=== PATIENT | male | born 1935 | race Caucasian/White ===

== ENCOUNTER 2017-01-07 23:29 | Emergency (ER) | payer OTHER ==
[~2017-01-07 23:29] MED LIST: ATOR40TA PO; FERR325T PO; GABA300C3 PO; IPRA17I INH; PROBCAP28 PO; ST JTAB PO; SYMB160A INH; TAB-TAB PO; WARF2.5T40 PO; WARF5TAB PO; Z.0.OXYGEN INH
--- NOTE | 2017-01-07 23:44 | PD ---
HPI Chief Complaint: nausea, vomiting Time Seen by Provider: 23:39 Travel History International Travel<30 days: No Contact w/Intl Traveler<30days: No Traveled to known affect area: No History of Present Illness HPI 81-year-old male brought in by ambulance from home for evaluation of nausea, vomiting, and diarrhea. Symptoms of been going on for last 5-6 hours. The patient's girlfriend at home has been sick with these symptoms for the last week. Emesis has been bilious, nonbloody. He is denying abdominal pain, chest pain, or dyspnea. He is having some generalized weakness. PFSH Past Medical History Hx Anticoagulant Therapy: Yes (COUMADIN) Asthma: Yes Cancer: No Cardiac Catheterization: Yes Cardiovascular Problems: Yes ([place] (2008)/ STENT, PE HX (2014)) High Cholesterol: Yes Chest Pain: Yes (2007) COPD: Yes Cerebrovascular Accident: Yes Coronary Artery Disease: Yes Diabetes: No (PRE) Diminished Hearing: No Endocrine: No GERD: Yes Genitourinary: No Hepatitis: No Hiatal Hernia: No Hypertension: Yes Immune Disorder: No Implanted Vascular Access Dvce: Yes Kidney Stones: Yes Musculoskeletal: No Neurologic: Yes (TIA) Psychiatric: Yes (EXTREME CLAUSTRAPHOBIA) Reproductive: No Respiratory: Yes (COPD, HEMOPTYSIS) Sleep Apnea: Yes (USES BIPAP MACHINE) Thyroid Disease: No Past Surgical History Abdominal Surgery: Yes (CHOLECYSTECTOMY, APPY/ COLON RESECT (POLYPECTOMY)) AICD: No Appendectomy: Yes Body Medical Devices: CARDIAC STENT Cardiac Surgery: Yes (STENT 2007) Cholecystectomy: Yes (1980) Coronary Stent: Yes Joint Replacement: No Pacemaker: No Other Surgery: Yes (GALLBLADDER 1980) Social History Alcohol Use: No Tobacco Use: No (QUIT DECEMBER 2014) Substance Use: No Allergies-Medications (Allergen,Severity, Reaction): Coded Allergies: No Known Allergies (Verified , 08/08/15) Reported Meds & Prescriptions Reported Meds & Active Scripts Active Active Prescriptions or Reported Medications Unobtainable Review of Systems Except as stated in HPI: all other systems reviewed are Neg Physical Exam Narrative GENERAL: Well-developed, well-nourished, awake, alert, no acute distress. SKIN: Warm and dry. No rash. HEAD: Atraumatic. Normocephalic. EYES: Pupils equal and round. No scleral icterus. No injection or drainage. ENT: Mucous membranes pink and dry. NECK: Trachea midline. No JVD. CARDIOVASCULAR: Regular rate and rhythm. RESPIRATORY: No accessory muscle use. Clear to auscultation. Breath sounds equal bilaterally. GASTROINTESTINAL: Abdomen soft, nondistended. Mild diffuse tenderness without peritoneal signs. MUSCULOSKELETAL: No obvious deformities. No clubbing. No cyanosis. No edema. NEUROLOGICAL: Awake and alert. No obvious cranial nerve deficits. Motor grossly within normal limits. Normal speech. PSYCHIATRIC: Appropriate mood and affect; insight and judgment normal. Data Data Last Documented VS Vital Signs Date Time Temp Pulse Resp B/P Pulse Ox O2 Delivery O2 Flow Rate FiO2 01/08/17 00:10 99.7 103 16 106/53 96 Orders Complete Blood Count With Diff (01/07/17 23:42) Comprehensive Metabolic Panel (01/07/17 23:42) Lipase (01/07/17 23:42) Prothrombin Time / Inr (Pt) (01/07/17 23:42) Act Partial Throm Time (Ptt) (01/07/17 23:42) Urinalysis - C+S If Indicated (01/07/17 23:42) Ct Abd/Pel W Iv Contrast(Rout) (01/07/17 23:42) Iv Access Insert/Monitor (01/07/17 23:42) Ecg Monitoring (01/07/17 23:42) Oximetry (01/07/17 23:42) Ondansetron Inj (Zofran Inj) (01/07/17 23:45) Sodium Chloride 0.9% Flush (Ns Flush) (01/07/17 23:45) Electrocardiogram (01/07/17 23:42) Influenzae A/B Antigen (01/07/17 23:42) Iohexol 350 Inj (Omnipaque 350 Inj) (01/08/17 00:59) Labs Laboratory Tests Test 01/07/17 01/07/17 23:55 23:56 Urine Color YELLOW Urine Turbidity CLEAR Urine pH 5.0 Urine Specific [place] 1.012 Urine Protein TRACE mg/dL Urine Glucose (UA) NEG mg/dL Urine Ketones NEG mg/dL Urine Occult Blood SMALL Urine Nitrite NEG Urine Bilirubin NEG Urine Urobilinogen LESS THAN 2.0 MG/DL Urine Leukocyte Esterase NEG Urine RBC 1 /hpf Urine WBC LESS THAN 1 /hpf Urine Mucus FEW /lpf Microscopic Urinalysis Comment CULT NOT INDICATED White Blood Count 15.2 TH/MM3 Red Blood Count 4.50 MIL/MM3 Hemoglobin 13.3 GM/DL Hematocrit 39.2 % Mean Corpuscular Volume 87.0 FL Mean Corpuscular Hemoglobin 29.5 PG Mean Corpuscular Hemoglobin 33.9 % Concent Red Cell Distribution Width 14.4 % Platelet Count 147 TH/MM3 Mean Platelet Volume 8.3 FL Neutrophils (%) (Auto) 82.3 % Lymphocytes (%) (Auto) 14.3 % Monocytes (%) (Auto) 2.5 % Eosinophils (%) (Auto) 0.1 % Basophils (%) (Auto) 0.8 % Neutrophils # (Auto) 12.6 TH/MM3 Lymphocytes # (Auto) 2.2 TH/MM3 Monocytes # (Auto) 0.4 TH/MM3 Eosinophils # (Auto) 0.0 TH/MM3 Basophils # (Auto) 0.1 TH/MM3 CBC Comment DIFF FINAL Differential Comment Prothrombin Time 10.9 SEC Prothromb Time International 1.0 RATIO Ratio Activated Partial 21.1 SEC Thromboplast Time Sodium Level 140 MEQ/L Potassium Level 4.1 MEQ/L Chloride Level 105 MEQ/L Carbon Dioxide Level 26.5 MEQ/L Anion Gap 9 MEQ/L Blood Urea Nitrogen 15 MG/DL Creatinine 1.34 MG/DL Estimat Glomerular Filtration 51 ML/MIN Rate Random Glucose 134 MG/DL Calcium Level 8.4 MG/DL Total Bilirubin 1.0 MG/DL Aspartate Amino Transf 16 U/L (AST/SGOT) Alanine Aminotransferase 18 U/L (ALT/SGPT) Alkaline Phosphatase 75 U/L Total Protein 6.4 GM/DL Albumin 3.9 GM/DL Lipase 49 U/L [facility] Medical Decision Making Medical Screen Exam Complete: Yes Emergency Medical Condition: Yes Medical Record Reviewed: Yes Differential Diagnosis Viral illness, gastroenteritis, intra-abdominal infectious process, bowel obstruction, dehydration, metabolic abnormality Narrative Course Initial vital signs show heart rate 103, blood pressure 106/53, pulse ox 96% on room air, oral temp of 99.7F. CBC shows WBC 15.2, hemoglobin 13.3, hematocrit 39.2, platelets 147, neutrophils 82.3%. CMP is remarkable for creatinine 1.24, GFR 51, random glucose 134, otherwise unremarkable. UA shows small occult blood, not suggestive of UTI. Influenza is negative. CT abdomen pelvis: CONCLUSION: 1. There has been a significant increase in size of numerous para-aortic lymph nodes when compared to prior CT February 2015. These lymph nodes measure up to 3 cm in size. 2. No dilated loops of small or large bowel. Patient was made aware of all findings. He is resting comfortably. He was made aware of periaortic lymphadenopathy which she states he has been told he has had in the past. He has not had any vomiting in the emergency department. His abdominal exam is benign. He is awake and alert. He is stable for discharge home with outpatient follow-up with his primary care physician this week. He was informed on when to return to the emergency department. He verbalizes understanding and agreement with plan. Diagnosis Primary Impression: Gastroenteritis Referrals: Primary Care Physician 3 days Additional Instructions: Follow-up with your primary care physician this week. Stay hydrated with plenty of fluids. Return to the emergency department for worsening symptoms or any other concerns. Scripts Ondansetron Odt (Zofran Odt)4 Mg Tab4 Mg SL Q8HR PRN (Nausea/Vomiting) #15 TAB Ref 0 Prov:Darius Payne MD 01/08/17 Disposition: 01 DISCHARGE HOME Condition: Stable Darius Payne MD Jan 07, 2017 23:44
[2017-01-07] MEDS ORDERED: SODIUM CHLORIDE 0.9% FLUSH 5 ML FLUSH IVF PRN (23:45)
[2017-01-07] MEDS ORDERED: ONDANSETRON HCL 4 MG/2 ML VIAL IVP ONE (23:45)
[2017-01-08 00:10] VITALS: BP 106/53; PULSE 103; RESP 16; TEMP 99.7; O2SAT 96
[2017-01-08 00:15] LABS: AUTOMATED NEUTROPHIL # 12.6 TH/MM3 (1.8-7.7); BASOPHIL # 0.1 TH/MM3 (0-0.2); BASOPHIL % 0.8 % (0.0-2.0); EOSINOPHIL % 0.1 % (0.0-4.0); HEMATOCRIT 39.2 % (39.0-51.0); HEMO FLAGS DIFF FINAL; LYMPH % 14.3 % (9.0-44.0); LYMPHOCYTE # 2.2 TH/MM3 (1.0-4.8); MEAN CORPUSCULAR HEMOGLOBIN 29.5 PG (27.0-34.0); MEAN CORPUSCULAR HGB CONC 33.9 % (32.0-36.0); MONO % 2.5 % (0.0-8.0); NEUT % 82.3 % (16.0-70.0); PLATELET COUNT 147 TH/MM3 (150-450); RED CELL DISTRIBUTION WIDTH 14.4 % (11.6-17.2); WHITE BLOOD COUNT 15.2 TH/MM3 (4.0-11.0)
[2017-01-08 00:25] LABS: APTT (PATIENT) 21.1 SEC (24.3-30.1); PROTHROMBIN TIME - PATIENT 10.9 SEC (9.8-11.6)
[2017-01-08 00:45] LABS: BLOOD, URINE SMALL (NEG); COMMENT (UR) CULT NOT INDICATED; CULTURE IF INDICATED CULT NOT INDICATED; GLUCOSE,URINE NEG (NEG); KETONE, URINE NEG (NEG); MUCUS URINE FEW /lpf (OCC); NITRITE,URINE NEG (NEG); URINE COLOR YELLOW (YELLW/STRAW)
[2017-01-08 00:45] LABS: ALT (GPT) 18 U/L (12-78); ANION GAP 9 MEQ/L (5-15); AST (GOT) 16 U/L (15-37); BICARBONATE 26.5 MEQ/L (21.0-32.0); BLOOD UREA NITROGEN 15 MG/DL (7-18); CHLORIDE 105 MEQ/L (98-107); GLOMERULAR FILTRATION RATE 51 ML/MIN (>89); POTASSIUM 4.1 MEQ/L (3.5-5.1); SODIUM (NA) 140 MEQ/L (136-145)
[2017-01-08 00:48] LABS: ALKALINE PHOSPHATASE 75 U/L (45-117)
[2017-01-08] MEDS ORDERED: IOHEXOL 350 MG/ML 10 ML VIAL (for RAD DIAG) IV ONE (00:59)
--- NOTE | 2017-01-08 01:29 | RADRPT ---
EXAM DATE/TIME: 01/08/2017 00:59 [facility] COMPARISON: CT PULMONARY ANGIOGRAM, July 04, 2015, 18:24. CT ABDOMEN & PELVIS W/O CONTRAST, March 11, 2015, 1 4:54. INDICATIONS : Abdominal pain and nausea. IV CONTRAST: 97 cc Omnipaque 350 (iohexol) IV ORAL CONTRAST: No oral contrast ingested. RADIATION DOSE: 21.64 CTDIvol (mGy) MEDICAL HISTORY : Cardiovascular disease. Myocardial infarction. Chronic obstructive pulmonary disease.CVA, hypertensio n, Asthma SURGICAL HISTORY : Cholecystectomy. Appendectomy.Colon resection. ENCOUNTER: Initial ACUITY: 1 day PAIN SCALE: 6/10 LOCATION: abdomen TECHNIQUE: Volumetric scanning of the abdomen and pelvis was performed. Using automated exposure control and ad justment of the mA and/or kV according to patient size, radiation dose was kept as low as reasonably achievable to obtain optimal diagnostic quality images. FINDINGS: LOWER LUNGS: Crowding of bronchopulmonary markings in the lower lungs characteristic of submaximal inspiration. LIVER: Homogeneous density without lesion. There is no dilation of the biliary tree. Numerous hemoclips in the fidencio from prior cholecystectomy.. SPLEEN: Normal size without lesion. PANCREAS: Atrophic, stable in appearance. KIDNEYS: Normal in size and shape. There is no mass, stone or hydronephrosis. ADRENAL GLANDS: Within normal limits. VASCULAR: There is no aortic aneurysm. BOWEL/MESENTERY: No dilated loops of small or large bowel. Several small diverticula in sigmoid colon, similar to jalen or. No radiographic evidence of diverticulitis. ABDOMINAL WALL: Within normal limits. RETROPERITONEUM: Numerous moderately enlarged periaortic lymph nodes have increased in size when compared to prior CT in February 2015. The largest lymph nodes are located anterior to the aorta, measuring up to 2.8 cm (this lymph node measured 1.5 cm on the prior CT). BLADDER: No wall thickening or mass. Small right-sided diverticulum stable from prior exam. REPRODUCTIVE: Within normal limits. INGUINAL: Multiple right inguinal lymph nodes measuring up to 10 mm, stable in appearance and size when compare d to prior CT February 2015. MUSCULOSKELETAL: Within normal limits for patient age. CONCLUSION: 1. There has been a significant increase in size of numerous para-aortic lymph nodes when compared to prior CT February 2015. These lymph nodes measure up to 3 cm in size. 2. No dilated loops of small or large bowel. Kana Wilson MD on January 08, 2017 at 1:19 Board Certified Radiologist. This report was verified electronically.
[2017-01-08] MEDS ORDERED: ZOFR4TAB3 SL (01:44)
[2017-01-08] MEDS ORDERED: GABA300C5 PO (12:05)
[2017-01-08] MEDS ORDERED: ASPI-147 PO (12:05)
[2017-01-08] MEDS ORDERED: SYMB160A INH (12:05)
[2017-01-08] MEDS ORDERED: IPRAAER INH (12:05)
[2017-01-08] MEDS ORDERED: ALPR.5 PO (12:05)
[2017-01-08] MEDS ORDERED: LACTCAP8 PO (12:08)
[2017-01-08] MEDS ORDERED: MULT-135 PO (12:08)
--- NOTE | 2017-01-08 17:38 | EKG ---
Date Performed: 01/08/2017 Time Performed: 00:30:47 PTAGE: 81 years EKG: SINUS TACHYCARDIA LEFT BUNDLE BRANCH BLOCK BORDERLINE [place] INTERVAL SINCE 07/04/2015, THE LBBB PATTERN IS NEW. ABNORMAL ECG PREVIOUS TRACING : 07/04/2015 16.03 DOCTOR: Joni Peres Interpretating Date/Time 01/10/2017 07:54:56
== END 2017-01-08 04:19 | disposition home or self-care (01) ==
LOC: NEPE 23:29
DX: K52.9 Noninfective gastroenteritis and colitis, unspecified (principal); J45.909 Unspecified asthma, uncomplicated; E78.00 Pure hypercholesterolemia, unspecified; J44.9 Chronic obstructive pulmonary disease, unspecified; I10 Essential (primary) hypertension; Z79.01 Long term (current) use of anticoagulants
CPT/HCPCS: 74177; 80053; 81001; 83690; 85025; 85610; 85730; 87804; 93005; 96374; J2405; Q9967

== ENCOUNTER 2017-01-08 08:11 | Inpatient (IN) | payer OTHER, MEDICARE ==
[~2017-01-08] VITALS: Ht 182.9 cm; Wt 114.3 kg
[2017-01-08] VITALS (21 sets, daily range): BP systolic 90–154; BP diastolic 35–87; PULSE 74–128; RESP 16–24; TEMP 97.6–98; O2SAT 85–100
[~2017-01-08 08:11] MED LIST changes: +ZOFR4TAB3 SL
[2017-01-08] MEDS ORDERED: SODIUM CHLOR 0.9% 1000 ML INJ 1,000 ML IV ONE ×3 (08:42→15:43)
[2017-01-08] MEDS ORDERED: SODIUM CHLORIDE 0.9% FLUSH 5 ML FLUSH IVF PRN (08:45)
--- NOTE | 2017-01-08 08:46 | PD ---
HPI Chief Complaint: Fall Time Seen by Provider: 08:42 Travel History International Travel<30 days: No Contact w/Intl Traveler<30days: No Traveled to known affect area: No History of Present Illness HPI 81-year-old male with history of multiple medical issues, seen last night for gastritis, was released to the home, but returns brought in by EMS because patient states that he was so weak he went down to the ground and could not get back up. He still complains of nausea and vomiting. He denies any chest pains , shortness of breath, or any injuries. He denies any head injury or loss of consciousness. Modifying Factors: None Associated Signs & Symptoms: General weakness, nausea and vomiting Risk Factors: None PFSH Past Medical History Hx Anticoagulant Therapy: Yes (COUMADIN) Asthma: Yes Cancer: No Cardiac Catheterization: Yes Cardiovascular Problems: Yes ([place] (2008)/ STENT, PE HX (2014)) High Cholesterol: Yes Chest Pain: Yes (2007) COPD: Yes Cerebrovascular Accident: Yes Coronary Artery Disease: Yes Diminished Hearing: No Endocrine: No GERD: Yes Genitourinary: No Hepatitis: No Hiatal Hernia: No Hypertension: Yes (TRANSIENTLY) Immune Disorder: No Implanted Vascular Access Dvce: Yes Kidney Stones: Yes Musculoskeletal: No Neurologic: Yes (TIA) Psychiatric: Yes (EXTREME CLAUSTRAPHOBIA) Reproductive: No Respiratory: Yes (COPD, HEMOPTYSIS) Immunizations Current: Yes Sleep Apnea: Yes (USES BIPAP MACHINE) Thyroid Disease: No Past Surgical History Abdominal Surgery: Yes (CHOLECYSTECTOMY, APPY/ COLON RESECT (POLYPECTOMY)) AICD: No Appendectomy: Yes Body Medical Devices: CARDIAC STENT Cardiac Surgery: Yes (STENT 2007) Cholecystectomy: Yes (1980) Coronary Stent: Yes Joint Replacement: No Pacemaker: No Other Surgery: Yes (GALLBLADDER 1980) Social History Alcohol Use: No Tobacco Use: No (QUIT DECEMBER 2014) Substance Use: No Allergies-Medications (Allergen,Severity, Reaction): Coded Allergies: No Known Allergies (Verified , 08/08/15) Reported Meds & Prescriptions Reported Meds & Active Scripts Active Zofran Odt (Ondansetron Odt) 4 Mg Tab 4 Mg SL Q8HR PRN Review of Systems Except as stated in HPI: all other systems reviewed are Neg Physical Exam Narrative GENERAL: Well-developed tired appearing elderly white male in mild distress. Awake, oriented 3. SKIN: Warm and dry. HEAD: Atraumatic. Normocephalic. EYES: Pupils equal and round. No scleral icterus. No injection or drainage. ENT: No nasal bleeding or discharge. Mucous membranes pink and moist. NECK: Trachea midline. No JVD. CARDIOVASCULAR: Regular rate and rhythm. No murmur appreciated. RESPIRATORY: No accessory muscle use. Clear to auscultation. Breath sounds equal bilaterally. GASTROINTESTINAL: Abdomen soft, non-tender, nondistended. Hepatic and splenic margins not palpable. MUSCULOSKELETAL: No obvious deformities. No clubbing. No cyanosis. No edema. NEUROLOGICAL: Awake and alert. No obvious cranial nerve deficits. Motor grossly within normal limits. Normal speech. PSYCHIATRIC: Appropriate mood and affect; insight and judgment normal. Data Data Last Documented VS Vital Signs Date Time Temp Pulse Resp B/P Pulse Ox O2 Delivery O2 Flow Rate FiO2 01/08/17 09:13 98 22 111/57 96 Nasal Cannula 4 01/08/17 08:11 98.0 Orders Electrocardiogram (01/08/17 ) Complete Blood Count With Diff (01/08/17 08:42) Comprehensive Metabolic Panel (01/08/17 08:42) Magnesium (Mg) (01/08/17 08:42) Urinalysis - C+S If Indicated (01/08/17 08:42) Chest, Single Ap (01/08/17 08:42) Ecg Monitoring (01/08/17 08:42) Iv Access Insert/Monitor (01/08/17 08:42) Oximetry (01/08/17 08:42) Sodium Chloride 0.9% Flush (Ns Flush) (01/08/17 08:45) Sodium Chlor 0.9% 1000 Ml Inj (Ns 1000 M (01/08/17 08:42) Blood Culture (01/08/17 09:22) Lactic Acid Sepsis Protocol (01/08/17 09:22) Piperacil-Tazo 4.5 Gm Premix (Zosyn 4.5 (01/08/17 09:22) Azithromycin Inj (Zithromax Inj) (01/08/17 09:45) Admit To Inpatient (01/08/17 ) Inpatient Certification (01/08/17 ) Diet Heart Healthy (01/08/17 Lunch) Activity Bed Rest (01/08/17 10:24) Vital Signs (Adult) NICO.Q4H (01/08/17 10:24) Labs Laboratory Tests Test 01/08/17 08:45 White Blood Count 20.2 TH/MM3 Red Blood Count 4.46 MIL/MM3 Hemoglobin 13.1 GM/DL Hematocrit 39.3 % Mean Corpuscular Volume 88.2 FL Mean Corpuscular Hemoglobin 29.4 PG Mean Corpuscular Hemoglobin 33.3 % Concent Red Cell Distribution Width 14.6 % Platelet Count 162 TH/MM3 Mean Platelet Volume 9.1 FL Neutrophils (%) (Auto) 80.0 % Lymphocytes (%) (Auto) 12.9 % Monocytes (%) (Auto) 6.9 % Eosinophils (%) (Auto) 0.0 % Basophils (%) (Auto) 0.2 % Neutrophils # (Auto) 16.2 TH/MM3 Lymphocytes # (Auto) 2.6 TH/MM3 Monocytes # (Auto) 1.4 TH/MM3 Eosinophils # (Auto) 0.0 TH/MM3 Basophils # (Auto) 0.0 TH/MM3 CBC Comment AUTO DIFF Differential Total Cells 100 Counted Neutrophils % (Manual) 65 % Band Neutrophils % 18 % Lymphocytes % 11 % Monocytes % 6 % Neutrophils # (Manual) 16.8 TH/MM3 Differential Comment FINAL DIFF MANUAL Platelet Estimate NORMAL Platelet Morphology Comment NORMAL Red Cell Morphology Comment NORMAL Sodium Level 140 MEQ/L Potassium Level 3.9 MEQ/L Chloride Level 105 MEQ/L Carbon Dioxide Level 22.7 MEQ/L Anion Gap 12 MEQ/L Blood Urea Nitrogen 20 MG/DL Creatinine 1.93 MG/DL Estimat Glomerular Filtration 34 ML/MIN Rate Random Glucose 101 MG/DL Calcium Level 8.6 MG/DL Magnesium Level 1.4 MG/DL Total Bilirubin 1.2 MG/DL Aspartate Amino Transf 19 U/L (AST/SGOT) Alanine Aminotransferase 17 U/L (ALT/SGPT) Alkaline Phosphatase 64 U/L Total Protein 6.2 GM/DL Albumin 3.5 GM/DL [facility] Medical Decision Making Medical Screen Exam Complete: Yes Emergency Medical Condition: Yes Medical Record Reviewed: Yes Interpretation(s) Laboratory Tests Test 01/08/17 08:45 White Blood Count 20.2 TH/MM3 (4.0-11.0) Red Blood Count 4.46 MIL/MM3 (4.50-5.90) Neutrophils (%) (Auto) 80.0 % (16.0-70.0) Neutrophils # (Auto) 16.2 TH/MM3 (1.8-7.7) Monocytes # (Auto) 1.4 TH/MM3 (0-0.9) Band Neutrophils % 18 % (0-6) Neutrophils # (Manual) 16.8 TH/MM3 (1.8-7.7) Blood Urea Nitrogen 20 MG/DL (7-18) Creatinine 1.93 MG/DL (0.60-1.30) Estimat Glomerular Filtration 34 ML/MIN (>89) Rate Magnesium Level 1.4 MG/DL (1.5-2.5) Total Bilirubin 1.2 MG/DL (0.2-1.0) Total Protein 6.2 GM/DL (6.4-8.2) Differential Diagnosis General weaknessdehydration versus metabolic issues versus worsening sepsis Narrative Course Chest x-ray indicative of pneumonia. Patient is septic. IV access were initiated after cultures are drawn. My plan would be to admit the patient for further treatment. Sepsis Criteria SIRS Criteria (2 or more): Heart rate over 90, WBC > 94677, < 4000 or > 10% bands Sepsis Criteria (SIRS+source): Infect source susp/known Diagnosis Primary Impression: Pneumonia Additional Impression: Sepsis Admitting Information Admitting Physician Requests: Admit Kaylyn Grace MD Jan 08, 2017 08:46
--- NOTE | 2017-01-08 09:19 | RADRPT ---
EXAM DATE/TIME: 01/08/2017 08:45 [facility] COMPARISON: CHEST SINGLE AP, August 11, 2015, 11:52. INDICATIONS : Palpitations, vomitting. MEDICAL HISTORY : None. SURGICAL HISTORY : None. ENCOUNTER: Initial ACUITY: 1 day PAIN SCORE: 0/10 LOCATION: Bilateral chest FINDINGS: The heart size is normal. There is increased density throughout the right upper lung. There is a unde rlying interstitial prominence throughout the rest of the lungs. The Interstitial prominence is stabl e. CONCLUSION: Right upper lobe consolidation likely representing pneumonia. Aspiration could have this appearance. There is underlying chronic interstitial prominence. Bar Arias MD on January 08, 2017 at 9:16 Board Certified Radiologist. This report was verified electronically.
[2017-01-08 09:20] LABS: AUTOMATED NEUTROPHIL # 16.2 TH/MM3 (1.8-7.7); BASOPHIL % 0.2 % (0.0-2.0); HEMATOCRIT 39.3 % (39.0-51.0); LYMPH % 12.9 % (9.0-44.0); LYMPHOCYTE # 2.6 TH/MM3 (1.0-4.8); MEAN CELL VOLUME 88.2 FL (80.0-100.0); MEAN CORPUSCULAR HEMOGLOBIN 29.4 PG (27.0-34.0); MEAN CORPUSCULAR HGB CONC 33.3 % (32.0-36.0); MONO % 6.9 % (0.0-8.0); PLATELET COUNT 162 TH/MM3 (150-450); RED BLOOD COUNT 4.46 MIL/MM3 (4.50-5.90); RED CELL DISTRIBUTION WIDTH 14.6 % (11.6-17.2); WHITE BLOOD COUNT 20.2 TH/MM3 (4.0-11.0)
[2017-01-08 09:21] LABS: HEMO FLAGS AUTO DIFF
[2017-01-08] MEDS ORDERED: PIPERACIL-TAZO 4.5 GM PREMIX 100 ML IV STA (09:22)
[2017-01-08 09:37] LABS: ANION GAP 12 MEQ/L (5-15); AST (GOT) 19 U/L (15-37); BICARBONATE 22.7 MEQ/L (21.0-32.0); BLOOD UREA NITROGEN 20 MG/DL (7-18); CHLORIDE 105 MEQ/L (98-107); GLOMERULAR FILTRATION RATE 34 ML/MIN (>89); MAGNESIUM 1.4 MG/DL (1.5-2.5); POTASSIUM 3.9 MEQ/L (3.5-5.1); SODIUM (NA) 140 MEQ/L (136-145)
[2017-01-08 09:40] LABS: ALKALINE PHOSPHATASE 64 U/L (45-117); ALT (GPT) 17 U/L (12-78); TOTAL BILIRUBIN ADULT 1.2 MG/DL (0.2-1.0)
[2017-01-08] MEDS ORDERED: AZITHROMYCIN INJ 500 MG in SODIUM CHLOR 0.9% 250 ML INJ 250 ML IV ONE (09:45)
[2017-01-08 10:00] LABS: BANDS 18 % (0-6); NEUTROPHIL # MANUAL DIFF 16.8 TH/MM3 (1.8-7.7); POLYS (SEG NEUTROPHILS) 65 % (16-70); WBC DIFF SAMPLE 100
[2017-01-08 10:01] LABS: PLATELET ESTIMATE SMEAR NORMAL (NORMAL); PLATELET MORPHOLOGY NORMAL (NORMAL); SCAN/DIFF FINAL DIFF MANUAL
[2017-01-08] MEDS ORDERED: SODIUM CHLOR 0.9% 1000 ML INJ 1,000 ML IV SCH ×2 (11:00→15:43)
[2017-01-08 11:59] LABS: LACTIC ACID GHOST NOT REPORTABLE
[2017-01-08] MEDS ORDERED: GABA300C5 PO (12:05)
[2017-01-08] MEDS ORDERED: SYMB160A INH (12:05)
[2017-01-08] MEDS ORDERED: ASPI-147 PO (12:05)
[2017-01-08] MEDS ORDERED: IPRAAER INH (12:05)
[2017-01-08] MEDS ORDERED: ALPR.5 PO (12:05)
[2017-01-08] MEDS ORDERED: MULT-135 PO (12:08)
[2017-01-08] MEDS ORDERED: LACTCAP8 PO (12:08)
[2017-01-08 14:48] LABS: BACTERIA, URINE OCC /hpf; BLOOD, URINE SMALL (NEG); GLUCOSE,URINE NEG (NEG); HYALINE CAST, URINE 1 /lpf (RARE); KETONE, URINE NEG (NEG); NITRITE,URINE NEG (NEG); PH, URINE 5.5 (5.0-8.5); SQUAMOUS EPITHELIAL CELL URINE <1 /hpf (0-5); URINE COLOR YELLOW (YELLW/STRAW)
[2017-01-08 14:49] LABS: COMMENT (UR) CULT NOT INDICATED; CULTURE IF INDICATED CULT NOT INDICATED
[2017-01-08] MEDS ORDERED: CHLORHEXIDINE GLUCONATE 2 % 1 PACK (2 CLOTHS) TOP PRN (15:45)
[2017-01-08] MEDS ORDERED: ALPRAZolam 0.5 MG TAB PO PRN (15:45)
[2017-01-08] MEDS ORDERED: SODIUM CHLORIDE 0.9% FLUSH 5 ML FLUSH IV FLUSH PRN (15:45)
[2017-01-08] MEDS ORDERED: CALCIUM CARBONATE 500 MG CHEWABLE TAB CHEW PRN (15:45)
[2017-01-08] MEDS ORDERED: LORazepam 2 MG/ML VIAL IV PUSH PRN (15:45)
[2017-01-08] MEDS ORDERED: ACETAMINOPHEN 325 MG TAB PO PRN (15:45)
[2017-01-08] MEDS ORDERED: MISCELLANEOUS NURSING INFORMATION XX SCH (15:45)
[2017-01-08] MEDS ORDERED: DOCUSATE SODIUM 50 MG/SENNA 8.6 MG TAB PO PRN (15:45)
[2017-01-08] MEDS ORDERED: MAGNESIUM SULFATE 1 GM PREMIX 100 ML IV ONE (16:00)
[2017-01-08] MEDS: RESP: ALBUTEROL 2.5 MG/IPRATROPIUM 0.5 MG NEB (SCH) NEB ×2 (16:04→20:26)
--- NOTE | 2017-01-08 16:07 | HHI.HP ---
[facility] Primary Care Physician Unknown Admission Diagnosis pneumonia/sepsis Diagnoses: Chief Complaint: Dizziness Travel History International Travel<30 Days: No Contact w/Intl Traveler <30 Da: No Traveled to Known Affected Are: No Sepsis Criteria SIRS Criteria (2 or more): Heart rate over 90, RR > 20 or PaCO2 < 32, WBC > 01235, < 4000 or > 10% bands Sepsis Criteria (SIRS+source): Infect source susp/known Severe Sepsis (+one): Lactate >2, Acute Oliguria/Renal Failure Septic Shock Criteria: Lactic acid >=4 Criteria Outcome: Meets SIRS criteria, Meets sepsis criteria, Meets severe sepsis criteria, Meets septic shock criteria History of Present Illness This is a 81-year-old male with a history of COPD, CVA, coronary artery disease status post stent in 2008, PE in 2015 status post Coumadin therapy, obstructive sleep apnea on C Pap, hyperlipidemia, hypertension and GERD. He returns to the emergency department because of dizziness. He was seen in the [place] emergency department yesterday because of dizziness, weakness, nausea and vomiting which started 3 days ago and was diagnosed with gastroenteritis underwent CT of the abdomen pelvis with contrast and sent home. He also reports of intermittent fever, chills, nonproductive cough and dyspnea on exertion. He also has lower back pain. He also noted that his urine has been concentrated. In the emergency department, Chest x-ray shows pneumonia, lactic acid was 6.1 and received 2 L IV fluid bolus, IV Zithromax and Zosyn. Repeat lactic acid is 6.2. He only put out 150 ml urine. Case discussed with ER staff and critical care medicine Review of Systems Constitutional: COMPLAINS OF: Fatigue, Fever, Chills, Dizziness, DENIES: Diaphoretic episodes, Weight gain, Weight loss, Change in appetite, Night Sweats Endocrine: DENIES: Heat/cold intolerance, Polydipsia, Polyuria, Polyphagia Eyes: DENIES: Blurred vision, Diplopia, Vision loss, Photosensitivity Ears, nose, mouth, throat: DENIES: Tinnitus, Vertigo, Throat pain, Hoarseness, Epistaxis, Odynophagia Respiratory: COMPLAINS OF: Cough, Shortness of breath, DENIES: Wheezing, Hemoptysis, Sputum production Cardiovascular: COMPLAINS OF: Dyspnea on Exertion, DENIES: Chest pain, Palpitations, Syncope, PND, Lower Extremity Edema, Orthopnea, Claudication Gastrointestinal: DENIES: Abdominal pain, Black stools, Bloody stools, Constipation, Diarrhea, Nausea, Vomiting, Difficulty Swallowing, Anorexia Genitourinary: DENIES: Urinary frequency, Urinary incontinence, Urgency, Hematuria, Dysuria, Nocturia, Penile Discharge Musculoskeletal: COMPLAINS OF: Back pain Integumentary: DENIES: Rash Neurologic: DENIES: Headache, Localized weakness, Seizures, Tremor, Poor Balance Psychiatric: DENIES: Anxiety, Confusion, Depression, Hallucinations, Agitation , Suicidal Ideation, Homicidal Ideation, Delusions Past Family Social History Past Medical History As previously mentioned Past Surgical History Cholecystectomy, appendectomy, polypectomy, cardiac stent Reported Medications Zofran, Symbicort, gabapentin, probiotic, Xanax, albuterol, multivitamins and aspirin Allergies: Coded Allergies: No Known Allergies (Verified , 08/08/15) Family History No heart disease Social History Does not drink. Quit tobacco. Physical Exam Vital Signs Vital Signs Date Time Temp Pulse Resp B/P Pulse Ox O2 Delivery O2 Flow Rate FiO2 01/08/17 15:00 95 22 148/87 94 Nasal Cannula 4 01/08/17 14:00 97 24 92 Nasal Cannula 4 01/08/17 12:00 98 20 108/52 98 Nasal Cannula 4 01/08/17 09:13 98 22 111/57 96 Nasal Cannula 4 01/08/17 08:44 24 87 Room Air 01/08/17 08:15 100 24 90 Room Air 01/08/17 08:11 98.0 100 24 103/59 87 Physical Exam GENERAL: This is a well-nourished, well-developed patient who is critically ill on 6 L nasal cannula SKIN: No rashes, ecchymoses or lesions. Cool and dry. HEAD: Atraumatic. Normocephalic. No temporal or scalp tenderness. EYES: Pupils equal round and reactive. Extraocular motions intact. No scleral icterus. No injection or drainage. ENT: Nose without bleeding, purulent drainage or septal hematoma. Throat without erythema, tonsillar hypertrophy or exudate. Uvula midline. Airway patent. NECK: Trachea midline. No JVD or lymphadenopathy. Supple, nontender, no meningeal signs. CARDIOVASCULAR: Regular rate and rhythm without murmurs, gallops, or rubs. RESPIRATORY: Decreased Breath sounds equal bilaterally. No wheezes, rales, or rhonchi. GASTROINTESTINAL: Abdomen soft, slightly tender epigastric, nondistended. No guarding. MUSCULOSKELETAL: Extremities without clubbing, cyanosis, or edema. No joint tenderness, effusion, or edema noted. No calf tenderness. Negative Homans sign bilaterally. NEUROLOGICAL: Awake and alert. Cranial nerves II through XII intact. Motor and sensory grossly within normal limits. Five out of 5 muscle strength in all muscle groups. Normal speech. Laboratory Laboratory Tests Test 01/08/17 01/08/17 01/08/17 08:45 09:45 14:30 White Blood Count 20.2 Red Blood Count 4.46 Hemoglobin 13.1 Hematocrit 39.3 Mean Corpuscular Volume 88.2 Mean Corpuscular Hemoglobin 29.4 Mean Corpuscular Hemoglobin 33.3 Concent Red Cell Distribution Width 14.6 Platelet Count 162 Mean Platelet Volume 9.1 Neutrophils (%) (Auto) 80.0 Lymphocytes (%) (Auto) 12.9 Monocytes (%) (Auto) 6.9 Eosinophils (%) (Auto) 0.0 Basophils (%) (Auto) 0.2 Neutrophils # (Auto) 16.2 Lymphocytes # (Auto) 2.6 Monocytes # (Auto) 1.4 Eosinophils # (Auto) 0.0 Basophils # (Auto) 0.0 CBC Comment AUTO DIFF Differential Total Cells 100 Counted Neutrophils % (Manual) 65 Band Neutrophils % 18 Lymphocytes % 11 Monocytes % 6 Neutrophils # (Manual) 16.8 Differential Comment FINAL DIFF MANUAL Platelet Estimate NORMAL Platelet Morphology Comment NORMAL Red Cell Morphology Comment NORMAL Sodium Level 140 Potassium Level 3.9 Chloride Level 105 Carbon Dioxide Level 22.7 Anion Gap 12 Blood Urea Nitrogen 20 Creatinine 1.93 Estimat Glomerular Filtration 34 Rate Random Glucose 101 Calcium Level 8.6 Magnesium Level 1.4 Total Bilirubin 1.2 Aspartate Amino Transf 19 (AST/SGOT) Alanine Aminotransferase 17 (ALT/SGPT) Alkaline Phosphatase 64 Total Protein 6.2 Albumin 3.5 Lactic Acid Level 6.1 6.2 Urine Color YELLOW Urine Turbidity CLEAR Urine pH 5.5 Urine Specific [place] 1.050 Urine Protein 30 Urine Glucose (UA) NEG Urine Ketones NEG Urine Occult Blood SMALL Urine Nitrite NEG Urine Bilirubin NEG Urine Urobilinogen LESS THAN 2.0 Urine Leukocyte Esterase NEG Urine RBC 2 Urine WBC 3 Urine Squamous Epithelial <1 Cells Urine Bacteria OCC Urine Hyaline Casts 1 Microscopic Urinalysis Comment CULT NOT INDICATED Date/Time Procedure Status Source Growth 01/08/17 09:45 Aerobic Blood Culture Received Blood Peripheral Pending 01/08/17 09:45 Anaerobic Blood Culture Received Blood Peripheral Pending Result Diagram: 01/08/17 0845 01/08/17 0845 Imaging EKG tracing interpreted by me with left bundle branch block Chest x-ray image interpreted by me with right upper lobe consolidation Assessment and Plan Problem List: (1) Sepsis ICD Code: A41.9 Status: Acute (2) Pneumonia ICD Code: J18.9 Status: Acute (3) COPD (chronic obstructive pulmonary disease) ICD Code: J44.9 Status: Acute Assessment and Plan Septic shock. Lactic acid 6.2. We'll continue IV fluid bolus with additional 2 L, a total of 4 L and repeat lactic acid. Patient will be transferred to ICU for close monitoring Pneumonia. Obtain influenza screen, sputum culture, urinary Legionella and pneumococcal antigen and follow-up cultures. Continue IV Zosyn and Zithromax COPD exacerbation. Obtain ABG, start scheduled nebulizations and IV steroids Acute kidney injury secondary to above and dehydration. Patient also received contrast. Urinalysis without casts. Obtain bladder scan and insert Woodward catheter if patient has urinary retention. Avoid nephrotoxins Prominent para-aortic lymph nodes which the patient had in the past. Outpatient follow-up LBBB probably new. Patient denies chest pain. Chronic medical conditions of CVA, coronary Artery disease status post stent in 2008, PE in 2014 status post Coumadin therapy, obstructive sleep apnea on C Pap, hyperlipidemia, hypertension and GERD. Continue outpatient medications as appropriate DVT prophylaxis with SCD and subcutaneous heparin Pt is critically ill and will be monitored in the ICU. Hi likelihood of decompensation resulting to acute resp failure requiring intubation and hemodynamic collapse needing vasopressors. Critical time spent 40 mins Code Status Full Discussed Condition With pt, ER staff and CCM Physician Certification 2 Midnight Certification Type: Admission for Inpatient Services Order for Inpatient Services The services are ordered in accordance with Medicare regulations or non- Medicare payer requirements, as applicable. In the case of services not specified as inpatient-only, they are appropriately provided as inpatient services in accordance with the 2-midnight benchmark. Estimated LOS (days): 2 days is the estimated time the patient will need to remain in the hospital, assuming treatment plan goals are met and no additional complications. Post-Hospital Plan: Not yet determined Navarro Peña MD Jan 08, 2017 16:06
[2017-01-08] MEDS: methylPREDNISolone SOD SUCC 40 MG/1 ML VIAL IV SCH (16:08)
[2017-01-08 16:13] LABS: BLOOD GAS BASE EXCESS -5.7 mmol/L (-2-2); BLOOD GAS CARBOXYHEMOGLOBIN 1.3 % (0-4); BLOOD GAS HCO3 19 mmol/L (22-26); BLOOD GAS METHEMOGLOBIN 0.6 % (0-2); BLOOD GAS O2 HGB SATURATION 89 % (90-100); BLOOD GAS OXYGEN CONTENT 14.3 Vol % (12.0-20.0); BLOOD GAS PCO2 33 mmHg (38-42); BLOOD GAS PO2 58 mmHG (61-120); BLOOD GAS TOTAL HGB 11.4 G/DL (12.0-16.0); CRITICAL VALUE YES; DRAW SITE LT RADIAL; LITER FLOW 6 L/M; NUMBER OF ARTERIAL PUNCTURES 2; OXYGEN DEVICE NASAL CANNULA; STAT YES; TEMP CORR TO 98.6; ULNAR PULSE PRESENT
[2017-01-08] MEDS: PIPERACIL-TAZO 4.5 GM PREMIX 100 ML IV SCH ×2 (16:13→22:52)
[2017-01-08] MEDS ORDERED: SUCCINYLCHOLINE CHLORIDE 200 MG/10 ML VIAL ONE (16:57)
[2017-01-08] MEDS ORDERED: MIDAZOLAM HCL 5 MG/ML VIAL (1 ML) ONE ×2 (16:57→16:58)
[2017-01-08] MEDS ORDERED: PROPOFOL 1000 MG/100 ML INJ 100 ML ONE (17:24)
[2017-01-08] MEDS ORDERED: NOREPINEPHRINE 4 MG/4 ML AMP ONE (17:38)
--- NOTE | 2017-01-08 17:38 | EKG ---
Date Performed: 01/08/2017 Time Performed: 08:31:01 PTAGE: 81 years EKG: Sinus rhythm WITH BORDERLINE MD INTERVAL LEFT BUNDLE BRANCH BLOCK Compared to prior tracing no significant change ABNORMAL ECG PREVIOUS TRACING : 01/08/2017 00.30 DOCTOR: Joni Peres Interpretating Date/Time 01/08/2017 17:37:04
[2017-01-08] MEDS ORDERED: RESP: ALBUTEROL 2.5 MG/IPRATROPIUM 0.5 MG NEB (PRN) INH (17:45)
[2017-01-08] MEDS ORDERED: MAGNESIUM OXIDE 400 MG TAB PO PRN (17:45)
[2017-01-08] MEDS ORDERED: POTASSIUM CHLOR 20 MEQ PREMIX 100 ML IV PRN ×2 (17:45)
[2017-01-08] MEDS ORDERED: POTASSIUM CHLOR 40 MEQ PREMIX 100 ML IV PRN ×2 (17:45)
[2017-01-08] MEDS ORDERED: POTASSIUM PHOSPHATE INJ 30 MMOL in SODIUM CHLOR 0.9% 250 ML INJ 250 ML IV PRN (17:45)
[2017-01-08] MEDS ORDERED: SODIUM PHOSPHATE INJ 30 MMOL in SODIUM CHLOR 0.9% 250 ML INJ 240 ML IV PRN (17:45)
[2017-01-08] MEDS ORDERED: POTASSIUM PHOSPHATE MONOBASIC 500 MG TAB PO PRN (17:45)
[2017-01-08] MEDS ORDERED: DEXTROSE 50% IN WATER 50 ML VIAL(D50) IV PUSH PRN (17:45)
[2017-01-08] MEDS ORDERED: MAGNESIUM SULFATE INJ 4 GM in SODIUM CHLORIDE 0.9% INJ 92 ML IV PRN (17:45)
[2017-01-08] MEDS ORDERED: MAGNESIUM SULFATE INJ 2 GM in SODIUM CHLORIDE 0.9% INJ 96 ML IV PRN (17:45)
[2017-01-08] MEDS ORDERED: POTASSIUM PHOSPHATE MONOBASIC 500 MG TAB PO/TUBE PRN (17:45)
[2017-01-08] MEDS: LACTOBACILLUS ACIDOPHILUS TAB PO SCH (18:00)
[2017-01-08] MEDS: INSULIN NovoLIN REGULAR SUPPLEMENTAL SCALE SQ SCH (18:00)
[2017-01-08] MEDS ORDERED: SODIUM BICARBONATE 8.4% INJ 50 ML ONE (18:11)
[2017-01-08] MEDS ORDERED: SODIUM BICARBONATE 8.4% INJ 50 MEQ/50 ML SYR ONE ×2 (18:12→19:57)
[2017-01-08] MEDS: HEPARIN SODIUM - SQ 10,000 UNITS/ML VIAL SQ SCH (18:17)
[2017-01-08 18:20] LABS: BLOOD GAS BASE EXCESS -12.1 mmol/L (-2-2); BLOOD GAS CARBOXYHEMOGLOBIN 0.7 % (0-4); BLOOD GAS HCO3 16 mmol/L (22-26); BLOOD GAS METHEMOGLOBIN 0.7 % (0-2); BLOOD GAS O2 HGB SATURATION 92 % (90-100); BLOOD GAS OXYGEN CONTENT 15.8 Vol % (12.0-20.0); BLOOD GAS PCO2 51 mmHg (38-42); BLOOD GAS PO2 83 mmHG (61-120); BLOOD GAS TOTAL HGB 12.2 G/DL (12.0-16.0); TEMP CORR TO 98.6
[2017-01-08 18:21] LABS: CRITICAL VALUE YES; DRAW SITE ART LINE; FIO2 100 %; OXYGEN DEVICE VENTILATOR; STAT YES; ULNAR PULSE PRESENT; VENT SETTINGS PRVC/AC
--- NOTE | 2017-01-08 18:37 | PD.CONS ---
[facility] Service Critical Care Medicine Consult Requested By Dr. Peña Reason for Consult hypoxemia Primary Care Physician Unknown History of Present Illness 81yM with h/o COPD and prior PE who presented yesterday with history of nausea/ vomiting and was worked up including negative CT abd/pelvis with IV contrast. He returned this morning due to dizziness. At that time he had a lactate of 6, wbc 20k, and cxr demonstrating RUL pneumonia. he was given zosyn and 4L IVF. Repeat lactate demonstrated persistent lactic acidosis of 6. Also, after 6 hours, his uop was < 200cc. A castro catheter was inserted. his Cr was also elevated at 1.9. At this point, he became acutely hypoxemic and agitated. I was called and immediately went down to evaluate the patient. When I walked in , he was agitated and pulling off his NRB mask. He did not have a reliable spo2 monitor waveform and an abg was drawn with a po2 of 50. Decision was made to pursue emergent intubation (see separate procedure note for details). After intubation, the patient became hypotensive requiring vasopressor therapy and additional fluid boluses were given. Due to his impending cardiovascular collapse, a STAT echo was ordered which demonstrated hyperdynamic biventricular function, moderate pulmonary hypertension, and very collapsable IVC. He was given an additional 2L IVF and 2 amps bicarbonate for pH 7.11 on repeat abg with severe metabolic acidosis with BE -12. He was started on norepinephrine and vasopressin. He was transported to the medical ICU in critical condition. Review of Systems ROS Limitations: Clinical Condition, Altered Mental Status Past Family Social History Allergies: Coded Allergies: No Known Allergies (Verified , 08/08/15) Past Medical History Patient is unable to provide secondary to severe respiratory distress. Per chart review: COPD CVA coronary artery disease status post stent in 2008 PE in 2014 status post Coumadin therapy obstructive sleep apnea on C Pap hyperlipidemia hypertension GERD Past Surgical History Patient is unable to provide secondary to severe respiratory distress. Per chart review: Cholecystectomy appendectomy polypectomy cardiac stent Reported Medications Patient is unable to provide secondary to severe respiratory distress. Per chart review: Zofran Symbicort gabapentin probiotic Xanax albuterol multivitamins aspirin Active Ordered Medications See MAR Family History Patient is unable to provide secondary to severe respiratory distress. Per chart review: No heart disease Social History Patient is unable to provide secondary to severe respiratory distress. Per chart review: Does not drink. Quit tobacco. Physical Exam Vital Signs Vital Signs Date Time Temp Pulse Resp B/P Pulse Ox O2 Delivery O2 Flow Rate FiO2 01/08/17 18:00 107 18 96/35 100 Ventilator 100 01/08/17 17:45 114 18 96/36 92 Ventilator 100 01/08/17 17:34 117 18 136/60 88 Ventilator 136/48 01/08/17 17:18 90 100 01/08/17 17:14 128 16 154/65 85 Ventilator 100 01/08/17 17:13 100 01/08/17 16:14 91 Non-Rebreather 15.00 01/08/17 16:05 90 Nasal Cannula 6.00 01/08/17 16:00 89 22 110/65 90 Partial Rebreather 01/08/17 15:00 95 22 148/87 94 Nasal Cannula 4 01/08/17 14:00 97 24 92 Nasal Cannula 4 01/08/17 12:00 98 20 108/52 98 Nasal Cannula 4 01/08/17 09:13 98 22 111/57 96 Nasal Cannula 4 01/08/17 08:44 24 87 Room Air 01/08/17 08:15 100 24 90 Room Air 01/08/17 08:11 98.0 100 24 103/59 87 Physical Exam gen: elderly male in severe respiratory distress. visibly cyanotic. heent: nc. at. perrl. mucous membranes dry. neck: obese neck. jvd unable to be assessed. trachea midline. chest: fine rales over right lung field. bilateral air entry. expiratory wheezes. cv: tachycardic rate, regular rhythm. no appreciable murmurs. abd: obese, soft, nontender, nondistended. no guarding. extr: distal pulses 2+. no peripheral edema neuro: agitated. RASS +2. does not follow commands. moves all 4 extremities spontaneously, briskly purposeful. Laboratory Laboratory Tests Test 01/08/17 01/08/17 01/08/17 01/08/17 08:45 09:45 14:30 15:48 White Blood Count 20.2 Red Blood Count 4.46 Hemoglobin 13.1 Hematocrit 39.3 Mean Corpuscular Volume 88.2 Mean Corpuscular Hemoglobin 29.4 Mean Corpuscular Hemoglobin 33.3 Concent Red Cell Distribution Width 14.6 Platelet Count 162 Mean Platelet Volume 9.1 Neutrophils (%) (Auto) 80.0 Lymphocytes (%) (Auto) 12.9 Monocytes (%) (Auto) 6.9 Eosinophils (%) (Auto) 0.0 Basophils (%) (Auto) 0.2 Neutrophils # (Auto) 16.2 Lymphocytes # (Auto) 2.6 Monocytes # (Auto) 1.4 Eosinophils # (Auto) 0.0 Basophils # (Auto) 0.0 CBC Comment AUTO DIFF Differential Total Cells 100 Counted Neutrophils % (Manual) 65 Band Neutrophils % 18 Lymphocytes % 11 Monocytes % 6 Neutrophils # (Manual) 16.8 Differential Comment FINAL DIFF MANUAL Platelet Estimate NORMAL Platelet Morphology Comment NORMAL Red Cell Morphology Comment NORMAL Sodium Level 140 Potassium Level 3.9 Chloride Level 105 Carbon Dioxide Level 22.7 Anion Gap 12 Blood Urea Nitrogen 20 Creatinine 1.93 Estimat Glomerular Filtration 34 Rate Random Glucose 101 Calcium Level 8.6 Magnesium Level 1.4 Total Bilirubin 1.2 Aspartate Amino Transf 19 (AST/SGOT) Alanine Aminotransferase 17 (ALT/SGPT) Alkaline Phosphatase 64 Total Creatine Kinase 407 Total Protein 6.2 Albumin 3.5 Lipase 50 Lactic Acid Level 6.1 6.2 Urine Color YELLOW Urine Turbidity CLEAR Urine pH 5.5 Urine Specific [place] 1.050 Urine Protein 30 Urine Glucose (UA) NEG Urine Ketones NEG Urine Occult Blood SMALL Urine Nitrite NEG Urine Bilirubin NEG Urine Urobilinogen LESS THAN 2.0 Urine Leukocyte Esterase NEG Urine RBC 2 Urine WBC 3 Urine Squamous Epithelial <1 Cells Urine Bacteria OCC Urine Hyaline Casts 1 Microscopic Urinalysis Comment CULT NOT INDICATED Blood Gas Puncture Site LT RADIAL Blood Gas Patient Temperature 98.6 Blood Gas HCO3 19 Blood Gas Base Excess -5.7 Blood Gas Oxygen Saturation 89 Arterial Blood pH 7.37 Arterial Blood Partial 33 Pressure CO2 Arterial Blood Partial 58 Pressure O2 Arterial Blood Oxygen Content 14.3 Arterial Blood 1.3 Carboxyhemoglobin Arterial Blood Methemoglobin 0.6 Blood Gas Hemoglobin 11.4 Oxygen Delivery Device NASAL CANNULA Blood Gas Liter Flow 6 Test 01/08/17 17:59 Blood Gas Puncture Site ART LINE Blood Gas Patient Temperature 98.6 Blood Gas HCO3 16 Blood Gas Base Excess -12.1 Blood Gas Oxygen Saturation 92 Arterial Blood pH 7.12 Arterial Blood Partial 51 Pressure CO2 Arterial Blood Partial 83 Pressure O2 Arterial Blood Oxygen Content 15.8 Arterial Blood 0.7 Carboxyhemoglobin Arterial Blood Methemoglobin 0.7 Blood Gas Hemoglobin 12.2 Oxygen Delivery Device VENTILATOR Blood Gas Ventilator Setting [facility]/ Blood Gas Inspired Oxygen 100 Date/Time Procedure Status Source Growth 01/08/17 09:45 Aerobic Blood Culture Received Blood Peripheral Pending 01/08/17 09:45 Anaerobic Blood Culture Received Blood Peripheral Pending Result Diagram: 01/08/17 0845 01/08/17 0845 Imaging Last 72 hours Impressions Chest X-Ray 01/08/17 0842 Signed Impressions: Service Date/Time: Tuesday, January 08, 2017 08:45 - CONCLUSION: Right upper lobe consolidation likely representing pneumonia. Aspiration could have this appearance. There is underlying chronic interstitial prominence. Bar Arias MD Assessment and Plan Assessment and Plan Assessment: 81yM with h/o COPD and prior pulmonary embolism who presents with septic shock and RUL pneumonia and acutely decompensating hypoxic respiratory failure. He is now in multi organ system failure with acute delirium, hypoxic respiratory failure, septic shock on multiple vasopressors, kidney injury. His mortality rate at this point is high. we will proceed with aggressive medical care and attempt to regain control of his distributive shock and hypoperfused state. we will use aggressive fluid resuscitation guided by laboratory and central pressure data and vasopressors. we will closely monitor uop. trend lactates. I will also consult Dr. Cadena as this is a personal patient of his, and he will be helpful in the care and management of this patient. will broaden abx to include vancomycin, zosyn, azithromycin. rivera culture. He remains critically ill. Plan by systems: Neurologic: Acute agitated delirium Propofol, fentanyl for goal RASS -2 Delirium most likely related to hypoxemia Tylenol as needed for pain or fever Respiratory: Acute hypoxic respiratory failure Right upper lobe pneumonia COPD exacerbation Does not meet SBT criteria today Vent bundle Head of bed at 30 Low tidal volume ventilation targeting 6 cc/kg ideal body weight PEEP currently 12 Wean FiO2 for goal SPO2 greater than 90% May require neuromuscular blockade, inhaled Flolan to maintain oxygenation. Nebs every 6 and every 2 when necessary Methylprednisolone 40 IV every 12 Pulmonary following: Dr. Cadena Antibiotics as described below Cardiovascular: Septic shock Norepinephrine, vasopressin for goal map greater than 65 LR mivf @ 175cc/hr --s/p 2L LR bolus on top of 4L NS boluses today. --trend lactates --trend cardiac enzymes: unlikely to be ACS. Renal: Oliguric acute kidney injury Intravascular hypovolemia Place Castro with urometer Every hour urine outputs Likely secondary to septic shock Fluids as above -- Strict I/Os FEN/GI: Acute protein calorie malnutritionmild Daily BMP ICU electrolyte protocol Nothing by mouth on vasopressors IV fluids as above Heme/ID: Right upper lobe pneumonia Septic shock Vancomycin with pharmacy dosing Zosyn Azithromycin Follow-up sputum, blood, urine cultures Follow-up legionella Ag, pneumococcus Ag Daily CBC Endocrine: Hyperglycemia of critical illness -- SSI, every 6 hours, medium scale Prophylaxis: GI Prophylaxis Protonix 40 mg IV every 24 hours DVT Prophylaxis -- SCDs Subcutaneous heparin Lines: 01/08 right IJ triple-lumen catheter 01/08 left radial arterial line Castro Dispo: admit to the ICU. He remains critically ill This patient remains critically ill with one or more organ systems which are or may become a threat to life. I have spent in excess of 135 minutes discontinuously in the care and management of this patient. This time is exclusive of procedures, and includes, but is not limited to, evaluation of the patient, review of the medical record, discussions with family, consultants, nursing staff, or respiratory therapy, and documentation in the medical record. Code Status Full Code Isaak Rodriguez MD Jan 08, 2017 18:37
[2017-01-08 18:40] LABS: CKMB 1.2 NG/ML (0.5-3.6)
[2017-01-08] MEDS ORDERED: LACTATED RINGER'S 1000 ML INJ 2,000 ML IV ONE (18:45)
[2017-01-08] MEDS: LACTATED RINGER'S 1000 ML INJ 1,000 ML IV SCH ×2 (19:00→22:57)
--- NOTE | 2017-01-08 19:00 | RADRPT ---
EXAM DATE/TIME: 01/08/2017 18:47 [place] COMPARISON: CHEST SINGLE AP, January 08, 2017, 8:45. INDICATIONS : Post central line placement. MEDICAL HISTORY : Cardiovascular disease. Myocardial infarction. Chronic obstructive pulmonary disease.CVA, SURGICAL HISTORY : Cholecystectomy. Appendectomy.Colon resection. ENCOUNTER: Subsequent ACUITY: 1 day PAIN SCORE: Non-responsive. LOCATION: Bilateral chest FINDINGS: There is a new right internal jugular central venous catheter with tip in the superior vena cava. No pneumothorax. Right lung airspace disease persists, most severe in the right upper lobe. I don't see a definite nena nge. CONCLUSION: 1. IJ central venous catheter with tip in the superior vena cava. No pneumothorax or other acute comp lication. 2. Persistent pneumonia on the right, especially the upper lobe. Bar Reed MD on January 08, 2017 at 18:58 Board Certified Radiologist. This report was verified electronically.
[2017-01-08] MEDS: VASOPRESSIN INJ 40 UNITS in DEXTROSE 5% IN WATER 100ML INJ 98 ML IV SCH ×2 (19:12)
[2017-01-08] MEDS: CHLORHEXIDINE 0.12% (ORAL KIT) 15 ML CUP MT SCH ×2 (19:14→22:53)
[2017-01-08 19:30] LABS: BLOOD GAS BASE EXCESS -9.1 mmol/L (-2-2); BLOOD GAS CARBOXYHEMOGLOBIN 1.2 % (0-4); BLOOD GAS HCO3 17 mmol/L (22-26); BLOOD GAS O2 HGB SATURATION 92 % (90-100); BLOOD GAS OXYGEN CONTENT 14.6 Vol % (12.0-20.0); BLOOD GAS PCO2 45 mmHg (38-42); BLOOD GAS PO2 84 mmHg (61-120); BLOOD GAS TOTAL HGB 11.2 G/DL (12.0-16.0); CRITICAL VALUE YES; TEMP CORR TO 98.6
[2017-01-08 19:31] LABS: DRAW SITE ART LINE; FIO2 100 %; OXYGEN DEVICE VENTILATOR; VENT SETTINGS PRVC/AC
[2017-01-08 19:32] LABS: STAT YES
[2017-01-08] MEDS: fentaNYL DRIP 250 ML IV SCH (19:32)
[2017-01-08] MEDS: NOREPINEPHRINE-DEXTROSE DRIP 250 ML IV SCH ×2 (19:34→22:52)
--- NOTE | 2017-01-08 19:56 | PD.PROCEDR ---
Procedure Note Procedure Endotracheal Intubation Diagnosis: Septic shock Indications: Acute hypoxic respiratory failure Consent: Consent is deemed emergent or medically necessary Anesthesia: Versed 10 mg IV, succinylcholine 140 mg IV Description of the Procedure: The patient was positioned in the sniffing position. Pre-oxygenation was performed using a [id number]. Anesthesia was induced via rapid sequence. A Brunson #2 was used for laryngoscopy and a Grade I view was obtained. A 8.0 cuffed endotracheal tube was inserted atraumatically through the vocal cords. Confirmation of correct endotracheal tube placement was made by equal and bilateral breath sounds and colorimetric CO2 detection. The endotracheal tube was secured at 23.5 cm at the teeth. There were no immediate complications noted. The patient remained hemodynamically stable throughout the procedure. A chest x-ray has been ordered. I personally performed the procedure. Isaak Rodriguez MD Jan 08, 2017 19:56
--- NOTE | 2017-01-08 19:57 | PD.PROCEDR ---
Procedure Note Procedure Procedure: Arterial Line Placement Left radial arterial line Diagnosis: Septic shock Indications: For beat to beat hemodynamic monitoring, need for serial arterial blood gas sampling Consent: Consent is deemed emergent or medically necessary Description of the Procedure: The left wrist was prepped and draped sterilely. 1% lidocaine was used for local anesthesia. The pulse was located and a needle was advanced into the artery. A 20 gauge, 12 cm catheter was advanced into the artery using a modified Seldinger technique. The catheter was sutured to the skin and a sterile dressing was applied. The catheter was connected to a pressure transducer and an arterial waveform was noted. There were no immediate complications noted. There was minimal EBL. I personally performed the procedure. Isaak Rodriguez MD Jan 08, 2017 19:57
--- NOTE | 2017-01-08 19:59 | PD.PROCEDR ---
Procedure Note Procedure Central Line Procedure Note Right IJ 7 [place] triple-lumen catheter Diagnosis: Septic shock Indications: For highly potent vasopressors Consent: Consent is deemed emergent or medically necessary Anesthesia: 1% lidocaine locally, propofol IV Description of the Procedure: The patient was placed in the supine, mild- Trendelenburg position. The area was prepped and draped sterilely. A 19g needle was inserted under negative pressure aspiration and dark venous blood was obtained. The needle was transduced and a falling column of dark venous blood was visualized. A guidewire was inserted easily without resistance. A small incision was made using a #11 blade. Using a modified Seldinger technique , the dilator and 7 [place], 20 cm catheter were advanced over the guidewire without resistance. All ports were aspirated and flushed, and had brisk blood return. The line was secured at 20 cm at the skin using 2-0 silk interrupted sutures. A Biopatch and Transparent sterile dressing were applied. There were no immediate complications noted. There was minimal EBL. The patient tolerated the procedure well. A Chest x-ray has been ordered. I personally performed the procedure. Isaak Rodriguez MD Jan 08, 2017 19:59
--- NOTE | 2017-01-08 20:00 | EC ---
Study Study Date:01/08/2017 STUDY CONCLUSIONS SUMMARY - Procedure narrative: Transthoracic echocardiography. Image quality was suboptimal. The study was technically limited due to restricted patient mobility. Scanning was performed from the parasternal, apical, and subcostal acoustic windows. - Left ventricle: The cavity size was normal. Wall thickness was normal. Systolic function was normal. The estimated ejection fraction was in the range of 60% to 65%. Wall motion was normal; there were no regional wall motion abnormalities. - Mitral valve: Mildly calcified annulus. Mildly thickened leaflets, . - Pulmonary arteries: Though isolated measurements significantly elevated, these appear to be contamination artifact as the normal RV function and trivial regurgitation are not consistent with acute, severe pulmonary hypertension. PA peak pressure: 93mm Hg (S). If LV function is below 40, please consider prescribing an ACEI or ARB or document rationale for non-use. PROCEDURE DATA STUDY STATUS: Elective. Procedure: Transthoracic echocardiography. Image quality was suboptimal. The study was technically limited due to restricted patient mobility. Scanning was performed from the parasternal, apical, and subcostal acoustic windows. Study completion: The patient tolerated the procedure well. Transthoracic echocardiography. M-mode, complete 2D, complete spectral Doppler, and color Doppler. Patient status: Inpatient. CARDIAC ANATOMY LEFT VENTRICLE: The cavity size was normal. Wall thickness was normal. Systolic function was normal. The estimated ejection fraction was in the range of 60% to 65%. Wall motion was normal; there were no regional wall motion abnormalities. AORTIC VALVE: Trileaflet; normal thickness leaflets. Doppler: Transvalvular velocity was within the normal range. There was no stenosis. No regurgitation. AORTA: Aortic root: The aortic root was normal in size. MITRAL VALVE: Mildly calcified annulus. Mildly thickened leaflets, . Doppler: Transvalvular velocity was within the normal range. There was no evidence for stenosis. No regurgitation. Peak gradient: 4mm Hg (D). LEFT ATRIUM: The atrium was normal in size. RIGHT VENTRICLE: The cavity size was normal. Wall thickness was normal. PULMONIC VALVE: Doppler: Transvalvular velocity was within the normal range. There was no evidence for stenosis. No regurgitation. TRICUSPID VALVE: Structurally normal valve. Doppler: Transvalvular velocity was within the normal range. Trace to mild regurgitation. PULMONARY ARTERY: Though isolated measurements significantly elevated, these appear to be contamination artifact as the normal RV function and trivial regurgitation are not consistent with acute, severe pulmonary hypertension. The main pulmonary artery was normal-sized. RIGHT ATRIUM: The atrium was normal in size. PERICARDIUM: There was no pericardial effusion. SYSTEMIC VEINS: Inferior vena cava: The vessel was normal in size. BASIC MEASUREMENTS ADULT Normal Left ventricle LV internal dimension, ED, chordal level, 46.5 mm 43-52 PLAX LV internal dimension, ES, chordal level, 30.8 mm 23-38 PLAX Fractional shortening, chordal level, PLAX 34 % >29 LV posterior wall thickness, ED 7.71 mm IVS/LVPW ratio, ED *1.37 <1.3 Ventricular septum Septal thickness, ED 10.6 mm Left atrium Anterior-posterior dimension 32 mm Right ventricle RV internal dimension, ED, PLAX 20 mm 19-38 DOPPLER MEASUREMENTS ADULT Normal Main pulmonary artery Pressure, S *93 mm Hg =30 Mitral valve Peak E-wave velocity 106 cm/s Peak gradient, D 4 mm Hg Tricuspid valve Regurgitant peak velocity 404 cm/s Peak RV-RA gradient, S 65 mm Hg Maximal regurgitant velocity 404 cm/s Systemic veins Estimated CVP 15 mm Hg Right ventricle RV pressure, S *93 mm Hg <30 LEGEND: Mean values are shown as u=mean value. Asterisk (*) snyder values outside specified normal range. Prepared and signed by Shan Cesar [id number]
[2017-01-08] MEDS ORDERED: GABAPENTIN 300 MG CAP PO SCH (21:00)
[2017-01-08] MEDS: BUDESONIDE-FORMOTEROL 160/4.5 MCG INHALER INH SCH (21:00)
[2017-01-08] MEDS ORDERED: RESP: ALBUTEROL 2.5 MG/IPRATROPIUM 0.5 MG NEB (SCH) INH (22:00)
[2017-01-08] MEDS: PROPOFOL 1000 MG/100 ML INJ 100 ML IV SCH (22:52)
[2017-01-08] MEDS: SODIUM CHLORIDE 0.9% FLUSH 5 ML FLUSH IV FLUSH SCH (22:56)
[2017-01-08] MEDS: PANTOPRAZOLE SODIUM 40 MG VIAL IV PUSH SCH (22:56)
[2017-01-08] MEDS: MAGNESIUM OXIDE 400 MG TAB PO SCH (22:59)
[2017-01-08 23:00] LABS: CKMB 15.4 NG/ML (0.5-3.6)
[2017-01-08] MEDS ORDERED: ASPIRIN 81 MG CHEW TAB PO ONE (23:45)
[2017-01-08 23:46] LABS: LACTIC ACID GHOST NOT REPORTABLE
[2017-01-09] VITALS (22 sets, daily range): BP systolic 106–162; BP diastolic 42–67; PULSE 69–94; RESP 20–22; TEMP 97.7–98.6; O2SAT 88–99
[2017-01-09] MEDS ORDERED: ASPIRIN 325 MG TAB PO ONE (00:30)
[2017-01-09] MEDS: RESP: ALBUTEROL 2.5 MG/IPRATROPIUM 0.5 MG NEB (SCH) NEB ×4 (03:27→20:36)
[2017-01-09 03:46] LABS: HEMATOCRIT 35.8 % (39.0-51.0); MEAN CELL VOLUME 87.7 FL (80.0-100.0); MEAN CORPUSCULAR HEMOGLOBIN 28.8 PG (27.0-34.0); MEAN CORPUSCULAR HGB CONC 32.8 % (32.0-36.0); PLATELET COUNT 165 TH/MM3 (150-450); RED BLOOD COUNT 4.09 MIL/MM3 (4.50-5.90); WHITE BLOOD COUNT 44.4 TH/MM3 (4.0-11.0)
[2017-01-09 03:54] LABS: REVIEW FLAG FINAL
[2017-01-09] MEDS: CHLORHEXIDINE GLUCONATE 2 % 1 PACK (2 CLOTHS) TOP SCH (03:58)
[2017-01-09] MEDS: methylPREDNISolone SOD SUCC 40 MG/1 ML VIAL IV SCH ×2 (03:58→15:45)
[2017-01-09] MEDS: PIPERACIL-TAZO 4.5 GM PREMIX 100 ML IV SCH ×4 (03:58→21:47)
[2017-01-09 04:22] LABS: BICARBONATE 22.8 MEQ/L (21.0-32.0); POTASSIUM 4.5 MEQ/L (3.5-5.1)
[2017-01-09 04:45] LABS: CKMB 20.1 NG/ML (0.5-3.6)
--- NOTE | 2017-01-09 04:58 | MB ---
cc: BLOSSOM LANGE MD, JOHN DATE OF CONSULTATION: 01/08/2017 REASON FOR CONSULTATION: Respiratory failure, pulmonary management. HISTORY OF PRESENT ILLNESS: This is a 81-year-old white male with a past history of COPD, history of coronary artery disease, with stenting and a prior history of pulmonary emboli in 2014, was admitted to the emergency room with progressive dizziness, weakness and vomiting. The patient was previously seen in the ER for weakness, vomiting and gastroenteritis, and was evaluated 3 days prior. He also has had a cough, wheezing and lower back pain, and was readmitted to the emergency room at which time a chest x-ray showed right upper lobe pneumonia. Lactic acid level was over 6, his white count was elevated the patient was febrile, BUN was elevated as well. He was given IV fluids and started on antibiotic coverage and the patient then became quite dyspneic and was hypotensive and required intubation with ventilator support. He had to be sedated and a chest x-ray still showed evidence of right lung infiltrate in spite of being on IV fluids and pressors. He is still hypotensive and blood gases showed evidence of hypercapnia with severe acidosis and a bicarb was around 15. The patient has not made much urine since admission. He is awake and presently intubated and assisting the ventilator. His extremities are cool and clammy. The patient does move all his extremities, however. PAST MEDICAL HISTORY: Significant for: 1. Pulmonary embolism 2. Coronary artery disease with stent 3. History of hyperlipidemia 4. Hypertension 5. Sleep apnea with c-pap use 6. History of GERD. 7. History of CVA PAST SURGICAL HISTORY: 1. Cholecystectomy 2. Appendectomy 3. Colon polypectomy 4. Coronary artery stenting. ALLERGIES None listed. MEDICATIONS: 1. Symbicort 2. Zofran 3. Probiotics 4. Xanax 5. Aspirin FAMILY HISTORY Noncontributory HABITS The patient smoked one-pack per day for over 20 years and then quit. No alcohol use. REVIEW OF SYSTEMS Patient intubated on ventilator support. PHYSICAL EXAMINATION This moderately overweight elderly white male is intubated and lethargic. VITAL SIGNS: Blood pressure 96/60, pulse is 95, respirations 24, temperature 98. HEENT: Head normocephalic. Pupils reactive. Sclerae are injected. Throat injected. Ears, no inflammation. Neck: Supple. No bruits. Mild venous distension. Trachea midline. Chest: Equal movements with increased AP diameter with diffuse wheezes and prolonged expirations. Heart: The heart sounds are irregular, S1-S2. No murmur. No S3. Abdomen: The abdomen is protuberant, soft, without masses, organomegaly or tenderness. Bowel sounds active. Extremities: Varicosities and decreased pulses. No edema. Reflexes are 1+. Babinski negative. Neurologic: Cranial nerves not tested. Rectal: Exam is deferred. IMPRESSION 1. Septic shock. 2. Extensive right lung pneumonia and hypoxemia. 3. Acute hypoxemic, hypercapnic respiratory failure. 4. COPD with emphysema 5. History of pulmonary embolism. 6. History of hypertension. PLAN The patient will be maintained on ventilator support with FIO2 of 40%. Nebulized albuterol/Atrovent solution q.i.d. was added. He has been started on IV vancomycin 1250 mg q. 12 and levels to be obtained. Zosyn 3.375 grams q8. Follow up chest x-ray to be done, NG to be inserted, and tube feedings started. Will also send a culture from tracheal aspirate for Gram stain and AFB. C-PAP trials to be done when he is clinically stable. Thank you for this consultation. MD ABDIFATAH Batista/PAM /10:58 PM /3:42 AM
[2017-01-09] MEDS: fentaNYL DRIP 250 ML IV SCH ×2 (05:06→15:47)
[2017-01-09 05:07] LABS: BLOOD GAS BASE EXCESS -5.2 mmol/L (-2-2); BLOOD GAS CARBOXYHEMOGLOBIN 1.2 % (0-4); BLOOD GAS HCO3 20 mmol/L (22-26); BLOOD GAS METHEMOGLOBIN 1.1 % (0-2); BLOOD GAS O2 HGB SATURATION 96 % (90-100); BLOOD GAS OXYGEN CONTENT 15.5 Vol % (12.0-20.0); BLOOD GAS PCO2 42 mmHg (38-42); BLOOD GAS PO2 112 mmHg (61-120); BLOOD GAS TOTAL HGB 11.4 G/DL (12.0-16.0); CRITICAL VALUE NO; OXYGEN DEVICE VENTILATOR; TEMP CORR TO 98.6
[2017-01-09] MEDS: NOREPINEPHRINE-DEXTROSE DRIP 250 ML IV SCH ×2 (05:07→10:18)
[2017-01-09 05:08] LABS: VENT SETTINGS PRVC/AC
[2017-01-09 05:09] LABS: DRAW SITE ART LINE; FIO2 100 %; STAT NO
[2017-01-09] MEDS: AZITHROMYCIN INJ 500 MG in SODIUM CHLOR 0.9% 250 ML INJ 250 ML IV SCH (05:23)
[2017-01-09] MEDS: HEPARIN SODIUM - SQ 10,000 UNITS/ML VIAL SQ SCH ×2 (05:23→17:55)
[2017-01-09] MEDS: INSULIN NovoLIN REGULAR SUPPLEMENTAL SCALE SQ SCH ×4 (05:24→17:55)
[2017-01-09] MEDS: LACTATED RINGER'S 1000 ML INJ 1,000 ML IV SCH ×2 (06:26→15:48)
--- NOTE | 2017-01-09 06:49 | RADRPT ---
EXAM DATE/TIME: 01/09/2017 05:04 [facility] COMPARISON: CHEST SINGLE AP, January 08, 2017, 18:47. INDICATIONS : Shortness of breath, possible pulmonary disease. MEDICAL HISTORY : Cardiovascular disease. Myocardial infarction. Chronic obstructive pulmonary disease. SURGICAL HISTORY : Cholecystectomy. Appendectomy. Colon resection. ENCOUNTER: Subsequent ACUITY: 2 days PAIN SCORE: Non-responsive. LOCATION: Bilateral chest FINDINGS: Endotracheal tube is above the todd. Gastric tube traverses the [id number]. Right internal jug ular catheter tip projects at the cavoatrial junction. There is persistent partially consolidative i nfiltrates in the right upper lobe and in the medial left lower lung and new areas of non-consolidati ve infiltrate in the lower right lung. CONCLUSION: Increasing infiltrates in the right lower lobe and persistent infiltrates right upper and left lower lungs. Kana Wilson MD on January 09, 2017 at 6:47 Board Certified Radiologist. This report was verified electronically.
--- NOTE | 2017-01-09 08:09 | HHI.CCPN ---
Subjective Remarks/Hospital Course Hospital Course: 81yM with h/o COPD and prior PE who presented yesterday with history of nausea/ vomiting and was worked up including negative CT abd/pelvis with IV contrast. He returned this morning due to dizziness. At that time he had a lactate of 6, wbc 20k, and cxr demonstrating RUL pneumonia. he was given zosyn and 4L IVF. Repeat lactate demonstrated persistent lactic acidosis of 6. Also, after 6 hours, his uop was < 200cc. A castro catheter was inserted. his Cr was also elevated at 1.9. At this point, he became acutely hypoxemic and agitated. I was called and immediately went down to evaluate the patient. When I walked in , he was agitated and pulling off his NRB mask. He did not have a reliable spo2 monitor waveform and an abg was drawn with a po2 of 50. Decision was made to pursue emergent intubation (see separate procedure note for details). After intubation, the patient became hypotensive requiring vasopressor therapy and additional fluid boluses were given. Due to his impending cardiovascular collapse, a STAT echo was ordered which demonstrated hyperdynamic biventricular function, moderate pulmonary hypertension, and very collapsable IVC. He was given an additional 2L IVF and 2 amps bicarbonate for pH 7.11 on repeat abg with severe metabolic acidosis with BE -12. He was started on norepinephrine and vasopressin. He was transported to the medical ICU in critical condition. Subjective: 01/09: lactate is clearing, but slowly. CVP improved overnight. uop marginal, but slightly improved from yesterday. hypoxia slightly better as well, although persists on 100% fio2. wbc up to 44k today. Objective Vital Signs Date Time Temp Pulse Resp B/P Pulse Ox O2 Delivery O2 Flow Rate FiO2 01/09/17 07:41 96 80 01/09/17 06:00 72 01/09/17 04:00 98.0 20 106/42 01/08/17 18:30 Ventilator 01/08/17 16:14 15.00 Intake and Output 01/08/17 01/08/17 01/09/17 08:00 16:00 00:00 Intake Total 534 ml Output Total 100 ml 351 ml Balance -100 ml 183 ml Result Diagram: 01/09/17 0306 01/09/17 0306 Other Results Laboratory Tests Test 3/1101/08/17 01/08/17 01/09/17 15:48 17:59 19:15 03:52 Blood Gas Puncture Site LT RADIAL ART LINE ART LINE ART LINE Blood Gas Patient Temperature 98.6 98.6 98.6 98.6 Blood Gas HCO3 19 mmol/L 16 mmol/L 17 mmol/L 20 mmol/L (22-26) (22-26) (22-26) (22-26) Blood Gas Base Excess -5.7 mmol/L -12.1 mmol/L -9.1 mmol/L -5.2 mmol/L (-2-2) (-2-2) (-2-2) (-2-2) Blood Gas Oxygen Saturation 89 % (90-100) 92 % (90-100) 92 % (90-100) 96 % (90- 100) Arterial Blood pH 7.37 7.12 7.21 7.30 (7.380-7.420) (7.380-7.420) (7.380-7.420) (7.380-7.420) Arterial Blood Partial 33 mmHg (38-42) 51 mmHg (38-42) 45 mmHg (38-42) 42 mmHg ( 38-42) Pressure CO2 Arterial Blood Partial 58 mmHG 83 mmHG 84 mmHg 112 mmHg Pressure O2 (61-120) (61-120) (61-120) (61-120) Arterial Blood Oxygen Content 14.3 Vol % 15.8 Vol % 14.6 Vol % 15.5 Vol % (12.0-20.0) (12.0-20.0) (12.0-20.0) (12.0-20.0) Arterial Blood 1.3 % (0-4) 0.7 % (0-4) 1.2 % (0-4) 1.2 % (0-4) Carboxyhemoglobin Arterial Blood Methemoglobin 0.6 % (0-2) 0.7 % (0-2) 1.0 % (0-2) 1.1 % (0-2) Blood Gas Hemoglobin 11.4 G/DL 12.2 G/DL 11.2 G/DL 11.4 G/DL (12.0-16.0) (12.0-16.0) (12.0-16.0) (12.0-16.0) Oxygen Delivery Device NASAL CANNULA VENTILATOR VENTILATOR VENTILATOR Blood Gas Liter Flow 6 L/M Blood Gas Ventilator Setting PRVC/AC PRVC/AC PRVC/AC Blood Gas Inspired Oxygen 100 % 100 % 100 % Imaging Last 24 hours Impressions Chest X-Ray 01/08/17 0842 Signed Impressions: Service Date/Time: Sunday, January 08, 2017 08:45 - CONCLUSION: Right upper lobe consolidation likely representing pneumonia. Aspiration could have this appearance. There is underlying chronic interstitial prominence. Bar Arias MD Objective Remarks gen: elderly male critically ill, intubated, sedated. heent: nc. at. perrl. mucous membranes moist. neck: obese neck. jvd unable to be assessed. trachea midline. chest: fine rales over right lung field. coarse breath sounds bilaterally. bilateral air entry. cv: tachycardic rate, regular rhythm. no appreciable murmurs. cvp 12. levo @ 12 , vaso @ 0.03. abd: obese, soft, nontender, nondistended. no guarding. extr: distal pulses 2+. no peripheral edema neuro: intubated, sedated. RASS -3. purposeful. withdraws. does not follow commands this morning. A/P Assessment and Plan Assessment: 81yM with h/o COPD and prior pulmonary embolism who presents with septic shock and RUL pneumonia and acutely decompensating hypoxic respiratory failure. His course is complicated by multi-organ system dysfunction including kidney injury, delirium, distributive shock. He has made some mild improvements , but his organ dysfunction persists. he remains critically ill and has not cleared his lactate yet. we will continue supportive care today with vasopressors and fluid resuscitation. follow up culture data and continue empiric abx therapy. Plan by systems: Neurologic: Acute agitated delirium Propofol, fentanyl for goal RASS -2 Tylenol as needed for pain or fever Respiratory: Acute hypoxic respiratory failure Right upper lobe pneumonia COPD exacerbation Does not meet SBT criteria today, still hemodynamically too unstable. Vent bundle Head of bed at 30 Low tidal volume ventilation targeting 6 cc/kg ideal body weight PEEP currently 12, will keep today. Wean FiO2 for goal SPO2 greater than 90% Nebs every 6 and every 2 when necessary Methylprednisolone 40 IV every 12 Pulmonary following: Dr. Cadena Antibiotics as described below Cardiovascular: Septic shock Norepinephrine, vasopressin for goal map greater than 65 decrease LR mivf to 75cc/hr. --trend lactates --trend cardiac enzymes: unlikely to be ACS. Renal: Oliguric acute kidney injury Intravascular hypovolemia Place Castro with urometer Every hour urine outputs Likely secondary to septic shock Fluids as above -- Strict I/Os FEN/GI: Acute protein calorie malnutritionmild Daily [facility] ICU electrolyte protocol Nothing by mouth while on high-dose vasopressors IV fluids as above Heme/ID: Right upper lobe pneumonia Septic shock Vancomycin with pharmacy dosing Zosyn Azithromycin 01/08 u/a negative --01/08 sputum culture: pending --01/08 blood cultures: NGTD. Follow-up legionella Ag, pneumococcus Ag Daily CBC Endocrine: Hyperglycemia of critical illness -- SSI, every 6 hours, medium scale Prophylaxis: GI Prophylaxis Protonix 40 mg IV every 24 hours DVT Prophylaxis -- SCDs Subcutaneous heparin Lines: 01/08 right IJ triple-lumen catheter 01/08 left radial arterial line [place] Dispo: Remain in the ICU. He remains critically ill with multiple organ systems that are ongoing risks to life. This patient remains critically ill with one or more organ systems which are or may become a threat to life. I have spent in excess of 57 minutes discontinuously in the care and management of this patient. This time is exclusive of procedures, and includes, but is not limited to, evaluation of the patient, review of the medical record, discussions with family, consultants, nursing staff, or respiratory therapy, and documentation in the medical record. Isaak Rodriguez MD Jan 09, 2017 08:09
[2017-01-09] MEDS: ASPIRIN EC 81 MG TABEC PO SCH (08:12)
[2017-01-09] MEDS: LACTOBACILLUS ACIDOPHILUS TAB PO SCH ×3 (08:12→16:59)
[2017-01-09] MEDS: MAGNESIUM OXIDE 400 MG TAB PO SCH ×2 (08:12→21:47)
[2017-01-09] MEDS: SODIUM CHLORIDE 0.9% FLUSH 5 ML FLUSH IV FLUSH SCH ×2 (08:13→21:47)
[2017-01-09] MEDS: CHLORHEXIDINE 0.12% (ORAL KIT) 15 ML CUP MT SCH ×2 (08:13→19:41)
[2017-01-09] MEDS: BUDESONIDE-FORMOTEROL 160/4.5 MCG INHALER INH SCH ×2 (08:14→21:00)
[2017-01-09] MEDS ORDERED: PANTOPRAZOLE SOD 40 MG DELAYED RELEASE TAB PO SCH (09:00)
[2017-01-09] MEDS: VASOPRESSIN INJ 40 UNITS in DEXTROSE 5% IN WATER 100ML INJ 98 ML IV SCH ×2 (10:18)
[2017-01-09] MEDS: PROPOFOL 1000 MG/100 ML INJ 100 ML IV SCH ×2 (10:19→19:42)
[2017-01-09 12:34] LABS: MAGNESIUM 1.8 MG/DL (1.5-2.5)
--- NOTE | 2017-01-09 14:30 | HHI.PR ---
Subjective Remarks Remains Hypotensive and on 2 pressors. Poor output. On FIO2 70 %. Abdomen still bloated. Objective Vital Signs Date Time Temp Pulse Resp B/P Pulse Ox O2 Delivery O2 Flow Rate FiO2 01/09/17 12:42 99 80 01/09/17 12:00 74 129/60 109/55 01/09/17 12:00 71 01/09/17 12:00 100 01/09/17 12:00 98.6 71 22 109/55 95 125/52 01/09/17 11:43 93 100 01/09/17 10:00 94 01/09/17 09:53 97 70 01/09/17 08:00 72 01/09/17 08:00 75 129/60 117/49 01/09/17 08:00 100 01/09/17 08:00 97.7 75 22 129/60 96 117/49 01/09/17 07:41 96 80 01/09/17 06:00 72 01/09/17 04:09 97 100 01/09/17 04:00 71 01/09/17 04:00 98.0 71 20 106/42 96 01/09/17 04:00 100 01/09/17 02:00 71 01/09/17 01:12 95 100 01/09/17 00:00 98.0 73 20 162/60 94 01/09/17 00:00 100 01/09/17 00:00 73 01/08/17 22:12 96 100 01/08/17 22:00 74 01/08/17 20:26 94 100 01/08/17 20:00 84 01/08/17 20:00 97.6 84 24 103/55 91 01/08/17 19:01 97 100 01/08/17 18:30 102 18 101/46 97 Ventilator 100 01/08/17 18:15 104 18 90/40 97 Ventilator 100 01/08/17 18:00 107 18 96/35 100 Ventilator 100 01/08/17 17:45 114 18 96/36 92 Ventilator 100 01/08/17 17:34 117 18 136/60 88 Ventilator 136/48 01/08/17 17:18 90 100 01/08/17 17:14 128 16 154/65 85 Ventilator 100 01/08/17 17:13 100 01/08/17 16:14 91 Non-Rebreather 15.00 01/08/17 16:05 90 Nasal Cannula 6.00 01/08/17 16:00 89 22 110/65 90 Partial Rebreather 01/08/17 15:00 95 22 148/87 94 Nasal Cannula 4 I/O 01/08/17 01/08/17 01/08/17 01/09/17 01/09/17 01/09/17 07:00 15:00 23:00 07:00 15:00 23:00 Intake Total 534 ml 1514 ml Output Total 100 ml 351 ml 250 ml Balance -100 ml 183 ml 1264 ml Intake Oral 0 ml 0 ml IV Total 534 ml 1514 ml Output Urine Total 100 ml 350 ml 250 ml Stool Total 1 ml 0 ml # Voids 1 1 # Bowel Movements 1 Result Diagram: 01/09/17 0306 01/09/17 0306 Objective Remarks This moderately overweight elderly white male is intubated and lethargic. HEENT: Head normocephalic. Pupils reactive. Sclerae are clear. Throat secretions. Ears, no inflammation. Neck: Supple. No bruits. Mild venous distension. Trachea midline. Chest: Equal movements with increased AP diameter with diffuse wheezes and prolonged expirations.Crackles on right side. Heart: The heart sounds are irregular, S1-S2. No murmur. No S3. Abdomen: The abdomen is protuberant, soft, without masses, organomegaly or tenderness. Bowel sounds active. Extremities: Varicosities and decreased pulses. No edema. Reflexes are not elicited. Babinski negative. Neurologic: Cranial nerves not tested. Rectal: Exam is deferred. Assessment and Plan Assessment and Plan IMPRESSION 1. Septic shock. 2. Extensive right lung pneumonia and hypoxemia. 3. Acute hypoxemic, hypercapnic respiratory failure. 4. COPD with emphysema 5. History of pulmonary embolism. 6. History of hypertension. 7. RIZWAN. 8. Acute Abdomen. Plan : 1. Wean FIO2 to keep sat > 92. 2. Wean Pressors. 3. Cont antibiotics as ordered. 4. Chest X ray,CBC, BMP ,lactate in am. 5. Nebs q6h , Duoneb. 6. Cont Heparin 5000 U S/Q bid. 7. Keep sedated with fentanyl/Versed. Cheri Cadena MD Jan 09, 2017 14:30
[2017-01-09] MEDS ORDERED: FUROSEMIDE 40 MG/4 ML VIAL ONE (14:37)
[2017-01-09] MEDS ORDERED: FUROSEMIDE 40 MG/4 ML VIAL IV PUSH ONE (15:15)
[2017-01-09 15:24] LABS: BLOOD GAS BASE EXCESS -3.2 mmol/L (-2-2); BLOOD GAS CARBOXYHEMOGLOBIN 0.6 % (0-4); BLOOD GAS HCO3 23 mmol/L (22-26); BLOOD GAS METHEMOGLOBIN 0.7 % (0-2); BLOOD GAS O2 HGB SATURATION 96 % (90-100); BLOOD GAS OXYGEN CONTENT 20.3 Vol % (12.0-20.0); BLOOD GAS PCO2 53 mmHg (38-42); BLOOD GAS PO2 95 mmHG (61-120); TEMP CORR TO 98.6
[2017-01-09 15:25] LABS: DRAW SITE ALINE; FIO2 70 %; OXYGEN DEVICE VENTILATOR; STAT NO; VENT SETTINGS SEE COMMENTS
[2017-01-09] MEDS ORDERED: NOREPINEPHRINE-DEXTROSE DRIP 250 ML IV ONE (15:39)
[2017-01-09] MEDS: NOREPINEPHRINE 16 MG/D5W 250 ML IV SCH ×2 (15:58)
[2017-01-09] MEDS: PANTOPRAZOLE SODIUM 40 MG VIAL IV PUSH SCH (21:47)
[2017-01-10] VITALS (22 sets, daily range): BP systolic 100–129; BP diastolic 50–67; PULSE 55–76; RESP 22; TEMP 97.9–98.6; O2SAT 91–97
[2017-01-10] MEDS: INSULIN NovoLIN REGULAR SUPPLEMENTAL SCALE SQ SCH ×4 (01:50→18:07)
[2017-01-10] MEDS: fentaNYL DRIP 250 ML IV SCH ×3 (01:52→21:02)
[2017-01-10] MEDS: RESP: ALBUTEROL 2.5 MG/IPRATROPIUM 0.5 MG NEB (SCH) NEB ×4 (03:34→20:10)
[2017-01-10] MEDS: PIPERACIL-TAZO 4.5 GM PREMIX 100 ML IV SCH ×4 (04:00→22:30)
[2017-01-10] MEDS: CHLORHEXIDINE GLUCONATE 2 % 1 PACK (2 CLOTHS) TOP SCH (04:00)
[2017-01-10] MEDS: PROPOFOL 1000 MG/100 ML INJ 100 ML IV SCH ×3 (05:24→21:01)
[2017-01-10] MEDS: HEPARIN SODIUM - SQ 10,000 UNITS/ML VIAL SQ SCH ×2 (05:24→18:08)
[2017-01-10 05:25] LABS: HEMATOCRIT 33.4 % (39.0-51.0); MEAN CELL VOLUME 87.4 FL (80.0-100.0); MEAN CORPUSCULAR HGB CONC 33.2 % (32.0-36.0); PLATELET COUNT 134 TH/MM3 (150-450); RED BLOOD COUNT 3.82 MIL/MM3 (4.50-5.90); RED CELL DISTRIBUTION WIDTH 14.9 % (11.6-17.2); REVIEW FLAG FINAL; WHITE BLOOD COUNT 26.6 TH/MM3 (4.0-11.0)
[2017-01-10] MEDS: methylPREDNISolone SOD SUCC 40 MG/1 ML VIAL IV SCH ×2 (05:25→15:48)
[2017-01-10] MEDS: AZITHROMYCIN INJ 500 MG in SODIUM CHLOR 0.9% 250 ML INJ 250 ML IV SCH (05:25)
[2017-01-10] MEDS: VASOPRESSIN INJ 40 UNITS in DEXTROSE 5% IN WATER 100ML INJ 98 ML IV SCH ×2 (05:49)
[2017-01-10] MEDS: NOREPINEPHRINE 16 MG/D5W 250 ML IV SCH ×2 (05:49)
[2017-01-10 06:06] LABS: BICARBONATE 24.4 MEQ/L (21.0-32.0); POTASSIUM 4.5 MEQ/L (3.5-5.1)
[2017-01-10] MEDS: LACTATED RINGER'S 1000 ML INJ 1,000 ML IV SCH (06:22)
[2017-01-10] MEDS: CHLORHEXIDINE 0.12% (ORAL KIT) 15 ML CUP MT SCH ×2 (08:00→20:59)
[2017-01-10] MEDS: MAGNESIUM OXIDE 400 MG TAB PO SCH ×2 (08:20→20:59)
[2017-01-10] MEDS: SODIUM CHLORIDE 0.9% FLUSH 5 ML FLUSH IV FLUSH SCH ×2 (08:20→20:59)
[2017-01-10] MEDS: LACTOBACILLUS ACIDOPHILUS TAB PO SCH ×3 (08:20→18:07)
[2017-01-10] MEDS: ASPIRIN EC 81 MG TABEC PO SCH (08:20)
[2017-01-10] MEDS: BUDESONIDE-FORMOTEROL 160/4.5 MCG INHALER INH SCH ×2 (08:20→21:00)
[2017-01-10 11:35] LABS: BACTERIA, URINE OCC /hpf; BLOOD, URINE MOD (NEG); GLUCOSE,URINE NEG (NEG); KETONE, URINE NEG (NEG); MUCUS URINE FEW /lpf (OCC); NITRITE,URINE NEG (NEG); PH, URINE 5.5 (5.0-8.5); SQUAMOUS EPITHELIAL CELL URINE <1 /hpf (0-5); URIC ACID CRYSTALS, URINE OCC /hpf; URINE COLOR YELLOW (YELLW/STRAW)
--- NOTE | 2017-01-10 12:53 | HHI.PR ---
Subjective Remarks Better today . FIO2 45 %. CXR better. On less Pressors Objective Vital Signs Date Time Temp Pulse Resp B/P Pulse Ox O2 Delivery O2 Flow Rate FiO2 01/10/17 11:09 95 45 01/10/17 10:00 64 01/10/17 08:00 45 01/10/17 08:00 60 128/61 121/52 01/10/17 08:00 60 01/10/17 08:00 98.2 60 22 128/61 96 123/54 01/10/17 07:46 96 45 01/10/17 06:00 62 01/10/17 04:08 96 60 01/10/17 04:00 50 01/10/17 04:00 97.9 63 22 122/62 97 118/58 01/10/17 04:00 63 01/10/17 04:00 76 122/62 118/58 01/10/17 02:00 63 01/10/17 01:05 97 70 01/10/17 00:00 70 01/10/17 00:00 98.6 67 22 122/59 92 119/59 01/10/17 00:00 76 129/67 119/59 01/10/17 00:00 67 01/09/17 22:06 95 70 01/09/17 22:00 69 01/09/17 20:36 93 100 01/09/17 20:00 98.3 76 22 124/63 92 116/52 01/09/17 20:00 80 01/09/17 20:00 76 01/09/17 20:00 76 124/63 116/52 01/09/17 18:00 74 01/09/17 16:18 88 100 01/09/17 16:00 80 01/09/17 16:00 98.0 76 22 129/67 98 128/55 01/09/17 16:00 76 01/09/17 16:00 76 129/67 130/56 01/09/17 14:30 84 112/63 119/46 01/09/17 14:00 83 I/O 01/09/17 01/09/17 01/09/17 01/10/17 01/10/17 01/10/17 07:00 15:00 23:00 07:00 15:00 23:00 Intake Total 1514 ml 1543 ml 685 ml 549 ml Output Total 250 ml 325 ml 525 ml 160 ml Balance 1264 ml 1218 ml 160 ml 389 ml Intake Oral 0 ml 0 ml 0 ml IV Total 1514 ml 1543 ml 685 ml 549 ml Output Urine Total 250 ml 325 ml 525 ml 160 ml Stool Total 0 ml 0 ml 0 ml 0 ml Result Diagram: 01/10/17 0500 01/10/17 0500 Objective Remarks This moderately overweight elderly white male is intubated and lethargic. HEENT: Head normocephalic. Pupils reactive. Sclerae are clear. Throat secretions. Ears, no inflammation. Neck: Supple. No bruits. Mild venous distension. Trachea midline. Chest: Equal movements with increased AP diameter with diffuse wheezes .Crackles on right side. Heart: The heart sounds are irregular, S1-S2. No murmur. No S3. Abdomen: The abdomen is protuberant, soft, without masses, organomegaly or tenderness. Bowel sounds active. Extremities: Varicosities and decreased pulses. No edema. Reflexes are not elicited. Babinski negative. Neurologic: Cranial nerves not tested. Rectal: Exam is deferred. Assessment and Plan Assessment and Plan IMPRESSION 1. Septic shock. 2. Extensive right lung pneumonia and hypoxemia. 3. Acute hypoxemic, hypercapnic respiratory failure. 4. COPD with emphysema 5. History of pulmonary embolism. 6. History of hypertension. 7. RIZWAN. Plan : 1. Wean FIO2 to keep sat > 92. 2. Wean Pressors. 3. Cont antibiotics as ordered. 4. Chest X ray,CBC, BMP in am. 5. Nebs q6h , Duoneb. 6. Cont Heparin 5000 U S/Q bid. 7. Keep sedated with fentanyl/Versed. 8. Tube feeds at 40 CC. 9. CPAP trial in am. Cheri Cadena MD Jan 10, 2017 12:53
--- NOTE | 2017-01-10 12:57 | RADRPT ---
EXAM DATE/TIME: 01/10/2017 10:49 [facility] COMPARISON: CT ABDOMEN & PELVIS W CONTRAST, January 08, 2017, 0:59. INDICATIONS : Increased BUN/creatinine. MEDICAL HISTORY : Myocardial infarction. Hypercholesterolemia. Chronic obstructive pulmonary disease. CVA. CAD. Sleep a pnea. Dyspnea. HTN. Chest pain. Asthma. GERD. Kidney stones. Prediabetes. Gallstones. Anticoagulant t herapy, Coumadin. SURGICAL HISTORY : Coronary artery stent. Appendectomy. Cholecystectomy. Cardiac cath. Polpectomy. ENCOUNTER: Initial ACUITY: 1 day PAIN SCORE: Nonresponsive. LOCATION: Bilateral flank MEASUREMENTS: RIGHT KIDNEY: 12.3 x 5.7 x 6.6 cm LEFT KIDNEY: 13.2 x 6.9 x 6.1 cm FINDINGS: RIGHT KIDNEY: Renal cortex is normal in thickness and echotexture. No hydronephrosis, stone, or mass. LEFT KIDNEY: Renal cortex is normal in thickness and echotexture. No hydronephrosis, stone, or mass. BLADDER: There appears to be a Woodward catheter in place. There is impression on the bladder floor from the pros zavala. There is an area of shadowing at the bladder floor which may represent some prostatic calcifica tion or a bladder stone. There is a 1.4 cm right lateral bladder diverticulum. CONCLUSION: 1. Kidneys appear normal. 2. Impression on the bladder floor from the prostate. There is a bladder diverticulum and possible bl adder stone present. Bar Arias MD on January 10, 2017 at 12:52 Board Certified Radiologist. This report was verified electronically.
--- NOTE | 2017-01-10 14:26 | HHI.CCPN ---
Subjective Remarks/Hospital Course Hospital Course: 81yM with h/o COPD and prior PE who presented yesterday with history of nausea/ vomiting and was worked up including negative CT abd/pelvis with IV contrast. He returned this morning due to dizziness. At that time he had a lactate of 6, wbc 20k, and cxr demonstrating RUL pneumonia. he was given zosyn and 4L IVF. Repeat lactate demonstrated persistent lactic acidosis of 6. Also, after 6 hours, his uop was < 200cc. A castro catheter was inserted. his Cr was also elevated at 1.9. At this point, he became acutely hypoxemic and agitated. I was called and immediately went down to evaluate the patient. When I walked in , he was agitated and pulling off his NRB mask. He did not have a reliable spo2 monitor waveform and an abg was drawn with a po2 of 50. Decision was made to pursue emergent intubation (see separate procedure note for details). After intubation, the patient became hypotensive requiring vasopressor therapy and additional fluid boluses were given. Due to his impending cardiovascular collapse, a STAT echo was ordered which demonstrated hyperdynamic biventricular function, moderate pulmonary hypertension, and very collapsable IVC. He was given an additional 2L IVF and 2 amps bicarbonate for pH 7.11 on repeat abg with severe metabolic acidosis with BE -12. He was started on norepinephrine and vasopressin. He was transported to the medical ICU in critical condition. Subjective: 01/09: lactate is clearing, but slowly. CVP improved overnight. uop marginal, but slightly improved from yesterday. hypoxia slightly better as well, although persists on 100% fio2. wbc up to 44k today. 01/10: cvp rising yesterday, persistently oligoanuric. vasopressors persist, but at slightly lower dose. high fio2 requirements. wbc downtrending. Objective Vital Signs Date Time Temp Pulse Resp B/P Pulse Ox O2 Delivery O2 Flow Rate FiO2 01/10/17 14:00 56 01/10/17 12:00 45 01/10/17 12:00 98.0 22 124/64 97 110/50 01/08/17 18:30 Ventilator 01/08/17 16:14 15.00 Intake and Output 01/09/17 01/09/17 01/10/17 08:00 16:00 00:00 Intake Total 1514 ml 1543 ml 685 ml Output Total 250 ml 325 ml 525 ml Balance 1264 ml 1218 ml 160 ml Result Diagram: 01/10/17 0500 01/10/17 0500 Other Results Microbiology Date/Time Procedure Status Source Growth 01/08/17 14:30 Legionella Antigen - Final Complete Urine Random Urine PRESUMPTIVE NEGATIVE FOR LEGIONELLA P... 01/08/17 14:30 Streptococcus pneumoniae Antigen (M - Final Complete Pos S.pneumoniae Antigen Laboratory Tests Test 01/09/17 14:45 Blood Gas Puncture Site RENE Blood Gas Patient Temperature 98.6 Blood Gas HCO3 23 mmol/L (22-26) Blood Gas Base Excess -3.2 mmol/L (-2-2) Blood Gas Oxygen Saturation 96 % (90-100) Arterial Blood pH 7.26 (7.380-7.420) Arterial Blood Partial 53 mmHg (38-42) Pressure CO2 Arterial Blood Partial 95 mmHG Pressure O2 (61-120) Arterial Blood Oxygen Content 20.3 Vol % (12.0-20.0) Arterial Blood 0.6 % (0-4) Carboxyhemoglobin Arterial Blood Methemoglobin 0.7 % (0-2) Blood Gas Hemoglobin 15.0 G/DL (12.0-16.0) Oxygen Delivery Device VENTILATOR Blood Gas Ventilator Setting SEE COMMENTS Blood Gas Inspired Oxygen 70 % Imaging Last 24 hours Impressions Chest X-Ray 01/08/17 0842 Signed Impressions: Service Date/Time: Sunday, January 08, 2017 08:45 - CONCLUSION: Right upper lobe consolidation likely representing pneumonia. Aspiration could have this appearance. There is underlying chronic interstitial prominence. Bar Arias MD Objective Remarks gen: elderly male critically ill, intubated, sedated. heent: nc. at. perrl. mucous membranes moist. neck: obese neck. jvd unable to be assessed. trachea midline. chest: fine rales over right lung field. coarse breath sounds bilaterally. bilateral air entry. cv: tachycardic rate, regular rhythm. no appreciable murmurs. cvp 11. levo @ 4, vaso @ 0.03. abd: obese, soft, nontender, nondistended. no guarding. extr: distal pulses 2+. no peripheral edema neuro: intubated, sedated. RASS -3. purposeful. withdraws. does not follow commands this morning. A/P Assessment and Plan Assessment: 81yM with h/o COPD and prior pulmonary embolism who presents with septic shock and RUL pneumonia and acutely decompensating hypoxic respiratory failure. His course is complicated by multi-organ system dysfunction including kidney injury, delirium, distributive shock. He has made some mild improvements , but his organ dysfunction persists. he remains critically ill. we will continue supportive care today with vasopressors. f/u speciation on strep pneumo. his oligoanuria may significantly impair his respiratory function, but for now we will cautiously monitor his renal function. Plan by systems: Neurologic: Acute agitated delirium Propofol, fentanyl for goal RASS -2 Tylenol as needed for pain or fever Respiratory: Acute hypoxic respiratory failure Right upper lobe pneumonia COPD exacerbation Does not meet SBT criteria today, still hemodynamically too unstable. Vent bundle Head of bed at 30 Low tidal volume ventilation targeting 6 cc/kg ideal body weight PEEP currently 12, will keep today. Wean FiO2 for goal SPO2 greater than 90% Nebs every 6 and every 2 when necessary Methylprednisolone 40 IV every 12 Pulmonary following: Dr. Cadena Antibiotics as described below Cardiovascular: Septic shock Norepinephrine, vasopressin for goal map greater than 65 SLIVF. --trops downtrending. will stop trending. Renal: Oliguric acute kidney injury Intravascular hypovolemia continue castro Every hour urine outputs Likely secondary to septic shock --renal ultrasound, urine electrolytes, eos. -- Strict I/Os FEN/GI: Acute protein calorie malnutritionmild Daily [facility] ICU electrolyte protocol start glucerna 1.5 [facility]. IV fluids as above Heme/ID: Right upper lobe pneumonia Septic shock Vancomycin with pharmacy dosing Zosyn Azithromycin 01/08 u/a negative --01/08 sputum culture: pending --01/08 blood cultures: strep pneumo. pneumococcus Ag: + Daily CBC Endocrine: Hyperglycemia of critical illness -- SSI, every 6 hours, medium scale Prophylaxis: GI Prophylaxis Protonix 40 mg IV every 24 hours DVT Prophylaxis -- SCDs Subcutaneous heparin Lines: 01/08 right IJ triple-lumen catheter 01/08 left radial arterial line Castro Dispo: Remain in the ICU. He remains critically ill with multiple organ systems that are ongoing risks to life. This patient remains critically ill with one or more organ systems which are or may become a threat to life. I have spent in excess of 62 minutes discontinuously in the care and management of this patient. This time is exclusive of procedures, and includes, but is not limited to, evaluation of the patient, review of the medical record, discussions with family, consultants, nursing staff, or respiratory therapy, and documentation in the medical record. Isaak Rodriguez MD Jan 10, 2017 14:26
[2017-01-10] MEDS: PANTOPRAZOLE SODIUM 40 MG VIAL IV PUSH SCH (21:01)
[2017-01-10] MEDS ORDERED: ALTEPLASE RECOMBINANT 2 MG VIAL INTRACATH PRN (21:45)
[2017-01-11] VITALS (18 sets, daily range): BP systolic 108–152; BP diastolic 30–70; PULSE 50–63; RESP 15–22; TEMP 97.3–98; O2SAT 87–100
[2017-01-11] MEDS: INSULIN NovoLIN REGULAR SUPPLEMENTAL SCALE SQ SCH ×6 (00:10→20:00)
[2017-01-11 00:39] LABS: BLOOD GAS BASE EXCESS -2.6 mmol/L (-2-2); BLOOD GAS CARBOXYHEMOGLOBIN 1.4 % (0-4); BLOOD GAS HCO3 23 mmol/L (22-26); BLOOD GAS METHEMOGLOBIN 0.9 % (0-2); BLOOD GAS O2 HGB SATURATION 95 % (90-100); BLOOD GAS OXYGEN CONTENT 14.1 Vol % (12.0-20.0); BLOOD GAS PCO2 46 mmHg (38-42); BLOOD GAS PO2 92 mmHg (61-120); BLOOD GAS TOTAL HGB 10.5 G/DL (12.0-16.0); CRITICAL VALUE NO; OXYGEN DEVICE VENTILATOR; TEMP CORR TO 98.6
[2017-01-11 00:41] LABS: DRAW SITE ART LINE; FIO2 100 %; STAT NO
--- NOTE | 2017-01-11 01:37 | RADRPT ---
EXAM DATE/TIME: 01/10/2017 23:26 [facility] COMPARISON: CHEST SINGLE AP, January 09, 2017, 5:04. INDICATIONS : Shortness of breath. MEDICAL HISTORY : Chronic obstructive pulmonary disease. Cardiovascular disease. Myocardial infarction. SURGICAL HISTORY : Cholecystectomy. Appendectomy. Colon resection. ENCOUNTER: Subsequent ACUITY: 3 days PAIN SCORE: Non-responsive. LOCATION: Bilateral chest FINDINGS: Single AP view of the chest. Endotracheal tube, nasogastric tube, right IJ central venous catheter re main in place. Bilateral pulmonary opacity right greater than left unchanged. Cardiac silhouette enla rgement unchanged. CONCLUSION: No significant interval change with persistent right greater than left pulmonary parenchymal opacity indicating infection versus asymmetric edema. Trung Mccall MD on January 11, 2017 at 1:35 Board Certified Radiologist. This report was verified electronically.
[2017-01-11] MEDS: CHLORHEXIDINE GLUCONATE 2 % 1 PACK (2 CLOTHS) TOP SCH (03:00)
[2017-01-11] MEDS: PIPERACIL-TAZO 4.5 GM PREMIX 100 ML IV SCH ×2 (04:21→09:36)
[2017-01-11] MEDS: VASOPRESSIN INJ 40 UNITS in DEXTROSE 5% IN WATER 100ML INJ 98 ML IV SCH ×2 (04:21)
[2017-01-11] MEDS: methylPREDNISolone SOD SUCC 40 MG/1 ML VIAL IV SCH ×2 (04:21→16:35)
[2017-01-11] MEDS: RESP: ALBUTEROL 2.5 MG/IPRATROPIUM 0.5 MG NEB (SCH) NEB ×4 (04:41→20:01)
[2017-01-11 05:17] LABS: MEAN CELL VOLUME 87.7 FL (80.0-100.0); MEAN CORPUSCULAR HEMOGLOBIN 29.7 PG (27.0-34.0); MEAN CORPUSCULAR HGB CONC 33.9 % (32.0-36.0); PLATELET COUNT 93 TH/MM3 (150-450); RED BLOOD COUNT 3.54 MIL/MM3 (4.50-5.90); RED CELL DISTRIBUTION WIDTH 15.1 % (11.6-17.2)
[2017-01-11 05:20] LABS: POTASSIUM 4.3 MEQ/L (3.5-5.1)
[2017-01-11 05:30] LABS: REVIEW FLAG FINAL
[2017-01-11] MEDS: AZITHROMYCIN INJ 500 MG in SODIUM CHLOR 0.9% 250 ML INJ 250 ML IV SCH (05:50)
[2017-01-11] MEDS: HEPARIN SODIUM - SQ 10,000 UNITS/ML VIAL SQ SCH ×2 (05:51→16:34)
[2017-01-11] MEDS: fentaNYL DRIP 250 ML IV SCH ×2 (05:52→14:02)
[2017-01-11] MEDS ORDERED: GLUCAGON 1 MG/ML VIAL OTHER PRN (07:00)
[2017-01-11] MEDS ORDERED: DEXTROSE 50% IN WATER 50 ML VIAL(D50) IV PUSH PRN (07:00)
[2017-01-11] MEDS ORDERED: CHLOROTHIAZIDE SOD 500 MG VIAL IV ONE (07:45)
[2017-01-11] MEDS ORDERED: FUROSEMIDE 20 MG/2 ML VIAL IV PUSH ONE (07:45)
[2017-01-11] MEDS ORDERED: FUROSEMIDE 40 MG/4 ML VIAL ONE ×2 (07:57)
[2017-01-11] MEDS ORDERED: FUROSEMIDE 100 MG/10 ML VIAL IV PUSH ONE (08:00)
[2017-01-11] MEDS: CHLORHEXIDINE 0.12% (ORAL KIT) 15 ML CUP MT SCH ×2 (08:09→19:55)
[2017-01-11] MEDS: BUDESONIDE-FORMOTEROL 160/4.5 MCG INHALER INH SCH ×2 (08:17→20:13)
[2017-01-11] MEDS: MAGNESIUM OXIDE 400 MG TAB PO SCH ×2 (08:17→22:25)
[2017-01-11] MEDS: SODIUM CHLORIDE 0.9% FLUSH 5 ML FLUSH IV FLUSH SCH ×2 (08:17→19:56)
[2017-01-11] MEDS: ASPIRIN EC 81 MG TABEC PO SCH (08:17)
[2017-01-11] MEDS: LACTOBACILLUS ACIDOPHILUS TAB PO SCH ×3 (08:17→16:34)
--- NOTE | 2017-01-11 08:54 | RADRPT ---
EXAM DATE/TIME: 01/11/2017 06:47 [facility] COMPARISON: CHEST SINGLE AP, January 10, 2017, 23:26. CHEST SINGLE AP, January 09, 2017, 5:04. CHEST SINGLE AP, Dec, 18:47. CHEST SINGLE AP, January 08, 2017, 8:45. CHEST SINGLE AP, July 04, 2015, 16: 17. INDICATIONS : Short of breath. MEDICAL HISTORY : Chronic obstructive pulmonary disease. Cardiovascular disease. Myocardial infarction. SURGICAL HISTORY : Colon resection. Cholecystectomy. Appendectomy. ENCOUNTER: Subsequent ACUITY: 4 - 6 days PAIN SCORE: Non-responsive. LOCATION: Bilateral chest FINDINGS: A single view of the chest demonstrates stable position of endotracheal tube and nasogastric tube. Ri ght jugular central line is also stable. Mediastinum is again noted to be widened. Bilateral airspace disease greater in the right lung and left lower lobe. Heart enlarged. Osseous structures are intac t. CONCLUSION: 1. Mediastinum is somewhat prominent may be related to diminished lung glands however cannot exclude mediastinal abnormality. Contrast CT chest may be warranted. 2. Bilateral airspace disease greater in the right lung and left lower lobe is stable. Robert Larson MD on January 11, 2017 at 8:50 Board Certified Radiologist. This report was verified electronically.
[2017-01-11] MEDS: FUROSEMIDE INJ 100 MG in SODIUM CHLORIDE 0.9% INJ 90 ML IV SCH ×2 (09:57→14:21)
--- NOTE | 2017-01-11 10:11 | HHI.CCPN ---
Subjective Remarks/Hospital Course Hospital Course: 81yM with h/o COPD and prior PE who presented yesterday with history of nausea/ vomiting and was worked up including negative CT abd/pelvis with IV contrast. He returned this morning due to dizziness. At that time he had a lactate of 6, wbc 20k, and cxr demonstrating RUL pneumonia. he was given zosyn and 4L IVF. Repeat lactate demonstrated persistent lactic acidosis of 6. Also, after 6 hours, his uop was < 200cc. A castro catheter was inserted. his Cr was also elevated at 1.9. At this point, he became acutely hypoxemic and agitated. I was called and immediately went down to evaluate the patient. When I walked in , he was agitated and pulling off his NRB mask. He did not have a reliable spo2 monitor waveform and an abg was drawn with a po2 of 50. Decision was made to pursue emergent intubation (see separate procedure note for details). After intubation, the patient became hypotensive requiring vasopressor therapy and additional fluid boluses were given. Due to his impending cardiovascular collapse, a STAT echo was ordered which demonstrated hyperdynamic biventricular function, moderate pulmonary hypertension, and very collapsable IVC. He was given an additional 2L IVF and 2 amps bicarbonate for pH 7.11 on repeat abg with severe metabolic acidosis with BE -12. He was started on norepinephrine and vasopressin. He was transported to the medical ICU in critical condition. Subjective: 01/09: lactate is clearing, but slowly. CVP improved overnight. uop marginal, but slightly improved from yesterday. hypoxia slightly better as well, although persists on 100% fio2. wbc up to 44k today. 01/10: cvp rising yesterday, persistently oligoanuric. vasopressors persist, but at slightly lower dose. high fio2 requirements. wbc downtrending. 01/11: oxygenation severely worsened overnight. now on peep 15, fio2 100%, spo2 85%. vasopressors weaned off. cvp kuldip throughout the night to 23 this AM. CXR with evidence of significant pulmonary edema and intravascular volume overload. despite this, uop minimal overnight and remains in oliguric renal failure. Objective Vital Signs Date Time Temp Pulse Resp B/P Pulse Ox O2 Delivery O2 Flow Rate FiO2 01/11/17 08:00 97.4 62 19 112/59 87 109/62 01/11/17 07:57 90 01/08/17 18:30 Ventilator 01/08/17 16:14 15.00 Intake and Output 01/10/17 01/10/17 01/11/17 08:00 16:00 00:00 Intake Total 549 ml 966 ml 714 ml Output Total 160 ml 450 ml 325.0 ml Balance 389 ml 516 ml 389.0 ml Result Diagram: 01/11/17 0325 01/11/17 0325 Other Results Microbiology Date/Time Procedure Status Source Growth 01/08/17 14:30 Legionella Antigen - Final Complete Urine Random Urine PRESUMPTIVE NEGATIVE FOR LEGIONELLA P... 01/08/17 14:30 Streptococcus pneumoniae Antigen (M - Final Complete Pos S.pneumoniae Antigen Laboratory Tests Test 01/11/17 00:28 Blood Gas Puncture Site ART LINE Blood Gas Patient Temperature 98.6 Blood Gas HCO3 23 mmol/L (22-26) Blood Gas Base Excess -2.6 mmol/L (-2-2) Blood Gas Oxygen Saturation 95 % (90-100) Arterial Blood pH 7.32 (7.380-7.420) Arterial Blood Partial 46 mmHg (38-42) Pressure CO2 Arterial Blood Partial 92 mmHg Pressure O2 (61-120) Arterial Blood Oxygen Content 14.1 Vol % (12.0-20.0) Arterial Blood 1.4 % (0-4) Carboxyhemoglobin Arterial Blood Methemoglobin 0.9 % (0-2) Blood Gas Hemoglobin 10.5 G/DL (12.0-16.0) Oxygen Delivery Device VENTILATOR Blood Gas Ventilator Setting SEE COMMENT Blood Gas Inspired Oxygen 100 % Imaging Last 24 hours Impressions Chest X-Ray 01/08/17 0842 Signed Impressions: Service Date/Time: Sunday, January 08, 2017 08:45 - CONCLUSION: Right upper lobe consolidation likely representing pneumonia. Aspiration could have this appearance. There is underlying chronic interstitial prominence. Bar Arias MD Objective Remarks gen: elderly male critically ill, intubated, sedated. heent: nc. at. perrl. mucous membranes moist. neck: obese neck. jvd unable to be assessed. trachea midline. chest: fine rales over right lung field. coarse breath sounds bilaterally, worse than yesterday. bilateral air entry. cv: normal rate, regular rhythm. no appreciable murmurs. cvp 23. vasopressors off. abd: obese, soft, nontender, nondistended. no guarding. extr: distal pulses 2+. no peripheral edema neuro: intubated, sedated. RASS -3. purposeful. withdraws. does not follow commands this morning. A/P Assessment and Plan Assessment: 81yM with h/o COPD and prior pulmonary embolism who presents with septic shock and RUL pneumonia and acutely decompensating hypoxic respiratory failure. His course is complicated by multi-organ system dysfunction including severe acute kidney injury, delirium, distributive shock. Although his distributive shock is resolving, he now has severe acute intravascular volume overload and pulmonary edema leading to severe hypoxemia. Despite this, his oliguric kidney injury persists. We will make every attempt to convert him to non-oliguric renal failure, but he may require renal replacement therapy emergently for acute volume overload if we are unable to gain control of his intravascular volume status. He remains critically ill. Plan by systems: Neurologic: Acute agitated delirium Propofol, fentanyl for goal RASS -2. on sedation vacation he gets agitated and more hypoxic, so we will hold sedation vacation today given his severe hypoxemia. Tylenol as needed for pain or fever Respiratory: Acute hypoxic respiratory failure Right upper lobe pneumonia COPD exacerbation Pulmonary Edema Does not meet SBT criteria today given his severe hypoxemia. Vent bundle Head of bed at 30 PEEP currently 15. will not wean in the setting of severe hypoxemia. Wean FiO2 for goal SPO2 greater than 90% Nebs every 6 and every 2 when necessary Methylprednisolone 40 IV every 12 Pulmonary following: Dr. Cadena Antibiotics as described below --forced diuresis as below. Cardiovascular: Septic shock- resolving. off vasopressors. monitor. may require additional norepinephrine for end-organ perfusion, map > 65. SLIVF. Renal: Oliguric acute kidney injury severe acute intravascular volume overload continue castro Every hour urine outputs Likely secondary to septic shock -- Strict I/Os -- lasix 200mg iv x 1, diamox 500mg iv q8h, diuril 500mg iv q12h. -- may require lasix drip -- may require renal replacement therapy for acute volume overload if no improvement in volume status. FEN/GI: Acute protein calorie malnutritionmild Daily [facility] ICU electrolyte protocol TF at goal, glucerna 1.5. -- nutrition consult. -- q6h BMP, Mg while on lasix drip. aggressively replace electrolytes. Heme/ID: Right upper lobe pneumonia Septic shock Vancomycin with pharmacy dosing Zosyn d/c azithro. 01/08 u/a negative --01/08 blood cultures: strep pneumo. sensitivities pending. pneumococcus Ag: + Daily CBC Endocrine: Hyperglycemia of critical illness -- poorly controlled this AM, will increase to high-dose SSI, q4h. Prophylaxis: GI Prophylaxis Protonix 40 mg IV every 24 hours DVT Prophylaxis -- SCDs Subcutaneous heparin Lines: 01/08 right IJ triple-lumen catheter 01/08 left radial arterial line Castro Dispo: Remain in the ICU. He remains critically ill with multiple organ systems that are ongoing risks to life. This patient remains critically ill with one or more organ systems which are or may become a threat to life. I have spent in excess of 79 minutes discontinuously in the care and management of this patient. This time is exclusive of procedures, and includes, but is not limited to, evaluation of the patient, review of the medical record, discussions with family, consultants, nursing staff, or respiratory therapy, and documentation in the medical record. Isaak Rodriguez MD Jan 11, 2017 10:11
--- NOTE | 2017-01-11 12:31 | HHI.PR ---
Subjective Remarks Had a rough night .Was on 15 CM PEEP and 100 %. Now on FIO2 50 %. CXR worse with bilateral infiltrates. On less Pressors. On Lasix IV Objective Vital Signs Date Time Temp Pulse Resp B/P Pulse Ox O2 Delivery O2 Flow Rate FiO2 01/11/17 11:49 98 50 01/11/17 08:00 97.4 62 19 112/59 87 109/62 01/11/17 07:57 90 90 01/11/17 06:00 56 01/11/17 04:41 100 90 01/11/17 04:00 54 122/64 01/11/17 04:00 97.8 54 22 122/64 97 01/11/17 04:00 54 01/11/17 04:00 100 01/11/17 02:00 51 01/11/17 01:44 98 50 01/11/17 00:00 63 108/30 117/54 01/11/17 00:00 97.3 63 22 108/60 97 01/11/17 00:00 100 01/11/17 00:00 63 01/10/17 23:51 95 100 01/10/17 23:42 93 100 01/10/17 23:40 100 01/10/17 22:21 91 50 01/10/17 22:00 57 01/10/17 21:40 92 50 01/10/17 21:20 50 01/10/17 20:10 95 45 01/10/17 20:00 55 01/10/17 20:00 98.3 55 22 111/64 94 01/10/17 20:00 45 01/10/17 20:00 55 111/64 01/10/17 18:00 55 01/10/17 16:00 61 01/10/17 16:00 60 100/58 108/55 01/10/17 16:00 98.5 60 22 109/54 93 108/54 01/10/17 16:00 45 01/10/17 15:37 96 45 01/10/17 14:00 56 I/O 01/10/17 01/10/17 01/10/17 01/11/17 01/11/17 01/11/17 07:00 15:00 23:00 07:00 15:00 23:00 Intake Total 549 ml 966 ml 714 ml 1023 ml Output Total 160 ml 450 ml 325 ml 250 ml Balance 389 ml 516 ml 389 ml 773 ml Intake Oral 0 ml IV Total 549 ml 966 ml 476 ml 689 ml Tube Feeding 178 ml 274 ml Other 60 ml 60 ml Output Urine Total 160 ml 450 ml 325 ml 250 ml Stool Total 0 ml 0 ml Tube Feeding Residual Discard 0 ml 0 ml Bladder Scan Volume Amount 250 ml # Bowel Movements 0 0 Result Diagram: 01/11/1732401/11/17324 Objective Remarks This moderately overweight elderly white male is intubated and lethargic. HEENT: Head normocephalic. Pupils reactive. Sclerae are clear. Throat secretions. Ears, no inflammation. Neck: Supple. No bruits. Mild venous distension. Trachea midline. Chest: Equal movements with increased AP diameter with diffuse wheezes .Bilateral Crackles Heart: The heart sounds are irregular, S1-S2. No murmur. No S3. Abdomen: The abdomen is protuberant, soft, without masses, organomegaly or tenderness. Bowel sounds active. Extremities: Varicosities and decreased pulses. No edema. Reflexes are not elicited. Neurologic: sedated. Rectal: Exam is deferred. Assessment and Plan Assessment and Plan IMPRESSION 1. Septic shock. 2. Extensive right lung pneumonia and hypoxemia. 3. Acute hypoxemic, hypercapnic respiratory failure. 4. COPD with emphysema 5. History of pulmonary embolism. 6. History of hypertension. 7. RIZWAN. Plan : 1. Wean FIO2 to keep sat > 92. 2. Wean Pressors. 3. Cont antibiotics as ordered. 4. Chest X ray,CBC, BMP in am. 5. Nebs q6h , Duoneb. 6. Cont Heparin 5000 U S/Q bid. 7. Keep sedated with fentanyl/Versed. 8. Tube feeds at 40 CC. 9. Lasix drip to clear fluid. Cheri Cadena MD Jan 11, 2017 12:31
[2017-01-11 13:17] LABS: BICARBONATE 28.8 MEQ/L (21.0-32.0); MAGNESIUM 2.7 MG/DL (1.5-2.5); POTASSIUM 3.6 MEQ/L (3.5-5.1)
[2017-01-11] MEDS ORDERED: POTASSIUM CHLOR 20 MEQ PREMIX 100 ML ONE (13:57)
[2017-01-11] MEDS: POTASSIUM CHLOR 20 MEQ PREMIX 100 ML IV SCH ×2 (14:00→16:00)
[2017-01-11] MEDS ORDERED: POTASSIUM CHLOR 20 MEQ PREMIX 100 ML IV ONE (14:00)
[2017-01-11 14:02] LABS: UR UREA/CREAT RATIO 9.94 mg/mg (())
[2017-01-11] MEDS: PROPOFOL 1000 MG/100 ML INJ 100 ML IV SCH ×2 (14:02→19:56)
[2017-01-11] MEDS ORDERED: MAGNESIUM SULFATE 2 GM/NS 100 ML IV PRN ×2 (15:30)
[2017-01-11] MEDS ORDERED: PIPERACIL-TAZO 3.375 GM PREMIX 50 ML IV SCH (16:00)
[2017-01-11] MEDS: PENICILLIN G POTASSIUM INJ 3,000,000 UNITS in SODIUM CHLORIDE 0.9% INJ 100 ML IV SCH ×2 (16:39→22:24)
[2017-01-11 19:03] LABS: BICARBONATE 31.1 MEQ/L (21.0-32.0); MAGNESIUM 2.7 MG/DL (1.5-2.5); POTASSIUM 3.8 MEQ/L (3.5-5.1)
[2017-01-11] MEDS: POTASSIUM CHLOR 20 MEQ PREMIX 100 ML IV PRN (19:56)
[2017-01-11] MEDS: PANTOPRAZOLE SODIUM 40 MG VIAL IV PUSH SCH (22:24)
[2017-01-12] VITALS (21 sets, daily range): BP systolic 105–129; BP diastolic 51–66; PULSE 52–80; RESP 15–18; TEMP 97.1–98.8; O2SAT 90–99
[2017-01-12] MEDS: INSULIN NovoLIN REGULAR SUPPLEMENTAL SCALE SQ SCH ×7 (00:11→23:57)
[2017-01-12] MEDS: PENICILLIN G POTASSIUM INJ 3,000,000 UNITS in SODIUM CHLORIDE 0.9% INJ 100 ML IV SCH ×6 (00:12→20:13)
[2017-01-12 00:39] LABS: BICARBONATE 31.4 MEQ/L (21.0-32.0); MAGNESIUM 2.6 MG/DL (1.5-2.5); POTASSIUM 3.7 MEQ/L (3.5-5.1)
[2017-01-12] MEDS: PROPOFOL 1000 MG/100 ML INJ 100 ML IV SCH ×6 (00:56→23:29)
[2017-01-12] MEDS: FUROSEMIDE INJ 100 MG in SODIUM CHLORIDE 0.9% INJ 90 ML IV SCH ×3 (00:56→14:38)
[2017-01-12] MEDS: POTASSIUM CHLOR 20 MEQ PREMIX 100 ML IV PRN ×2 (01:01→07:27)
[2017-01-12] MEDS ORDERED: POTASSIUM CHLOR 20 MEQ IV ONE (02:00)
[2017-01-12] MEDS: RESP: ALBUTEROL 2.5 MG/IPRATROPIUM 0.5 MG NEB (SCH) NEB ×4 (02:57→19:56)
[2017-01-12] MEDS: CHLORHEXIDINE GLUCONATE 2 % 1 PACK (2 CLOTHS) TOP SCH (03:00)
[2017-01-12] MEDS: methylPREDNISolone SOD SUCC 40 MG/1 ML VIAL IV SCH ×2 (03:50→15:55)
[2017-01-12] MEDS: HEPARIN SODIUM - SQ 10,000 UNITS/ML VIAL SQ SCH ×2 (05:55→17:43)
[2017-01-12 06:23] LABS: HEMATOCRIT 32.4 % (39.0-51.0); MEAN CELL VOLUME 86.9 FL (80.0-100.0); MEAN CORPUSCULAR HEMOGLOBIN 29.3 PG (27.0-34.0); MEAN CORPUSCULAR HGB CONC 33.8 % (32.0-36.0); PLATELET COUNT 111 TH/MM3 (150-450); RED BLOOD COUNT 3.73 MIL/MM3 (4.50-5.90); RED CELL DISTRIBUTION WIDTH 14.7 % (11.6-17.2); REVIEW FLAG FINAL; WHITE BLOOD COUNT 14.2 TH/MM3 (4.0-11.0)
[2017-01-12 06:51] LABS: BICARBONATE 31.2 MEQ/L (21.0-32.0); MAGNESIUM 2.6 MG/DL (1.5-2.5); POTASSIUM 3.9 MEQ/L (3.5-5.1)
[2017-01-12 07:11] LABS: CRITICAL VALUE YES
[2017-01-12] MEDS: CHLORHEXIDINE 0.12% (ORAL KIT) 15 ML CUP MT SCH ×2 (07:27→20:00)
--- NOTE | 2017-01-12 07:57 | HHI.CCPN ---
Subjective Remarks/Hospital Course DUPLICATE NOTE Objective Vital Signs Date Time Temp Pulse Resp B/P Pulse Ox O2 Delivery O2 Flow Rate FiO2 01/12/17 06:00 52 01/12/17 04:07 95 40 01/12/17 04:00 97.5 15 126/58 129/57 01/08/17 18:30 Ventilator 01/08/17 16:14 15.00 Intake and Output 01/11/17 01/11/17 01/12/17 08:00 16:00 00:00 Intake Total 1023 ml 1573 ml 1354 ml Output Total 250 ml 3550 ml 4475.0 ml Balance 773 ml -1977 ml -3121.0 ml Result Diagram: 01/12/1759901/12/17599 Imaging Last 24 hours Impressions Chest X-Ray 01/08/17841 Signed Impressions: Service Date/Time: Sunday, January 08, 2017 08:45 - CONCLUSION: Right upper lobe consolidation likely representing pneumonia. Aspiration could have this appearance. There is underlying chronic interstitial prominence. MD Bar Brooks Sinoj K. MD Jan 12, 2017 07:57 Output Total 250 ml 3550 ml 4475.0 ml Balance 773 ml -1977 ml -3121.0 ml Result Diagram: 01/12/1759901/12/17599 Imaging Last 24 hours Impressions Chest X-Ray 01/08/17841 Signed Impressions: Service Date/Time: Sunday, January 08, 2017 08:45 - CONCLUSION: Right upper lobe consolidation likely representing pneumonia. Aspiration could have this appearance. There is underlying chronic interstitial prominence. Bar Arias MD Objective Remarks gen: elderly male critically ill, intubated, sedated. heent: nc. at. perrl. mucous membranes moist. neck: obese neck. jvd unable to be assessed. trachea midline. chest: fine rales over right lung field. coarse breath sounds bilaterally, worse than yesterday. bilateral air entry. cv: normal rate, regular rhythm. no appreciable murmurs. cvp 23. vasopressors off. abd: obese, soft, nontender, nondistended. no guarding. extr: distal pulses 2+. no peripheral edema neuro: intubated, sedated. RASS -3. purposeful. withdraws. does not follow commands this morning. A/P Assessment and Plan Assessment: 81yM with h/o COPD and prior pulmonary embolism who presents with septic shock and RUL pneumonia and acutely decompensating hypoxic respiratory failure. His course is complicated by multi-organ system dysfunction including severe acute kidney injury, delirium, distributive shock. Although his distributive shock is resolving, he now has severe acute intravascular volume overload and pulmonary edema leading to severe hypoxemia. Despite this, his oliguric kidney injury persists. We will make every attempt to convert him to non-oliguric renal failure, but he may require renal replacement therapy emergently for acute volume overload if we are unable to gain control of his intravascular volume status. He remains critically ill. Plan by systems: Neurologic: Acute agitated delirium Propofol, fentanyl for goal RASS -2. on sedation vacation he gets agitated and more hypoxic, so we will hold sedation vacation today given his severe hypoxemia. Tylenol as needed for pain or fever Respiratory: Acute hypoxic respiratory failure Right upper lobe pneumonia COPD exacerbation Pulmonary Edema Does not meet SBT criteria today given his severe hypoxemia. Vent bundle Head of bed at 30 PEEP currently 15. will not wean in the setting of severe hypoxemia. Wean FiO2 for goal SPO2 greater than 90% Nebs every 6 and every 2 when necessary Methylprednisolone 40 IV every 12 Pulmonary following: Dr. Cadena Antibiotics as described below --forced diuresis as below. Cardiovascular: Septic shock- resolving. off vasopressors. monitor. may require additional norepinephrine for end-organ perfusion, map > 65. SLIVF. Renal: Oliguric acute kidney injury severe acute intravascular volume overload continue castro Every hour urine outputs Likely secondary to septic shock -- Strict I/Os -- lasix 200mg iv x 1, diamox 500mg iv q8h, diuril 500mg iv q12h. -- may require lasix drip -- may require renal replacement therapy for acute volume overload if no improvement in volume status. FEN/GI: Acute protein calorie malnutritionmild Daily BMP ICU electrolyte protocol TF at goal, glucerna 1.5. -- nutrition consult. -- q6h BMP, Mg while on lasix drip. aggressively replace electrolytes. Heme/ID: Right upper lobe pneumonia Septic shock Vancomycin with pharmacy dosing Zosyn d/c azithro. 01/08 u/a negative --01/08 blood cultures: strep pneumo. sensitivities pending. pneumococcus Ag: + Daily CBC Endocrine: Hyperglycemia of critical illness -- poorly controlled this AM, will increase to high-dose SSI, q4h. Prophylaxis: GI Prophylaxis Protonix 40 mg IV every 24 hours DVT Prophylaxis -- SCDs Subcutaneous heparin Lines: 01/08 right IJ triple-lumen catheter 01/08 left radial arterial line Castro Dispo: Remain in the ICU. He remains critically ill with multiple organ systems that are ongoing risks to life. This patient remains critically ill with one or more organ systems which are or may become a threat to life. I have spent in excess of 79 minutes discontinuously in the care and management of this patient. This time is exclusive of procedures, and includes, but is not limited to, evaluation of the patient, review of the medical record, discussions with family, consultants, nursing staff, or respiratory therapy, and documentation in the medical record. Finesse Dinero MD Jan 12, 2017 07:57
[2017-01-12] MEDS ORDERED: cefTRIAXone INJ 2,000 MG in SODIUM CHLORIDE 0.9% INJ 100 ML IV SCH (08:15)
--- NOTE | 2017-01-12 08:28 | HHI.CCPN ---
Subjective Remarks/Hospital Course Hospital Course: 81yM with h/o COPD and prior PE who presented yesterday with history of nausea/ vomiting and was worked up including negative CT abd/pelvis with IV contrast. He returned this morning due to dizziness. At that time he had a lactate of 6, wbc 20k, and cxr demonstrating RUL pneumonia. he was given zosyn and 4L IVF. Repeat lactate demonstrated persistent lactic acidosis of 6. Also, after 6 hours, his uop was < 200cc. A Castro catheter was inserted. his Cr was also elevated at 1.9. At this point, he became acutely hypoxemic and agitated. I was called and immediately went down to evaluate the patient. When I walked in , he was agitated and pulling off his NRB mask. He did not have a reliable spo2 monitor waveform and an abg was drawn with a po2 of 50. Decision was made to pursue emergent intubation (see separate procedure note for details). After intubation, the patient became hypotensive requiring vasopressor therapy and additional fluid boluses were given. Due to his impending cardiovascular collapse, a STAT echo was ordered which demonstrated hyperdynamic biventricular function, moderate pulmonary hypertension, and very collapsable IVC. He was given an additional 2L IVF and 2 amps bicarbonate for pH 7.11 on repeat abg with severe metabolic acidosis with BE -12. He was started on norepinephrine and vasopressin. He was transported to the medical ICU in critical condition. Subjective: 01/09: Lactate is clearing, but slowly. CVP improved overnight. uop marginal, but slightly improved from yesterday. hypoxia slightly better as well, although persists on 100% fio2. wbc up to 44k today. 01/10: CVP rising yesterday, persistently oligoanuric. vasopressors persist, but at slightly lower dose. high fio2 requirements. wbc downtrending. 01/11: oxygenation severely worsened overnight. now on peep 15, fio2 100%, spo2 85%. vasopressors weaned off. cvp kuldip throughout the night to 23 this AM. CXR with evidence of significant pulmonary edema and intravascular volume overload. despite this, UOP minimal overnight and remains in oliguric renal failure. 01/12: Remains intubated sedated. Chest x-ray from yesterday prominent bilateral infiltrates right more than left with mediastinal prominence. CT chest ordered for today. Urine output 10 L in 24 hours on Lasix infusion 20 mg pr hour. Slight worsening of creatinine to 2.15. Weight is still up by 9 KG. WBC count essentially stable Objective Vital Signs Date Time Temp Pulse Resp B/P Pulse Ox O2 Delivery O2 Flow Rate FiO2 01/12/17 06:00 52 01/12/17 04:07 95 40 01/12/17 04:00 97.5 15 126/58 129/57 01/08/17 18:30 Ventilator 01/08/17 16:14 15.00 Intake and Output 01/11/17 01/11/17 01/12/17 08:00 16:00 00:00 Intake Total 1023 ml 1573 ml 1354 ml Output Total 250 ml 3550 ml 4475.0 ml Balance 773 ml -1977 ml -3121.0 ml Result Diagram: 01/12/17 0600 01/12/17 0600 Imaging Last 24 hours Impressions Chest X-Ray 01/08/17 0842 Signed Impressions: Service Date/Time: Sunday, January 08, 2017 08:45 - CONCLUSION: Right upper lobe consolidation likely representing pneumonia. Aspiration could have this appearance. There is underlying chronic interstitial prominence. Bar Arias MD Objective Remarks GEN: elderly male critically ill, intubated, sedated. HEENT: nc. at. perrl. mucous membranes moist. neck: obese neck. jvd unable to be assessed. trachea midline. chest: Rales over bilateral lung field. coarse breath sounds bilaterally. Otherwise air entry equal bilaterally cv: normal rate, regular rhythm. no appreciable murmurs. cvp 23. vasopressors off. abd: obese, soft, nontender, nondistended. no guarding. extr: distal pulses 2+. no peripheral edema neuro: intubated, sedated. RASS -3. purposeful. withdraws. On lightening sedation moves all extremities, gets agitated Urinary Catheter: Yes Assessment to: Continue Vascular Central Line Catheter: Yes Assessment to: Continue A/P Assessment and Plan Assessment: 81yM with h/o COPD and prior pulmonary embolism who presents with septic shock and RUL pneumonia and acutely decompensating hypoxic respiratory failure. His course is complicated by multi-organ system dysfunction including severe acute kidney injury, delirium, distributive shock. Although his distributive shock is resolving, he now has severe acute intravascular volume overload and pulmonary edema leading to severe hypoxemia. Despite this, his oliguric kidney injury persists. We will make every attempt to convert him to non-oliguric renal failure, but he may require renal replacement therapy emergently for acute volume overload if we are unable to gain control of his intravascular volume status. He remains critically ill. Plan by systems: Neurologic: Acute agitated delirium Propofol, fentanyl for goal RASS -2. on sedation vacation he gets agitated and hypoxic. --Attempt daily sedation vacation Tylenol as needed for pain or fever Respiratory: Acute hypoxic respiratory failure Multilobar pneumococcal pneumonia COPD exacerbation Pulmonary Edema Mediastinal prominence Does not meet SBT criteria due to high PEEP, start weaning PEEP from 10 to 8 Vent bundle Head of bed at 30 Wean FiO2 for goal SPO2 greater than 90% Nebs every 6 and every 2 when necessary Methylprednisolone 40 IV every 12 Pulmonary following: Dr. Cadena Antibiotics as described below --forced diuresis as below. Cardiovascular: Septic shock- resolved Fluid overload off vasopressors. monitor. may require additional norepinephrine for end-organ perfusion, map > 65. SLIVF. --Lasix infusion as below Renal: Oliguric acute kidney injury severe acute intravascular volume overload continue castro Every hour urine outputs Likely secondary to septic shock --Strict I/Os --Currently on lasix 20 mg per hour. Decrease to 10 mg per hour. -- DC diamox 500mg iv q8h, DC diuril 500mg iv q12h. -- may require renal replacement therapy for acute volume overload if no improvement in volume status. FEN/GI: Acute protein calorie malnutritionmild Daily BMP ICU electrolyte protocol TF at goal, glucerna 1.5. -- nutrition consult. -- q6h BMP, Mg while on lasix drip. aggressively replace electrolytes. Heme/ID: Multilobar pneumococcal pneumonia Septic shock 01/08 u/a negative --01/08 blood cultures: strep pneumo. Zosyn and Vanc dcd and PCN G started by Dr. Robledo 01/11/17 pneumococcus Ag: + Daily CBC Endocrine: Hyperglycemia of critical illness -- High-dose SSI, q4h. Prophylaxis: GI Prophylaxis Protonix 40 mg IV every 24 hours DVT Prophylaxis -- SCDs Subcutaneous heparin Lines: 01/08 right IJ triple-lumen catheter 01/08 left radial arterial line-DC01/12/17 Castro Dispo: Remain in the ICU. He remains critically ill with multiple organ systems that are ongoing risks to life. This patient remains critically ill with one or more organ systems which are or may become a threat to life. I have spent in excess of 79 minutes discontinuously in the care and management of this patient. This time is exclusive of procedures, and includes, but is not limited to, evaluation of the patient, review of the medical record, discussions with family, consultants, nursing staff, or respiratory therapy, and documentation in the medical record. CCT 32 min Finesse Dinero MD Jan 12, 2017 08:28
[2017-01-12] MEDS: DOCUSATE SODIUM 100 MG/10 ML UDC PO SCH ×2 (08:59→20:14)
[2017-01-12] MEDS: ASPIRIN EC 81 MG TABEC PO SCH (08:59)
[2017-01-12] MEDS: SODIUM CHLORIDE 0.9% FLUSH 5 ML FLUSH IV FLUSH SCH ×2 (08:59→21:00)
[2017-01-12] MEDS: MAGNESIUM OXIDE 400 MG TAB PO SCH ×2 (09:00→20:14)
[2017-01-12] MEDS: LACTOBACILLUS ACIDOPHILUS TAB PO SCH ×3 (09:00→17:42)
[2017-01-12] MEDS: BUDESONIDE-FORMOTEROL 160/4.5 MCG INHALER INH SCH (09:00)
[2017-01-12] MEDS: SENNOSIDES SYRUP 8.8 MG/5 ML CUP PO SCH (09:01)
--- NOTE | 2017-01-12 12:10 | HHI.PR ---
Subjective Remarks Better today . FIO2 at 50 %. Good output with lasix drip. Now on FIO2 50 %. Going for CT chest for mediastinal adenopathy. Tolerates feeds Objective Vital Signs Date Time Temp Pulse Resp B/P Pulse Ox O2 Delivery O2 Flow Rate FiO2 01/12/17 10:00 59 01/12/17 08:05 93 40 01/12/17 08:00 55 01/12/17 08:00 40 01/12/17 08:00 97.7 55 15 125/59 90 113/57 01/12/17 08:00 55 125/59 01/12/17 06:00 52 01/12/17 04:07 95 40 01/12/17 04:00 40 01/12/17 04:00 52 01/12/17 04:00 97.5 53 15 126/58 95 129/57 01/12/17 02:00 54 01/12/17 01:10 91 40 01/12/17 00:00 97.1 55 15 123/60 93 118/51 01/12/17 00:00 40 01/12/17 00:00 55 01/11/17 22:19 95 40 01/11/17 22:00 50 01/11/17 20:02 93 40 01/11/17 20:00 40 01/11/17 20:00 97.6 51 15 112/55 93 117/54 01/11/17 20:00 51 01/11/17 18:00 56 01/11/17 16:00 54 144/67 01/11/17 16:00 96 40 01/11/17 16:00 40 01/11/17 16:00 97.8 55 15 127/61 93 139/57 01/11/17 16:00 55 01/11/17 14:00 54 I/O 01/11/17 01/11/17 01/11/17 01/12/17 01/12/17 01/12/17 07:00 15:00 23:00 07:00 15:00 23:00 Intake Total 1023 ml 1573 ml 1354 ml 1472 ml Output Total 250 ml 3550 ml 3950.0 ml 2575 ml Balance 773 ml -1977 ml -2596.0 ml -1103 ml Intake Oral 240 ml IV Total 689 ml 842 ml 943 ml 990 ml Tube Feeding 274 ml 431 ml 351 ml 422 ml Other 60 ml 60 ml 60 ml 60 ml Output Urine Total 250 ml 3550 ml 3950 ml 2575 ml Tube Feeding Residual Discard 0 ml 0 ml 0 ml # Bowel Movements 0 0 0 Result Diagram: 01/12/1759901/12/17599 Objective Remarks This moderately overweight elderly white male is intubated and lethargic. HEENT: Head normocephalic. Pupils reactive. Sclerae are clear. Throat secretions. Ears, no inflammation. Neck: Supple. No bruits. Mild venous distension. Trachea midline. Chest: Equal movements with increased AP diameter with occ wheezes .Bilateral Crackles Heart: The heart sounds are irregular, S1-S2. No murmur. No S3. Abdomen: The abdomen is protuberant, soft, without masses, organomegaly or tenderness. Bowel sounds active. Extremities: Varicosities and decreased pulses. No edema. Reflexes are not elicited. Neurologic: sedated. Rectal: Exam is deferred. Assessment and Plan Assessment and Plan IMPRESSION 1. Septic shock. 2. Extensive right lung pneumonia and hypoxemia. 3. Acute hypoxemic, hypercapnic respiratory failure. 4. COPD with emphysema 5. History of pulmonary embolism. 6. History of hypertension. 7. RIZWAN. Plan : 1. Wean FIO2 to keep sat > 92. 2. Wean to CPAP in am if stable. 3. Cont antibiotics as ordered. 4. CT chest ,today. 5. Nebs q6h , Duoneb. 6. Cont Heparin 5000 U S/Q bid. 7. Keep sedated with fentanyl/Versed. 8. Tube feeds at 60 CC. Cheri Cadena MD Jan 12, 2017 12:10 Cheri Cadena MD Jan 12, 2017 12:10
[2017-01-12 13:08] LABS: BICARBONATE 34.7 MEQ/L (21.0-32.0); MAGNESIUM 2.7 MG/DL (1.5-2.5)
--- NOTE | 2017-01-12 17:26 | RADRPT ---
EXAM DATE/TIME: 01/12/2017 16:58 [facility] COMPARISON: CHEST SINGLE AP, January 11, 2017, 6:47. INDICATIONS : Pneumonia. Evaluate mediastinal prominence. RADIATION DOSE: 9.89 CTDIvol (mGy) MEDICAL HISTORY : Cardiovascular disease. Hypertension. Chronic obstructive pulmonary disease. SURGICAL HISTORY : Cholecystectomy. Appendectomy. Cardiac stents. ENCOUNTER: Subsequent ACUITY: 2 days PAIN SCALE: 4/10 LOCATION: Chest TECHNIQUE: Volumetric scanning of the chest was performed. Using automated exposure control and adjustment of the mA and/or kV according to patient size, radiation dose was kept as low as reasonab ly achievable to obtain optimal diagnostic quality images. FINDINGS: There is consolidation seen throughout the posterior aspect of the right upper and lowe r lung. There is a minimal amount of right pleural fluid present. There is some mild suspected ate lectasis or consolidation at the posterior left lower lobe. There is extensive adenopathy seen throu ghout the mediastinum including the superior mediastinum, prevascular area, right paratracheal, preca rinal, subcarinal and the tracheal bronchial region especially on the right. Coronary artery calcifi cations are present. There is an NG tube in place. The patient is status post cholecystectomy. Mary l size lymph nodes are seen in the axillary regions. CONCLUSION: 1. Extensive consolidation throughout much of the right lung likely representing processes such as in flammatory change and pneumonia. 2. Extensive adenopathy is seen throughout the mediastinum. This is nonspecific. It could be reacti ve or neoplastic. If it is neoplastic, lymphoma should be considered. Axillary adenopathy is not see n. Bar Arias MD on January 12, 2017 at 17:17 Board Certified Radiologist. This report was verified electronically.
[2017-01-12 18:42] LABS: BICARBONATE 33.3 MEQ/L (21.0-32.0); MAGNESIUM 2.8 MG/DL (1.5-2.5); POTASSIUM 4.3 MEQ/L (3.5-5.1)
[2017-01-12] MEDS: fentaNYL DRIP 250 ML IV SCH (19:38)
[2017-01-12] MEDS: PANTOPRAZOLE SODIUM 40 MG VIAL IV PUSH SCH (20:13)
[2017-01-13] VITALS (18 sets, daily range): BP systolic 105–152; BP diastolic 55–68; PULSE 53–114; RESP 20; TEMP 97.6–99.1; O2SAT 90–98
[2017-01-13] MEDS: FUROSEMIDE INJ 100 MG in SODIUM CHLORIDE 0.9% INJ 90 ML IV SCH ×2 (00:41→21:45)
[2017-01-13 00:58] LABS: MAGNESIUM 2.6 MG/DL (1.5-2.5); POTASSIUM 4.5 MEQ/L (3.5-5.1)
[2017-01-13] MEDS: PROPOFOL 1000 MG/100 ML INJ 100 ML IV SCH ×6 (02:46→20:00)
[2017-01-13] MEDS: RESP: ALBUTEROL 2.5 MG/IPRATROPIUM 0.5 MG NEB (SCH) NEB ×4 (03:39→21:37)
[2017-01-13] MEDS: CHLORHEXIDINE GLUCONATE 2 % 1 PACK (2 CLOTHS) TOP SCH (04:00)
[2017-01-13] MEDS: methylPREDNISolone SOD SUCC 40 MG/1 ML VIAL IV SCH ×2 (04:44→16:16)
[2017-01-13] MEDS: PENICILLIN G POTASSIUM INJ 3,000,000 UNITS in SODIUM CHLORIDE 0.9% INJ 100 ML IV SCH ×6 (04:44→20:00)
[2017-01-13] MEDS: INSULIN NovoLIN REGULAR SUPPLEMENTAL SCALE SQ SCH ×5 (04:44→20:00)
[2017-01-13] MEDS: HEPARIN SODIUM - SQ 10,000 UNITS/ML VIAL SQ SCH ×2 (04:51→16:17)
[2017-01-13] MEDS: fentaNYL DRIP 250 ML IV SCH ×2 (05:03→15:01)
[2017-01-13 05:08] LABS: AUTOMATED NEUTROPHIL # 9.1 TH/MM3 (1.8-7.7); BASOPHIL % 0.2 % (0.0-2.0); EOSINOPHIL % 0.1 % (0.0-4.0); HEMATOCRIT 32.7 % (39.0-51.0); LYMPHOCYTE # 2.5 TH/MM3 (1.0-4.8); MEAN CELL VOLUME 86.5 FL (80.0-100.0); MEAN CORPUSCULAR HEMOGLOBIN 29.2 PG (27.0-34.0); MEAN CORPUSCULAR HGB CONC 33.7 % (32.0-36.0); MONO % 6.6 % (0.0-8.0); NEUT % 73.1 % (16.0-70.0); PLATELET COUNT 136 TH/MM3 (150-450); RED BLOOD COUNT 3.78 MIL/MM3 (4.50-5.90); RED CELL DISTRIBUTION WIDTH 14.6 % (11.6-17.2); WHITE BLOOD COUNT 12.5 TH/MM3 (4.0-11.0)
[2017-01-13 05:21] LABS: HEMO FLAGS AUTO DIFF
[2017-01-13 05:30] LABS: BICARBONATE 32.4 MEQ/L (21.0-32.0); MAGNESIUM 2.7 MG/DL (1.5-2.5)
--- NOTE | 2017-01-13 05:39 | RADRPT ---
EXAM DATE/TIME: 01/13/2017 03:07 [facility] COMPARISON: CHEST SINGLE AP, January 11, 2017, 6:47. INDICATIONS : Shortness of breath, possible pulmonary disease. MEDICAL HISTORY : Chronic obstructive pulmonary disease. Cardiovascular disease. Myocardial infarction. SURGICAL HISTORY : Colon resection. Cholecystectomy. Appendectomy. ENCOUNTER: Subsequent ACUITY: 1 week PAIN SCORE: Non-responsive. LOCATION: Bilateral chest FINDINGS: Single AP view of the chest. Endotracheal tube, nasogastric tube, right IJ central venous catheter re main in place. Persistent bilateral pulmonary opacity with decrease when compared prior study. Small bilateral pleural effusions. CONCLUSION: Decrease in bilateral pulmonary parenchymal opacity. There is persistent bilateral lower lung zone co nsolidation versus atelectasis and small bilateral pleural effusions. Trung Mccall MD on January 13, 2017 at 5:36 Board Certified Radiologist. This report was verified electronically.
[2017-01-13 07:47] LABS: BURR CELLS 1+ (NORMAL); OVALOCYTES 1+ (NORMAL); SCAN/DIFF AUTO DIFF CONFIRMED
[2017-01-13] MEDS: MAGNESIUM OXIDE 400 MG TAB PO SCH ×2 (08:44→20:01)
[2017-01-13] MEDS: SENNOSIDES SYRUP 8.8 MG/5 ML CUP PO SCH (08:44)
[2017-01-13] MEDS: ASPIRIN EC 81 MG TABEC PO SCH (08:44)
[2017-01-13] MEDS: DOCUSATE SODIUM 100 MG/10 ML UDC PO SCH ×2 (08:44→20:01)
[2017-01-13] MEDS: CHLORHEXIDINE 0.12% (ORAL KIT) 15 ML CUP MT SCH ×2 (08:46→20:02)
[2017-01-13] MEDS: BUDESONIDE-FORMOTEROL 160/4.5 MCG INHALER INH SCH ×2 (09:00→21:00)
[2017-01-13] MEDS: LACTOBACILLUS ACIDOPHILUS TAB PO SCH ×3 (09:00→16:16)
[2017-01-13] MEDS: SODIUM CHLORIDE 0.9% FLUSH 5 ML FLUSH IV FLUSH SCH ×2 (12:33→20:02)
--- NOTE | 2017-01-13 12:47 | HHI.PR ---
Subjective Remarks Better today . FIO2 at 50 %. Good output with lasix drip. CXR looks much better. Now on FIO2 50 %. Tolerates feeds Objective Vital Signs Date Time Temp Pulse Resp B/P Pulse Ox O2 Delivery O2 Flow Rate FiO2 01/13/17 12:00 98.1 80 20 105/68 96 01/13/17 12:00 64 01/13/17 12:00 80 01/13/17 12:00 65 01/13/17 11:46 Arterial Line 01/13/17 10:00 77 01/13/17 09:47 96 50 01/13/17 08:00 53 01/13/17 08:00 64 01/13/17 08:00 98.2 53 20 119/67 91 01/13/17 08:00 65 01/13/17 06:00 61 01/13/17 04:15 96 50 01/13/17 04:00 64 01/13/17 04:00 97.6 61 20 152/68 98 01/13/17 04:00 61 01/13/17 04:00 65 01/13/17 02:00 97 01/13/17 01:30 97 50 01/13/17 00:00 55 01/13/17 00:00 65 01/13/17 00:00 64 01/13/17 00:00 97.7 55 20 128/62 97 01/12/17 22:12 94 50 01/12/17 22:00 55 01/12/17 20:00 98.2 80 18 105/61 97 01/12/17 20:00 65 01/12/17 20:00 64 01/12/17 20:00 70 01/12/17 19:56 95 65 01/12/17 18:00 77 01/12/17 16:00 98.8 73 18 115/66 92 01/12/17 16:00 40 01/12/17 16:00 73 01/12/17 16:00 64 01/12/17 15:59 92 50 01/12/17 15:40 99 100 01/12/17 14:00 70 I/O 01/12/17 01/12/17 01/12/17 01/13/17 01/13/17 01/13/17 07:00 15:00 23:00 07:00 15:00 23:00 Intake Total 1472 ml 1113 ml 1278 ml 918 ml Output Total 2575 ml 2475 ml 1400 ml 1800 ml Balance -1103 ml -1362 ml -122 ml -882 ml IV Total 990 ml 701 ml 827 ml 504 ml Tube Feeding 422 ml 412 ml 391 ml 414 ml Other 60 ml 60 ml Output Urine Total 2575 ml 2475 ml 1400 ml 1800 ml Tube Feeding Residual Discard 0 ml # Bowel Movements 0 0 Result Diagram: 01/13/170 01/13/17339 Objective Remarks This moderately overweight elderly white male is intubated and lethargic. HEENT: Head normocephalic. Pupils reactive. Sclerae are clear. Throat secretions. Ears, no inflammation. Neck: Supple. No bruits. No venous distension. Trachea midline. Chest: Equal movements with increased AP diameter with occ wheezes .Bilateral Basal Crackles Heart: The heart sounds are irregular, S1-S2. No murmur. No S3. Abdomen: The abdomen is protuberant, soft, without masses, organomegaly or tenderness. Bowel sounds active. Extremities: Varicosities and decreased pulses. No edema. Reflexes are not elicited. Neurologic: sedated. Rectal: Exam is deferred. Assessment and Plan Assessment and Plan IMPRESSION 1. Septic shock. 2. Extensive right lung pneumonia and hypoxemia. 3. Acute hypoxemic, hypercapnic respiratory failure. 4. COPD with emphysema 5. History of pulmonary embolism. 6. History of hypertension. 7. RIZWAN. Plan : 1. Wean FIO2 to keep sat > 92. 2. Reduce lasix to 40 mg IV 3. Cont antibiotics as ordered. 4.CXR in am 5. Nebs q6h , Duoneb. 6. Cont Heparin 5000 U S/Q bid. 7. Keep sedated with fentanyl/Versed. 8. Tube feeds at 60 CC. 9. Wean to CPAP in am if stable. Cheri Cadena MD Jan 13, 2017 12:47
[2017-01-13 13:55] LABS: BICARBONATE 35.3 MEQ/L (21.0-32.0); MAGNESIUM 2.7 MG/DL (1.5-2.5); POTASSIUM 3.5 MEQ/L (3.5-5.1)
[2017-01-13] MEDS: POTASSIUM CHLOR 20 MEQ PREMIX 100 ML IV PRN ×3 (17:09→17:12)
[2017-01-13] MEDS: PANTOPRAZOLE SODIUM 40 MG VIAL IV PUSH SCH (20:02)
[2017-01-14] VITALS (18 sets, daily range): BP systolic 114–192; BP diastolic 59–84; PULSE 68–92; RESP 15–20; TEMP 97.7–99.1; O2SAT 90–96
[2017-01-14] MEDS: PENICILLIN G POTASSIUM INJ 3,000,000 UNITS in SODIUM CHLORIDE 0.9% INJ 100 ML IV SCH ×6 (00:39→20:39)
[2017-01-14] MEDS: PROPOFOL 1000 MG/100 ML INJ 100 ML IV SCH ×8 (00:40→22:07)
[2017-01-14] MEDS: fentaNYL DRIP 250 ML IV SCH ×2 (01:08→20:39)
[2017-01-14] MEDS: methylPREDNISolone SOD SUCC 40 MG/1 ML VIAL IV SCH ×2 (03:15→16:56)
[2017-01-14] MEDS: RESP: ALBUTEROL 2.5 MG/IPRATROPIUM 0.5 MG NEB (SCH) NEB ×4 (03:50→20:10)
[2017-01-14] MEDS: INSULIN NovoLIN REGULAR SUPPLEMENTAL SCALE SQ SCH ×6 (04:00→20:00)
[2017-01-14] MEDS: CHLORHEXIDINE GLUCONATE 2 % 1 PACK (2 CLOTHS) TOP SCH (04:00)
[2017-01-14 04:48] LABS: HEMATOCRIT 36.4 % (39.0-51.0); MEAN CELL VOLUME 87.8 FL (80.0-100.0); MEAN CORPUSCULAR HEMOGLOBIN 28.8 PG (27.0-34.0); MEAN CORPUSCULAR HGB CONC 32.8 % (32.0-36.0); PLATELET COUNT 153 TH/MM3 (150-450); RED BLOOD COUNT 4.15 MIL/MM3 (4.50-5.90); RED CELL DISTRIBUTION WIDTH 14.9 % (11.6-17.2); REVIEW FLAG FINAL; WHITE BLOOD COUNT 12.9 TH/MM3 (4.0-11.0)
[2017-01-14 05:06] LABS: BICARBONATE 34.1 MEQ/L (21.0-32.0); MAGNESIUM 2.9 MG/DL (1.5-2.5); POTASSIUM 4.7 MEQ/L (3.5-5.1)
[2017-01-14] MEDS: HEPARIN SODIUM - SQ 10,000 UNITS/ML VIAL SQ SCH ×2 (06:21→16:57)
[2017-01-14] MEDS: FUROSEMIDE INJ 100 MG in SODIUM CHLORIDE 0.9% INJ 90 ML IV SCH (06:51)
--- NOTE | 2017-01-14 07:11 | RADRPT ---
EXAM DATE/TIME: 01/14/2017 05:30 [facility] COMPARISON: CHEST SINGLE AP, January 13, 2017, 3:07. INDICATIONS : Shortness of breath. MEDICAL HISTORY : Chronic obstructive pulmonary disease. Cardiovascular disease. Myocardial infarction. SURGICAL HISTORY : Colon resection. Cholecystectomy. Appendectomy. ENCOUNTER: Subsequent ACUITY: 1 week PAIN SCORE: Non-responsive. LOCATION: Bilateral chest FINDINGS: Lines and tubes are present not significantly changed. There is diffuse bilateral mixed interstitial and alveolar process worse in the right lung and not significantly changed. CONCLUSION: No appreciable change. Brennen Georges MD on January 14, 2017 at 7:09 Board Certified Radiologist. This report was verified electronically.
[2017-01-14] MEDS: CHLORHEXIDINE 0.12% (ORAL KIT) 15 ML CUP MT SCH ×2 (08:48→20:39)
[2017-01-14] MEDS: SENNOSIDES SYRUP 8.8 MG/5 ML CUP PO SCH (08:48)
[2017-01-14] MEDS: DOCUSATE SODIUM 100 MG/10 ML UDC PO SCH ×2 (08:48→20:40)
[2017-01-14] MEDS: LACTOBACILLUS ACIDOPHILUS TAB PO SCH ×3 (08:48→18:43)
[2017-01-14] MEDS: MAGNESIUM OXIDE 400 MG TAB PO SCH ×2 (08:58→20:40)
[2017-01-14] MEDS: SODIUM CHLORIDE 0.9% FLUSH 5 ML FLUSH IV FLUSH SCH ×2 (08:58→20:39)
[2017-01-14] MEDS: ASPIRIN EC 81 MG TABEC PO SCH (08:59)
[2017-01-14] MEDS: BUDESONIDE-FORMOTEROL 160/4.5 MCG INHALER INH SCH ×2 (09:00→20:40)
--- NOTE | 2017-01-14 11:40 | HHI.CCPN ---
Subjective Remarks/Hospital Course Hospital Course: 81yM with h/o COPD and prior PE who presented yesterday with history of nausea/ vomiting and was worked up including negative CT abd/pelvis with IV contrast. He returned this morning due to dizziness. At that time he had a lactate of 6, wbc 20k, and cxr demonstrating RUL pneumonia. he was given zosyn and 4L IVF. Repeat lactate demonstrated persistent lactic acidosis of 6. Also, after 6 hours, his uop was < 200cc. A Castro catheter was inserted. his Cr was also elevated at 1.9. At this point, he became acutely hypoxemic and agitated. I was called and immediately went down to evaluate the patient. When I walked in , he was agitated and pulling off his NRB mask. He did not have a reliable spo2 monitor waveform and an abg was drawn with a po2 of 50. Decision was made to pursue emergent intubation (see separate procedure note for details). After intubation, the patient became hypotensive requiring vasopressor therapy and additional fluid boluses were given. Due to his impending cardiovascular collapse, a STAT echo was ordered which demonstrated hyperdynamic biventricular function, moderate pulmonary hypertension, and very collapsable IVC. He was given an additional 2L IVF and 2 amps bicarbonate for pH 7.11 on repeat abg with severe metabolic acidosis with BE -12. He was started on norepinephrine and vasopressin. He was transported to the medical ICU in critical condition. 01/09: Lactate is clearing, but slowly. CVP improved overnight. uop marginal, but slightly improved from yesterday. hypoxia slightly better as well, although persists on 100% fio2. wbc up to 44k today. 01/10: CVP rising yesterday, persistently oligoanuric. vasopressors persist, but at slightly lower dose. high fio2 requirements. wbc downtrending. 01/11: oxygenation severely worsened overnight. now on peep 15, fio2 100%, spo2 85%. vasopressors weaned off. cvp kuldip throughout the night to 23 this AM. CXR with evidence of significant pulmonary edema and intravascular volume overload. despite this, UOP minimal overnight and remains in oliguric renal failure. 01/12: Remains intubated sedated. Chest x-ray from yesterday prominent bilateral infiltrates right more than left with mediastinal prominence. CT chest ordered for today. Urine output 10 L in 24 hours on Lasix infusion 20 mg pr hour. Slight worsening of creatinine to 2.15. Weight is still up by 9 KG. WBC count essentially stable Subjective: 01/14: Afebrile. Not really responsive this a.m. so MRI brain/EEG pending. Currently on CPAP trial. Lasix infusion will be discontinued. Positive BM. Tolerating tube feeds Objective Vital Signs Date Time Temp Pulse Resp B/P Pulse Ox O2 Delivery O2 Flow Rate FiO2 01/14/17 09:27 60 01/14/17 09:25 96 01/14/17 06:00 71 01/14/17 04:00 98.9 20 160/74 Intake and Output 01/13/17 01/13/17 01/14/17 08:00 16:00 00:00 Intake Total 918 ml 1691 ml 1474 ml Output Total 1800 ml 4150 ml 2150 ml Balance -882 ml -2459 ml -676 ml Result Diagram: 01/14/17 0300 01/14/17 0300 Other Results Microbiology Date/Time Procedure Status Source Growth 01/10/17 11:35 Gram Stain - Final Complete Sputum Endotracheal 01/10/17 11:35 Sputum Culture - Final Complete Sputum Endotracheal RARE GROWTH NORMAL RESPIRATORY [facility]TA Imaging Last Impressions Chest X-Ray 01/14/17 0600 Signed Impressions: Service Date/Time: Saturday, January 14, 2017 05:30 - CONCLUSION: No appreciable change. Brennen Georges MD Chest CT 01/12/17 0000 Signed Impressions: Service Date/Time: Thursday, January 12, 2017 16:58 - CONCLUSION: 1. Extensive consolidation throughout much of the right lung likely representing processes such as inflammatory change and pneumonia. 2. Extensive adenopathy is seen throughout the mediastinum. This is nonspecific. It could be reactive or neoplastic. If it is neoplastic, lymphoma should be considered. Axillary adenopathy is not seen. Bar Arias MD Renal Ultrasound 01/10/17 0000 Signed Impressions: Service Date/Time: Tuesday, January 10, 2017 10:49 - CONCLUSION: 1. Kidneys appear normal. 2. Impression on the bladder floor from the prostate. There is a bladder diverticulum and possible bladder stone present. Bar Arias MD Objective Remarks GEN: 81-year-old elderly male critically ill, intubated, sedated. HEENT: No cephalic atraumatic. PERRLA. MMM. Orotracheally intubated neck: obese neck. jvd unable to be assessed. trachea midline. Right IJ clean dry and intact chest: Gadolinium rhonchi over bilateral lung field. coarse breath sounds bilaterally. Otherwise air entry equal bilaterally cv: RRR. S1, S2 no S4. Without murmur. abd: obese, soft, nontender, nondistended. I Nuñez bowel sounds. extr: distal pulses 2+. no peripheral edema neuro: intubated, currently not responsive. Positive gag. Withdrawals to noxious stimuli Urinary Catheter: Yes Assessment to: Continue Castro insert reason: Prolonged Immobilization Vascular Central Line Catheter: Yes Assessment to: Continue Line: Central Venous Catheter Side: Right Location: Internal, Jugular A/P Assessment and Plan Neurologic/PSYCH: Acute agitated delirium Chronic Xanax use Peripheral neuropathy At home on gabapentin 300 twice a day and Xanax 0.5 mg every 8 hours as needed for anxiety. These are currently been on hold with altered mental status Propofol previously 20 g Per minute, fentanyl drip at 100 echograms an hour for goal RASS -2. and hypoxic. --Attempt daily sedation vacation Tylenol as needed for pain or fever -- Due to delirium will check MRI brain/EEG today Respiratory: Acute hypoxic respiratory failure Multilobar pneumococcal pneumonia COPD exacerbation Pulmonary Edema Mediastinal prominence Severe pulmonary hypertension PRVC ventilation - currently on CPAP trial - Symbicort 160/4.5 twice a day Vent bundle Head of bed at 30 Wean FiO2 for goal SPO2 greater than 90% Nebs every 6 and every 2 when necessary Methylprednisolone 40 IV every 12 Pulmonary following: Dr. Cadena Antibiotics as described below --forced diuresis to be lessened currently on Lasix 40 twice a day Cardiovascular: Septic shock- resolved Fluid overload Severe pulmonary hypertension off vasopressors. monitor. may require additional norepinephrine for end-organ perfusion, map > 65. SLIVF. --Lasix infusion as below Echocardiogram revealed EF 60-65%. PPP 93 mmHg. Renal: Oliguric acute kidney injury continue castro Every hour urine outputs --Strict I/Os --Currently on lasix 20 mg per hour. To be switched to 20 mg IV twice a day FEN/GI: Acute protein calorie malnutritionmild Hyper-magnesium Daily BMP ICU electrolyte protocol TF. Switch to vital protein goal 60 cc an hour -- nutrition consult. -- q6h BMP, Mg while on lasix drip. aggressively replace electrolytes. Heme/ID: Normocytic anemia Leukocytosis Multilobar pneumococcal pneumonia Septic shock 01/08 u/a negative --01/08 blood cultures: strep pneumo. Zosyn and Vanc dcd and PCN G started by Dr. Robledo 01/11/17 pneumococcus Ag: + Daily CBC Endocrine: Hyperglycemia of critical illness -- High-dose SSI, q4h. Prophylaxis: GI Prophylaxis Protonix 40 mg IV every 24 hours DVT Prophylaxis -- SCDs Subcutaneous heparin Lines: 01/08 right IJ triple-lumen catheter 01/08 left radial arterial line-DC01/12/17 Castro Critical Care: The total critical care time was 35 minutes. Time to perform other separately billable procedures was not included in the critical care time. Frank Chauhan MD Jan 14, 2017 11:40
--- NOTE | 2017-01-14 12:05 | RADRPT ---
EXAM DATE/TIME: 01/14/2017 11:20 [facility] COMPARISON: No previous studies available for comparison. INDICATIONS : Clear for mri MEDICAL HISTORY : Hypertension. SURGICAL HISTORY : cardiac stents ENCOUNTER: Initial ACUITY: 4 - 6 days PAIN SCORE: Non-responsive. LOCATION: Bilateral skull FINDINGS: A two view examination of the skull demonstrates no evidence of fracture. The pituitary fossa is nor mal in configuration. No MRI incompatible foreign body is identified.. CONCLUSION: No MRI incompatible foreign body is identified. Bar Arias MD on January 14, 2017 at 12:02 Board Certified Radiologist. This report was verified electronically.
--- NOTE | 2017-01-14 12:35 | HHI.PR ---
Subjective Remarks Better today .On CPAP, FIO2 at 60 %. Off lasix drip. CXR looks much better. Tolerates feeds. For MRI today Objective Vital Signs Date Time Temp Pulse Resp B/P Pulse Ox O2 Delivery O2 Flow Rate FiO2 01/14/17 09:27 60 01/14/17 09:25 96 60 01/14/17 09:18 93 60 01/14/17 08:00 97.7 77 15 143/65 91 01/14/17 08:00 60 01/14/17 06:00 71 01/14/17 04:00 60 01/14/17 04:00 84 01/14/17 04:00 98.9 84 20 160/74 96 01/14/17 03:51 94 60 01/14/17 02:00 73 01/14/17 00:00 60 01/14/17 00:00 73 01/14/17 00:00 99.1 73 20 114/59 94 01/13/17 22:00 78 01/13/17 20:00 96 60 01/13/17 20:00 99.1 71 20 109/55 94 01/13/17 20:00 60 01/13/17 20:00 71 01/13/17 18:00 80 01/13/17 16:05 92 50 01/13/17 16:00 114 01/13/17 16:00 98.1 80 20 105/68 96 01/13/17 16:00 65 01/13/17 15:06 94 50 01/13/17 14:00 74 01/13/17 12:55 90 50 I/O 01/13/17 01/13/17 01/13/17 01/14/17 01/14/17 01/14/17 07:00 15:00 23:00 07:00 15:00 23:00 Intake Total 918 ml 1691 ml 1474 ml 1027 ml Output Total 1800 ml 4150 ml 2150 ml 1600 ml 2400 ml Balance -882 ml -2459 ml -676 ml -573 ml -2400 ml Intake Oral 0 ml 0 ml IV Total 504 ml 1230 ml 923 ml 618 ml Tube Feeding 414 ml 461 ml 531 ml 409 ml Other 20 ml Output Urine Total 1800 ml 4150 ml 2150 ml 1600 ml 2400 ml Bladder Scan Volume Amount 250 ml # Bowel Movements 0 1 Result Diagram: 01/14/1729901/14/17 030 Objective Remarks This moderately overweight elderly white male is intubated and lethargic. HEENT: Head normocephalic. Pupils reactive. Sclerae are clear. Throat secretions. Ears, no inflammation. Neck: Supple. No bruits. No venous distension. Trachea midline. Chest: Equal movements with increased AP diameter with Bilateral Basal Crackles Heart: The heart sounds are irregular, S1-S2. No murmur. No S3. Abdomen: The abdomen is protuberant, soft, without masses, organomegaly or tenderness. Bowel sounds active. Extremities: Varicosities and decreased pulses. No edema. Reflexes are not elicited. Neurologic:sleepy. Rectal: Exam is deferred. Assessment and Plan Assessment and Plan IMPRESSION 1. Septic shock. 2. Extensive right lung pneumonia and hypoxemia. 3. Acute hypoxemic, hypercapnic respiratory failure. 4. COPD with emphysema 5. History of pulmonary embolism. 6. History of hypertension. 7. RIZWAN. Plan : 1. Wean FIO2 to keep sat > 92. 2. Leave on CPAP today .A/C rate 10 at HS 3. Cont antibiotics as ordered. 4. MRI brain 5. Nebs q6h , Duoneb. 6. Cont Heparin 5000 U S/Q bid. 7. Hold sedation 8. Tube feeds at 60 CC. 9. Reduce lasix to 20 mg bid Cheri Cadena MD Jan 14, 2017 12:35
[2017-01-14] MEDS ORDERED: LABETALOL HCL 100 MG/20 ML VIAL IV PUSH PRN (13:30)
[2017-01-14] MEDS ORDERED: NITROGLYCERIN 2% OINT 1 GM PACKET TOPICAL PRN (13:30)
--- NOTE | 2017-01-14 16:39 | RADRPT ---
EXAM DATE/TIME: 01/14/2017 15:40 [facility] COMPARISON: No previous studies available for comparison. INDICATIONS : Altered mental status. MEDICAL HISTORY : Hypertension. Chronic obstructive pulmonary disease. SURGICAL HISTORY : Appendectomy. Cholecystectomy. CARDIAC STENTS 2008 ENCOUNTER: Subsequent ACUITY: 4-6 days PAIN SCORE: Nonresponsive. LOCATION: cranial TECHNIQUE: Multiplanar, multisequence MRI of the brain was performed without contrast. FINDINGS: CEREBRUM: The ventricles are normal for age. No evidence of midline shift, mass lesion, hemorrhage or acute in farction. There is mild increased signal within the left frontal opercular region on the flair image s likely related to volume averaging in the sylvian fissure region. No extraaxial fluid collections a re seen. The pituitary gland and suprasellar cistern are normal in configuration. WHITE MATTER: No significant signal abnormalities are seen in the white matter. POSTERIOR FOSSA: The cerebellum and brainstem are intact. The 4th ventricle is midline. The cerebellopontine angle is unremarkable. The cerebellar tonsils are normal in position. DIFFUSION IMAGING: No focal areas of restricted diffusion are seen. No evidence of acute infarction. EXTRACRANIAL: The visualized portions of the orbits and paranasal sinuses are unremarkable. There is increased sign al within the temporal air cells bilaterally. CONCLUSION: No acute abnormality is seen. Bar Arias MD on January 14, 2017 at 16:24 Board Certified Radiologist. This report was verified electronically.
[2017-01-14] MEDS: FUROSEMIDE 20 MG/2 ML VIAL IV PUSH SCH (16:56)
[2017-01-14] MEDS: PANTOPRAZOLE SODIUM 40 MG VIAL IV PUSH SCH (20:37)
[2017-01-15] VITALS (18 sets, daily range): BP systolic 103–181; BP diastolic 56–69; PULSE 66–97; RESP 15–20; TEMP 98.2–99.6; O2SAT 91–96
[2017-01-15] MEDS: PROPOFOL 1000 MG/100 ML INJ 100 ML IV SCH ×5 (02:35→22:49)
[2017-01-15] MEDS: PENICILLIN G POTASSIUM INJ 3,000,000 UNITS in SODIUM CHLORIDE 0.9% INJ 100 ML IV SCH ×7 (02:35→23:43)
[2017-01-15 03:39] LABS: HEMATOCRIT 38.8 % (39.0-51.0); MEAN CELL VOLUME 88.5 FL (80.0-100.0); MEAN CORPUSCULAR HEMOGLOBIN 28.5 PG (27.0-34.0); MEAN CORPUSCULAR HGB CONC 32.2 % (32.0-36.0); PLATELET COUNT 166 TH/MM3 (150-450); RED BLOOD COUNT 4.38 MIL/MM3 (4.50-5.90); RED CELL DISTRIBUTION WIDTH 15.4 % (11.6-17.2); REVIEW FLAG FINAL
[2017-01-15] MEDS: RESP: ALBUTEROL 2.5 MG/IPRATROPIUM 0.5 MG NEB (SCH) NEB ×4 (03:50→19:48)
[2017-01-15] MEDS: CHLORHEXIDINE GLUCONATE 2 % 1 PACK (2 CLOTHS) TOP SCH (04:00)
[2017-01-15] MEDS: INSULIN NovoLIN REGULAR SUPPLEMENTAL SCALE SQ SCH ×7 (04:00→23:43)
[2017-01-15 04:05] LABS: BICARBONATE 33.3 MEQ/L (21.0-32.0); MAGNESIUM 3.1 MG/DL (1.5-2.5); POTASSIUM 4.5 MEQ/L (3.5-5.1)
--- NOTE | 2017-01-15 04:46 | RADRPT ---
EXAM DATE/TIME: 01/15/2017 01:59 [facility] COMPARISON: CHEST SINGLE AP, January 14, 2017, 5:30. INDICATIONS : Shortness of breath, possible pulmonary disease. MEDICAL HISTORY : Chronic obstructive pulmonary disease. Cardiovascular disease. Myocardial infarction. SURGICAL HISTORY : Colon resection. Cholecystectomy. Appendectomy. ENCOUNTER: Subsequent ACUITY: 1 week PAIN SCORE: Non-responsive. LOCATION: Bilateral chest FINDINGS: Right central line in superior vena cava. Endotracheal tube in satisfactory position. NG enters stoma ch. Bilateral mostly basilar airspace disease not significantly changed over the last day. No pneumot horax or significant effusion. CONCLUSION: 1. Stable exam since January 14. Support apparatus unchanged. Mild bilateral mostly basilar airspace di sease. John Heart MD on January 15, 2017 at 4:44 Board Certified Radiologist. This report was verified electronically.
[2017-01-15] MEDS: HEPARIN SODIUM - SQ 10,000 UNITS/ML VIAL SQ SCH ×2 (06:02→16:05)
[2017-01-15] MEDS: methylPREDNISolone SOD SUCC 40 MG/1 ML VIAL IV SCH ×2 (06:02→16:05)
[2017-01-15] MEDS: DOCUSATE SODIUM 100 MG/10 ML UDC PO SCH ×2 (08:24→19:54)
[2017-01-15] MEDS: LACTOBACILLUS ACIDOPHILUS TAB PO SCH ×3 (08:24→16:05)
[2017-01-15] MEDS: CHLORHEXIDINE 0.12% (ORAL KIT) 15 ML CUP MT SCH ×2 (08:24→19:58)
[2017-01-15] MEDS: fentaNYL DRIP 250 ML IV SCH ×2 (08:25→18:10)
[2017-01-15] MEDS: SODIUM CHLORIDE 0.9% FLUSH 5 ML FLUSH IV FLUSH SCH ×2 (08:25→19:58)
[2017-01-15] MEDS: FUROSEMIDE 20 MG/2 ML VIAL IV PUSH SCH ×2 (08:25→16:04)
[2017-01-15] MEDS: SENNOSIDES SYRUP 8.8 MG/5 ML CUP PO SCH (08:25)
[2017-01-15] MEDS: BUDESONIDE-FORMOTEROL 160/4.5 MCG INHALER INH SCH (08:26)
[2017-01-15] MEDS: MAGNESIUM OXIDE 400 MG TAB PO SCH (09:00)
[2017-01-15] MEDS: ASPIRIN EC 81 MG TABEC PO SCH (09:00)
--- NOTE | 2017-01-15 11:53 | MG ---
cc: ROSALES GARCIA MD Lab No:[id number] Date: 01/14/2017 Age: 81 Sex: M Race: DATE OF 1935 HISTORY: 81-year old with history of weakness, hypercapnic respiratory failure, mental status changes. Generalized delta activity 1-4 Hz, 20-50 microvolts. Frequent myogenic artifact noted with head movement frontal channels. Occasional pseudo periodic type waveforms occurring no driving with photic stimulation, disorganized times chaotic waveforms desynchrony occurring. Single EKG showing premature contractions, questionable bundle-branch block. INTERPRETATION Moderate encephalopathy with occasional pseudo periodic waves. No active seizures. Cardiac arrhythmia as noted above. Clinical correlation Rosales Garcia MD MG/ /10:50 AM /11:41 AM
--- NOTE | 2017-01-15 13:06 | HHI.CCPN ---
Subjective Remarks/Hospital Course Hospital Course: 81yM with h/o COPD and prior PE who presented yesterday with history of nausea/ vomiting and was worked up including negative CT abd/pelvis with IV contrast. He returned this morning due to dizziness. At that time he had a lactate of 6, wbc 20k, and cxr demonstrating RUL pneumonia. he was given zosyn and 4L IVF. Repeat lactate demonstrated persistent lactic acidosis of 6. Also, after 6 hours, his uop was < 200cc. A Castro catheter was inserted. his Cr was also elevated at 1.9. At this point, he became acutely hypoxemic and agitated. I was called and immediately went down to evaluate the patient. When I walked in , he was agitated and pulling off his NRB mask. He did not have a reliable spo2 monitor waveform and an abg was drawn with a po2 of 50. Decision was made to pursue emergent intubation (see separate procedure note for details). After intubation, the patient became hypotensive requiring vasopressor therapy and additional fluid boluses were given. Due to his impending cardiovascular collapse, a STAT echo was ordered which demonstrated hyperdynamic biventricular function, moderate pulmonary hypertension, and very collapsable IVC. He was given an additional 2L IVF and 2 amps bicarbonate for pH 7.11 on repeat abg with severe metabolic acidosis with BE -12. He was started on norepinephrine and vasopressin. He was transported to the medical ICU in critical condition. 01/09: Lactate is clearing, but slowly. CVP improved overnight. uop marginal, but slightly improved from yesterday. hypoxia slightly better as well, although persists on 100% fio2. wbc up to 44k today. 01/10: CVP rising yesterday, persistently oligoanuric. vasopressors persist, but at slightly lower dose. high fio2 requirements. wbc downtrending. 01/11: oxygenation severely worsened overnight. now on peep 15, fio2 100%, spo2 85%. vasopressors weaned off. cvp kuldip throughout the night to 23 this AM. CXR with evidence of significant pulmonary edema and intravascular volume overload. despite this, UOP minimal overnight and remains in oliguric renal failure. 01/12: Remains intubated sedated. Chest x-ray from yesterday prominent bilateral infiltrates right more than left with mediastinal prominence. CT chest ordered for today. Urine output 10 L in 24 hours on Lasix infusion 20 mg pr hour. Slight worsening of creatinine to 2.15. Weight is still up by 9 KG. WBC count essentially stable 01/14: Afebrile. Not really responsive this a.m. so MRI brain/EEG pending. Currently on CPAP trial. Lasix infusion will be discontinued. Positive BM. Tolerating tube feeds Subjective 01/15: Resting comfortably in bed. Currently on CPAP trials. Very poor duration. Currently 50% FiO2. X-ray stable. Tolerating tube feeds. Positive bowel movement. Agitated once sedation removed. Objective Vital Signs Date Time Temp Pulse Resp B/P Pulse Ox O2 Delivery O2 Flow Rate FiO2 01/15/17 12:00 98.6 73 15 112/60 91 01/15/17 12:00 50 Intake and Output 01/14/17 01/14/17 01/15/17 08:00 16:00 00:00 Intake Total 1027 ml 1282 ml 888 ml Output Total 1600 ml 4400 ml 1750 ml Balance -573 ml -3118 ml -862 ml Result Diagram: 01/15/17 0318 01/15/17 0318 Imaging Last Impressions Chest X-Ray 01/15/17 0600 Signed Impressions: Service Date/Time: Sunday, January 15, 2017 01:59 - CONCLUSION: 1. Stable exam since January 14. Support apparatus unchanged. Mild bilateral mostly basilar airspace disease. John Heart MD Skull X-Ray 01/14/17 0000 Signed Impressions: Service Date/Time: Saturday, January 14, 2017 11:20 - CONCLUSION: No MRI incompatible foreign body is identified. Bar Arias MD Brain MRI 01/14/17 0000 Signed Impressions: Service Date/Time: Saturday, January 14, 2017 15:40 - CONCLUSION: No acute abnormality is seen. Bar Arias MD Chest CT 01/12/17 0000 Signed Impressions: Service Date/Time: Thursday, January 12, 2017 16:58 - CONCLUSION: 1. Extensive consolidation throughout much of the right lung likely representing processes such as inflammatory change and pneumonia. 2. Extensive adenopathy is seen throughout the mediastinum. This is nonspecific. It could be reactive or neoplastic. If it is neoplastic, lymphoma should be considered. Axillary adenopathy is not seen. Bar Arias MD Renal Ultrasound 01/10/17 0000 Signed Impressions: Service Date/Time: Tuesday, January 10, 2017 10:49 - CONCLUSION: 1. Kidneys appear normal. 2. Impression on the bladder floor from the prostate. There is a bladder diverticulum and possible bladder stone present. Bar Arias MD Objective Remarks GEN: 81-year-old elderly male critically ill, intubated, sedated. HEENT: No cephalic atraumatic. PERRLA. MMM. Orotracheally intubated neck: obese neck. jvd unable to be assessed. trachea midline. Right IJ clean dry and intact chest: Gadolinium rhonchi over bilateral lung field. coarse breath sounds bilaterally. Otherwise air entry equal bilaterally cv: RRR. S1, S2 no S4. Without murmur. abd: obese, soft, nontender, nondistended. I Nuñez bowel sounds. extr: distal pulses 2+. no peripheral edema neuro: intubated, currently not responsive. Positive gag. Withdrawals to noxious stimuli Vascular Central Line Catheter: Yes Assessment to: Continue Line: Central Venous Catheter Side: Right Location: Internal, Jugular A/P Assessment and Plan Neurologic/PSYCH: Acute agitated delirium Chronic Xanax use Peripheral neuropathy At home on gabapentin 300 twice a day and Xanax 0.5 mg every 8 hours as needed for anxiety. These are currently been on hold with altered mental status Propofol previously 20 g Per kilogram per minute, fentanyl drip at 100 echograms an hour for goal RASS -2.. --Attempt daily sedation vacation Tylenol as needed for pain or fever -- Due to delirium MRI brain with no acute findings/EEG is also pending Respiratory: Acute hypoxic respiratory failure Multilobar pneumococcal pneumonia COPD exacerbation Pulmonary Edema Mediastinal prominence Severe pulmonary hypertension PRVC ventilation - currently on CPAP trial - Symbicort 160/4.5 twice a day which to Pulmicort twice a day Vent bundle Head of bed at 30 Wean FiO2 for goal SPO2 greater than 90% Nebs every 6 and every 2 when necessary Methylprednisolone 40 IV every 12 Pulmonary following: Dr. Cadena Antibiotics as described below --forced diuresis to be lessened currently on Lasix 20 twice a day Cardiovascular: Septic shock- resolved Fluid overload Severe pulmonary hypertension SLIVF. --Lasix infusion as below Echocardiogram revealed EF 60-65%. PPP 93 mmHg. Renal: Oliguric acute kidney injury continue castro Every hour urine outputs --Strict I/Os --Currently on lasix 20 mg IV twice a day FEN/GI: Acute protein calorie malnutritionmild Hyper-magnesium Daily BMP ICU electrolyte protocol TF vital protein goal 60 cc an hour -- nutrition consult. -- q6h BMP, Mg while on lasix drip. aggressively replace electrolytes. Discontinue scheduled magnesium Heme/ID: Normocytic anemia Leukocytosis Multilobar pneumococcal pneumonia Septic shock 01/08 u/a negative --01/08 blood cultures: strep pneumo. Zosyn and Vanc dcd and PCN G started by Dr. Robledo 01/11/17 pneumococcus Ag: + Daily CBC Endocrine: Hyperglycemia of critical illness -- High-dose SSI, q4h. Prophylaxis: GI Prophylaxis Protonix 40 mg IV every 24 hours DVT Prophylaxis -- SCDs Subcutaneous heparin Lines: 01/08 right IJ triple-lumen catheter 01/08 left radial arterial line-DC01/12/17 Castro Critical Care: The total critical care time was 35 minutes. Time to perform other separately billable procedures was not included in the critical care time. Frank Chauhan MD Jan 15, 2017 13:06
[2017-01-15] MEDS: RESP: BUDESONIDE 0.5 MG/2 ML NEB NEB SCH (19:48)
[2017-01-15] MEDS: PANTOPRAZOLE SODIUM 40 MG VIAL IV PUSH SCH (19:55)
[2017-01-16] VITALS (18 sets, daily range): BP systolic 100–178; BP diastolic 56–77; PULSE 63–92; RESP 10–16; TEMP 97–100.2; O2SAT 91–99
[2017-01-16] MEDS: PROPOFOL 1000 MG/100 ML INJ 100 ML IV SCH ×5 (02:14→21:02)
[2017-01-16] MEDS: RESP: ALBUTEROL 2.5 MG/IPRATROPIUM 0.5 MG NEB (SCH) NEB ×4 (03:19→20:19)
[2017-01-16] MEDS: INSULIN NovoLIN REGULAR SUPPLEMENTAL SCALE SQ SCH ×6 (04:00→20:00)
[2017-01-16] MEDS: CHLORHEXIDINE GLUCONATE 2 % 1 PACK (2 CLOTHS) TOP SCH (04:00)
[2017-01-16] MEDS: HEPARIN SODIUM - SQ 10,000 UNITS/ML VIAL SQ SCH ×2 (04:23→16:22)
[2017-01-16] MEDS: methylPREDNISolone SOD SUCC 40 MG/1 ML VIAL IV SCH (04:23)
[2017-01-16] MEDS: PENICILLIN G POTASSIUM INJ 3,000,000 UNITS in SODIUM CHLORIDE 0.9% INJ 100 ML IV SCH ×5 (04:24→21:03)
[2017-01-16 05:05] LABS: AUTOMATED NEUTROPHIL # 10.6 TH/MM3 (1.8-7.7); BASOPHIL % 0.3 % (0.0-2.0); EOSINOPHIL # 0.2 TH/MM3 (0-0.4); EOSINOPHIL % 1.3 % (0.0-4.0); HEMATOCRIT 35.9 % (39.0-51.0); LYMPH % 19.7 % (9.0-44.0); LYMPHOCYTE # 2.9 TH/MM3 (1.0-4.8); MEAN CELL VOLUME 89.6 FL (80.0-100.0); MEAN CORPUSCULAR HEMOGLOBIN 28.7 PG (27.0-34.0); MONO % 6.1 % (0.0-8.0); NEUT % 72.6 % (16.0-70.0); PLATELET COUNT 147 TH/MM3 (150-450); RED CELL DISTRIBUTION WIDTH 15.7 % (11.6-17.2); WHITE BLOOD COUNT 14.7 TH/MM3 (4.0-11.0)
[2017-01-16 05:08] LABS: HEMO FLAGS AUTO DIFF
--- NOTE | 2017-01-16 05:18 | RADRPT ---
EXAM DATE/TIME: 01/16/2017 02:55 [facility] COMPARISON: CHEST SINGLE AP, January 15, 2017, 1:59. INDICATIONS : Shortness of breath, possible pulmonary disease. MEDICAL HISTORY : Chronic obstructive pulmonary disease. Cardiovascular disease. Myocardial infarction. SURGICAL HISTORY : Colon resection. Cholecystectomy. Appendectomy. ENCOUNTER: Subsequent ACUITY: 1 week PAIN SCORE: Non-responsive. LOCATION: Bilateral chest FINDINGS: A single view of the chest demonstrates endotracheal tube in satisfactory position. NG enters stomach . Right central line in superior vena cava. Mild basilar airspace disease. No significant effusion. N o pneumothorax. CONCLUSION: 1. Support apparatus in satisfactory position. Mild basilar airspace disease. John Heart MD on January 16, 2017 at 5:15 Board Certified Radiologist. This report was verified electronically.
[2017-01-16 06:08] LABS: BICARBONATE 33.7 MEQ/L (21.0-32.0); MAGNESIUM 3.3 MG/DL (1.5-2.5); POTASSIUM 4.7 MEQ/L (3.5-5.1)
[2017-01-16] MEDS: fentaNYL DRIP 250 ML IV SCH ×2 (06:20→17:42)
[2017-01-16 06:26] LABS: BANDS 2 % (0-6); EOSINOPHILS 3 % (0-4); METAMYELOCYTES 1 % (0-1); MYELOCYTES 2 % (0-0); NEUTROPHIL # MANUAL DIFF 11.3 TH/MM3 (1.8-7.7); POLYS (SEG NEUTROPHILS) 71 % (16-70); PROMYELOCYTES 1 % (0-0); WBC DIFF SAMPLE 100
[2017-01-16 06:29] LABS: OVALOCYTES 1+ (NORMAL); PLATELET ESTIMATE SMEAR LOW (NORMAL); PLATELET MORPHOLOGY NORMAL (NORMAL); SCAN/DIFF FINAL DIFF MANUAL; TEARDROP RBCS 1+ (NORMAL)
[2017-01-16 06:30] LABS: SLIDE REVIEW SPR
[2017-01-16] MEDS: RESP: BUDESONIDE 0.5 MG/2 ML NEB NEB SCH ×2 (07:51→20:19)
[2017-01-16] MEDS: FUROSEMIDE 20 MG/2 ML VIAL IV PUSH SCH ×2 (08:02→16:23)
[2017-01-16] MEDS: DOCUSATE SODIUM 100 MG/10 ML UDC PO SCH ×2 (08:02→21:03)
[2017-01-16] MEDS: CHLORHEXIDINE 0.12% (ORAL KIT) 15 ML CUP MT SCH ×2 (08:02→21:04)
[2017-01-16] MEDS: LACTOBACILLUS ACIDOPHILUS TAB PO SCH ×3 (08:02→16:23)
[2017-01-16] MEDS: SENNOSIDES SYRUP 8.8 MG/5 ML CUP PO SCH (08:02)
[2017-01-16] MEDS: SODIUM CHLORIDE 0.9% FLUSH 5 ML FLUSH IV FLUSH SCH ×2 (08:03→21:06)
[2017-01-16] MEDS: ASPIRIN EC 81 MG TABEC PO SCH (08:06)
--- NOTE | 2017-01-16 13:53 | HHI.CCPN ---
Subjective Remarks/Hospital Course Hospital Course: 81yM with h/o COPD and prior PE who presented yesterday with history of nausea/ vomiting and was worked up including negative CT abd/pelvis with IV contrast. He returned this morning due to dizziness. At that time he had a lactate of 6, wbc 20k, and cxr demonstrating RUL pneumonia. he was given zosyn and 4L IVF. Repeat lactate demonstrated persistent lactic acidosis of 6. Also, after 6 hours, his uop was < 200cc. A Castro catheter was inserted. his Cr was also elevated at 1.9. At this point, he became acutely hypoxemic and agitated. I was called and immediately went down to evaluate the patient. When I walked in , he was agitated and pulling off his NRB mask. He did not have a reliable spo2 monitor waveform and an abg was drawn with a po2 of 50. Decision was made to pursue emergent intubation (see separate procedure note for details). After intubation, the patient became hypotensive requiring vasopressor therapy and additional fluid boluses were given. Due to his impending cardiovascular collapse, a STAT echo was ordered which demonstrated hyperdynamic biventricular function, moderate pulmonary hypertension, and very collapsable IVC. He was given an additional 2L IVF and 2 amps bicarbonate for pH 7.11 on repeat abg with severe metabolic acidosis with BE -12. He was started on norepinephrine and vasopressin. He was transported to the medical ICU in critical condition. 01/09: Lactate is clearing, but slowly. CVP improved overnight. uop marginal, but slightly improved from yesterday. hypoxia slightly better as well, although persists on 100% fio2. wbc up to 44k today. 01/10: CVP rising yesterday, persistently oligoanuric. vasopressors persist, but at slightly lower dose. high fio2 requirements. wbc downtrending. 01/11: oxygenation severely worsened overnight. now on peep 15, fio2 100%, spo2 85%. vasopressors weaned off. cvp kuldip throughout the night to 23 this AM. CXR with evidence of significant pulmonary edema and intravascular volume overload. despite this, UOP minimal overnight and remains in oliguric renal failure. 01/12: Remains intubated sedated. Chest x-ray from yesterday prominent bilateral infiltrates right more than left with mediastinal prominence. CT chest ordered for today. Urine output 10 L in 24 hours on Lasix infusion 20 mg pr hour. Slight worsening of creatinine to 2.15. Weight is still up by 9 KG. WBC count essentially stable 01/14: Afebrile. Not really responsive this a.m. so MRI brain/EEG pending. Currently on CPAP trial. Lasix infusion will be discontinued. Positive BM. Tolerating tube feeds 01/15: Resting comfortably in bed. Currently on CPAP trials. Very poor duration. Currently 50% FiO2. X-ray stable. Tolerating tube feeds. Positive bowel movement. Agitated once sedation removed. Subjective 01/16: Tmax 100. Currently on CPAP trials while on propofol drip. FiO2 45%. X -ray remained stable. Tolerating tube feeds. Positive BMs yesterday. Objective Vital Signs Date Time Temp Pulse Resp B/P Pulse Ox O2 Delivery O2 Flow Rate FiO2 01/16/17 12:00 100.0 74 15 100/57 93 01/16/17 12:00 45 Intake and Output 01/15/17 01/15/17 01/16/17 08:00 16:00 00:00 Intake Total 894 ml 1413 ml 1220 ml Output Total 800 ml 1000 ml 450 ml Balance 94 ml 413 ml 770 ml Result Diagram: 01/16/17 0400 01/16/17 0400 Other Results Vital Signs Date Time Temp Pulse Resp B/P Pulse Ox O2 Delivery O2 Flow Rate FiO2 01/16/17 12:00 100.0 74 15 100/57 93 01/16/17 12:00 74 01/16/17 12:00 45 01/16/17 11:24 94 45 01/16/17 10:00 92 01/16/17 08:47 96 45 01/16/17 08:47 45 01/16/17 08:00 50 01/16/17 08:00 90 01/16/17 08:00 99.1 90 10 178/77 91 01/16/17 06:00 65 01/16/17 04:00 50 01/16/17 04:00 75 01/16/17 04:00 98.9 65 15 108/56 95 01/16/17 03:19 95 50 01/16/17 02:00 76 01/16/17 00:00 50 01/16/17 00:00 100.2 72 16 116/62 94 01/16/17 00:00 80 01/15/17 23:34 94 50 01/15/17 22:00 79 01/15/17 20:00 50 01/15/17 20:00 98.2 72 20 103/57 93 01/15/17 20:00 72 01/15/17 19:48 94 50 01/15/17 18:00 90 01/15/17 16:00 50 01/15/17 16:00 99.6 97 15 111/56 94 01/15/17 16:00 97 01/15/17 15:11 94 50 01/15/17 14:00 77 Imaging Last Impressions Chest X-Ray 01/16/17 0600 Signed Impressions: Service Date/Time: Monday, January 16, 2017 02:55 - CONCLUSION: 1. Support apparatus in satisfactory position. Mild basilar airspace disease. John Heart MD Skull X-Ray 01/14/17 0000 Signed Impressions: Service Date/Time: Saturday, January 14, 2017 11:20 - CONCLUSION: No MRI incompatible foreign body is identified. Bar Arias MD Brain MRI 01/14/17 0000 Signed Impressions: Service Date/Time: Saturday, January 14, 2017 15:40 - CONCLUSION: No acute abnormality is seen. Bar Arias MD Chest CT 01/12/17 0000 Signed Impressions: Service Date/Time: Thursday, January 12, 2017 16:58 - CONCLUSION: 1. Extensive consolidation throughout much of the right lung likely representing processes such as inflammatory change and pneumonia. 2. Extensive adenopathy is seen throughout the mediastinum. This is nonspecific. It could be reactive or neoplastic. If it is neoplastic, lymphoma should be considered. Axillary adenopathy is not seen. Bar Arias MD Renal Ultrasound 01/10/17 0000 Signed Impressions: Service Date/Time: Tuesday, January 10, 2017 10:49 - CONCLUSION: 1. Kidneys appear normal. 2. Impression on the bladder floor from the prostate. There is a bladder diverticulum and possible bladder stone present. Bar Arias MD Objective Remarks GEN: 81-year-old elderly male critically ill, intubated, sedated. HEENT: No cephalic atraumatic. PERRLA. MMM. Orotracheally intubated neck: obese neck. jvd unable to be assessed. trachea midline. Right IJ clean dry and intact chest: Gadolinium rhonchi over bilateral lung field. coarse breath sounds bilaterally. Otherwise air entry equal bilaterally cv: RRR. S1, S2 no S4. Without murmur. abd: obese, soft, nontender, nondistended. I Nuñez bowel sounds. extr: distal pulses 2+. no peripheral edema neuro: intubated, currently not responsive. Positive gag. Withdrawals to noxious stimuli Line: Central Venous Catheter Side: Right Location: Internal, Jugular A/P Assessment and Plan Neurologic/PSYCH: Acute agitated delirium Chronic Xanax use Peripheral neuropathy At home on gabapentin 300 twice a day and Xanax 0.5 mg every 8 hours as needed for anxiety. These are currently been on hold with altered mental status Propofol previously 20 g Per kilogram per minute, fentanyl drip at 100 micro- grams micrograms an hour for goal RASS -2.. --Attempt daily sedation vacation Tylenol as needed for pain or fever -- Due to delirium MRI brain with no acute findings/EEG monitoring encephalopathy with no epileptiform activity Respiratory: Acute hypoxic respiratory failure Multilobar pneumococcal pneumonia COPD exacerbation Pulmonary Edema Mediastinal prominence Severe pulmonary hypertension PRVC ventilation - currently on CPAP trial - Symbicort 160/4.5 twice a day switched to Pulmicort twice a day Vent bundle Head of bed at 30 Wean FiO2 for goal SPO2 greater than 90% Nebs every 6 and every 2 when necessary Methylprednisolone 40 IV every 12 Pulmonary following: Dr. Cadena Antibiotics as described below --forced diuresis to be lessened currently on Lasix 20 twice a day Cardiovascular: Septic shock- resolved Fluid overload Severe pulmonary hypertension SLIVF. --Lasix infusion as below Echocardiogram revealed EF 60-65%. SOFYA 93 mmHg. Renal: Oliguric acute kidney injury continue castro Every hour urine outputs --Strict I/Os --Currently on lasix 20 mg IV twice a day FEN/GI: Acute protein calorie malnutritionmild Hyper-magnesium Daily BMP ICU electrolyte protocol TF vital protein goal 60 cc an hour -- nutrition consult. -- q6h BMP, Mg while on lasix drip. aggressively replace electrolytes. Discontinue scheduled magnesium Heme/ID: Normocytic anemia Leukocytosis Multilobar pneumococcal pneumonia Septic shock 01/08 u/a negative --01/08 blood cultures: strep pneumo. Zosyn and Vanc dcd and PCN G started by Dr. Robledo 01/11/17 pneumococcus Ag: + Daily CBC Endocrine: Hyperglycemia of critical illness -- High-dose SSI, q4h. Prophylaxis: GI Prophylaxis Protonix 40 mg IV every 24 hours DVT Prophylaxis -- SCDs Subcutaneous heparin twice a day Lines: 01/08 right IJ triple-lumen catheter 01/08 left radial arterial line-DC01/12/17 Castro Critical Care: The total critical care time was 35 minutes. Time to perform other separately billable procedures was not included in the critical care time. Frank Chauhan MD Jan 16, 2017 13:53
[2017-01-16] MEDS ORDERED: ACETAMINOPHEN 500 MG CPLT PO PRN (14:30)
[2017-01-16] MEDS: FREE WATER G-TUBE SCH ×2 (16:25)
[2017-01-16] MEDS: PANTOPRAZOLE SODIUM 40 MG VIAL IV PUSH SCH (21:02)
[2017-01-16 23:07] LABS: POTASSIUM 4.8 MEQ/L (3.5-5.1)
[2017-01-17] VITALS (18 sets, daily range): BP systolic 91–160; BP diastolic 53–74; PULSE 63–106; RESP 15–17; TEMP 97–101.6; O2SAT 92–95
[2017-01-17] MEDS ORDERED: LIDOCAINE HCL 2% 100 MG/5 ML SYRINGE IV PUSH ONE (00:15)
[2017-01-17] MEDS: PENICILLIN G POTASSIUM INJ 3,000,000 UNITS in SODIUM CHLORIDE 0.9% INJ 100 ML IV SCH ×6 (00:54→21:01)
[2017-01-17] MEDS: PROPOFOL 1000 MG/100 ML INJ 100 ML IV SCH ×3 (01:52→21:20)
[2017-01-17] MEDS: fentaNYL DRIP 250 ML IV SCH (04:00)
[2017-01-17] MEDS: CHLORHEXIDINE GLUCONATE 2 % 1 PACK (2 CLOTHS) TOP SCH (04:00)
[2017-01-17] MEDS: INSULIN NovoLIN REGULAR SUPPLEMENTAL SCALE SQ SCH ×4 (04:00→20:00)
[2017-01-17] MEDS: RESP: ALBUTEROL 2.5 MG/IPRATROPIUM 0.5 MG NEB (SCH) NEB ×4 (04:25→19:44)
[2017-01-17 04:31] LABS: AUTOMATED NEUTROPHIL # 9.6 TH/MM3 (1.8-7.7); BASOPHIL % 0.2 % (0.0-2.0); EOSINOPHIL # 0.4 TH/MM3 (0-0.4); EOSINOPHIL % 3.1 % (0.0-4.0); HEMATOCRIT 35.9 % (39.0-51.0); HEMO FLAGS DIFF FINAL; LYMPH % 22.4 % (9.0-44.0); LYMPHOCYTE # 3.1 TH/MM3 (1.0-4.8); MEAN CELL VOLUME 89.2 FL (80.0-100.0); MEAN CORPUSCULAR HEMOGLOBIN 29.2 PG (27.0-34.0); MEAN CORPUSCULAR HGB CONC 32.8 % (32.0-36.0); MONO % 5.5 % (0.0-8.0); NEUT % 68.8 % (16.0-70.0); PLATELET COUNT 167 TH/MM3 (150-450); RED BLOOD COUNT 4.03 MIL/MM3 (4.50-5.90); RED CELL DISTRIBUTION WIDTH 15.5 % (11.6-17.2); WHITE BLOOD COUNT 13.9 TH/MM3 (4.0-11.0)
--- NOTE | 2017-01-17 04:51 | RADRPT ---
EXAM DATE/TIME: 01/17/2017 03:20 [facility] COMPARISON: CHEST SINGLE AP, January 16, 2017, 2:55. INDICATIONS : Shortness of breath, possible pulmonary disease. MEDICAL HISTORY : Chronic obstructive pulmonary disease. Cardiovascular disease. Myocardial infarction. SURGICAL HISTORY : Colon resection. Cholecystectomy. Appendectomy. ENCOUNTER: Subsequent ACUITY: 1 week PAIN SCORE: Non-responsive. LOCATION: Bilateral chest FINDINGS: Alveolar and interstitial opacity is unchanged bilaterally greatest at the left lung base. Right jugu lar line, endotracheal tube, NG tube and EKG leads are noted. CONCLUSION: No significant change has occurred. John Paul Delgado MD on January 17, 2017 at 4:49 Board Certified Radiologist. This report was verified electronically.
[2017-01-17] MEDS: FREE WATER G-TUBE SCH ×3 (05:07→17:38)
[2017-01-17 05:32] LABS: ALKALINE PHOSPHATASE 59 U/L (45-117); ALT (GPT) 36 U/L (12-78); ANION GAP 10 MEQ/L (5-15); AST (GOT) 12 U/L (15-37); BICARBONATE 34.2 MEQ/L (21.0-32.0); BLOOD UREA NITROGEN 114 MG/DL (7-18); CHLORIDE 108 MEQ/L (98-107); GLOMERULAR FILTRATION RATE 43 ML/MIN (>89); MAGNESIUM 3.3 MG/DL (1.5-2.5); POTASSIUM 3.8 MEQ/L (3.5-5.1); SODIUM (NA) 152 MEQ/L (136-145); TOTAL BILIRUBIN ADULT 0.5 MG/DL (0.2-1.0)
[2017-01-17] MEDS: HEPARIN SODIUM - SQ 10,000 UNITS/ML VIAL SQ SCH ×2 (06:28→17:39)
[2017-01-17] MEDS ORDERED: GLUCAGON 1 MG/ML VIAL OTHER PRN (08:00)
[2017-01-17] MEDS ORDERED: DEXTROSE 50% IN WATER 50 ML VIAL(D50) IV PUSH PRN (08:00)
--- NOTE | 2017-01-17 08:10 | HHI.CCPN ---
Subjective Remarks/Hospital Course Hospital Course: 81yM with h/o COPD and prior PE who presented yesterday with history of nausea/ vomiting and was worked up including negative CT abd/pelvis with IV contrast. He returned this morning due to dizziness. At that time he had a lactate of 6, wbc 20k, and cxr demonstrating RUL pneumonia. he was given zosyn and 4L IVF. Repeat lactate demonstrated persistent lactic acidosis of 6. Also, after 6 hours, his uop was < 200cc. A Woodward catheter was inserted. his Cr was also elevated at 1.9. At this point, he became acutely hypoxemic and agitated. I was called and immediately went down to evaluate the patient. When I walked in , he was agitated and pulling off his NRB mask. He did not have a reliable spo2 monitor waveform and an abg was drawn with a po2 of 50. Decision was made to pursue emergent intubation (see separate procedure note for details). After intubation, the patient became hypotensive requiring vasopressor therapy and additional fluid boluses were given. Due to his impending cardiovascular collapse, a STAT echo was ordered which demonstrated hyperdynamic biventricular function, moderate pulmonary hypertension, and very collapsable IVC. He was given an additional 2L IVF and 2 amps bicarbonate for pH 7.11 on repeat abg with severe metabolic acidosis with BE -12. He was started on norepinephrine and vasopressin. He was transported to the medical ICU in critical condition. 01/09: Lactate is clearing, but slowly. CVP improved overnight. uop marginal, but slightly improved from yesterday. hypoxia slightly better as well, although persists on 100% fio2. wbc up to 44k today. 01/10: CVP rising yesterday, persistently oligoanuric. vasopressors persist, but at slightly lower dose. high fio2 requirements. wbc downtrending. 01/11: oxygenation severely worsened overnight. now on peep 15, fio2 100%, spo2 85%. vasopressors weaned off. cvp kuldip throughout the night to 23 this AM. CXR with evidence of significant pulmonary edema and intravascular volume overload. despite this, UOP minimal overnight and remains in oliguric renal failure. 01/12: Remains intubated sedated. Chest x-ray from yesterday prominent bilateral infiltrates right more than left with mediastinal prominence. CT chest ordered for today. Urine output 10 L in 24 hours on Lasix infusion 20 mg pr hour. Slight worsening of creatinine to 2.15. Weight is still up by 9 KG. WBC count essentially stable 01/14: Afebrile. Not really responsive this a.m. so MRI brain/EEG pending. Currently on CPAP trial. Lasix infusion will be discontinued. Positive BM. Tolerating tube feeds 01/15: Resting comfortably in bed. Currently on CPAP trials. Very poor duration. Currently 50% FiO2. X-ray stable. Tolerating tube feeds. Positive bowel movement. Agitated once sedation removed. Subjective 01/16: Tmax 100. Currently on CPAP trials while on propofol drip. FiO2 45%. X -ray remained stable. Tolerating tube feeds. Positive BMs yesterday. 01/17 Patient is sedated with Diprivan, Fentanyl and intubated. Afebrile. Had bigeminy/PVC overnight given Lidocaine 100mg IV x1. Objective Vital Signs Date Time Temp Pulse Resp B/P Pulse Ox O2 Delivery O2 Flow Rate FiO2 01/17/17 06:00 69 01/17/17 04:26 95 55 01/17/17 04:00 98.4 15 160/74 Intake and Output 01/16/17 01/16/17 01/17/17 08:00 16:00 00:00 Intake Total 1115 ml 1175 ml 1075 ml Output Total 800 ml 1700 ml 1275 ml Balance 315 ml -525 ml -200 ml Result Diagram: 01/17/17 0350 01/17/17 0350 Other Results Laboratory Tests Test 01/16/17 01/17/17 21:45 03:50 Sodium Level 137 MEQ/L 152 MEQ/L Potassium Level 4.8 MEQ/L 3.8 MEQ/L Chloride Level 95 MEQ/L 108 MEQ/L Carbon Dioxide Level 33.0 MEQ/L 34.2 MEQ/L Anion Gap 9 MEQ/L 10 MEQ/L Blood Urea Nitrogen 107 MG/DL 114 MG/DL Creatinine 1.68 MG/DL 1.56 MG/DL Estimat Glomerular Filtration 40 ML/MIN 43 ML/MIN Rate Random Glucose 202 MG/DL 131 MG/DL Calcium Level 7.8 MG/DL 8.6 MG/DL Phosphorus Level 4.1 MG/DL 5.2 MG/DL Magnesium Level 3.0 MG/DL 3.3 MG/DL White Blood Count 13.9 TH/MM3 Red Blood Count 4.03 MIL/MM3 Hemoglobin 11.8 GM/DL Hematocrit 35.9 % Mean Corpuscular Volume 89.2 FL Mean Corpuscular Hemoglobin 29.2 PG Mean Corpuscular Hemoglobin 32.8 % Concent Red Cell Distribution Width 15.5 % Platelet Count 167 TH/MM3 Mean Platelet Volume 9.3 FL Neutrophils (%) (Auto) 68.8 % Lymphocytes (%) (Auto) 22.4 % Monocytes (%) (Auto) 5.5 % Eosinophils (%) (Auto) 3.1 % Basophils (%) (Auto) 0.2 % Neutrophils # (Auto) 9.6 TH/MM3 Lymphocytes # (Auto) 3.1 TH/MM3 Monocytes # (Auto) 0.8 TH/MM3 Eosinophils # (Auto) 0.4 TH/MM3 Basophils # (Auto) 0.0 TH/MM3 CBC Comment DIFF FINAL Differential Comment Total Bilirubin 0.5 MG/DL Aspartate Amino Transf 12 U/L (AST/SGOT) Alanine Aminotransferase 36 U/L (ALT/SGPT) Alkaline Phosphatase 59 U/L Total Protein 6.1 GM/DL Albumin 2.6 GM/DL Imaging Last Impressions Chest X-Ray 01/17/17 0600 Signed Impressions: Service Date/Time: Tuesday, January 17, 2017 03:20 - CONCLUSION: No significant change has occurred. John Paul Delgado MD Skull X-Ray 01/14/17 0000 Signed Impressions: Service Date/Time: Saturday, January 14, 2017 11:20 - CONCLUSION: No MRI incompatible foreign body is identified. Bar Arias MD Brain MRI 01/14/17 0000 Signed Impressions: Service Date/Time: Saturday, January 14, 2017 15:40 - CONCLUSION: No acute abnormality is seen. Bar Arias MD Chest CT 01/12/17 0000 Signed Impressions: Service Date/Time: Thursday, January 12, 2017 16:58 - CONCLUSION: 1. Extensive consolidation throughout much of the right lung likely representing processes such as inflammatory change and pneumonia. 2. Extensive adenopathy is seen throughout the mediastinum. This is nonspecific. It could be reactive or neoplastic. If it is neoplastic, lymphoma should be considered. Axillary adenopathy is not seen. Bar Arias MD Renal Ultrasound 01/10/17 0000 Signed Impressions: Service Date/Time: Tuesday, January 10, 2017 10:49 - CONCLUSION: 1. Kidneys appear normal. 2. Impression on the bladder floor from the prostate. There is a bladder diverticulum and possible bladder stone present. Bar Arias MD Objective Remarks GEN: 81-year-old elderly male critically ill, intubated, sedated. HEENT: No cephalic atraumatic. PERRLA. MMM. Orotracheally intubated neck: obese neck. jvd unable to be assessed. trachea midline. Right IJ clean dry and intact chest: Gadolinium rhonchi over bilateral lung field. coarse breath sounds bilaterally. Otherwise air entry equal bilaterally cv: RRR. S1, S2 no S4. Without murmur. abd: obese, soft, nontender, nondistended. I Nuñez bowel sounds. extr: distal pulses 2+. no peripheral edema neuro: intubated, currently not responsive. Positive gag. Withdrawals to noxious stimuli Line: Central Venous Catheter Side: Right Location: Internal, Jugular A/P Assessment and Plan Neurologic/PSYCH: Acute agitated delirium Chronic Xanax use Peripheral neuropathy Gabapentin 300 twice a day and Xanax 0.5 mg every 8 hours as needed for anxiety on hold for altered mental status On Diprivan and Fentanyl infusion for sedation. --Daily sedation vacation Tylenol as needed for pain or fever -- MRI brain with no acute findings/EEG monitoring: encephalopathy with no epileptiform activity Respiratory: Acute hypoxic respiratory failure Multilobar pneumococcal pneumonia COPD exacerbation Pulmonary Edema Mediastinal prominence Severe pulmonary hypertension On AC RR 16, TV 550, PEEP:8, FIO2 55%. Decrease FIO2 45% - Pulmicort twice a day Continue with vent support keep sat >92%. Vent bundle Head of bed at 30 Nebs every 6 and every 2 when necessary Methylprednisolone 40 IV daily Pulmonary following: Dr. Cadena Cardiovascular: Septic shock- resolved Fluid overload Severe pulmonary hypertension -Monitor HR and BP keep MAP>65mmHg. On ASA 81mg daily Echocardiogram revealed EF 60-65%. SOFYA 93 mmHg. Renal: RIZWAN..improving Hypernatremia -Monitor renal function, I/O's, avoid nephrotoxins. -Renal function improving with Cr: 1.56 from 1.68 -Increase Free water 250ml Q6, monitor sodium level. -d/c Lasix FEN/GI: Acute protein calorie malnutritionmild TF vital protein goal 60 cc an hour ID: Strep pneumonia bacteremia Leukocytosis Multilobar pneumococcal pneumonia s/p Septic shock 01/08 u/a negative --01/08 blood cultures: strep pneumo. Zosyn and Vanc dcd and PCN G started by Dr. Robledo 01/11/17 pneumococcus Ag: + Monitor for signs of infections ( Fever, WBC) check BC to document clearance Heme: Normocytic anemia Monitor CBC Endocrine: Hyperglycemia of critical illness -- High-dose SSI, q4h. Prophylaxis: GI Prophylaxis Protonix 40 mg IV every 24 hours DVT Prophylaxis -- SCDs Subcutaneous heparin twice a day Lines: 01/08 right IJ triple-lumen catheter 01/08 left radial arterial line-DC01/12/17 [facility] Critical Care: The total critical care time was 30 minutes. Time to perform other separately billable procedures was not included in the critical care time. Lj Harris MD Jan 17, 2017 08:10
[2017-01-17] MEDS: RESP: BUDESONIDE 0.5 MG/2 ML NEB NEB SCH ×2 (08:11→19:44)
[2017-01-17] MEDS ORDERED: NYSTATIN 100,000 U/GM PWD 15 GM BTL TOPICAL PRN (08:15)
[2017-01-17] MEDS: CHLORHEXIDINE 0.12% (ORAL KIT) 15 ML CUP MT SCH ×2 (08:49→21:02)
[2017-01-17 09:05] LABS: BICARBONATE 35.7 MEQ/L (21.0-32.0); POTASSIUM 3.9 MEQ/L (3.5-5.1)
[2017-01-17] MEDS: hydrALAZINE HCL 20 MG/ML VIAL IV PUSH PRN (09:06)
[2017-01-17 09:27] LABS: INTERNATIONAL NORMALIZED RATIO 0.9 RATIO; PROTHROMBIN TIME - PATIENT 9.8 SEC (9.8-11.6)
[2017-01-17] MEDS: methylPREDNISolone SOD SUCC 40 MG/1 ML VIAL IV SCH (09:37)
[2017-01-17] MEDS: SODIUM CHLORIDE 0.9% FLUSH 5 ML FLUSH IV FLUSH SCH ×2 (09:38→21:01)
[2017-01-17] MEDS: FUROSEMIDE 20 MG/2 ML VIAL IV PUSH SCH (09:39)
[2017-01-17] MEDS: LACTOBACILLUS ACIDOPHILUS TAB PO SCH ×3 (09:40→17:37)
[2017-01-17] MEDS: DOCUSATE SODIUM 100 MG/10 ML UDC PO SCH ×2 (09:40→21:01)
[2017-01-17] MEDS: SENNOSIDES SYRUP 8.8 MG/5 ML CUP PO SCH (09:40)
[2017-01-17] MEDS: ASPIRIN EC 81 MG TABEC PO SCH (09:49)
[2017-01-17 09:54] LABS: BLOOD GAS BASE EXCESS 5.2 mmol/L (-2-2); BLOOD GAS CARBOXYHEMOGLOBIN 1.6 % (0-4); BLOOD GAS HCO3 30 mmol/L (22-26); BLOOD GAS METHEMOGLOBIN 1.2 % (0-2); BLOOD GAS O2 HGB SATURATION 97 % (90-100); BLOOD GAS OXYGEN CONTENT 16.7 Vol % (12.0-20.0); BLOOD GAS PCO2 49 mmHg (38-42); BLOOD GAS PO2 152 mmHg (61-120); BLOOD GAS TOTAL HGB 12.1 G/DL (12.0-16.0); CRITICAL VALUE NO; OXYGEN DEVICE VENTILATOR; TEMP CORR TO 98.6
[2017-01-17 09:55] LABS: DRAW SITE LT RADIAL; FIO2 45 %; NUMBER OF ARTERIAL PUNCTURES 2; STAT NO; ULNAR PULSE PRESENT
--- NOTE | 2017-01-17 12:43 | HHI.PR ---
Subjective Remarks Awake but will not follow commands .On CPAP, FIO2 at 45 %. CXR looks much better. Tolerates feeds. Objective Vital Signs Date Time Temp Pulse Resp B/P Pulse Ox O2 Delivery O2 Flow Rate FiO2 01/17/17 12:00 105 01/17/17 12:00 98.9 102 15 110/56 95 01/17/17 12:00 45 01/17/17 10:10 45 01/17/17 10:10 95 45 01/17/17 10:00 101 01/17/17 08:05 93 45 01/17/17 08:00 45 01/17/17 08:00 71 01/17/17 08:00 99.2 71 15 109/56 92 01/17/17 06:00 69 01/17/17 04:26 95 55 01/17/17 04:00 69 01/17/17 04:00 45 01/17/17 04:00 98.4 69 15 160/74 94 01/17/17 02:00 63 01/17/17 00:00 97.0 75 15 107/57 94 01/17/17 00:00 75 01/17/17 00:00 45 01/16/17 23:41 99 55 01/16/17 22:00 73 01/16/17 20:20 94 45 01/16/17 20:00 72 01/16/17 20:00 45 01/16/17 20:00 97.0 72 16 166/75 95 01/16/17 18:00 63 01/16/17 16:41 99 45 01/16/17 16:00 45 01/16/17 16:00 78 01/16/17 16:00 97.6 82 15 129/61 97 01/16/17 14:00 81 I/O 01/16/17 01/16/17 01/16/17 01/17/17 01/17/17 01/17/17 07:00 15:00 23:00 07:00 15:00 23:00 Intake Total 1115 ml 1175 ml 1075 ml 1074 ml Output Total 800 ml 1700 ml 1275 ml 950 ml Balance 315 ml -525 ml -200 ml 124 ml IV Total 620 ml 451 ml 578 ml 601 ml Tube Feeding 455 ml 484 ml 467 ml 463 ml Tube Irrigant 40 ml 30 ml 10 ml Other 240 ml Output Urine Total 800 ml 1700 ml 1275 ml 950 ml Stool Total 0 ml 0 ml 0 ml Bladder Scan Volume Amount 250 ml 250 ml 250 ml Result Diagram: 01/17/17 0350 01/17/17 0830 Objective Remarks This moderately overweight elderly white male is intubated and lethargic. HEENT: Head normocephalic. Pupils reactive. Sclerae are clear. Throat secretions. Ears, no inflammation. Neck: Supple. No bruits. No venous distension. Trachea midline. Chest: Equal movements with increased AP diameter with occ Basal Crackles Heart: The heart sounds are irregular, S1-S2. No murmur. No S3. Abdomen: The abdomen is protuberant, soft, without masses, organomegaly or tenderness. Bowel sounds active. Extremities: Varicosities and decreased pulses. No edema. withdraws. Neurologic:sleepy. Rectal: Exam is deferred. Assessment and Plan Assessment and Plan IMPRESSION 1. Septic shock. 2. Extensive right lung pneumonia and hypoxemia. 3. Acute hypoxemic, hypercapnic respiratory failure. 4. COPD with emphysema 5. History of pulmonary embolism. 6. History of hypertension. 7. RIZWAN. Plan : 1. Wean FIO2 to keep sat > 92. 2. Leave on CPAP today . 3. Cont antibiotics as ordered. 4. A/C 10 at HS 5. Nebs q6h , Duoneb. 6. Cont Heparin 5000 U S/Q bid. 7. Hold sedation 8. Tube feeds at 60 CC. 9. BMP in am. Cheri Cadena MD Jan 17, 2017 12:43
[2017-01-17 17:23] LABS: BACTERIA, URINE RARE /hpf; BLOOD, URINE MOD (NEG); GLUCOSE,URINE NEG (NEG); KETONE, URINE NEG (NEG); MUCUS URINE FEW /lpf (OCC); NITRITE,URINE NEG (NEG); PH, URINE 5.5 (5.0-8.5); URINE COLOR YELLOW (YELLW/STRAW)
[2017-01-17 17:24] LABS: COMMENT (UR) CATH-CULTURE IND; CULTURE IF INDICATED CATH CULTURE IND
--- NOTE | 2017-01-17 20:31 | RADRPT ---
EXAM DATE/TIME: 01/17/2017 20:02 [facility] COMPARISON: ABDOMEN KUB ONLY, April 01, 2015, 13:21. INDICATIONS : Abdomen pain MEDICAL HISTORY : Chronic obstructive pulmonary disease. Cardiovascular disease. Myocardial infarction. SURGICAL HISTORY : Colon resection. Cholecystectomy. Appendectomy. ENCOUNTER: Initial ACUITY: 1 week PAIN SCORE: Non-responsive. LOCATION: Abdomen FINDINGS: Supine view of the abdomen was performed. The abdominal bowel gas pattern is nonspecific. There is a n NG tube in stomach. There are few air-filled nondilated loops of small bowel demonstrated. There is some air in the colon which is nondilated. There is stool in the colon. There are degenerative lopez es throughout the lumbar spine and pelvis.. There are surgical clips in the right upper quadrant. No significant changes compared to the prior exam. CONCLUSION: 1. Nonspecific bowel gas pattern. 2. NG tube in the stomach. Bart Spring MD on January 17, 2017 at 20:28 Board Certified Radiologist. This report was verified electronically.
[2017-01-17] MEDS: PANTOPRAZOLE SODIUM 40 MG VIAL IV PUSH SCH (21:01)
[2017-01-18] VITALS (24 sets, daily range): BP systolic 111–147; BP diastolic 55–68; PULSE 66–104; RESP 16–22; TEMP 98.6–100.2; O2SAT 90–97
[2017-01-18] MEDS: PENICILLIN G POTASSIUM INJ 3,000,000 UNITS in SODIUM CHLORIDE 0.9% INJ 100 ML IV SCH ×2 (00:08→05:05)
[2017-01-18] MEDS: PROPOFOL 1000 MG/100 ML INJ 100 ML IV SCH ×3 (00:41→07:16)
[2017-01-18] MEDS: INSULIN NovoLIN REGULAR SUPPLEMENTAL SCALE SQ SCH ×4 (02:00→20:00)
[2017-01-18] MEDS: CHLORHEXIDINE GLUCONATE 2 % 1 PACK (2 CLOTHS) TOP SCH (03:37)
[2017-01-18 04:07] LABS: AUTOMATED NEUTROPHIL # 15.7 TH/MM3 (1.8-7.7); BASOPHIL # 0.1 TH/MM3 (0-0.2); BASOPHIL % 0.3 % (0.0-2.0); EOSINOPHIL # 0.2 TH/MM3 (0-0.4); EOSINOPHIL % 1.2 % (0.0-4.0); HEMO FLAGS DIFF FINAL; MEAN CELL VOLUME 89.3 FL (80.0-100.0); MEAN CORPUSCULAR HEMOGLOBIN 29.6 PG (27.0-34.0); MEAN CORPUSCULAR HGB CONC 33.2 % (32.0-36.0); MONO % 5.7 % (0.0-8.0); NEUT % 77.8 % (16.0-70.0); PLATELET COUNT 157 TH/MM3 (150-450); RED BLOOD COUNT 3.58 MIL/MM3 (4.50-5.90); RED CELL DISTRIBUTION WIDTH 15.4 % (11.6-17.2); WHITE BLOOD COUNT 20.1 TH/MM3 (4.0-11.0)
[2017-01-18] MEDS: RESP: ALBUTEROL 2.5 MG/IPRATROPIUM 0.5 MG NEB (SCH) NEB ×4 (04:09→19:55)
[2017-01-18 04:37] LABS: BICARBONATE 33.4 MEQ/L (21.0-32.0); POTASSIUM 3.3 MEQ/L (3.5-5.1)
[2017-01-18] MEDS: FREE WATER G-TUBE SCH ×5 (05:05→23:11)
[2017-01-18] MEDS: HEPARIN SODIUM - SQ 10,000 UNITS/ML VIAL SQ SCH ×2 (05:05→17:42)
[2017-01-18] MEDS: POTASSIUM CHLORIDE 20 MEQ PWD PACKET PO SCH ×2 (05:55→10:00)
[2017-01-18] MEDS: ASPIRIN EC 81 MG TABEC PO SCH (09:00)
[2017-01-18] MEDS ORDERED: Vancomycin Consult Pharmacy 1 EA OTHER SCH (09:00)
[2017-01-18] MEDS ORDERED: VANCOMYCIN INJ 1,000 MG in SODIUM CHLOR 0.9% 250 ML INJ 250 ML IV ONE (09:00)
--- NOTE | 2017-01-18 09:05 | HHI.CCPN ---
Subjective Remarks/Hospital Course Hospital Course: 81yM with h/o COPD and prior PE who presented yesterday with history of nausea/ vomiting and was worked up including negative CT abd/pelvis with IV contrast. He returned this morning due to dizziness. At that time he had a lactate of 6, wbc 20k, and cxr demonstrating RUL pneumonia. he was given zosyn and 4L IVF. Repeat lactate demonstrated persistent lactic acidosis of 6. Also, after 6 hours, his uop was < 200cc. A Woodward catheter was inserted. his Cr was also elevated at 1.9. At this point, he became acutely hypoxemic and agitated. I was called and immediately went down to evaluate the patient. When I walked in , he was agitated and pulling off his NRB mask. He did not have a reliable spo2 monitor waveform and an abg was drawn with a po2 of 50. Decision was made to pursue emergent intubation (see separate procedure note for details). After intubation, the patient became hypotensive requiring vasopressor therapy and additional fluid boluses were given. Due to his impending cardiovascular collapse, a STAT echo was ordered which demonstrated hyperdynamic biventricular function, moderate pulmonary hypertension, and very collapsable IVC. He was given an additional 2L IVF and 2 amps bicarbonate for pH 7.11 on repeat abg with severe metabolic acidosis with BE -12. He was started on norepinephrine and vasopressin. He was transported to the medical ICU in critical condition. 01/09: Lactate is clearing, but slowly. CVP improved overnight. uop marginal, but slightly improved from yesterday. hypoxia slightly better as well, although persists on 100% fio2. wbc up to 44k today. 01/10: CVP rising yesterday, persistently oligoanuric. vasopressors persist, but at slightly lower dose. high fio2 requirements. wbc downtrending. 01/11: oxygenation severely worsened overnight. now on peep 15, fio2 100%, spo2 85%. vasopressors weaned off. cvp kuldip throughout the night to 23 this AM. CXR with evidence of significant pulmonary edema and intravascular volume overload. despite this, UOP minimal overnight and remains in oliguric renal failure. 01/12: Remains intubated sedated. Chest x-ray from yesterday prominent bilateral infiltrates right more than left with mediastinal prominence. CT chest ordered for today. Urine output 10 L in 24 hours on Lasix infusion 20 mg pr hour. Slight worsening of creatinine to 2.15. Weight is still up by 9 KG. WBC count essentially stable 01/14: Afebrile. Not really responsive this a.m. so MRI brain/EEG pending. Currently on CPAP trial. Lasix infusion will be discontinued. Positive BM. Tolerating tube feeds 01/15: Resting comfortably in bed. Currently on CPAP trials. Very poor duration. Currently 50% FiO2. X-ray stable. Tolerating tube feeds. Positive bowel movement. Agitated once sedation removed. Subjective 01/16: Tmax 100. Currently on CPAP trials while on propofol drip. FiO2 45%. X -ray remained stable. Tolerating tube feeds. Positive BMs yesterday. 01/17 Patient is sedated with Diprivan, Fentanyl and intubated. Afebrile. Had bigeminy/PVC overnight given Lidocaine 100mg IV x1. 01/18 Patient is sedated with Diprivan and intubated. T:101.6 last night. Objective Vital Signs Date Time Temp Pulse Resp B/P Pulse Ox O2 Delivery O2 Flow Rate FiO2 01/18/17 08:38 95 40 01/18/17 06:00 75 01/18/17 04:00 98.8 17 116/55 Intake and Output 01/17/17 01/17/17 01/18/17 08:00 16:00 00:00 Intake Total 1074 ml 820 ml 378 ml Output Total 950 ml 1600 ml 1290 ml Balance 124 ml -780 ml -912 ml Result Diagram: 01/18/17 0340 01/18/17 0340 Other Results Laboratory Tests Test 01/17/17 01/17/17 01/18/17 09:47 16:08 03:40 Blood Gas Puncture Site LT RADIAL Blood Gas Patient Temperature 98.6 Blood Gas HCO3 30 mmol/L Blood Gas Base Excess 5.2 mmol/L Blood Gas Oxygen Saturation 97 % Arterial Blood pH 7.40 Arterial Blood Partial 49 mmHg Pressure CO2 Arterial Blood Partial 152 mmHg Pressure O2 Arterial Blood Oxygen Content 16.7 Vol % Arterial Blood 1.6 % Carboxyhemoglobin Arterial Blood Methemoglobin 1.2 % Blood Gas Hemoglobin 12.1 G/DL Oxygen Delivery Device VENTILATOR Blood Gas Ventilator Setting Blood Gas Inspired Oxygen 45 % Urine Color YELLOW Urine Turbidity CLOUDY Urine pH 5.5 Urine Specific [place] 1.021 Urine Protein 30 mg/dL Urine Glucose (UA) NEG mg/dL Urine Ketones NEG mg/dL Urine Occult Blood MOD Urine Nitrite NEG Urine Bilirubin NEG Urine Urobilinogen LESS THAN 2.0 MG/DL Urine Leukocyte Esterase LARGE Urine RBC 50 /hpf Urine WBC /hpf Urine WBC Clumps MANY Urine Bacteria RARE /hpf Urine Mucus FEW /lpf Urine Yeast (Budding) FEW Microscopic Urinalysis Comment CATH-CULTURE IND White Blood Count 20.1 TH/MM3 Red Blood Count 3.58 MIL/MM3 Hemoglobin 10.6 GM/DL Hematocrit 32.0 % Mean Corpuscular Volume 89.3 FL Mean Corpuscular Hemoglobin 29.6 PG Mean Corpuscular Hemoglobin 33.2 % Concent Red Cell Distribution Width 15.4 % Platelet Count 157 TH/MM3 Mean Platelet Volume 9.2 FL Neutrophils (%) (Auto) 77.8 % Lymphocytes (%) (Auto) 15.0 % Monocytes (%) (Auto) 5.7 % Eosinophils (%) (Auto) 1.2 % Basophils (%) (Auto) 0.3 % Neutrophils # (Auto) 15.7 TH/MM3 Lymphocytes # (Auto) 3.0 TH/MM3 Monocytes # (Auto) 1.1 TH/MM3 Eosinophils # (Auto) 0.2 TH/MM3 Basophils # (Auto) 0.1 TH/MM3 CBC Comment DIFF FINAL Differential Comment Sodium Level 151 MEQ/L Potassium Level 3.3 MEQ/L Chloride Level 111 MEQ/L Carbon Dioxide Level 33.4 MEQ/L Anion Gap 7 MEQ/L Blood Urea Nitrogen 98 MG/DL Creatinine 1.42 MG/DL Estimat Glomerular Filtration 48 ML/MIN Rate Random Glucose 118 MG/DL Calcium Level 9.0 MG/DL Imaging Last Impressions Chest X-Ray 01/17/17 0600 Signed Impressions: Service Date/Time: Tuesday, January 17, 2017 03:20 - CONCLUSION: No significant change has occurred. John Paul Delgado MD Abdomen X-Ray 01/17/17 0000 Signed Impressions: Service Date/Time: Tuesday, January 17, 2017 20:02 - CONCLUSION: 1. Nonspecific bowel gas pattern. 2. NG tube in the stomach. Bart Spring MD Skull X-Ray 01/14/17 0000 Signed Impressions: Service Date/Time: Saturday, January 14, 2017 11:20 - CONCLUSION: No MRI incompatible foreign body is identified. Bar Arias MD Brain MRI 01/14/17 0000 Signed Impressions: Service Date/Time: Saturday, January 14, 2017 15:40 - CONCLUSION: No acute abnormality is seen. Bar Arias MD Chest CT 01/12/17 0000 Signed Impressions: Service Date/Time: Thursday, January 12, 2017 16:58 - CONCLUSION: 1. Extensive consolidation throughout much of the right lung likely representing processes such as inflammatory change and pneumonia. 2. Extensive adenopathy is seen throughout the mediastinum. This is nonspecific. It could be reactive or neoplastic. If it is neoplastic, lymphoma should be considered. Axillary adenopathy is not seen. Bar Arias MD Renal Ultrasound 01/10/17 0000 Signed Impressions: Service Date/Time: Tuesday, January 10, 2017 10:49 - CONCLUSION: 1. Kidneys appear normal. 2. Impression on the bladder floor from the prostate. There is a bladder diverticulum and possible bladder stone present. Bar Arias MD Objective Remarks GEN: 81-year-old elderly male critically ill, intubated, sedated. HEENT: No cephalic atraumatic. PERRLA. MMM. Orotracheally intubated neck: obese neck. jvd unable to be assessed. trachea midline. Right IJ clean dry and intact chest: Gadolinium rhonchi over bilateral lung field. coarse breath sounds bilaterally. Otherwise air entry equal bilaterally cv: RRR. S1, S2 no S4. Without murmur. abd: obese, soft, nontender, nondistended. I Nuñez bowel sounds. extr: distal pulses 2+. no peripheral edema neuro: intubated, currently not responsive. Positive gag. Withdrawals to noxious stimuli Line: Central Venous Catheter Side: Right Location: Internal, Jugular A/P Assessment and Plan Neurologic/PSYCH: Acute agitated delirium Chronic Xanax use Peripheral neuropathy Gabapentin 300 twice a day and Xanax 0.5 mg every 8 hours as needed for anxiety on hold for altered mental status On Diprivan infusion for sedation. --Daily sedation vacation Tylenol as needed for pain or fever -- MRI brain with no acute findings/EEG monitoring: encephalopathy with no epileptiform activity -Will consult neuro service Respiratory: Acute hypoxic respiratory failure Multilobar pneumococcal pneumonia COPD exacerbation Pulmonary Edema Mediastinal prominence Severe pulmonary hypertension On PRVC/ AC RR 15, TV 550, PEEP:5, FIO2 45%, IT:1.1 - Pulmicort twice a day Continue with vent support keep sat >92%. Vent bundle Head of bed at 30 Nebs every 6 and every 2 when necessary Methylprednisolone 40 IV daily, SBT daily as jumana. Pulmonary following: Dr. Cadena Cardiovascular: Septic shock- resolved Fluid overload Severe pulmonary hypertension -Monitor HR and BP keep MAP>65mmHg. On ASA 81mg daily Echocardiogram revealed EF 60-65%. SOFYA 93 mmHg. Renal: RIZWAN..improving Hypernatremia -Monitor renal function, I/O's, avoid nephrotoxins. -Renal function improving with Cr: 1.42 from 1.57, UO:3350ml in 24 hrs -Increase Free water 300ml Q6, monitor sodium level. FEN/GI: Acute protein calorie malnutritionmild TF vital protein goal 60 cc an hour ID: Strep pneumonia bacteremia Leukocytosis Multilobar pneumococcal pneumonia s/p Septic shock pneumococcus Ag: + --01/08 blood cultures: strep pneumo. Zosyn and Vanc dcd and PCN G started by Dr. Robledo 01/11/17 Will d/c PNC G and place on Vanco and Zosyn, ID eval. Monitor for signs of infections ( Fever, WBC) pancultured on 01/17 Heme: Normocytic anemia Monitor CBC Endocrine: Hyperglycemia of critical illness -- Medium dose SSI, q4h. Prophylaxis: GI Prophylaxis Protonix 40 mg IV every 24 hours DVT Prophylaxis -- SCDs Subcutaneous heparin twice a day Lines: 01/08 right IJ triple-lumen catheter Palliative care eval to asses with goals of care Critical Care: The total critical care time was 30 minutes. Time to perform other separately billable procedures was not included in the critical care time. Lj Harris MD Jan 18, 2017 09:05
[2017-01-18] MEDS ORDERED: POTASSIUM CHLOR 20 MEQ PREMIX 100 ML IV PRN ×2 (09:15)
[2017-01-18] MEDS ORDERED: POTASSIUM PHOSPHATE INJ 30 MMOL in SODIUM CHLOR 0.9% 250 ML INJ 250 ML IV PRN (09:15)
[2017-01-18] MEDS: DOCUSATE SODIUM 100 MG/10 ML UDC PO SCH ×2 (09:15→20:09)
[2017-01-18] MEDS ORDERED: MAGNESIUM SULFATE INJ 2 GM in SODIUM CHLORIDE 0.9% INJ 96 ML IV PRN (09:15)
[2017-01-18] MEDS ORDERED: MAGNESIUM OXIDE 400 MG TAB PO PRN (09:15)
[2017-01-18] MEDS ORDERED: POTASSIUM PHOSPHATE MONOBASIC 500 MG TAB PO PRN (09:15)
[2017-01-18] MEDS ORDERED: SODIUM PHOSPHATE INJ 30 MMOL in SODIUM CHLOR 0.9% 250 ML INJ 240 ML IV PRN (09:15)
[2017-01-18] MEDS ORDERED: MAGNESIUM SULFATE INJ 4 GM in SODIUM CHLORIDE 0.9% INJ 92 ML IV PRN (09:15)
[2017-01-18] MEDS: LACTOBACILLUS ACIDOPHILUS TAB PO SCH ×3 (09:15→17:42)
[2017-01-18] MEDS ORDERED: POTASSIUM PHOSPHATE MONOBASIC 500 MG TAB PO/TUBE PRN (09:15)
[2017-01-18] MEDS ORDERED: POTASSIUM CHLOR 40 MEQ PREMIX 100 ML IV PRN ×2 (09:15)
[2017-01-18] MEDS: SENNOSIDES SYRUP 8.8 MG/5 ML CUP PO SCH (09:15)
[2017-01-18] MEDS: methylPREDNISolone SOD SUCC 40 MG/1 ML VIAL IV SCH (09:15)
[2017-01-18] MEDS: SODIUM CHLORIDE 0.9% FLUSH 5 ML FLUSH IV FLUSH SCH ×2 (09:16→20:08)
[2017-01-18] MEDS: RESP: BUDESONIDE 0.5 MG/2 ML NEB NEB SCH ×2 (09:37→19:55)
[2017-01-18] MEDS: PIPERACIL-TAZO 4.5 GM PREMIX 100 ML IV SCH ×3 (09:44→20:08)
[2017-01-18] MEDS: CHLORHEXIDINE 0.12% (ORAL KIT) 15 ML CUP MT SCH ×2 (09:44→20:15)
[2017-01-18] MEDS: VANCOMYCIN INJ 1,750 MG in SODIUM CHLORID 0.9% 500 ML INJ 500 ML IV SCH (12:29)
--- NOTE | 2017-01-18 12:51 | HHI.PR ---
Subjective Remarks More alert but will not follow commands .On CPAP, FIO2 at 40 %. Tolerates feeds. Objective Vital Signs Date Time Temp Pulse Resp B/P Pulse Ox O2 Delivery O2 Flow Rate FiO2 01/18/17 10:41 93 40 01/18/17 09:44 40 01/18/17 09:44 95 40 01/18/17 08:38 95 40 01/18/17 08:38 40 01/18/17 08:34 95 45 01/18/17 06:00 75 01/18/17 04:09 95 45 01/18/17 04:00 77 01/18/17 04:00 98.8 66 17 116/55 97 01/18/17 04:00 45 01/18/17 02:00 80 01/18/17 01:06 92 45 01/18/17 00:00 99.1 83 16 126/62 91 01/18/17 00:00 45 01/18/17 00:00 83 01/17/17 22:00 85 01/17/17 20:00 101.6 90 17 98/53 94 01/17/17 20:00 45 01/17/17 20:00 90 01/17/17 19:44 93 45 01/17/17 18:00 45 01/17/17 18:00 100 01/17/17 16:35 94 45 01/17/17 16:00 101.1 106 15 91/59 95 01/17/17 16:00 45 01/17/17 16:00 101 01/17/17 14:43 95 45 01/17/17 14:00 106 I/O 01/17/17 01/17/17 01/17/17 01/18/17 01/18/17 01/18/17 07:00 15:00 23:00 07:00 15:00 23:00 Intake Total 1074 ml 820 ml 378 ml 906 ml Output Total 950 ml 1600 ml 1290 ml 760 ml Balance 124 ml -780 ml -912 ml 146 ml IV Total 601 ml 345 ml 378 ml 406 ml Tube Feeding 463 ml 475 ml Tube Irrigant 10 ml Other 500 ml Output Urine Total 950 ml 1600 ml 1200 ml 750 ml Stool Total 0 ml 0 ml 0 ml 0 ml Gastric Drainage Total 90 ml 10 ml Result Diagram: 01/18/17 0340 01/18/17 1711 Objective Remarks This moderately overweight elderly white male is intubated and lethargic. HEENT: Head normocephalic. Pupils reactive. Sclerae are clear. Throat secretions. Ears, no inflammation. Neck: Supple. No bruits. No venous distension. Trachea midline. Chest: Equal movements with increased AP diameter with occ Basal Crackles and wheezes Heart: The heart sounds are irregular, S1-S2. No murmur. No S3. Abdomen: The abdomen is protuberant, soft, without masses, organomegaly or tenderness. Bowel sounds active. Extremities: Varicosities and decreased pulses. No edema. withdraws. Neurologic:sleepy. Rectal: Exam is deferred. Assessment and Plan Assessment and Plan IMPRESSION 1. Septic shock. 2. Extensive right lung pneumonia and hypoxemia. 3. Acute hypoxemic, hypercapnic respiratory failure. 4. COPD with emphysema 5. History of pulmonary embolism. 6. History of hypertension. 7. RIZWAN. Plan : 1. Wean FIO2 to keep sat > 92. 2[address] on CPAP 5/10, FIo2 35 % today . 3. Cont antibiotics as ordered. 4. A/C 10 at HS 5. Nebs q6h , Duoneb. 6. Cont Heparin 5000 U S/Q bid. 7. Hold sedation 8. Tube feeds at 60 CC. 9. CXR in am 10. Palliative care to see Cheri Cadena MD Jan 18, 2017 12:50
--- NOTE | 2017-01-18 13:44 | PD.CONS ---
Consult Service Palliative Care Consult Requested By MD Getachew Primary Care Physician Unknown Reason for Consultation a. To assist with evaluation and management of symptoms including: dyspnea, back pain, b. To assist medical decision maker(s) with: better understanding of current medical conditions; weighing benefits/burdens of medical treatment options; making medical treatment decisions. (Aretha Reynolds) HPI History of Present Illness This is a 81 yo male who presented to the ED on 01/08/17 with c/o weakness and inability to stand. The day prior he was in the ED nausea, vomiting and diarrhea times 1 week, On this admission, Chest x-ray was indicative for pneumonia with right upper lobe consolidation with sepsis along with weakness related to dehydration. He met SIRS criteria and septic shock criteria with lactic acid of 6; with acutely decompensating hypoxic respiratory failure. Microbiology identified Strep Pneumonia. He progressed to multiorgan system failure with acute delirium, hypoxic respiratory failure, in shock on multiple vasopressors and olguric kidney injury. Transthoracic echocardiogram found a ejection fraction of 60-65%. Pulmonary arterial pressure was significantly elevated with PA peak pressure of 93. He is now on CPAP with an FiO2 of 35 to 40%. . Off sedation he is agitated , eyes are open, but he not following commands. Recent Microbiology showed a ruin w Gm Neg Rods. He presents w encephalopathy. Recent MRI of the brain had acute findings and EEG monitoring identified elliptical fragment activity. Recent labs show multiple electrolyte imbalances although renal function in improving along w urinary output. Efforts were made to contact his son Jose. Message left. Was able to reach his significant other Vivien and attain further information. Vivien indicates [facility] [place]. Until such time her son Jsoe serves as decision maker under [place] [employer]. Additionally there are 2 other children that need to be contacted as well. (Aretha Reynolds) Review of Systems ROS Limitations: Clinical Condition, Intubated, Altered Mental Status Respiratory: COMPLAINS OF: Shortness of breath Cardiovascular: COMPLAINS OF: Dyspnea on Exertion, Orthopnea Musculoskeletal: COMPLAINS OF: Back pain (patient is intubated, unable to respond) Other ROS: On CPAP via ET tube (Aretha Reynolds) Past Family Social History Coded Allergies: No Known Allergies (Verified , 08/08/15) Past Medical History hypertension, COPD, MAURO on CPAP with oxygen use at home, CAD, post DE 2008, hyperlipidemia, July 2011. 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 Bilateral pulmonary embolism with hypoxia, History of COPD and obstructive sleep apnea. In 12/2009 CT angiogram of the chest are notified. Diffuse metastatic dialysis hilar and upper abdominal lymphadenopathy suspicious for lymphoma In December 2010, CT scans showed stable adenopathy without symptoms. Past Surgical History cholecystectomy, coronary stent 2008, February 2015. Partial colon Resection and recent ileocolonic anastomosis at the [facility]; left CEA Current Medications Medications (Trade) Dose Ordered Sig/Josefina Route Start Time Stop Time Status Last Admin (Ecotrin Ec) 81 mg DAILY PO 01/09/17 09:00 01/17/17 09:49 (Lactinex) 1 tab TID PO 01/08/17 18:00 01/18/17 12:29 (NS Flush) 2 ml UNSCH PRN IV FLUSH 01/08/17 15:45 (NS Flush) 2 ml BID IV FLUSH 01/08/17 21:00 01/18/17 09:16 (Heparin Inj) 5,000 units Q12H SQ 01/08/17 18:00 01/18/17 05:05 Miscellaneous Information 1 Q361D XX 01/08/17 15:45 (Chlorhexidine 2% Cloth) Taper DAILY@04 TOP 01/09/17 04:00 01/05/18 03:59 01/18/17 03:37 (Chlorhexidine 2% Cloth) 3 pack UNSCH PRN TOP 01/08/17 15:45 (Zofran Inj) 4 mg Q6H PRN IV 01/08/17 15:45 (Holly-Colace) 1 tab BID PRN PO 01/08/17 15:45 (Tums Chew) 1,000 mg TID PRN CHEW 01/08/17 15:45 Chlorhexidine Gluconate 15 ml 15 ml BID@08,20 MT 01/08/17 20:00 01/18/17 09:44 Fentanyl Citrate 250 ml @ 0 mls/hr TITRATE IV 01/08/17 17:45 01/17/17 04:00 (Diprivan 1000 Mg/100ml Inj) 100 ml @ 0 mls/hr TITRATE IV 01/08/17 17:45 01/18/17 07:16 (Protonix Inj) 40 mg Q24H IV PUSH 01/08/17 21:00 01/17/17 21:01 Alteplase, Recombinant 2 mg 2 mg Q2H PRN INTRACATH 01/10/17 21:45 01/10/17 22:30 Magnesium Sulfate 2 gm/Sodium Chloride 104 ml @ 52 mls/hr UNSCH PRN IV 01/11/17 15:30 (KCl 20 Meq Premix Inj) 100 ml @ 50 mls/hr UNSCH PRN IV 01/11/17 15:30 01/13/17 17:12 (Colace Liq) 100 mg Q12HR PO 01/12/17 09:00 01/18/17 09:15 (Senna Liq) 8.8 mg DAILY PO 01/12/17 09:00 01/18/17 09:15 (Nitroglycerin 2% Oint) 2 inch Q6HR PRN TOPICAL 01/14/17 13:30 (Trandate Inj) 10 mg Q1HR PRN IV PUSH 01/14/17 13:30 (SoluMEDROL INJ) 40 mg DAILY IV 01/17/17 09:00 01/18/17 09:15 (Tylenol) 500 mg Q6H PRN PO 01/16/17 14:30 01/17/17 15:46 (D50w (Vial) Inj) 25 ml UNSCH PRN IV PUSH 01/17/17 08:00 (Glucagon Inj) 1 mg UNSCH PRN OTHER 01/17/17 08:00 (NovoLIN R SUPPLEMENTAL SCALE) 1 Q6H SQ 01/17/17 08:00 01/17/17 12:49 (Mycostatin Powder) 1 applic Q12HR PRN TOPICAL 01/17/17 08:15 01/18/17 09:15 (Apresoline Inj) 10 mg Q6H PRN IV PUSH 01/17/17 08:45 01/17/17 09:06 Water 300 ml 300 ml Q6HR G-TUBE 01/18/17 12:00 01/18/17 12:00 Pharmacy Profile Note 0 ml @ 0 mls/hr UNSCH OTHER 01/18/17 09:00 Piperacillin Sod/ Tazobactam Sod 100 ml @ 200 mls/hr Q6H IV 01/18/17 09:00 01/18/17 09:44 Potassium Chloride 100 ml @ 50 mls/hr Q2H PRN IV 01/18/17 09:15 Potassium Chloride 100 ml @ 50 mls/hr Q2H PRN IV 01/18/17 09:15 Potassium Chloride 100 ml @ 25 mls/hr UNSCH PRN IV 01/18/17 09:15 Potassium Chloride 100 ml @ 50 mls/hr Q2H PRN IV 01/18/17 09:15 (Magnesium Sulfate Inj/NS Inj) 100 ml @ 50 mls/hr UNSCH PRN IV 01/18/17 09:15 Magnesium Oxide 800 mg 800 mg UNSCH PRN PO 01/18/17 09:15 (Magnesium Sulfate Inj/NS Inj) 100 ml @ 50 mls/hr UNSCH PRN IV 01/18/17 09:15 Potassium Phosphate 2000 mg 2,000 mg Q4H PRN PO 01/18/17 09:15 (Sodium Phosphate Inj/NS 250 ml Inj) 250 ml @ 42 mls/hr UNSCH PRN IV 01/18/17 09:15 Potassium Phosphate 2000 mg 2,000 mg UNSCH PRN PO/TUBE 01/18/17 09:15 Potassium Phosphate 30 mmol/ Sodium Chloride 260 ml @ 42 mls/hr UNSCH PRN IV 01/18/17 09:15 (Vancomycin Inj/ NS 500 ml Inj) 517.5 ml @ 250 mls/hr Q24H IV 01/18/17 12:00 01/18/17 12:29 Miscellaneous Information SPECIFIC LAB TO BE ... ONCE ONCE XX 01/21/17 11:45 01/21/17 11:46 Family History Brother has coronary artery disease. Sister healthy. Has 2 sons, 1 daughter who are healthy Substance Use Tobacco: smoked a pack a day for the last 50 yearsone pack per day. Quit smoking December 2014 Alcohol:Drinks about 3 beers a day. Prescription med abuse:denies Illicits: denies Psychosocial History . 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 Ethical and Legal Issues Patient is incapacitated to make any decisions at this time. According to [place] statutes, health care proxy decision making falls to the majority of adult children. He has 3 of children. Only one, Jose, has been identified at this time. One son and one daughter are estranged per Vivien ( sig other). She has been w Bar 10 years =. Has never seen them and does not know them. Will need to attain names from Jose. Vivien believes she has been named as [facility] and that documentation may be in the [facility] system. She does not have copy of the document. He did not have a living well. (Aretha Reynolds) Physical Exam Vital Signs Date Time Temp Pulse Resp B/P Pulse Ox O2 Delivery O2 Flow Rate FiO2 01/18/17 10:41 93 40 01/18/17 09:44 40 01/18/17 09:44 95 40 01/18/17 08:38 95 40 01/18/17 08:38 40 01/18/17 08:34 95 45 01/18/17 06:00 75 01/18/17 04:09 95 45 01/18/17 04:00 77 01/18/17 04:00 98.8 66 17 116/55 97 01/18/17 04:00 45 01/18/17 02:00 80 01/18/17 01:06 92 45 01/18/17 00:00 99.1 83 16 126/62 91 01/18/17 00:00 45 01/18/17 00:00 83 01/17/17 22:00 85 01/17/17 20:00 101.6 90 17 98/53 94 01/17/17 20:00 45 01/17/17 20:00 90 01/17/17 19:44 93 45 01/17/17 18:00 45 3/20/17 18:00 100 01/17/17 16:35 94 45 01/17/17 16:00 101.1 106 15 91/59 95 01/17/17 16:00 45 01/17/17 16:00 101 01/17/17 14:43 95 45 01/17/17 14:00 106 01/17/17 01/18/17 19:00 07:00 Intake Total 820 ml 1284 ml Output Total 1600 ml 2050 ml Balance -780 ml -766 ml IV Total 345 ml 784 ml Tube Feeding 475 ml Other 500 ml Output Urine Total 1600 ml 1950 ml Stool Total 0 ml 0 ml Gastric Drainage Total 100 ml Exam CONSTITUTIONAL/GENERAL: This is an adequately nourished patient, in no apparent distress. TUBES/LINES/DRAINS: Woodward, OT/ET tube, R IJ central line SKIN: No jaundice, rashes, or lesions. Edema and Ecchymoses on upper extremities. Skin temperature appropriate. Not diaphoretic. HEAD: Atraumatic. Normocephalic. EYES: Pupils equal and round and reactive. Not tracking with eyes time of my visit No scleral icterus. No injection or drainage. ENT: Unable to assess hearing Hearing. Nose without bleeding or purulent drainage. Throat without visible erythema, exudates, masses, or lesions. NECK: Trachea midline. Supple, nontender. CARDIOVASCULAR: irregular rate and rhythm w PVCs; no murmurs, gallops, or rubs. No JVD. Peripheral pulses symmetric. RESPIRATORY/CHEST: Symmetric, unlabored respirations. Coarse breath sounds bilaterally. Diminished posteriorly GASTROINTESTINAL: Abdomen soft, non-tender, nondistended. No hepato-splenomegaly , or palpable masses. No guarding. Bowel sounds present. GENITOURINARY: Without palpable bladder distension. Woodward catheter in place. MUSCULOSKELETAL: Extremities without clubbing, cyanosis, or edema. No mottling or clubbing. LYMPHATICS: No palpable cervical or supraclavicular adenopathy. NEUROLOGICAL: Eyes open, unable to follow commands, moves limbs independently. PSYCHIATRIC: Unable to adequately assess. Appears encephalopathic (Aretha Reynolds) Diagnostic Tests Laboratory Laboratory Tests Test 01/16/17 01/16/17 01/17/17 01/17/17 04:00 21:45 03:50 08:30 White Blood Count 14.7 TH/MM3 13.9 TH/MM3 (4.0-11.0) (4.0-11.0) Red Blood Count 4.00 MIL/MM3 4.03 MIL/MM3 (4.50-5.90) (4.50-5.90) Hemoglobin 11.5 GM/DL 11.8 GM/DL (13.0-17.0) (13.0-17.0) Hematocrit 35.9 % 35.9 % (39.0-51.0) (39.0-51.0) Mean Corpuscular Volume 89.6 FL 89.2 FL (80.0-100.0) (80.0-100.0) Mean Corpuscular Hemoglobin 28.7 PG 29.2 PG (27.0-34.0) (27.0-34.0) Mean Corpuscular Hemoglobin 32.0 % 32.8 % Concent (32.0-36.0) (32.0-36.0) Red Cell Distribution Width 15.7 % 15.5 % (11.6-17.2) (11.6-17.2) Platelet Count 147 TH/MM3 167 TH/MM3 (150-450) (150-450) Mean Platelet Volume 9.4 FL 9.3 FL (7.0-11.0) (7.0-11.0) Neutrophils (%) (Auto) 72.6 % 68.8 % (16.0-70.0) (16.0-70.0) Lymphocytes (%) (Auto) 19.7 % 22.4 % (9.0-44.0) (9.0-44.0) Monocytes (%) (Auto) 6.1 % (0.0-8.0) 5.5 % (0.0-8.0) Eosinophils (%) (Auto) 1.3 % (0.0-4.0) 3.1 % (0.0-4.0) Basophils (%) (Auto) 0.3 % (0.0-2.0) 0.2 % (0.0-2.0) Neutrophils # (Auto) 10.6 TH/MM3 9.6 TH/MM3 (1.8-7.7) (1.8-7.7) Lymphocytes # (Auto) 2.9 TH/MM3 3.1 TH/MM3 (1.0-4.8) (1.0-4.8) Monocytes # (Auto) 0.9 TH/MM3 0.8 TH/MM3 (0-0.9) (0-0.9) Eosinophils # (Auto) 0.2 TH/MM3 0.4 TH/MM3 (0-0.4) (0-0.4) Basophils # (Auto) 0.0 TH/MM3 0.0 TH/MM3 (0-0.2) (0-0.2) CBC Comment AUTO DIFF DIFF FINAL Differential Total Cells 100 Counted Neutrophils % (Manual) 71 % (16-70) Band Neutrophils % 2 % (0-6) Lymphocytes % 17 % (9-44) Monocytes % 3 % (0-8) Eosinophils % 3 % (0-4) Neutrophils # (Manual) 11.3 TH/MM3 (1.8-7.7) Metamyelocytes 1 % (0-1) Myelocytes 2 % (0-0) Promyelocytes 1 % (0-0) Differential Comment FINAL DIFF MANUAL Platelet Estimate LOW (NORMAL) Platelet Morphology Comment NORMAL (NORMAL) Tear Drop Cells 1+ (NORMAL) Ovalocytes 1+ (NORMAL) Sodium Level 149 MEQ/L 137 MEQ/L 152 MEQ/L 151 MEQ/L (136-145) (136-145) (136-145) (136-145) Potassium Level 4.7 MEQ/L 4.8 MEQ/L 3.8 MEQ/L 3.9 MEQ/L (3.5-5.1) (3.5-5.1) (3.5-5.1) (3.5-5.1) Chloride Level 105 MEQ/L 95 MEQ/L 108 MEQ/L 107 MEQ/L (98-107) (98-107) (98-107) (98-107) Carbon Dioxide Level 33.7 MEQ/L 33.0 MEQ/L 34.2 MEQ/L 35.7 MEQ/L (21.0-32.0) (21.0-32.0) (21.0-32.0) (21.0-32.0) Anion Gap 10 MEQ/L (5-15) 9 MEQ/L (5-15) 10 MEQ/L (5-15) 8 MEQ/L (5-15) Blood Urea Nitrogen 113 MG/DL 107 MG/DL 114 MG/DL 115 MG/DL (7-18) (7-18) (7-18) (7-18) Creatinine 1.98 MG/DL 1.68 MG/DL 1.56 MG/DL 1.57 MG/DL (0.60-1.30) (0.60-1.30) (0.60-1.30) (0.60-1.30) Estimat Glomerular Filtration 33 ML/MIN (>89) 40 ML/MIN (>89) 43 ML/MIN (>89) 43 ML/MIN (>89) Rate Random Glucose 125 MG/DL 202 MG/DL 131 MG/DL 153 MG/DL (74-106) (74-106) (74-106) (74-106) Calcium Level 8.3 MG/DL 7.8 MG/DL 8.6 MG/DL 8.5 MG/DL (8.5-10.1) (8.5-10.1) (8.5-10.1) (8.5-10.1) Phosphorus Level 5.7 MG/DL 4.1 MG/DL 5.2 MG/DL (2.5-4.9) (2.5-4.9) (2.5-4.9) Magnesium Level 3.3 MG/DL 3.0 MG/DL 3.3 MG/DL (1.5-2.5) (1.5-2.5) (1.5-2.5) Total Bilirubin 0.5 MG/DL (0.2-1.0) Aspartate Amino Transf 12 U/L (15-37) (AST/SGOT) Alanine Aminotransferase 36 U/L (12-78) (ALT/SGPT) Alkaline Phosphatase 59 U/L (45-117) Total Protein 6.1 GM/DL (6.4-8.2) Albumin 2.6 GM/DL (3.4-5.0) Test 01/17/17 01/17/17 01/17/17 01/18/17 08:40 09:47 16:08 03:40 Prothrombin Time 9.8 SEC (9.8-11.6) Prothromb Time International 0.9 RATIO Ratio Blood Gas Puncture Site LT RADIAL Blood Gas Patient Temperature 98.6 Blood Gas HCO3 30 mmol/L (22-26) Blood Gas Base Excess 5.2 mmol/L (-2-2) Blood Gas Oxygen Saturation 97 % (90-100) Arterial Blood pH 7.40 (7.380-7.420) Arterial Blood Partial 49 mmHg (38-42) Pressure CO2 Arterial Blood Partial 152 mmHg Pressure O2 (61-120) Arterial Blood Oxygen Content 16.7 Vol % (12.0-20.0) Arterial Blood 1.6 % (0-4) Carboxyhemoglobin Arterial Blood Methemoglobin 1.2 % (0-2) Blood Gas Hemoglobin 12.1 G/DL (12.0-16.0) Oxygen Delivery Device VENTILATOR Blood Gas Ventilator Setting Blood Gas Inspired Oxygen 45 % Urine Color YELLOW (YELLW/STRAW) Urine Turbidity CLOUDY (CLEAR) Urine pH 5.5 (5.0-8.5) Urine Specific [place] 1.021 (1.002-1.035) Urine Protein 30 mg/dL (NEG-TRACE) Urine Glucose (UA) NEG mg/dL (NEG) Urine Ketones NEG mg/dL (NEG) Urine Occult Blood MOD (NEG) Urine Nitrite NEG (NEG) Urine Bilirubin NEG (NEG) Urine Urobilinogen LESS THAN 2.0 MG/DL (LESS THAN 2.0) Urine Leukocyte Esterase LARGE (NEG) Urine RBC 50 /hpf (0-3) Urine WBC /hpf (0-5) Urine WBC Clumps MANY (NONE) Urine Bacteria RARE /hpf (NONE) Urine Mucus FEW /lpf (OCC) Urine Yeast (Budding) FEW (NONE) Microscopic Urinalysis Comment CATH-CULTURE IND White Blood Count 20.1 TH/MM3 (4.0-11.0) Red Blood Count 3.58 MIL/MM3 (4.50-5.90) Hemoglobin 10.6 GM/DL (13.0-17.0) Hematocrit 32.0 % (39.0-51.0) Mean Corpuscular Volume 89.3 FL (80.0-100.0) Mean Corpuscular Hemoglobin 29.6 PG (27.0-34.0) Mean Corpuscular Hemoglobin 33.2 % Concent (32.0-36.0) Red Cell Distribution Width 15.4 % (11.6-17.2) Platelet Count 157 TH/MM3 (150-450) Mean Platelet Volume 9.2 FL (7.0-11.0) Neutrophils (%) (Auto) 77.8 % (16.0-70.0) Lymphocytes (%) (Auto) 15.0 % (9.0-44.0) Monocytes (%) (Auto) 5.7 % (0.0-8.0) Eosinophils (%) (Auto) 1.2 % (0.0-4.0) Basophils (%) (Auto) 0.3 % (0.0-2.0) Neutrophils # (Auto) 15.7 TH/MM3 (1.8-7.7) Lymphocytes # (Auto) 3.0 TH/MM3 (1.0-4.8) Monocytes # (Auto) 1.1 TH/MM3 (0-0.9) Eosinophils # (Auto) 0.2 TH/MM3 (0-0.4) Basophils # (Auto) 0.1 TH/MM3 (0-0.2) CBC Comment DIFF FINAL Differential Comment Sodium Level 151 MEQ/L (136-145) Potassium Level 3.3 MEQ/L (3.5-5.1) Chloride Level 111 MEQ/L (98-107) Carbon Dioxide Level 33.4 MEQ/L (21.0-32.0) Anion Gap 7 MEQ/L (5-15) Blood Urea Nitrogen 98 MG/DL (7-18) Creatinine 1.42 MG/DL (0.60-1.30) Estimat Glomerular Filtration 48 ML/MIN (>89) Rate Random Glucose 118 MG/DL (74-106) Calcium Level 9.0 MG/DL (8.5-10.1) (Aretha Reynolds) Result Diagram: 01/18/17 0340 01/18/17 0340 Microbiology Microbiology Date/Time Procedure Status Source Growth 01/17/17 08:30 Aerobic Blood Culture - Preliminary Resulted Blood Peripheral NO GROWTH IN 1 DAY 01/17/17 08:30 Anaerobic Blood Culture - Preliminary Resulted Blood Peripheral NO GROWTH IN 1 DAY 01/17/17 08:45 Aerobic Blood Culture - Preliminary Resulted Blood Peripheral NO GROWTH IN 1 DAY 01/17/17 08:45 Anaerobic Blood Culture - Preliminary Resulted Blood Peripheral NO GROWTH IN 1 DAY 01/17/17 16:08 Gram Stain - Final Resulted Sputum Endotracheal 01/17/17 16:08 Sputum Culture Resulted Sputum Endotracheal Pending 01/17/17 16:08 Urine Culture - Preliminary Resulted Urine Catheterized Urine Gram Negative [facility] Last 72 hours Impressions Chest X-Ray 01/17/17 0600 Signed Impressions: Service Date/Time: Tuesday, January 17, 2017 03:20 - CONCLUSION: No significant change has occurred. John Paul Delgado MD Abdomen X-Ray 01/17/17 0000 Signed Impressions: Service Date/Time: Tuesday, January 17, 2017 20:02 - CONCLUSION: 1. Nonspecific bowel gas pattern. 2. NG tube in the stomach. Bart Spring MD Chest X-Ray 01/16/17 0600 Signed Impressions: Service Date/Time: Monday, January 16, 2017 02:55 - CONCLUSION: 1. Support apparatus in satisfactory position. Mild basilar airspace disease. John Heart MD (Aretha Reynolds) Patient/Family Conference Present at Family Conference: Vivien Quach , Significant other call placed to Shaq Garcia - waiting return call Family Conference Location: Telephone Issues Discussed: * Palliative care role, purpose, approach * Additional medical, psychosocial, and spiritual history * Patients general health, functional status, and cognitive changes in the months leading up to the current hospitalization * Patient/family understanding of the current medical problems * Patient/family understanding of prognosis * Patients goals of care as best understood from advance directives and/or conversations and/or values * Current medical treatment options and benefits/burdens of those options * Likely scenarios comparing ongoing aggressive care with a transition to comfort measures only * Questions answered to the best of my ability * Palliative care contact information provided (Aretha Reynolds) Assessment and Plan Disease Oriented Problem List: (1) COPD (chronic obstructive pulmonary disease) (2) CAD (coronary artery disease) (3) Respiratory failure Symptom Scale: (1) Pain 0-10 Scale: Unable to quantify (2) Dyspnea 0-10 Scale: Unable to quantify Pertinent Non-Medical Issues Psychosocial: , has a SO Vivien of 10 years, has 3 children- Jose and reportedly the other two are estranged; 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 According to [place] statutes, health care proxy decision making falls to the majority of adult children. He has 3 of children. Only one, Jose, has been identified at this time. One son and one daughter are estranged per Vivien ( sig other). She has been w Bar 10 years =. Has never seen them and does not know them. Will need to attain names from Jose. Vivien believes she has been named as HCS and that documentation may be in the [facility] system. She does not have copy of the document. He did not have a living well. Important Contacts Jose " Big Leeroy" Rick, Son [phone] home [phone] cell - works for [employer] in [place] two other children need to be identified and determined if they wish to participate in decision making Vivienkvng Quach - Sig Other - Prognosis Prognosis is quarded in light of advanced age, he now presents with encephalopathy following multisystem organ failure post septic shock. Code Status: Full Code Plan Decision Maker: Jose Cabrera - son - [phone] at this time - there are 2 other children to be identified Code Status: FULL CODE Family Discussion: Spoke with S/O Vivien Puga states patient would want to be a DNR, however she is not the decision maker. Phone call placed to shaq Garcia. There are 2 other children to be found. Symptoms: dyspnea, pain, Palliative care phone number provided - will follow during hospital stay. ( Aretha Reynolds) Thank you for the opportunity to participate in the care of Mr. Cabrera. (Aretha Reynolds) Attestation To help prompt me to consider important information that might be impacting today's encounter and assessment, information from prior notes written by myself or my colleagues may have been "brought forward" into today's note. My signature on this note, however, is an attestation that I personally performed the exam, history, and/or decision-making noted today, and, unless otherwise indicated, the interactions with patient, family, and staff as well as the review of records all occurred today. I also attest that the listed assessment and stated plan reflect my best clinical judgment today based on the combination of historical information, prior notes, and today's exam/ interactions. When time spent is documented, it refers only to time spent today by the signer, or if indicated, combined time spent today by collaborating physician/nurse practitioner. (Aretha Reynolds) Collaborating MD Comments . Chart reviewed. Cased discussed with palliative care RESEARCH INVESTIGATOR. Above RESEARCH INVESTIGATOR note reviewed and I concur. . (Eduardo Wren MD) Aretha Reynolds Jan 18, 2017 13:44 Eduardo Wren MD March 28, 2017 14:27
--- NOTE | 2017-01-18 16:54 | MB ---
cc: TYLER SANCHEZ MD, ALAA M.D. DATE OF CONSULTATION: 01/18/2017 REASON FOR CONSULTATION: Pneumonia, leukocytosis, bacteremia. REQUESTING PHYSICIAN Dr. Harris HISTORY OF PRESENT ILLNESS: This is a 81 year-old white male who was admitted to the hospital on 01/08/2017. He presented to the emergency department after falling. He was noted to have markedly elevated white cell count of 20.2 on admission and heart rate greater than 90. The patient was intubated on admission. He had elevated lactic acid on admission. Blood cultures came back positive for strep pneumoniae and also the urine random pneumococcal antigen was positive. The patient received IV antibiotic treatment. He remains on the ventilator. His temperature began to increase on 01/16, when it spiked to 100.2 degrees and then on 01/17, he had a T-max of 101.6 degrees which was yesterday evening. His white count initially improved and has increased from 13.9 yesterday to 20.1 today. The patient is not on sedation and he is moving his head uncontrollably from left to right but does not follow any commands. He has his eyes open. Repeated cultures were performed including blood culture which is pending, sputum culture is pending, and urine culture has gram-negative wagner. The patient has a Woodward catheter in place which has yellow urine with white sediment. PAST MEDICAL HISTORY: 1. COPD 2. CVA 3. Coronary artery disease 4. Coronary stent 5. Obstructive sleep apnea 6. Hyperlipoidemia 7. Hypertension 8. Gastro-esophageal reflux disease 9. Pulmonary embolusm. 10. Cholecystectomy. 11. Polypectomy 12. Appendectomy. The above history is obtained from the medical records, as the patient cannot participate in the interview. ALLERGIES NO KNOWN DRUG ALLERGIES. MEDICATIONS 1. Vancomycin. 2. Piperacillin/tazobactam 3. Methylprednisolone. 4. Colace 5. Senna 6. Potassium. 7. Aspirin 8. DuoNeb 9. Lactinex. 10. Protonix. 11. Heparin subcutaneous. SOCIAL HISTORY No tobacco use. No alcohol. No illicit drugs. FAMILY HISTORY Noncontributory. REVIEW OF SYSTEMS: Unobtainable. PHYSICAL EXAMINATION This is a well-developed male who is unresponsive on the ventilator. He appears somewhat restless. He does not follow commands. Vital signs: Include temperature of 98.8. Heart rate 97. BP 124/62. HEENT: Unable to fully assess, the patient cannot cooperate. The sclera is nonicteric. No conjunctival erythema. Nose has no drainage. Oropharynx intubated. Mucosa of the mouth appears moist. Neck: Supple. No swelling or adenopathy. Lungs: Decreased breath sounds throughout. Heart: Regular without audible murmurs, rubs or gallops. Abdomen: Bowel sounds present, soft, no tenderness appreciated. Rectal: Not performed. Extremities: No clubbing, cyanosis or edema. Skin: No rash. Neuro: Unable to fully assess. Psych: Unable to fully assess. LABORATORY DATA WBC 20.1, platelets 157, 77% neutrophils, 15% lymphocytes, creatinine 1.42, BUN 98, sodium 151, estimated GFR 48. IMPRESSION: 1. Pneumococcal sepsis 2. Respiratory failure 3. Urinary tract infection 4. Leukocytosis 5. Pneumonia. RECOMMENDATIONS 1. Continue vancomycin. 2. Continue piperacillin/tazobactam 3. Monitor white blood cell count. 4. Monitor the temperature. 5. Follow blood cultures. 6. Follow sputum culture. 7. Follow urine culture. 8. Monitor clinical status. Thank you for the consultation. The patient's progress will be monitored and further recommendations will be given on follow up. Tyler Sanchez MD FD/PAM /12:52 PM /4:20 PM
--- NOTE | 2017-01-18 17:44 | MB ---
cc: NEREIDA DAMON M.D. DATE OF : 1935 DATE OF CONSULTATION: 01/18/2017 REASON FOR CONSULTATION: Encephalopathy HISTORY OF PRESENT ILLNESS: The patient is a 81-year-old man admitted to the hospital on 01/08/2017 apparently with a history of COPD, stroke, heart disease, post stent in 2008, PE in 2014, post Coumadin therapy, sleep apnea on C-PAP, hyperlipidemia, hypertension, reflux, who came in because of some dizziness, nausea, vomiting three days prior to admission, diagnosed with gastroenteritis. He had a CT scan of the abdomen with contrast and then subsequently sent home. He was having some intermittent fever, chills, non-productive cough and shortness of breath. His chest x-ray showed some pneumonia, some elevated lactic acid. He was placed on antibiotics. Apparently the patient had impending cardiovascular collapse. Stat echo was done and showed some hyperdynamic biventricular function, moderate pulmonary hypertension, very collapsible IVC per chart notes. He was given fluids. He had a pH of 7.11 with severe metabolic acidosis and transferred to the ICU. Apparently the patient now is no longer sedated on Diprivan but had a temperature of 101.6 last night. He is still intubated but not on any sedation. He had an MRI of the brain that did not show any acute findings. His EEG showed moderate encephalopathy on 01/14. No seizures. PHYSICAL EXAMINATION: On exam his vital signs reveal a temperature of 98.8, pulse 75, respiratory rate is variable 17, sating at 95%, FIO2 45%. His eyes are open, pupils are reactive. He looks around the room. At times looks at this examiner but does not track, does not follow any commands. He has some movement of his upper extremities but he is in restraints, upper and lower toes, some mild withdrawal. LABORATORY DATA: Labs reviewed. White count 20.1. Chemistries: sodium 151, creatinine 1.42. IMPRESSION A 81-year-old man with ongoing encephalopathy possible ongoing hypoxic changes due to respiratory failure. RECOMMENDATIONS: Recommend staying off of sedation if possible. Will get a follow up EEG and monitor his neuro status, however, if off sedation, the question will be can he be extubated, and we will have to find out at that point if he improves or not in the next couple of days. Further recommendations to be made accordingly. MD AMMON Jensen/PAM /2:47 PM /5:18 PM
[2017-01-18] MEDS: PANTOPRAZOLE SODIUM 40 MG VIAL IV PUSH SCH (20:09)
--- NOTE | 2017-01-18 21:14 | MG ---
cc: ROSALES GARCIA MD Sex: M DATE OF STUDY: 01/18/2017 EEG record: [id number] DATE OF : 1935 HISTORY: 81-year-old intubated, confusion. Significant high-frequency artifact obscuring the EEG, appeared to be generalized delta activity 1-2 Hz buried underneath there. Single lead EKG showing sinus rhythm. INTERPRETATION Challenging EEG to interpret due to significant myogenic high-frequency artifact. Appeared to be underlying delta activity present. A repeat EEG if clinically indicated. Rosales Garcia MD MG/PAM /8:52 PM /9:10 PM
[2017-01-18] MEDS: fentaNYL DRIP 250 ML IV SCH (23:12)
[2017-01-19] VITALS (19 sets, daily range): BP systolic 118–150; BP diastolic 55–75; PULSE 86–107; RESP 15–18; TEMP 98.3–100.7; O2SAT 90–95
[2017-01-19] MEDS: INSULIN NovoLIN REGULAR SUPPLEMENTAL SCALE SQ SCH ×4 (02:00→20:31)
[2017-01-19] MEDS: CHLORHEXIDINE GLUCONATE 2 % 1 PACK (2 CLOTHS) TOP SCH (02:22)
[2017-01-19] MEDS: PIPERACIL-TAZO 4.5 GM PREMIX 100 ML IV SCH ×4 (02:22→20:30)
[2017-01-19] MEDS: RESP: ALBUTEROL 2.5 MG/IPRATROPIUM 0.5 MG NEB (SCH) NEB ×2 (03:01→07:57)
[2017-01-19 03:45] LABS: AUTOMATED NEUTROPHIL # 22.5 TH/MM3 (1.8-7.7); BASOPHIL % 0.1 % (0.0-2.0); EOSINOPHIL # 0.1 TH/MM3 (0-0.4); EOSINOPHIL % 0.4 % (0.0-4.0); HEMATOCRIT 33.1 % (39.0-51.0); HEMO FLAGS DIFF FINAL; LYMPH % 11.7 % (9.0-44.0); LYMPHOCYTE # 3.1 TH/MM3 (1.0-4.8); MEAN CELL VOLUME 89.2 FL (80.0-100.0); MEAN CORPUSCULAR HEMOGLOBIN 30.1 PG (27.0-34.0); MEAN CORPUSCULAR HGB CONC 33.7 % (32.0-36.0); MONO % 3.5 % (0.0-8.0); NEUT % 84.3 % (16.0-70.0); PLATELET COUNT 167 TH/MM3 (150-450); RED BLOOD COUNT 3.71 MIL/MM3 (4.50-5.90); RED CELL DISTRIBUTION WIDTH 15.3 % (11.6-17.2); WHITE BLOOD COUNT 26.7 TH/MM3 (4.0-11.0)
[2017-01-19 04:26] LABS: BICARBONATE 31.8 MEQ/L (21.0-32.0); MAGNESIUM 2.7 MG/DL (1.5-2.5); POTASSIUM 3.5 MEQ/L (3.5-5.1)
[2017-01-19] MEDS: HEPARIN SODIUM - SQ 10,000 UNITS/ML VIAL SQ SCH ×2 (05:45→18:35)
[2017-01-19] MEDS: FREE WATER G-TUBE SCH ×4 (05:45→20:32)
[2017-01-19] MEDS: CHLORHEXIDINE 0.12% (ORAL KIT) 15 ML CUP MT SCH ×2 (07:37→20:32)
[2017-01-19] MEDS: RESP: BUDESONIDE 0.5 MG/2 ML NEB NEB SCH ×2 (07:57→19:38)
[2017-01-19] MEDS: ASPIRIN EC 81 MG TABEC PO SCH (09:00)
[2017-01-19] MEDS: LACTOBACILLUS ACIDOPHILUS TAB PO SCH ×3 (09:08→18:35)
[2017-01-19] MEDS: SENNOSIDES SYRUP 8.8 MG/5 ML CUP PO SCH (09:08)
[2017-01-19] MEDS: DOCUSATE SODIUM 100 MG/10 ML UDC PO SCH ×2 (09:08→20:30)
[2017-01-19] MEDS: methylPREDNISolone SOD SUCC 40 MG/1 ML VIAL IV SCH (09:09)
[2017-01-19] MEDS: SODIUM CHLORIDE 0.9% FLUSH 5 ML FLUSH IV FLUSH SCH ×2 (09:09→20:31)
--- NOTE | 2017-01-19 10:11 | HHI.CCPN ---
Subjective Remarks/Hospital Course Hospital Course: 81yM with h/o COPD and prior PE who presented yesterday with history of nausea/ vomiting and was worked up including negative CT abd/pelvis with IV contrast. He returned this morning due to dizziness. At that time he had a lactate of 6, wbc 20k, and cxr demonstrating RUL pneumonia. he was given zosyn and 4L IVF. Repeat lactate demonstrated persistent lactic acidosis of 6. Also, after 6 hours, his uop was < 200cc. A Woodward catheter was inserted. his Cr was also elevated at 1.9. At this point, he became acutely hypoxemic and agitated. I was called and immediately went down to evaluate the patient. When I walked in , he was agitated and pulling off his NRB mask. He did not have a reliable spo2 monitor waveform and an abg was drawn with a po2 of 50. Decision was made to pursue emergent intubation (see separate procedure note for details). After intubation, the patient became hypotensive requiring vasopressor therapy and additional fluid boluses were given. Due to his impending cardiovascular collapse, a STAT echo was ordered which demonstrated hyperdynamic biventricular function, moderate pulmonary hypertension, and very collapsable IVC. He was given an additional 2L IVF and 2 amps bicarbonate for pH 7.11 on repeat abg with severe metabolic acidosis with BE -12. He was started on norepinephrine and vasopressin. He was transported to the medical ICU in critical condition. 01/09: Lactate is clearing, but slowly. CVP improved overnight. uop marginal, but slightly improved from yesterday. hypoxia slightly better as well, although persists on 100% fio2. wbc up to 44k today. 01/10: CVP rising yesterday, persistently oligoanuric. vasopressors persist, but at slightly lower dose. high fio2 requirements. wbc downtrending. 01/11: oxygenation severely worsened overnight. now on peep 15, fio2 100%, spo2 85%. vasopressors weaned off. cvp kuldip throughout the night to 23 this AM. CXR with evidence of significant pulmonary edema and intravascular volume overload. despite this, UOP minimal overnight and remains in oliguric renal failure. 01/12: Remains intubated sedated. Chest x-ray from yesterday prominent bilateral infiltrates right more than left with mediastinal prominence. CT chest ordered for today. Urine output 10 L in 24 hours on Lasix infusion 20 mg pr hour. Slight worsening of creatinine to 2.15. Weight is still up by 9 KG. WBC count essentially stable 01/14: Afebrile. Not really responsive this a.m. so MRI brain/EEG pending. Currently on CPAP trial. Lasix infusion will be discontinued. Positive BM. Tolerating tube feeds 01/15: Resting comfortably in bed. Currently on CPAP trials. Very poor duration. Currently 50% FiO2. X-ray stable. Tolerating tube feeds. Positive bowel movement. Agitated once sedation removed. Subjective 01/16: Tmax 100. Currently on CPAP trials while on propofol drip. FiO2 45%. X -ray remained stable. Tolerating tube feeds. Positive BMs yesterday. 01/17 Patient is sedated with Diprivan, Fentanyl and intubated. Afebrile. Had bigeminy/PVC overnight given Lidocaine 100mg IV x1. 01/18 Patient is sedated with Diprivan and intubated. T:101.6 last night. 01/19 Patient remains intubated tolerated CPAP for several hrs yesterday. Tmax 100.2. Currently off sedation and on CPAP 08/04 with 45% FIO2. Does not follow commands. Repeat EEG yesterday showed high frequency artifact. Objective Vital Signs Date Time Temp Pulse Resp B/P Pulse Ox O2 Delivery O2 Flow Rate FiO2 01/19/17 08:05 45 01/19/17 08:05 91 01/19/17 06:00 107 01/19/17 04:00 98.3 17 123/56 Intake and Output 01/18/17 01/18/17 01/19/17 08:00 16:00 00:00 Intake Total 906 ml 1185 ml 1178 ml Output Total 760 ml 1000 ml 1000 ml Balance 146 ml 185 ml 178 ml Result Diagram: 01/19/17 0326 01/19/17 0326 Other Results Laboratory Tests Test 01/19/17 03:26 White Blood Count 26.7 TH/MM3 Red Blood Count 3.71 MIL/MM3 Hemoglobin 11.2 GM/DL Hematocrit 33.1 % Mean Corpuscular Volume 89.2 FL Mean Corpuscular Hemoglobin 30.1 PG Mean Corpuscular Hemoglobin 33.7 % Concent Red Cell Distribution Width 15.3 % Platelet Count 167 TH/MM3 Mean Platelet Volume 9.2 FL Neutrophils (%) (Auto) 84.3 % Lymphocytes (%) (Auto) 11.7 % Monocytes (%) (Auto) 3.5 % Eosinophils (%) (Auto) 0.4 % Basophils (%) (Auto) 0.1 % Neutrophils # (Auto) 22.5 TH/MM3 Lymphocytes # (Auto) 3.1 TH/MM3 Monocytes # (Auto) 0.9 TH/MM3 Eosinophils # (Auto) 0.1 TH/MM3 Basophils # (Auto) 0.0 TH/MM3 CBC Comment DIFF FINAL Differential Comment Sodium Level 153 MEQ/L Potassium Level 3.5 MEQ/L Chloride Level 114 MEQ/L Carbon Dioxide Level 31.8 MEQ/L Anion Gap 7 MEQ/L Blood Urea Nitrogen 83 MG/DL Creatinine 1.39 MG/DL Estimat Glomerular Filtration 49 ML/MIN Rate Random Glucose 141 MG/DL Calcium Level 9.0 MG/DL Phosphorus Level 3.6 MG/DL Magnesium Level 2.7 MG/DL Imaging Last Impressions Chest X-Ray 01/17/17 0600 Signed Impressions: Service Date/Time: Tuesday, January 17, 2017 03:20 - CONCLUSION: No significant change has occurred. John Paul Delgado MD Abdomen X-Ray 01/17/17 0000 Signed Impressions: Service Date/Time: Tuesday, January 17, 2017 20:02 - CONCLUSION: 1. Nonspecific bowel gas pattern. 2. NG tube in the stomach. Bart Spring MD Skull X-Ray 01/14/17 0000 Signed Impressions: Service Date/Time: Saturday, January 14, 2017 11:20 - CONCLUSION: No MRI incompatible foreign body is identified. Bar Arias MD Brain MRI 01/14/17 0000 Signed Impressions: Service Date/Time: Saturday, January 14, 2017 15:40 - CONCLUSION: No acute abnormality is seen. Bar Arias MD Chest CT 01/12/17 0000 Signed Impressions: Service Date/Time: Thursday, January 12, 2017 16:58 - CONCLUSION: 1. Extensive consolidation throughout much of the right lung likely representing processes such as inflammatory change and pneumonia. 2. Extensive adenopathy is seen throughout the mediastinum. This is nonspecific. It could be reactive or neoplastic. If it is neoplastic, lymphoma should be considered. Axillary adenopathy is not seen. Bar Arias MD Renal Ultrasound 01/10/17 0000 Signed Impressions: Service Date/Time: Tuesday, January 10, 2017 10:49 - CONCLUSION: 1. Kidneys appear normal. 2. Impression on the bladder floor from the prostate. There is a bladder diverticulum and possible bladder stone present. Bar Arias MD Objective Remarks GENERAL: Patient is 81yo intubated off sedation. SKIN: Warm and dry. HEAD: Normocephalic. EYES: No scleral icterus. No injection or drainage. NECK: Supple, trachea midline. No JVD or lymphadenopathy. CARDIOVASCULAR: Regular rate and rhythm without murmurs, gallops, or rubs. RESPIRATORY: Breath sounds equal bilaterally. No accessory muscle use. GASTROINTESTINAL: Abdomen soft, non-tender, nondistended. MUSCULOSKELETAL: No cyanosis, or edema. Neuro: Off sedation does not follow commands ot trach. Eyes are open and looks around room. Line: Central Venous Catheter Side: Right Location: Internal, Jugular A/P Assessment and Plan Neurologic/PSYCH: Acute agitated delirium Chronic Xanax use Peripheral neuropathy Monitor neuro status and avoid any sedatives Neuro is following- Dr. Liu On Diprivan infusion for sedation. --Daily sedation vacation Tylenol as needed for pain or fever -- MRI brain with no acute findings/EEG monitoring: encephalopathy with no epileptiform activity -Repeat EEG 01/18: High frequency artifact, Respiratory: Acute hypoxic respiratory failure Multilobar pneumococcal pneumonia COPD exacerbation Pulmonary Edema Mediastinal prominence Severe pulmonary hypertension On PRVC/ AC RR 15, TV 550, PEEP:5, FIO2 45%, IT:1.1 - Pulmicort twice a day Continue with vent support keep sat >92%. Vent bundle Head of bed at 30 Nebs every 6 and every 2 when necessary Methylprednisolone 40 IV daily, SBT daily as jumana. His mental status precluding him from extubation. Pulmonary following: Dr. Cadena Cardiovascular: Septic shock- resolved Fluid overload Severe pulmonary hypertension -Monitor HR and BP keep MAP>65mmHg. On ASA 81mg daily Echocardiogram revealed EF 60-65%. SOFYA 93 mmHg. Renal: RIZWAN..improving Hypernatremia -Monitor renal function, I/O's, avoid nephrotoxins. -Renal function improving with Cr: 1.39 today from 1.42 -On Free water 300ml Q6, monitor sodium level. Add D5W@75ml/hr FEN/GI: Acute protein calorie malnutritionmild TF vital protein goal 60 cc an hour ID: Strep pneumonia bacteremia Leukocytosis Multilobar pneumococcal pneumonia s/p Septic shock pneumococcus Ag: + --01/08 blood cultures: strep pneumo. Zosyn and Vanc dcd and PCN G started by Dr. Robledo 01/11/17 Continue with abx( Vanco and Zosyn) add Diflucan, ID is following- Dr. Queen Monitor for signs of infections ( Fever, WBC) 01/17 Urine cx: Pseudomonas, Yeast 01/17 Sputum: GNR 01/08 BC: Strep pneumonia Heme: Normocytic anemia Monitor CBC Endocrine: Hyperglycemia of critical illness -- Medium dose SSI, q4h. Prophylaxis: GI Prophylaxis Protonix 40 mg IV every 24 hours DVT Prophylaxis -- SCDs Subcutaneous heparin twice a day Lines: 01/08 right IJ triple-lumen catheter Palliative care is following Critical Care: The total critical care time was 30 minutes. Time to perform other separately billable procedures was not included in the critical care time. Lj Harris MD Jan 19, 2017 10:11
[2017-01-19] MEDS: DEXTROSE 5% IN WATE 1000ML INJ 1,000 ML IV SCH ×2 (10:39→20:32)
[2017-01-19] MEDS: FLUCONAZOLE 100 MG TAB PO SCH (10:54)
--- NOTE | 2017-01-19 11:25 | HHI.HCPN ---
Reason for visit a. To assist with evaluation and management of symptoms including: dyspnea, back pain, b. To assist medical decision maker(s) with: better understanding of current medical conditions; weighing benefits/burdens of medical treatment options; making medical treatment decisions. (Aretha ReynoldsP) Subjective/Interval History This is a 81 yo male who presented to the ED on 01/08/17 with c/o weakness and inability to stand. The day prior he was in the ED nausea, vomiting and diarrhea times 1 week, On this admission, Chest x-ray was indicative for pneumonia with right upper lobe consolidation with sepsis along with weakness related to dehydration. He met SIRS criteria and septic shock criteria with lactic acid of 6; with acutely decompensating hypoxic respiratory failure. Microbiology identified Strep Pneumonia. He progressed to multiorgan system failure with acute delirium, hypoxic respiratory failure, in shock on multiple vasopressors and olguric kidney injury. Transthoracic echocardiogram found a ejection fraction of 60-65%. Pulmonary arterial pressure was significantly elevated with PA peak pressure of 93. He is now on CPAP with an FiO2 of 35 to 40%. . Off sedation he is agitated, eyes are open, but he is not following commands. Recent Microbiology showed a ruin w Gm Neg Rods. Noted on labs today , white blood cells are elevated and he remains hypernatremic. Renal function is slowly improving. Microbiology identified. Urine positive for Pseudomonas and sputum positive for gram-negative rods. He remains on antibiotics and is followed by infectious disease He was evaluated by neurology. Recent MRI of the brain had acute findings and EEG monitoring identified elliptical fragment activity. Impression is ongoing encephalopathy, possibly with ongoing hypoxic changes due to Respiratory failure . He is unable to follow any commands, eyes are open but he does not track and the concern is that he will not be able to be extubated. Recent labs show multiple electrolyte imbalances although renal function in improving along w urinary output. Efforts were made to contact his son Jose. Several messages left. Was able to reach his significant other Vivien and attain further information. Vivien indicates [facility] [place]. Until such time his son Jose will be able to serve as decision maker along with 2 other children that need to be identified and contacted. In the event his children declined to participate in his plan of care further. [place] statutes indicate that his siblings would need to be contacted. (Aretha Reynolds) Advance Directives Advance Directive Specifics Health Care Surrogate(s): Yet to be determined = Son, Jose Cabrera, cell / [phone] office lives in [place] reported that he has one son and Erick from which he is estranged Significant John Quach [phone] - (Aretha Reynolds) Objective Vital Signs Date Time Temp Pulse Resp B/P Pulse Ox O2 Delivery O2 Flow Rate FiO2 01/19/17 08:05 45 01/19/17 08:05 91 45 01/19/17 07:59 92 45 01/19/17 06:00 107 01/19/17 04:12 92 45 01/19/17 04:00 98.3 95 17 123/56 90 01/19/17 04:00 45 01/19/17 04:00 95 01/19/17 02:00 105 01/19/17 01:12 92 45 01/19/17 00:00 96 01/19/17 00:00 45 01/19/17 00:00 98.9 96 18 140/69 93 01/18/17 22:09 95 45 01/18/17 22:00 96 01/18/17 20:00 45 01/18/17 20:00 99.1 98 22 111/58 90 01/18/17 20:00 98 01/18/17 19:55 93 45 01/18/17 18:00 104 01/18/17 17:09 93 45 01/18/17 16:19 93 45 01/18/17 16:00 100 01/18/17 16:00 40 01/18/17 16:00 99.4 100 16 119/58 90 01/18/17 14:00 104 01/18/17 13:53 95 40 01/18/17 13:21 92 40 01/18/17 12:00 90 01/18/17 12:00 40 01/18/17 12:00 100.2 104 18 146/68 90 Intake & Output 01/19/17 01/19/17 07:00 19:00 Intake Total 2142 ml Output Total 1650 ml Balance 492 ml IV Total 854 ml Tube Feeding 768 ml Other 520 ml Output Urine Total 1650 ml # Bowel Movements 1 Physical Exam CONSTITUTIONAL/GENERAL: This is an adequately nourished patient, who. Appears to be uncomfortable with the ET tube, frequently shaking his head TUBES/LINES/DRAINS: Woodward, OT/ET tube, R IJ central line SKIN: No jaundice, rashes, or lesions. Edema and Ecchymoses on upper extremities. Skin temperature appropriate. Not diaphoretic. HEAD: Atraumatic. Normocephalic. EYES: Pupils equal and round and reactive. Not tracking with eyes time of my visit No scleral icterus. No injection or drainage. ENT: Unable to assess hearing Hearing. Nose without bleeding or purulent drainage. Throat without visible erythema, exudates, masses, or lesions. NECK: Trachea midline. Supple, nontender. CARDIOVASCULAR: Regular rate and rhythm w frequent multifocal PVCs; no murmurs, gallops, or rubs. No JVD. Peripheral pulses symmetric. RESPIRATORY/CHEST: Symmetric, unlabored respirations. Coarse breath sounds bilaterally. Diminished posteriorly GASTROINTESTINAL: Abdomen soft, non-tender, nondistended. No hepato-splenomegaly , or palpable masses. No guarding. Bowel sounds present. GENITOURINARY: Without palpable bladder distension. Woodward catheter in place. MUSCULOSKELETAL: Extremities without clubbing, cyanosis, or edema. No mottling or clubbing. LYMPHATICS: No palpable cervical or supraclavicular adenopathy. NEUROLOGICAL: Eyes open, unable to follow commands, moves limbs independently. PSYCHIATRIC: Unable to adequately assess. Appears encephalopathic (Aretha Reynolds) Diagnostic Tests Laboratory Laboratory Tests Test 01/16/17 01/17/17 01/17/17 01/17/17 21:45 03:50 08:30 08:40 Sodium Level 137 MEQ/L 152 MEQ/L 151 MEQ/L (136-145) (136-145) (136-145) Potassium Level 4.8 MEQ/L 3.8 MEQ/L 3.9 MEQ/L (3.5-5.1) (3.5-5.1) (3.5-5.1) Chloride Level 95 MEQ/L 108 MEQ/L 107 MEQ/L (98-107) (98-107) (98-107) Carbon Dioxide Level 33.0 MEQ/L 34.2 MEQ/L 35.7 MEQ/L (21.0-32.0) (21.0-32.0) (21.0-32.0) Anion Gap 9 MEQ/L (5-15) 10 MEQ/L (5-15) 8 MEQ/L (5-15) Blood Urea Nitrogen 107 MG/DL 114 MG/DL 115 MG/DL (7-18) (7-18) (7-18) Creatinine 1.68 MG/DL 1.56 MG/DL 1.57 MG/DL (0.60-1.30) (0.60-1.30) (0.60-1.30) Estimat Glomerular Filtration 40 ML/MIN (>89) 43 ML/MIN (>89) 43 ML/MIN (>89) Rate Random Glucose 202 MG/DL 131 MG/DL 153 MG/DL (74-106) (74-106) (74-106) Calcium Level 7.8 MG/DL 8.6 MG/DL 8.5 MG/DL (8.5-10.1) (8.5-10.1) (8.5-10.1) Phosphorus Level 4.1 MG/DL 5.2 MG/DL (2.5-4.9) (2.5-4.9) Magnesium Level 3.0 MG/DL 3.3 MG/DL (1.5-2.5) (1.5-2.5) White Blood Count 13.9 TH/MM3 (4.0-11.0) Red Blood Count 4.03 MIL/MM3 (4.50-5.90) Hemoglobin 11.8 GM/DL (13.0-17.0) Hematocrit 35.9 % (39.0-51.0) Mean Corpuscular Volume 89.2 FL (80.0-100.0) Mean Corpuscular Hemoglobin 29.2 PG (27.0-34.0) Mean Corpuscular Hemoglobin 32.8 % Concent (32.0-36.0) Red Cell Distribution Width 15.5 % (11.6-17.2) Platelet Count 167 TH/MM3 (150-450) Mean Platelet Volume 9.3 FL (7.0-11.0) Neutrophils (%) (Auto) 68.8 % (16.0-70.0) Lymphocytes (%) (Auto) 22.4 % (9.0-44.0) Monocytes (%) (Auto) 5.5 % (0.0-8.0) Eosinophils (%) (Auto) 3.1 % (0.0-4.0) Basophils (%) (Auto) 0.2 % (0.0-2.0) Neutrophils # (Auto) 9.6 TH/MM3 (1.8-7.7) Lymphocytes # (Auto) 3.1 TH/MM3 (1.0-4.8) Monocytes # (Auto) 0.8 TH/MM3 (0-0.9) Eosinophils # (Auto) 0.4 TH/MM3 (0-0.4) Basophils # (Auto) 0.0 TH/MM3 (0-0.2) CBC Comment DIFF FINAL Differential Comment Total Bilirubin 0.5 MG/DL (0.2-1.0) Aspartate Amino Transf 12 U/L (15-37) (AST/SGOT) Alanine Aminotransferase 36 U/L (12-78) (ALT/SGPT) Alkaline Phosphatase 59 U/L (45-117) Total Protein 6.1 GM/DL (6.4-8.2) Albumin 2.6 GM/DL (3.4-5.0) Prothrombin Time 9.8 SEC (9.8-11.6) Prothromb Time International 0.9 RATIO Ratio Test 01/17/17 01/17/17 01/18/17 01/19/17 09:47 16:08 03:40 03:26 Blood Gas Puncture Site LT RADIAL Blood Gas Patient Temperature 98.6 Blood Gas HCO3 30 mmol/L (22-26) Blood Gas Base Excess 5.2 mmol/L (-2-2) Blood Gas Oxygen Saturation 97 % (90-100) Arterial Blood pH 7.40 (7.380-7.420) Arterial Blood Partial 49 mmHg (38-42) Pressure CO2 Arterial Blood Partial 152 mmHg Pressure O2 (61-120) Arterial Blood Oxygen Content 16.7 Vol % (12.0-20.0) Arterial Blood 1.6 % (0-4) Carboxyhemoglobin Arterial Blood Methemoglobin 1.2 % (0-2) Blood Gas Hemoglobin 12.1 G/DL (12.0-16.0) Oxygen Delivery Device VENTILATOR Blood Gas Ventilator Setting Blood Gas Inspired Oxygen 45 % Urine Color YELLOW (YELLW/STRAW) Urine Turbidity CLOUDY (CLEAR) Urine pH 5.5 (5.0-8.5) Urine Specific [place] 1.021 (1.002-1.035) Urine Protein 30 mg/dL (NEG-TRACE) Urine Glucose (UA) NEG mg/dL (NEG) Urine Ketones NEG mg/dL (NEG) Urine Occult Blood MOD (NEG) Urine Nitrite NEG (NEG) Urine Bilirubin NEG (NEG) Urine Urobilinogen LESS THAN 2.0 MG/DL (LESS THAN 2.0) Urine Leukocyte Esterase LARGE (NEG) Urine RBC 50 /hpf (0-3) Urine WBC /hpf (0-5) Urine WBC Clumps MANY (NONE) Urine Bacteria RARE /hpf (NONE) Urine Mucus FEW /lpf (OCC) Urine Yeast (Budding) FEW (NONE) Microscopic Urinalysis Comment CATH-CULTURE IND White Blood Count 20.1 TH/MM3 26.7 TH/MM3 (4.0-11.0) (4.0-11.0) Red Blood Count 3.58 MIL/MM3 3.71 MIL/MM3 (4.50-5.90) (4.50-5.90) Hemoglobin 10.6 GM/DL 11.2 GM/DL (13.0-17.0) (13.0-17.0) Hematocrit 32.0 % 33.1 % (39.0-51.0) (39.0-51.0) Mean Corpuscular Volume 89.3 FL 89.2 FL (80.0-100.0) (80.0-100.0) Mean Corpuscular Hemoglobin 29.6 PG 30.1 PG (27.0-34.0) (27.0-34.0) Mean Corpuscular Hemoglobin 33.2 % 33.7 % Concent (32.0-36.0) (32.0-36.0) Red Cell Distribution Width 15.4 % 15.3 % (11.6-17.2) (11.6-17.2) Platelet Count 157 TH/MM3 167 TH/MM3 (150-450) (150-450) Mean Platelet Volume 9.2 FL 9.2 FL (7.0-11.0) (7.0-11.0) Neutrophils (%) (Auto) 77.8 % 84.3 % (16.0-70.0) (16.0-70.0) Lymphocytes (%) (Auto) 15.0 % 11.7 % (9.0-44.0) (9.0-44.0) Monocytes (%) (Auto) 5.7 % (0.0-8.0) 3.5 % (0.0-8.0) Eosinophils (%) (Auto) 1.2 % (0.0-4.0) 0.4 % (0.0-4.0) Basophils (%) (Auto) 0.3 % (0.0-2.0) 0.1 % (0.0-2.0) Neutrophils # (Auto) 15.7 TH/MM3 22.5 TH/MM3 (1.8-7.7) (1.8-7.7) Lymphocytes # (Auto) 3.0 TH/MM3 3.1 TH/MM3 (1.0-4.8) (1.0-4.8) Monocytes # (Auto) 1.1 TH/MM3 0.9 TH/MM3 (0-0.9) (0-0.9) Eosinophils # (Auto) 0.2 TH/MM3 0.1 TH/MM3 (0-0.4) (0-0.4) Basophils # (Auto) 0.1 TH/MM3 0.0 TH/MM3 (0-0.2) (0-0.2) CBC Comment DIFF FINAL DIFF FINAL Differential Comment Sodium Level 151 MEQ/L 153 MEQ/L (136-145) (136-145) Potassium Level 3.3 MEQ/L 3.5 MEQ/L (3.5-5.1) (3.5-5.1) Chloride Level 111 MEQ/L 114 MEQ/L (98-107) (98-107) Carbon Dioxide Level 33.4 MEQ/L 31.8 MEQ/L (21.0-32.0) (21.0-32.0) Anion Gap 7 MEQ/L (5-15) 7 MEQ/L (5-15) Blood Urea Nitrogen 98 MG/DL (7-18) 83 MG/DL (7-18) Creatinine 1.42 MG/DL 1.39 MG/DL (0.60-1.30) (0.60-1.30) Estimat Glomerular Filtration 48 ML/MIN (>89) 49 ML/MIN (>89) Rate Random Glucose 118 MG/DL 141 MG/DL (74-106) (74-106) Calcium Level 9.0 MG/DL 9.0 MG/DL (8.5-10.1) (8.5-10.1) Phosphorus Level 3.6 MG/DL (2.5-4.9) Magnesium Level 2.7 MG/DL (1.5-2.5) (Aretha Reynolds) Result Diagram: 01/19/17 0326 01/19/17 0326 Microbiology Microbiology Date/Time Procedure Status Source Growth 01/17/17 08:30 Aerobic Blood Culture - Preliminary Resulted Blood Peripheral NO GROWTH IN 2 DAYS 01/17/17 08:30 Anaerobic Blood Culture - Preliminary Resulted Blood Peripheral NO GROWTH IN 2 DAYS 01/17/17 08:45 Aerobic Blood Culture - Preliminary Resulted Blood Peripheral NO GROWTH IN 2 DAYS 01/17/17 08:45 Anaerobic Blood Culture - Preliminary Resulted Blood Peripheral NO GROWTH IN 2 DAYS 01/17/17 16:08 Gram Stain - Final Resulted Sputum Endotracheal 01/17/17 16:08 Sputum Culture - Preliminary Resulted Gram Negative Kahlil 01/17/17 16:08 Urine Culture - Preliminary Resulted Urine Catheterized Urine Pseudomonas Aeruginosa Yeast-Id To Follow Imaging Last 72 hours Impressions Chest X-Ray 01/17/17 0600 Signed Impressions: Service Date/Time: Tuesday, January 17, 2017 03:20 - CONCLUSION: No significant change has occurred. John Paul Delgado MD Abdomen X-Ray 01/17/17 0000 Signed Impressions: Service Date/Time: Tuesday, January 17, 2017 20:02 - CONCLUSION: 1. Nonspecific bowel gas pattern. 2. NG tube in the stomach. Bart Spring MD (Aretha Reynolds) Assessment and Plan Disease Oriented Problem List: (1) COPD (chronic obstructive pulmonary disease) (2) CAD (coronary artery disease) (3) Respiratory failure (4) Encephalopathy (5) Sepsis Comment: On antibioticsurine Pseudomonas: Sputum gram-negative kahlil Symptom Scale: (1) Pain 0-10 Scale: Unable to quantify (2) Dyspnea 0-10 Scale: Unable to quantify (3) Agitation 0-10 Scale: Unable to quantify Comment: Witnessed as restlessness with head shaking. 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 According to [place] statutes, health care proxy decision making falls to the majority of adult children. He has 3 of children. Only one, Jose, has been identified at this time. One son and one daughter are estranged per Vivien ( sig other). She has been w Bar 10 years =. Has never seen them and does not know them. Will need to attain names from Jose. Vivien believes she has been named as HCS and that documentation may be [facility] the [facility] system. She does not have copy of the document. He did not have a living well. Important Contacts Jose " Leeroy" Rick, Son [phone] office [phone] cell - works for [employer] in [place] two other children need to be identified and determined if they wish to participate in decision making Vivienkvng PalmQuach - Sig Other - [phone] Prognosis Prognosis is quarded in light of advanced age, he now presents with encephalopathy following multisystem organ failure post septic shock. May not be able to extubate. Patient may be hospice candidate Code Status: Full Code Plan Decision Maker: Jose Cabrera - son - [phone] cell / [phone] office at this time - there are 2 other children to be identified Code Status: FULL CODE Family Discussion: Spoke with S/O Vivien - Vivien states patient would want to be a DNR, however she is not the decision maker. Several Phone call placed to fransico Garcia at home and office. There are 2 other children to be found. Vivien was going to go to the [place] to see if she could obtain records. Explained to Vivien that in the event his children were to opt out of decision making that it would be necessary to contact his siblings per [place] statutes. If they were to opt out of decision making then decisions would fall back to her Symptoms: dyspnea, pain, agitation Palliative care phone number provided - will follow during hospital stay. ( Aretha Reynolds) Attestation To help prompt me to consider important information that might be impacting today's encounter and assessment, information from prior notes written by myself or my colleagues may have been "brought forward" into today's note. My signature on this note, however, is an attestation that I personally performed the exam, history, and/or decision-making noted today, and, unless otherwise indicated, the interactions with patient, family, and staff as well as the review of records all occurred today. I also attest that the listed assessment and stated plan reflect my best clinical judgment today based on the combination of historical information, prior notes, and today's exam/ interactions. When time spent is documented, it refers only to time spent today by the signer, or if indicated, combined time spent today by collaborating physician/nurse practitioner. (Aretha Reynolds) Collaborating MD Comments . Chart reviewed. Cased discussed with palliative care PHYSICIAN SCIENTIST. Above PHYSICIAN SCIENTIST note reviewed and I concur. . (Eduardo Wren MD) Aretha Reynolds Jan 19, 2017 11:25 Eduardo Wren MD March 28, 2017 14:33
[2017-01-19] MEDS: VANCOMYCIN INJ 1,750 MG in SODIUM CHLORID 0.9% 500 ML INJ 500 ML IV SCH (11:52)
--- NOTE | 2017-01-19 12:19 | HHI.IDPN ---
Note Infectious Disease Note Patient has eyes open and is moving head from side to side. No attempts to follow commands. Afebrile. Remains intubated. Urine culture has pseudomonas and yeast. Sputum culture has gram neg kahlil. Admitted to the hospital on 01/08/2017. He was brought to the emergency department after falling. He was noted to have markedly elevated white cell count of 20.2 on admission and heart rate greater than 90. The patient was intubated on admission. He had elevated lactic acid on admission. Blood cultures came back positive for strep pneumoniae and also the urine random pneumococcal antigen was positive. PAST MEDICAL HISTORY: 1. COPD 2. CVA 3. Coronary artery disease 4. Coronary stent 5. Obstructive sleep apnea 6. Hyperlipoidemia 7. Hypertension 8. Gastro-esophageal reflux disease 9. Pulmonary embolism. 10. Cholecystectomy. 11. Polypectomy 12. Appendectomy. ALLERGIES NO KNOWN DRUG ALLERGIES. MEDICATIONS 1. Vancomycin. 2. Piperacillin/tazobactam. 3. Fluconazole. SOCIAL HISTORY No tobacco use. No alcohol. No illicit drugs. OBJECTIVE: Vital Signs Date Time Temp Pulse Resp B/P Pulse Ox O2 Delivery O2 Flow Rate FiO2 01/19/17 11:27 90 45 01/19/17 08:05 45 01/19/17 08:05 91 45 01/19/17 07:59 92 45 01/19/17 06:00 107 01/19/17 04:12 92 45 01/19/17 04:00 98.3 95 17 123/56 90 01/19/17 04:00 45 01/19/17 04:00 95 01/19/17 02:00 105 01/19/17 01:12 92 45 01/19/17 00:00 96 01/19/17 00:00 45 01/19/17 00:00 98.9 96 18 140/69 93 01/18/17 22:09 95 45 01/18/17 22:00 96 01/18/17 20:00 45 01/18/17 20:00 99.1 98 22 111/58 90 01/18/17 20:00 98 01/18/17 19:55 93 45 01/18/17 18:00 104 01/18/17 17:09 93 45 01/18/17 16:19 93 45 01/18/17 16:00 100 01/18/17 16:00 40 01/18/17 16:00 99.4 100 16 119/58 90 01/18/17 14:00 104 01/18/17 13:53 95 40 01/18/17 13:21 92 40 01/18/17 01/18/17 01/19/17 15:00 23:00 07:00 Intake Total 1185 ml 1178 ml 964 ml Output Total 1000 ml 1000 ml 650 ml Balance 185 ml 178 ml 314 ml IV Total 481 ml 588 ml 266 ml Tube Feeding 464 ml 470 ml 298 ml Other 240 ml 120 ml 400 ml Output Urine Total 1000 ml 1000 ml 650 ml Bladder Scan Volume Amount 250 ml # Bowel Movements 1 Laboratory Tests Test 01/18/17 01/19/17 03:40 03:26 White Blood Count 20.1 TH/MM3 26.7 TH/MM3 Red Blood Count 3.58 MIL/MM3 3.71 MIL/MM3 Hemoglobin 10.6 GM/DL 11.2 GM/DL Hematocrit 32.0 % 33.1 % Mean Corpuscular Volume 89.3 FL 89.2 FL Mean Corpuscular Hemoglobin 29.6 PG 30.1 PG Mean Corpuscular Hemoglobin 33.2 % 33.7 % Concent Red Cell Distribution Width 15.4 % 15.3 % Platelet Count 157 TH/MM3 167 TH/MM3 Mean Platelet Volume 9.2 FL 9.2 FL Neutrophils (%) (Auto) 77.8 % 84.3 % Lymphocytes (%) (Auto) 15.0 % 11.7 % Monocytes (%) (Auto) 5.7 % 3.5 % Eosinophils (%) (Auto) 1.2 % 0.4 % Basophils (%) (Auto) 0.3 % 0.1 % Neutrophils # (Auto) 15.7 TH/MM3 22.5 TH/MM3 Lymphocytes # (Auto) 3.0 TH/MM3 3.1 TH/MM3 Monocytes # (Auto) 1.1 TH/MM3 0.9 TH/MM3 Eosinophils # (Auto) 0.2 TH/MM3 0.1 TH/MM3 Basophils # (Auto) 0.1 TH/MM3 0.0 TH/MM3 CBC Comment DIFF FINAL DIFF FINAL Differential Comment Laboratory Tests Test 01/18/17 01/19/17 03:40 03:26 Sodium Level 151 MEQ/L 153 MEQ/L Potassium Level 3.3 MEQ/L 3.5 MEQ/L Chloride Level 111 MEQ/L 114 MEQ/L Carbon Dioxide Level 33.4 MEQ/L 31.8 MEQ/L Anion Gap 7 MEQ/L 7 MEQ/L Blood Urea Nitrogen 98 MG/DL 83 MG/DL Creatinine 1.42 MG/DL 1.39 MG/DL Estimat Glomerular Filtration 48 ML/MIN 49 ML/MIN Rate Random Glucose 118 MG/DL 141 MG/DL Calcium Level 9.0 MG/DL 9.0 MG/DL Phosphorus Level 3.6 MG/DL Magnesium Level 2.7 MG/DL Microbiology Date/Time Procedure Status Source Growth 01/17/17 08:30 Aerobic Blood Culture - Preliminary Resulted Blood Peripheral NO GROWTH IN 2 DAYS 01/17/17 08:30 Anaerobic Blood Culture - Preliminary Resulted Blood Peripheral NO GROWTH IN 2 DAYS 01/17/17 08:45 Aerobic Blood Culture - Preliminary Resulted Blood Peripheral NO GROWTH IN 2 DAYS 01/17/17 08:45 Anaerobic Blood Culture - Preliminary Resulted Blood Peripheral NO GROWTH IN 2 DAYS 01/17/17 16:08 Gram Stain - Final Resulted Sputum Endotracheal 01/17/17 16:08 Sputum Culture - Preliminary Resulted Gram Negative Kahlil 01/17/17 16:08 Urine Culture - Preliminary Resulted Urine Catheterized Urine Pseudomonas Aeruginosa Yeast-Id To Follow IMAGING: Chest X-Ray 01/17/17 0600 Signed Impressions: Service Date/Time: Tuesday, January 17, 2017 03:20 - CONCLUSION: No significant change has occurred. John Paul Delgado MD Abdomen X-Ray 01/17/17 0000 Signed Impressions: Service Date/Time: Tuesday, January 17, 2017 20:02 - CONCLUSION: 1. Nonspecific bowel gas pattern. 2. NG tube in the stomach. Bart Spring MD Skull X-Ray 01/14/17 0000 Signed Impressions: Service Date/Time: Saturday, January 14, 2017 11:20 - CONCLUSION: No MRI incompatible foreign body is identified. Bar Arias MD Brain MRI 01/14/17 0000 Signed Impressions: Service Date/Time: Saturday, January 14, 2017 15:40 - CONCLUSION: No acute abnormality is seen. Bar Arias MD Chest CT 01/12/17 0000 Signed Impressions: Service Date/Time: Thursday, January 12, 2017 16:58 - CONCLUSION: 1. Extensive consolidation throughout much of the right lung likely representing processes such as inflammatory change and pneumonia. 2. Extensive adenopathy is seen throughout the mediastinum. This is nonspecific. It could be reactive or neoplastic. If it is neoplastic, lymphoma should be considered. Axillary adenopathy is not seen. Bar Arias MD Renal Ultrasound 01/10/17 0000 Signed Impressions: Service Date/Time: Tuesday, January 10, 2017 10:49 - CONCLUSION: 1. Kidneys appear normal. 2. Impression on the bladder floor from the prostate. There is a bladder diverticulum and possible bladder stone present. Bar Arias MD PHYSICAL EXAMINATION GENERAL: On the ventilator. He appears somewhat restless. HEENT: The sclera is nonicteric. No conjunctival erythema. Mucosa of the mouth appears moist. Neck: Supple. No swelling, no adenopathy. Lungs: Decreased breath sounds. Heart: Regular without audible murmurs, rubs or gallops. Abdomen: Bowel sounds present, soft, no tenderness appreciated. Extremities: No clubbing, cyanosis or edema. Skin: No rash. Neuro: Unable to fully assess. Psych: Unable to fully assess. IMPRESSION: 1. Pneumococcal sepsis 2. Respiratory failure 3. Urinary tract infection 4. Leukocytosis. WBC higher. ? infection vs steroid effect. 5. Pneumonia. 6. UTI. RECOMMENDATIONS 1. Continue vancomycin. 2. Continue piperacillin/tazobactam 3. Continue Diflucan. 4. Monitor white blood cell count. 5. Monitor the temperature. 5. Follow blood cultures. 6. Follow sputum culture. 7. Monitor clinical status. Tyler Queen MD Jan 19, 2017 12:19
--- NOTE | 2017-01-19 12:56 | HHI.PR ---
Subjective Remarks More alert but does not follow commands .On CPAP, FIO2 at 35 %. Tolerates feeds. Output was good. Objective Vital Signs Date Time Temp Pulse Resp B/P Pulse Ox O2 Delivery O2 Flow Rate FiO2 01/19/17 11:27 90 45 01/19/17 08:05 45 01/19/17 08:05 91 45 01/19/17 07:59 92 45 01/19/17 06:00 107 01/19/17 04:12 92 45 01/19/17 04:00 98.3 95 17 123/56 90 01/19/17 04:00 45 01/19/17 04:00 95 01/19/17 02:00 105 01/19/17 01:12 92 45 01/19/17 00:00 96 01/19/17 00:00 45 01/19/17 00:00 98.9 96 18 140/69 93 01/18/17 22:09 95 45 01/18/17 22:00 96 01/18/17 20:00 45 01/18/17 20:00 99.1 98 22 111/58 90 01/18/17 20:00 98 01/18/17 19:55 93 45 01/18/17 18:00 104 01/18/17 17:09 93 45 01/18/17 16:19 93 45 01/18/17 16:00 100 01/18/17 16:00 40 01/18/17 16:00 99.4 100 16 119/58 90 01/18/17 14:00 104 01/18/17 13:53 95 40 01/18/17 13:21 92 40 I/O 01/18/17 01/18/17 01/18/17 01/19/17 01/19/17 01/19/17 07:00 15:00 23:00 07:00 15:00 23:00 Intake Total 906 ml 1185 ml 1178 ml 964 ml Output Total 760 ml 1000 ml 1000 ml 650 ml Balance 146 ml 185 ml 178 ml 314 ml IV Total 406 ml 481 ml 588 ml 266 ml Tube Feeding 464 ml 470 ml 298 ml Other 500 ml 240 ml 120 ml 400 ml Output Urine Total 750 ml 1000 ml 1000 ml 650 ml Stool Total 0 ml Gastric Drainage Total 10 ml Bladder Scan Volume Amount 250 ml 250 ml # Bowel Movements 1 Result Diagram: 01/19/17 0326 01/19/17 0326 Objective Remarks This moderately overweight elderly white male is intubated and lethargic. HEENT: Head normocephalic. Pupils reactive. Sclerae are clear. Throat secretions. Ears, no inflammation. Neck: Supple. No bruits. No venous distension. Trachea midline. Chest: Equal movements with increased AP diameter with occ Basal Crackles . Heart: The heart sounds are irregular, S1-S2. No murmur. No S3. Abdomen: The abdomen is protuberant, soft, without masses, organomegaly or tenderness. Bowel sounds active. Extremities: Varicosities and decreased pulses. No edema. Neurologic: Lethargic and moves all. Rectal: Exam is deferred. Assessment and Plan Assessment and Plan IMPRESSION 1. Septic shock. 2. Extensive right lung pneumonia and hypoxemia. 3. Acute hypoxemic, hypercapnic respiratory failure. 4. COPD with emphysema 5. History of pulmonary embolism. 6. History of hypertension. 7. RIZWAN. Plan : 1. Wean FIO2 to keep sat > 92. 2. Place on CPAP 5/10, FIo2 35 % today . 3. Cont antibiotics as ordered. 4. Extubate if stable. 5. Nebs q6h , Duoneb. 6. Cont Heparin 5000 U S/Q bid. 7. Hold sedation 8. Tube feeds at 60 CC. 9. CBC,BMP in am 10. Palliative care to see Cheri Cadena MD Jan 19, 2017 12:55
[2017-01-19] MEDS: RESP: ALBUTEROL 0.63 MG/3 ML NEB (PRN) NEB (14:27)
--- NOTE | 2017-01-19 14:57 | HHI.HCPN ---
Spoke with Mr. Simmons son, Jose, - cell best number, who lives in [place] - states that he would agree to be decision maker and would collaborate with the patient's significant other, Vivien States that he has not been in contact w his father in a few years. He has been in contact w the patients SO of late. Discussed future conversations and decisions that would need to be made. If unable to be extubated - the discussion would be for a trach vs withdrawal of life support. Discussed that he could still live hours to days and may want to have hospice involved. Jose asked if he needed to be physically present for these decisions.I indicated that he did not have to be and it would all be handle by phone. Jose indicated that he is hard to reach while he is at work as he is often in ' zone' areas - but to leave a message and he would call back on a land line. Has 2 other siblings that he has not been in contact with for many, many years Sister Stephanie Garcia ( name) . Living At one time in [place], [place], but moved to [place] Brother Bar Simmons, previously from [place], [place]. (Aretha Reynolds) . Chart reviewed. Cased discussed with palliative care [employer]. Above [employer] note reviewed and I concur. . (Eduardo Wren MD) Aretha Reynolds Jan 19, 2017 14:57 Eduardo Wren MD March 28, 2017 14:34
[2017-01-19] MEDS: PROPOFOL 1000 MG/100 ML INJ 100 ML IV SCH (20:30)
[2017-01-19] MEDS: PANTOPRAZOLE SODIUM 40 MG VIAL IV PUSH SCH (20:31)
[2017-01-20] VITALS (19 sets, daily range): BP systolic 94–134; BP diastolic 57–95; PULSE 70–90; RESP 18–26; TEMP 97.7–99.5; O2SAT 91–97
[2017-01-20] MEDS: INSULIN NovoLIN REGULAR SUPPLEMENTAL SCALE SQ SCH ×4 (02:00→19:28)
[2017-01-20] MEDS: CHLORHEXIDINE GLUCONATE 2 % 1 PACK (2 CLOTHS) TOP SCH (04:00)
[2017-01-20] MEDS: PIPERACIL-TAZO 4.5 GM PREMIX 100 ML IV SCH ×4 (05:27→19:25)
[2017-01-20] MEDS: HEPARIN SODIUM - SQ 10,000 UNITS/ML VIAL SQ SCH ×2 (05:27→17:43)
[2017-01-20] MEDS: FREE WATER G-TUBE SCH ×3 (05:28→17:43)
[2017-01-20 05:59] LABS: AUTOMATED NEUTROPHIL # 16.2 TH/MM3 (1.8-7.7); BASOPHIL # 0.1 TH/MM3 (0-0.2); BASOPHIL % 0.3 % (0.0-2.0); EOSINOPHIL # 0.1 TH/MM3 (0-0.4); EOSINOPHIL % 0.7 % (0.0-4.0); HEMATOCRIT 31.2 % (39.0-51.0); HEMO FLAGS DIFF FINAL; LYMPH % 14.9 % (9.0-44.0); MEAN CELL VOLUME 89.9 FL (80.0-100.0); MEAN CORPUSCULAR HEMOGLOBIN 28.8 PG (27.0-34.0); MEAN CORPUSCULAR HGB CONC 32.1 % (32.0-36.0); MONO % 4.5 % (0.0-8.0); NEUT % 79.6 % (16.0-70.0); PLATELET COUNT 159 TH/MM3 (150-450); RED BLOOD COUNT 3.47 MIL/MM3 (4.50-5.90); RED CELL DISTRIBUTION WIDTH 15.5 % (11.6-17.2); WHITE BLOOD COUNT 20.4 TH/MM3 (4.0-11.0)
[2017-01-20 06:06] LABS: BICARBONATE 29.6 MEQ/L (21.0-32.0); MAGNESIUM 2.5 MG/DL (1.5-2.5); POTASSIUM 3.1 MEQ/L (3.5-5.1)
[2017-01-20] MEDS: RESP: ALBUTEROL 0.63 MG/3 ML NEB (PRN) NEB (07:31)
[2017-01-20] MEDS: RESP: BUDESONIDE 0.5 MG/2 ML NEB NEB SCH ×2 (07:31→20:06)
[2017-01-20] MEDS: FLUCONAZOLE 100 MG TAB PO SCH (07:41)
[2017-01-20] MEDS: DOCUSATE SODIUM 100 MG/10 ML UDC PO SCH ×2 (07:41→19:25)
[2017-01-20] MEDS: methylPREDNISolone SOD SUCC 40 MG/1 ML VIAL IV SCH (07:41)
[2017-01-20] MEDS: LACTOBACILLUS ACIDOPHILUS TAB PO SCH ×3 (07:41→17:43)
[2017-01-20] MEDS: SENNOSIDES SYRUP 8.8 MG/5 ML CUP PO SCH (07:41)
[2017-01-20] MEDS: CHLORHEXIDINE 0.12% (ORAL KIT) 15 ML CUP MT SCH ×2 (07:43→19:25)
--- NOTE | 2017-01-20 08:01 | HHI.CCPN ---
Subjective Remarks/Hospital Course Hospital Course: 81yM with h/o COPD and prior PE who presented yesterday with history of nausea/ vomiting and was worked up including negative CT abd/pelvis with IV contrast. He returned this morning due to dizziness. At that time he had a lactate of 6, wbc 20k, and cxr demonstrating RUL pneumonia. he was given zosyn and 4L IVF. Repeat lactate demonstrated persistent lactic acidosis of 6. Also, after 6 hours, his uop was < 200cc. A Woodward catheter was inserted. his Cr was also elevated at 1.9. At this point, he became acutely hypoxemic and agitated. I was called and immediately went down to evaluate the patient. When I walked in , he was agitated and pulling off his NRB mask. He did not have a reliable spo2 monitor waveform and an abg was drawn with a po2 of 50. Decision was made to pursue emergent intubation (see separate procedure note for details). After intubation, the patient became hypotensive requiring vasopressor therapy and additional fluid boluses were given. Due to his impending cardiovascular collapse, a STAT echo was ordered which demonstrated hyperdynamic biventricular function, moderate pulmonary hypertension, and very collapsable IVC. He was given an additional 2L IVF and 2 amps bicarbonate for pH 7.11 on repeat abg with severe metabolic acidosis with BE -12. He was started on norepinephrine and vasopressin. He was transported to the medical ICU in critical condition. 01/09: Lactate is clearing, but slowly. CVP improved overnight. uop marginal, but slightly improved from yesterday. hypoxia slightly better as well, although persists on 100% fio2. wbc up to 44k today. 01/10: CVP rising yesterday, persistently oligoanuric. vasopressors persist, but at slightly lower dose. high fio2 requirements. wbc downtrending. 01/11: oxygenation severely worsened overnight. now on peep 15, fio2 100%, spo2 85%. vasopressors weaned off. cvp kuldip throughout the night to 23 this AM. CXR with evidence of significant pulmonary edema and intravascular volume overload. despite this, UOP minimal overnight and remains in oliguric renal failure. 01/12: Remains intubated sedated. Chest x-ray from yesterday prominent bilateral infiltrates right more than left with mediastinal prominence. CT chest ordered for today. Urine output 10 L in 24 hours on Lasix infusion 20 mg pr hour. Slight worsening of creatinine to 2.15. Weight is still up by 9 KG. WBC count essentially stable 01/14: Afebrile. Not really responsive this a.m. so MRI brain/EEG pending. Currently on CPAP trial. Lasix infusion will be discontinued. Positive BM. Tolerating tube feeds 01/15: Resting comfortably in bed. Currently on CPAP trials. Very poor duration. Currently 50% FiO2. X-ray stable. Tolerating tube feeds. Positive bowel movement. Agitated once sedation removed. Subjective 01/16: Tmax 100. Currently on CPAP trials while on propofol drip. FiO2 45%. X -ray remained stable. Tolerating tube feeds. Positive BMs yesterday. 01/17 Patient is sedated with Diprivan, Fentanyl and intubated. Afebrile. Had bigeminy/PVC overnight given Lidocaine 100mg IV x1. 01/18 Patient is sedated with Diprivan and intubated. T:101.6 last night. 01/19 Patient remains intubated tolerated CPAP for several hrs yesterday. Tmax 100.2. Currently off sedation and on CPAP 10/ with 45% FIO2. Does not follow commands. Repeat EEG yesterday showed high frequency artifact. 01/20 No acute events overnight. Off sedation. Patient is more awake this morning and able to track. Afebrile. On CPAP with PS: 10, PEEP:5 and FIO2 45% Objective Vital Signs Date Time Temp Pulse Resp B/P Pulse Ox O2 Delivery O2 Flow Rate FiO2 01/20/17 07:35 96 45 01/20/17 06:00 84 01/20/17 04:00 99.0 22 97/57 Intake and Output 01/19/17 01/19/17 01/20/17 08:00 16:00 00:00 Intake Total 964 ml 1631 ml 1278 ml Output Total 650 ml 1200 ml 400 ml Balance 314 ml 431 ml 878 ml Result Diagram: 01/20/17 0430 01/20/17 043 Other Results Laboratory Tests Test 01/20/17 04:30 White Blood Count 20.4 TH/MM3 Red Blood Count 3.47 MIL/MM3 Hemoglobin 10.0 GM/DL Hematocrit 31.2 % Mean Corpuscular Volume 89.9 FL Mean Corpuscular Hemoglobin 28.8 PG Mean Corpuscular Hemoglobin 32.1 % Concent Red Cell Distribution Width 15.5 % Platelet Count 159 TH/MM3 Mean Platelet Volume 10.0 FL Neutrophils (%) (Auto) 79.6 % Lymphocytes (%) (Auto) 14.9 % Monocytes (%) (Auto) 4.5 % Eosinophils (%) (Auto) 0.7 % Basophils (%) (Auto) 0.3 % Neutrophils # (Auto) 16.2 TH/MM3 Lymphocytes # (Auto) 3.0 TH/MM3 Monocytes # (Auto) 0.9 TH/MM3 Eosinophils # (Auto) 0.1 TH/MM3 Basophils # (Auto) 0.1 TH/MM3 CBC Comment DIFF FINAL Differential Comment Sodium Level 153 MEQ/L Potassium Level 3.1 MEQ/L Chloride Level 114 MEQ/L Carbon Dioxide Level 29.6 MEQ/L Anion Gap 9 MEQ/L Blood Urea Nitrogen 76 MG/DL Creatinine 1.33 MG/DL Estimat Glomerular Filtration 52 ML/MIN Rate Random Glucose 120 MG/DL Calcium Level 9.0 MG/DL Phosphorus Level 3.3 MG/DL Magnesium Level 2.5 MG/DL Imaging Last Impressions Chest X-Ray 01/17/17 0600 Signed Impressions: Service Date/Time: Tuesday, January 17, 2017 03:20 - CONCLUSION: No significant change has occurred. John Paul Delgado MD Abdomen X-Ray 01/17/17 0000 Signed Impressions: Service Date/Time: Tuesday, January 17, 2017 20:02 - CONCLUSION: 1. Nonspecific bowel gas pattern. 2. NG tube in the stomach. Bart Spring MD Skull X-Ray 01/14/17 0000 Signed Impressions: Service Date/Time: Saturday, January 14, 2017 11:20 - CONCLUSION: No MRI incompatible foreign body is identified. Bar Arias MD Brain MRI 01/14/17 0000 Signed Impressions: Service Date/Time: Saturday, January 14, 2017 15:40 - CONCLUSION: No acute abnormality is seen. Bar Arias MD Chest CT 01/12/17 0000 Signed Impressions: Service Date/Time: Thursday, January 12, 2017 16:58 - CONCLUSION: 1. Extensive consolidation throughout much of the right lung likely representing processes such as inflammatory change and pneumonia. 2. Extensive adenopathy is seen throughout the mediastinum. This is nonspecific. It could be reactive or neoplastic. If it is neoplastic, lymphoma should be considered. Axillary adenopathy is not seen. Bar Arias MD Renal Ultrasound 01/10/17 0000 Signed Impressions: Service Date/Time: Tuesday, January 10, 2017 10:49 - CONCLUSION: 1. Kidneys appear normal. 2. Impression on the bladder floor from the prostate. There is a bladder diverticulum and possible bladder stone present. Bar Arias MD Objective Remarks GENERAL: Patient is 81yo intubated off sedation. SKIN: Warm and dry. HEAD: Normocephalic. EYES: No scleral icterus. No injection or drainage. NECK: Supple, trachea midline. No JVD or lymphadenopathy. CARDIOVASCULAR: Regular rate and rhythm without murmurs, gallops, or rubs. RESPIRATORY: Breath sounds equal bilaterally. No accessory muscle use. GASTROINTESTINAL: Abdomen soft, non-tender, nondistended. MUSCULOSKELETAL: No cyanosis, or edema. Neuro: Off sedation does not follow commands ot trach. Eyes are open and looks around room. Line: Central Venous Catheter Side: Right Location: Internal, Jugular A/P Assessment and Plan Neurologic/PSYCH: Acute agitated delirium Chronic Xanax use Peripheral neuropathy Monitor neuro status and avoid any sedatives, off sedation Neuro is following- Dr. Liu Tylenol as needed for pain or fever -- MRI brain with no acute findings/EEG monitoring: encephalopathy with no epileptiform activity -Repeat EEG 01/18: High frequency artifact, Respiratory: Acute hypoxic respiratory failure Multilobar pneumococcal pneumonia COPD exacerbation Pulmonary Edema Mediastinal prominence Severe pulmonary hypertension On PRVC/ AC RR 15, TV 550, PEEP:5, FIO2 45%, IT:1.1 - Pulmicort twice a day Continue with vent support keep sat >92%. Vent bundle Head of bed at 30 Check CXR Nebs every 6 and every 2 when necessary Methylprednisolone 40 IV daily, SBT daily as jumana. Pulmonary following: Dr. Cadena Cardiovascular: Septic shock- resolved Fluid overload Severe pulmonary hypertension -Monitor HR and BP keep MAP>65mmHg. On ASA 81mg daily Echocardiogram revealed EF 60-65%. SOFYA 93 mmHg. Renal: RIZWAN..improving Hypernatremia -Monitor renal function, I/O's, avoid nephrotoxins. Will need K replacement today -Renal function improving with Cr: 1.33 from 1.39 -On Free water 300ml Q6, monitor sodium level. Increase D5W@100ml/hr FEN/GI: Acute protein calorie malnutritionmild TF vital protein goal 60 cc an hour ID: Strep pneumonia bacteremia Leukocytosis Multilobar pneumococcal pneumonia s/p Septic shock pneumococcus Ag: + --01/08 blood cultures: strep pneumo. Zosyn and Vanc dcd and PCN G started by Dr. Robledo 01/11/17 Continue with abx( Vanco and Zosyn, Diflucan), ID is following- Dr. Queen Monitor for signs of infections ( Fever, WBC) WBC trending down 01/17 Urine cx: Pseudomonas, Yeast 01/17 Sputum: GNR 01/08 BC: Strep pneumonia Heme: Normocytic anemia Monitor CBC Endocrine: Hyperglycemia of critical illness -- Medium dose SSI, q4h. Prophylaxis: GI Prophylaxis Protonix 40 mg IV every 24 hours DVT Prophylaxis -- SCDs Subcutaneous heparin twice a day Lines: 01/08 right IJ triple-lumen catheter. d/c central line and place peripheral IV's Palliative care is following Critical Care: The total critical care time was 30 minutes. Time to perform other separately billable procedures was not included in the critical care time. Lj Harris MD Jan 20, 2017 08:01
[2017-01-20 08:35] LABS: BLOOD GAS BASE EXCESS 1.6 mmol/L (-2-2); BLOOD GAS CARBOXYHEMOGLOBIN 1.2 % (0-4); BLOOD GAS HCO3 25 mmol/L (22-26); BLOOD GAS O2 HGB SATURATION 94 % (90-100); BLOOD GAS OXYGEN CONTENT 20.1 Vol % (12.0-20.0); BLOOD GAS PCO2 38 mmHg (38-42); BLOOD GAS PO2 85 mmHg (61-120); BLOOD GAS TOTAL HGB 15.1 G/DL (12.0-16.0); CRITICAL VALUE NO; DRAW SITE RT RADIAL; FIO2 45 %; NUMBER OF ARTERIAL PUNCTURES 1; OXYGEN DEVICE VENTILATOR; STAT NO; TEMP CORR TO 98.6; ULNAR PULSE PRESENT; VENT SETTINGS CPAP 5/8PS
[2017-01-20] MEDS: ASPIRIN EC 81 MG TABEC PO SCH (09:00)
[2017-01-20] MEDS: SODIUM CHLORIDE 0.9% FLUSH 5 ML FLUSH IV FLUSH SCH ×2 (09:00→19:28)
--- NOTE | 2017-01-20 09:12 | RADRPT ---
EXAM DATE/TIME: 01/20/2017 08:23 [facility] COMPARISON: CHEST SINGLE AP, January 17, 2017, 3:20. INDICATIONS : Short of breath, VDRF MEDICAL HISTORY : Chronic obstructive pulmonary disease. Cardiovascular disease. Myocardial infarction. SURGICAL HISTORY : Appendectomy. Cholecystectomy. colon resection ENCOUNTER: Subsequent ACUITY: 1 week PAIN SCORE: Non-responsive. LOCATION: Bilateral chest FINDINGS: A single view of the chest demonstrates mixed alveolar interstitial infiltrate anomaly in the bases w hich does show interval improvement. There may be an improving left-sided effusion as well. Heart siz e remains prominent. Right support tubes are all stable in position including an endotracheal tube wi th the tip at the clavicular heads. CONCLUSION: 1. Improving bibasilar mixed interstitial and alveolar infiltrates. Possible left-sided effusion whic h also appears slightly improved. 2. Stable position of life support tubes. Otis Nobles MD on January 20, 2017 at 9:08 Board Certified Radiologist. This report was verified electronically.
[2017-01-20] MEDS ORDERED: RESP: ALBUTEROL 2.5 MG/IPRATROPIUM 0.5 MG NEB (PRN) NEB (09:30)
[2017-01-20] MEDS: RESP: ALBUTEROL 2.5 MG/IPRATROPIUM 0.5 MG NEB (SCH) NEB ×4 (10:28→23:52)
--- NOTE | 2017-01-20 11:34 | HHI.HCPN ---
Reason for visit a. To assist with evaluation and management of symptoms including: dyspnea, back pain, b. To assist medical decision maker(s) with: better understanding of current medical conditions; weighing benefits/burdens of medical treatment options; making medical treatment decisions. (Aretha Reynolds) Subjective/Interval History Ms Cabrera is seen this morning, He was extubated earlier. He is maintaining [id number] on an Non-rebreather mask.6L FiO2 40% He is able to tell me his name is Bar and he is able to provide a weak squeeze to my hand. Otherwise is he is unable to engage. WBC's remain elevated - he continues w antibiotics. CXR showed some movement in infiltrates. Relative to [facility] decision making - a search as conducted thru [employer] with the names of the known remaining children. No contact information was found or available. His son Jose has agreed to be decision maker and will collaborate with his SO, Vivien to establish goals of care. Both have indicated they the patient would not want aggressive measures and that he and they want DNR/DNI status to allow him to a natural . (Aretha Reynolds) Advance Directives Advance Directive Specifics Health Care Surrogate(s): Son, Jose Cabrera, cell / [phone] office lives in [place] - can be difficult to reach due to work - Cell phone is the best contact [employer] report was unable to attain information on the 2 remaining siblings. Significant otherVivien Quach [phone] will work with Jose on decision making and she is allowed to have all medical information - Significant change in goals: [facility] desires DNR status (Aretha Reynolds) Objective Vital Signs Date Time Temp Pulse Resp B/P Pulse Ox O2 Delivery O2 Flow Rate FiO2 01/20/17 09:54 93 Venturi Mask 6.00 50 01/20/17 09:40 93 Venturi Mask 6 50 01/20/17 07:35 96 45 01/20/17 06:00 84 01/20/17 05:30 97 45 01/20/17 05:30 Venturi Mask 50 45 01/20/17 04:12 94 45 01/20/17 04:00 99.0 85 22 97/57 95 01/20/17 04:00 85 01/20/17 04:00 45 01/20/17 02:00 77 01/20/17 01:12 95 45 01/20/17 00:00 98.7 87 18 120/95 93 01/20/17 00:00 45 01/20/17 00:00 87 01/19/17 22:09 91 45 01/19/17 22:00 86 01/19/17 20:00 99.0 90 18 131/75 92 01/19/17 20:00 90 01/19/17 20:00 45 01/19/17 19:35 93 45 01/19/17 18:00 90 01/19/17 16:00 100.7 90 15 118/55 92 01/19/17 16:00 90 01/19/17 16:00 45 01/19/17 15:33 95 45 01/19/17 14:00 91 01/19/17 12:00 45 01/19/17 12:00 96 01/19/17 12:00 99.4 96 15 122/75 93 01/19/17 11:27 90 45 Intake & Output 01/20/17 01/20/17 07:00 19:00 Intake Total 2748 ml Output Total 1450 ml Balance 1298 ml IV Total 1257 ml Tube Feeding 891 ml Other 600 ml Output Urine Total 1450 ml Bladder Scan Volume Amount 0 ml Physical Exam CONSTITUTIONAL/GENERAL: This is an adequately nourished patient, who. Awake, tracking TUBES/LINES/DRAINS: Woodward,, R IJ central line, SKIN: No jaundice, rashes, or lesions. Edema and Ecchymoses on upper extremities. Skin temperature appropriate. Not diaphoretic. HEAD: Atraumatic. Normocephalic. EYES: Pupils equal and round and reactive. tracking with eyes time of my visit No scleral icterus. No injection or drainage. ENT: hard of hearing . Nose without bleeding or purulent drainage. Throat without visible erythema, exudates, masses, or lesions. NECK: Trachea midline. Supple, nontender. CARDIOVASCULAR: Regular rate and rhythm w frequent multifocal PVCs; no murmurs, gallops, or rubs. No JVD. Peripheral pulses symmetric. RESPIRATORY/CHEST: Symmetric, unlabored respirations. Coarse breath sounds bilaterally. Diminished posteriorly GASTROINTESTINAL: Abdomen soft, non-tender, nondistended. No hepato-splenomegaly , or palpable masses. No guarding. Bowel sounds present. GENITOURINARY: Without palpable bladder distension. Woodward catheter in place. MUSCULOSKELETAL: Extremities without clubbing, cyanosis, or edema. No mottling or clubbing. LYMPHATICS: No palpable cervical or supraclavicular adenopathy. NEUROLOGICAL: Eyes open, unable to follow commands, moves limbs independently. PSYCHIATRIC: unable to adequately access (Aretha Reynolds) Diagnostic Tests Laboratory Laboratory Tests Test 01/17/17 01/18/17 01/19/17 01/20/17 16:08 03:40 03:26 04:30 Urine Color YELLOW (YELLW/STRAW) Urine Turbidity CLOUDY (CLEAR) Urine pH 5.5 (5.0-8.5) Urine Specific [place] 1.021 (1.002-1.035) Urine Protein 30 mg/dL (NEG-TRACE) Urine Glucose (UA) NEG mg/dL (NEG) Urine Ketones NEG mg/dL (NEG) Urine Occult Blood MOD (NEG) Urine Nitrite NEG (NEG) Urine Bilirubin NEG (NEG) Urine Urobilinogen LESS THAN 2.0 MG/DL (LESS THAN 2.0) Urine Leukocyte Esterase LARGE (NEG) Urine RBC 50 /hpf (0-3) Urine WBC /hpf (0-5) Urine WBC Clumps MANY (NONE) Urine Bacteria RARE /hpf (NONE) Urine Mucus FEW /lpf (OCC) Urine Yeast (Budding) FEW (NONE) Microscopic Urinalysis Comment CATH-CULTURE IND White Blood Count 20.1 TH/MM3 26.7 TH/MM3 20.4 TH/MM3 (4.0-11.0) (4.0-11.0) (4.0-11.0) Red Blood Count 3.58 MIL/MM3 3.71 MIL/MM3 3.47 MIL/MM3 (4.50-5.90) (4.50-5.90) (4.50-5.90) Hemoglobin 10.6 GM/DL 11.2 GM/DL 10.0 GM/DL (13.0-17.0) (13.0-17.0) (13.0-17.0) Hematocrit 32.0 % 33.1 % 31.2 % (39.0-51.0) (39.0-51.0) (39.0-51.0) Mean Corpuscular Volume 89.3 FL 89.2 FL 89.9 FL (80.0-100.0) (80.0-100.0) (80.0-100.0) Mean Corpuscular Hemoglobin 29.6 PG 30.1 PG 28.8 PG (27.0-34.0) (27.0-34.0) (27.0-34.0) Mean Corpuscular Hemoglobin 33.2 % 33.7 % 32.1 % Concent (32.0-36.0) (32.0-36.0) (32.0-36.0) Red Cell Distribution Width 15.4 % 15.3 % 15.5 % (11.6-17.2) (11.6-17.2) (11.6-17.2) Platelet Count 157 TH/MM3 167 TH/MM3 159 TH/MM3 (150-450) (150-450) (150-450) Mean Platelet Volume 9.2 FL 9.2 FL 10.0 FL (7.0-11.0) (7.0-11.0) (7.0-11.0) Neutrophils (%) (Auto) 77.8 % 84.3 % 79.6 % (16.0-70.0) (16.0-70.0) (16.0-70.0) Lymphocytes (%) (Auto) 15.0 % 11.7 % 14.9 % (9.0-44.0) (9.0-44.0) (9.0-44.0) Monocytes (%) (Auto) 5.7 % (0.0-8.0) 3.5 % (0.0-8.0) 4.5 % (0.0-8.0) Eosinophils (%) (Auto) 1.2 % (0.0-4.0) 0.4 % (0.0-4.0) 0.7 % (0.0-4.0) Basophils (%) (Auto) 0.3 % (0.0-2.0) 0.1 % (0.0-2.0) 0.3 % (0.0-2.0) Neutrophils # (Auto) 15.7 TH/MM3 22.5 TH/MM3 16.2 TH/MM3 (1.8-7.7) (1.8-7.7) (1.8-7.7) Lymphocytes # (Auto) 3.0 TH/MM3 3.1 TH/MM3 3.0 TH/MM3 (1.0-4.8) (1.0-4.8) (1.0-4.8) Monocytes # (Auto) 1.1 TH/MM3 0.9 TH/MM3 0.9 TH/MM3 (0-0.9) (0-0.9) (0-0.9) Eosinophils # (Auto) 0.2 TH/MM3 0.1 TH/MM3 0.1 TH/MM3 (0-0.4) (0-0.4) (0-0.4) Basophils # (Auto) 0.1 TH/MM3 0.0 TH/MM3 0.1 TH/MM3 (0-0.2) (0-0.2) (0-0.2) CBC Comment DIFF FINAL DIFF FINAL DIFF FINAL Differential Comment Sodium Level 151 MEQ/L 153 MEQ/L 153 MEQ/L (136-145) (136-145) (136-145) Potassium Level 3.3 MEQ/L 3.5 MEQ/L 3.1 MEQ/L (3.5-5.1) (3.5-5.1) (3.5-5.1) Chloride Level 111 MEQ/L 114 MEQ/L 114 MEQ/L (98-107) (98-107) (98-107) Carbon Dioxide Level 33.4 MEQ/L 31.8 MEQ/L 29.6 MEQ/L (21.0-32.0) (21.0-32.0) (21.0-32.0) Anion Gap 7 MEQ/L (5-15) 7 MEQ/L (5-15) 9 MEQ/L (5-15) Blood Urea Nitrogen 98 MG/DL (7-18) 83 MG/DL (7-18) 76 MG/DL (7-18) Creatinine 1.42 MG/DL 1.39 MG/DL 1.33 MG/DL (0.60-1.30) (0.60-1.30) (0.60-1.30) Estimat Glomerular Filtration 48 ML/MIN (>89) 49 ML/MIN (>89) 52 ML/MIN (>89) Rate Random Glucose 118 MG/DL 141 MG/DL 120 MG/DL (74-106) (74-106) (74-106) Calcium Level 9.0 MG/DL 9.0 MG/DL 9.0 MG/DL (8.5-10.1) (8.5-10.1) (8.5-10.1) Phosphorus Level 3.6 MG/DL 3.3 MG/DL (2.5-4.9) (2.5-4.9) Magnesium Level 2.7 MG/DL 2.5 MG/DL (1.5-2.5) (1.5-2.5) Test 01/20/17 08:15 Blood Gas Puncture Site RT RADIAL Blood Gas Patient Temperature 98.6 Blood Gas HCO3 25 mmol/L (22-26) Blood Gas Base Excess 1.6 mmol/L (-2-2) Blood Gas Oxygen Saturation 94 % (90-100) Arterial Blood pH 7.44 (7.380-7.420) Arterial Blood Partial 38 mmHg (38-42) Pressure CO2 Arterial Blood Partial 85 mmHg Pressure O2 (61-120) Arterial Blood Oxygen Content 20.1 Vol % (12.0-20.0) Arterial Blood 1.2 % (0-4) Carboxyhemoglobin Arterial Blood Methemoglobin 1.0 % (0-2) Blood Gas Hemoglobin 15.1 G/DL (12.0-16.0) Oxygen Delivery Device VENTILATOR Blood Gas Ventilator Setting CPAP 5/8PS Blood Gas Inspired Oxygen 45 % (Aretha Reynolds) Result Diagram: 01/20/17 0430 01/20/17 0430 Microbiology Microbiology Date/Time Procedure Status Source Growth 01/17/17 16:08 Gram Stain - Final Complete Sputum Endotracheal 01/17/17 16:08 Sputum Culture - Final Complete Pseudomonas Oryzihabitans 01/17/17 16:08 Urine Culture - Preliminary Resulted Urine Catheterized Urine Pseudomonas Aeruginosa Yeast-Id To Follow Imaging Last 72 hours Impressions Chest X-Ray 01/20/17 0000 Signed Impressions: Service Date/Time: December 08:23 - CONCLUSION: 1. Improving bibasilar mixed interstitial and alveolar infiltrates. Possible left-sided effusion which also appears slightly improved. 2. Stable position of life support tubes. Otis Nobles [facility] Assessment and Plan Disease Oriented Problem List: (1) COPD (chronic obstructive pulmonary disease) (2) CAD (coronary artery disease) (3) Respiratory failure (4) Encephalopathy (5) Sepsis Comment: On antibioticsurine Pseudomonas: Sputum gram-negative wagner Symptom Scale: (1) Pain 0-10 Scale: Unable to quantify Comment: pt with encephalopathy - unable to quantify (2) Dyspnea 0-10 Scale: Unable to quantify Comment: noted working of breathing - now on non -rebreather (3) Agitation 0-10 Scale: Unable to quantify Comment: Witnessed as restlessness with head shaking. now extubated. 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 Jose his son is HCP - 2 remaining children have not been found thru [employer] report Important Contacts Jose " Leeroy" Rick, Shaq [phone] office [phone] cell - works for [employer] in [place] Vivien Pal[place] - [facility] [place] Other - [phone] Prognosis Prognosis is quarded in light of advanced age, he now presents with encephalopathy following multisystem organ failure post septic shock. . Patient may be hospice candidate Code Status: No Code Plan Decision Maker: Jose Cabrera - son - [phone] cell / [phone] office at this time - there are 2 other children to be identified Code Status:DNR/ DNI - NO CODE - allow for natural Family Discussion: Spoke dante Puga - updated on patient status; also on search for decision makers. Jose will assume Health care proxy role under [place] Statutes as the remain siblings are not able to be found or contacted. Jose has agreed to work dante Puga on decision making, Both agree to DNR status. Symptoms: dyspnea, pain, agitation Palliative care phone number provided - will follow during hospital stay. ( Aretha Reynolds) Attestation To help prompt me to consider important information that might be impacting today's encounter and assessment, information from prior notes written by myself or my colleagues may have been "brought forward" into today's note. My signature on this note, however, is an attestation that I personally performed the exam, history, and/or decision-making noted today, and, unless otherwise indicated, the interactions with patient, family, and staff as well as the review of records all occurred today. I also attest that the listed assessment and stated plan reflect my best clinical judgment today based on the combination of historical information, prior notes, and today's exam/ interactions. When time spent is documented, it refers only to time spent today by the signer, or if indicated, combined time spent today by collaborating physician/nurse practitioner. (Aretha Reynolds) Collaborating MD Comments . Chart reviewed. Cased discussed with palliative care DATA ENGINEER. Above DATA ENGINEER note reviewed and I concur. . (Eduardo Wren MD) Aretha Reynolds Jan 20, 2017 11:33 Eduardo Wren MD March 28, 2017 14:36
[2017-01-20] MEDS: DEXTROSE 5% IN WATE 1000ML INJ 1,000 ML IV SCH ×2 (11:41→19:26)
[2017-01-20] MEDS: VANCOMYCIN INJ 1,750 MG in SODIUM CHLORID 0.9% 500 ML INJ 500 ML IV SCH (12:31)
--- NOTE | 2017-01-20 13:08 | HHI.PR ---
Subjective Remarks More alert and extubated. .On a Ventimask FIO2 at 35 %. Output was good. Confused. Objective Vital Signs Date Time Temp Pulse Resp B/P Pulse Ox O2 Delivery O2 Flow Rate FiO2 01/20/17 12:00 90 01/20/17 12:00 45 01/20/17 12:00 99.2 90 26 94/60 92 01/20/17 10:00 80 01/20/17 09:54 93 Venturi Mask 6.00 50 01/20/17 09:40 93 Venturi Mask 6 50 01/20/17 08:00 82 01/20/17 08:00 99.5 85 20 128/62 93 01/20/17 08:00 45 01/20/17 07:35 96 45 01/20/17 06:00 84 01/20/17 05:30 97 45 01/20/17 05:30 Venturi Mask 50 45 01/20/17 04:12 94 45 01/20/17 04:00 99.0 85 22 97/57 95 01/20/17 04:00 85 01/20/17 04:00 45 01/20/17 02:00 77 01/20/17 01:12 95 45 01/20/17 00:00 98.7 87 18 120/95 93 01/20/17 00:00 45 01/20/17 00:00 87 01/19/17 22:09 91 45 01/19/17 22:00 86 01/19/17 20:00 99.0 90 18 131/75 92 01/19/17 20:00 90 01/19/17 20:00 45 01/19/17 19:35 93 45 01/19/17 18:00 90 01/19/17 16:00 100.7 90 15 118/55 92 01/19/17 16:00 90 01/19/17 16:00 45 01/19/17 15:33 95 45 01/19/17 14:00 91 I/O 01/19/17 01/19/17 01/19/17 01/20/17 01/20/17 01/20/17 07:00 15:00 23:00 07:00 15:00 23:00 Intake Total 964 ml 1631 ml 1278 ml 1470 ml Output Total 650 ml 1200 ml 400 ml 1050 ml Balance 314 ml 431 ml 878 ml 420 ml IV Total 266 ml 759 ml 593 ml 664 ml Tube Feeding 298 ml 632 ml 385 ml 506 ml Other 400 ml 240 ml 300 ml 300 ml Output Urine Total 650 ml 1200 ml 400 ml 1050 ml Bladder Scan Volume Amount 250 ml 0 ml 0 ml 0 ml Result Diagram: 01/20/1742901/20/17429 Objective Remarks This moderately overweight elderly white male is lethargic. HEENT: Head normocephalic. Pupils reactive. Sclerae are clear. Throat secretions. Ears, no inflammation. Neck: Supple. No bruits. No venous distension. Trachea midline. Chest: Equal movements with increased AP diameter with occ wheeze. Heart: The heart sounds are irregular, S1-S2. No murmur. No S3. Abdomen: The abdomen is protuberant, soft, without masses, organomegaly or tenderness. Bowel sounds active. Extremities: Varicosities and decreased pulses. No edema. Neurologic: Lethargic and moves all.1 + reflexes Rectal: Exam is deferred. Assessment and Plan Assessment and Plan IMPRESSION 1. Septic shock. 2. Extensive right lung pneumonia and hypoxemia. 3. Acute hypoxemic, hypercapnic respiratory failure. 4. COPD with emphysema 5. History of pulmonary embolism. 6. History of hypertension. 7. RIZWAN. Plan : 1. Wean FIO2 to keep sat > 92. 2[address] on CPAP at night 3. Cont antibiotics as ordered. 4. PT eval 5. Nebs q6h , Duoneb. 6. Cont Heparin 5000 U S/Q bid. 7. No sedation 8. PO Liquids as tolerated 9. CBC,BMP in am 10. CXR in am Cheri Cadena MD Jan 20, 2017 13:08
--- NOTE | 2017-01-20 13:08 | HHI.IDPN ---
Note Infectious Disease Note Patient was extubated this am. Following commands. Looks comfortable. Afebrile. On O2 via FM. Urine culture has pseudomonas and yeast. Sputum culture has pseudomonas. Admitted to the hospital on 01/08/2017. He was brought to the emergency department after falling. He was noted to have markedly elevated white cell count of 20.2 on admission and heart rate greater than 90. The patient was intubated on admission. He had elevated lactic acid on admission. Blood cultures came back positive for strep pneumoniae and also the urine random pneumococcal antigen was positive. PAST MEDICAL HISTORY: 1. COPD 2. CVA 3. Coronary artery disease 4. Coronary stent 5. Obstructive sleep apnea 6. Hyperlipoidemia 7. Hypertension 8. Gastro-esophageal reflux disease 9. Pulmonary embolism. 10. Cholecystectomy. 11. Polypectomy 12. Appendectomy. ALLERGIES NO KNOWN DRUG ALLERGIES. MEDICATIONS 1. Vancomycin. 2. Piperacillin/tazobactam. 3. Fluconazole. SOCIAL HISTORY No tobacco use. No alcohol. No illicit drugs. OBJECTIVE: Vital Signs Date Time Temp Pulse Resp B/P Pulse Ox O2 Delivery O2 Flow Rate FiO2 01/20/17 12:00 90 01/20/17 12:00 45 01/20/17 12:00 99.2 90 26 94/60 92 01/20/17 10:00 80 01/20/17 09:54 93 Venturi Mask 6.00 50 01/20/17 09:40 93 Venturi Mask 6 50 01/20/17 08:00 82 01/20/17 08:00 99.5 85 20 128/62 93 01/20/17 08:00 45 01/20/17 07:35 96 45 01/20/17 06:00 84 01/20/17 05:30 97 45 01/20/17 05:30 Venturi Mask 50 45 01/20/17 04:12 94 45 01/20/17 04:00 99.0 85 22 97/57 95 01/20/17 04:00 85 01/20/17 04:00 45 01/20/17 02:00 77 01/20/17 01:12 95 45 01/20/17 00:00 98.7 87 18 120/95 93 01/20/17 00:00 45 01/20/17 00:00 87 01/19/17 22:09 91 45 01/19/17 22:00 86 01/19/17 20:00 99.0 90 18 131/75 92 01/19/17 20:00 90 01/19/17 20:00 45 01/19/17 19:35 93 45 01/19/17 18:00 90 01/19/17 16:00 100.7 90 15 118/55 92 01/19/17 16:00 90 01/19/17 16:00 45 01/19/17 15:33 95 45 01/19/17 14:00 91 01/19/17 01/19/17 01/20/17 15:00 23:00 07:00 Intake Total 1631 ml 1278 ml 1470 ml Output Total 1200 ml 400 ml 1050 ml Balance 431 ml 878 ml 420 ml IV Total 759 ml 593 ml 664 ml Tube Feeding 632 ml 385 ml 506 ml Other 240 ml 300 ml 300 ml Output Urine Total 1200 ml 400 ml 1050 ml Bladder Scan Volume Amount 0 ml 0 ml 0 ml Laboratory Tests Test 01/19/17 01/20/17 03:26 04:30 White Blood Count 26.7 TH/MM3 20.4 TH/MM3 Red Blood Count 3.71 MIL/MM3 3.47 MIL/MM3 Hemoglobin 11.2 GM/DL 10.0 GM/DL Hematocrit 33.1 % 31.2 % Mean Corpuscular Volume 89.2 FL 89.9 FL Mean Corpuscular Hemoglobin 30.1 PG 28.8 PG Mean Corpuscular Hemoglobin 33.7 % 32.1 % Concent Red Cell Distribution Width 15.3 % 15.5 % Platelet Count 167 TH/MM3 159 TH/MM3 Mean Platelet Volume 9.2 FL 10.0 FL Neutrophils (%) (Auto) 84.3 % 79.6 % Lymphocytes (%) (Auto) 11.7 % 14.9 % Monocytes (%) (Auto) 3.5 % 4.5 % Eosinophils (%) (Auto) 0.4 % 0.7 % Basophils (%) (Auto) 0.1 % 0.3 % Neutrophils # (Auto) 22.5 TH/MM3 16.2 TH/MM3 Lymphocytes # (Auto) 3.1 TH/MM3 3.0 TH/MM3 Monocytes # (Auto) 0.9 TH/MM3 0.9 TH/MM3 Eosinophils # (Auto) 0.1 TH/MM3 0.1 TH/MM3 Basophils # (Auto) 0.0 TH/MM3 0.1 TH/MM3 CBC Comment DIFF FINAL DIFF FINAL Differential Comment Laboratory Tests Test 01/19/17 01/20/17 03:26 04:30 Sodium Level 153 MEQ/L 153 MEQ/L Potassium Level 3.5 MEQ/L 3.1 MEQ/L Chloride Level 114 MEQ/L 114 MEQ/L Carbon Dioxide Level 31.8 MEQ/L 29.6 MEQ/L Anion Gap 7 MEQ/L 9 MEQ/L Blood Urea Nitrogen 83 MG/DL 76 MG/DL Creatinine 1.39 MG/DL 1.33 MG/DL Estimat Glomerular Filtration 49 ML/MIN 52 ML/MIN Rate Random Glucose 141 MG/DL 120 MG/DL Calcium Level 9.0 MG/DL 9.0 MG/DL Phosphorus Level 3.6 MG/DL 3.3 MG/DL Magnesium Level 2.7 MG/DL 2.5 MG/DL Microbiology Date/Time Procedure Status Source Growth 01/17/17 16:08 Gram Stain - Final Complete Sputum Endotracheal 01/17/17 16:08 Sputum Culture - Final Complete Pseudomonas Oryzihabitans 01/17/17 16:08 Urine Culture - Final Complete Urine Catheterized Urine Pseudomonas Aeruginosa Neelima Glabrata IMAGING: Chest X-Ray 01/20/17 0000 Signed Impressions: Service Date/Time: December 08:23 - CONCLUSION: 1. Improving bibasilar mixed interstitial and alveolar infiltrates. Possible left-sided effusion which also appears slightly improved. 2. Stable position of life support tubes. Otis Nobles MD Chest X-Ray 01/17/17 0600 Signed Impressions: Service Date/Time: Tuesday, January 17, 2017 03:20 - CONCLUSION: No significant change has occurred. John Paul Delgado MD Abdomen X-Ray 01/17/17 0000 Signed Impressions: Service Date/Time: Tuesday, January 17, 2017 20:02 - CONCLUSION: 1. Nonspecific bowel gas pattern. 2. NG tube in the stomach. Bart Spring MD Skull X-Ray 01/14/17 0000 Signed Impressions: Service Date/Time: Saturday, January 14, 2017 11:20 - CONCLUSION: No MRI incompatible foreign body is identified. Bar Arias MD Brain MRI 01/14/17 0000 Signed Impressions: Service Date/Time: Saturday, January 14, 2017 15:40 - CONCLUSION: No acute abnormality is seen. Bar Arias MD Chest CT 01/12/17 0000 Signed Impressions: Service Date/Time: Thursday, January 12, 2017 16:58 - CONCLUSION: 1. Extensive consolidation throughout much of the right lung likely representing processes such as inflammatory change and pneumonia. 2. Extensive adenopathy is seen throughout the mediastinum. This is nonspecific. It could be reactive or neoplastic. If it is neoplastic, lymphoma should be considered. Axillary adenopathy is not seen. Bar Arias MD Renal Ultrasound 01/10/17 0000 Signed Impressions: Service Date/Time: Tuesday, January 10, 2017 10:49 - CONCLUSION: 1. Kidneys appear normal. 2. Impression on the bladder floor from the prostate. There is a bladder diverticulum and possible bladder stone present. Bar Arias MD PHYSICAL EXAMINATION GENERAL: On the ventilator. He appears somewhat restless. HEENT: No icterus. Mucosa of the mouth appears moist. Neck: Supple. No swelling, no adenopathy. Lungs: Decreased breath sounds. Heart: Regular without audible murmurs, rubs or gallops. Abdomen: Bowel sounds present, soft, non tender. Extremities: No clubbing, cyanosis or edema. Skin: No rash. Neuro: Non focal. Psych: Calm. IMPRESSION: 1. Pneumococcal sepsis 2. Respiratory failure. Extubated. 3. Urinary tract infection 4. Leukocytosis. WBC higher. 5. Pneumonia. Pseudomonas. 6. UTI. RECOMMENDATIONS 1. Continue vancomycin. 2. Continue piperacillin/tazobactam 3. Continue Diflucan. 4. Monitor white blood cell count. 5. Monitor the temperature. Tyler Queen MD Jan 20, 2017 13:08
[2017-01-20] MEDS: PANTOPRAZOLE SODIUM 40 MG VIAL IV PUSH SCH (19:25)
[2017-01-21] VITALS (14 sets, daily range): BP systolic 106–194; BP diastolic 56–83; PULSE 67–93; RESP 18–23; TEMP 97.9–99.4; O2SAT 90–100
[2017-01-21] MEDS: INSULIN NovoLIN REGULAR SUPPLEMENTAL SCALE SQ SCH ×4 (02:00→19:26)
[2017-01-21] MEDS: PIPERACIL-TAZO 4.5 GM PREMIX 100 ML IV SCH ×4 (02:49→19:26)
[2017-01-21] MEDS: RESP: ALBUTEROL 2.5 MG/IPRATROPIUM 0.5 MG NEB (SCH) NEB ×6 (03:50→23:06)
[2017-01-21] MEDS: CHLORHEXIDINE GLUCONATE 2 % 1 PACK (2 CLOTHS) TOP SCH (04:00)
[2017-01-21 05:55] LABS: AUTOMATED NEUTROPHIL # 9.9 TH/MM3 (1.8-7.7); BASOPHIL # 0.1 TH/MM3 (0-0.2); BASOPHIL % 0.4 % (0.0-2.0); EOSINOPHIL # 0.1 TH/MM3 (0-0.4); EOSINOPHIL % 0.8 % (0.0-4.0); HEMATOCRIT 32.5 % (39.0-51.0); HEMO FLAGS DIFF FINAL; MEAN CELL VOLUME 88.8 FL (80.0-100.0); MEAN CORPUSCULAR HGB CONC 32.7 % (32.0-36.0); MONO % 4.9 % (0.0-8.0); NEUT % 77.9 % (16.0-70.0); PLATELET COUNT 150 TH/MM3 (150-450); RED BLOOD COUNT 3.66 MIL/MM3 (4.50-5.90); RED CELL DISTRIBUTION WIDTH 15.2 % (11.6-17.2); WHITE BLOOD COUNT 12.7 TH/MM3 (4.0-11.0)
[2017-01-21] MEDS: HEPARIN SODIUM - SQ 10,000 UNITS/ML VIAL SQ SCH ×2 (05:55→17:08)
[2017-01-21] MEDS: FREE WATER G-TUBE SCH ×4 (05:56→17:08)
[2017-01-21 06:26] LABS: BICARBONATE 27.5 MEQ/L (21.0-32.0); POTASSIUM 3.2 MEQ/L (3.5-5.1)
--- NOTE | 2017-01-21 07:14 | HHI.CCPN ---
Subjective Remarks/Hospital Course Hospital Course: 81yM with h/o COPD and prior PE who presented yesterday with history of nausea/ vomiting and was worked up including negative CT abd/pelvis with IV contrast. He returned this morning due to dizziness. At that time he had a lactate of 6, wbc 20k, and cxr demonstrating RUL pneumonia. he was given zosyn and 4L IVF. Repeat lactate demonstrated persistent lactic acidosis of 6. Also, after 6 hours, his uop was < 200cc. A Woodward catheter was inserted. his Cr was also elevated at 1.9. At this point, he became acutely hypoxemic and agitated. I was called and immediately went down to evaluate the patient. When I walked in , he was agitated and pulling off his NRB mask. He did not have a reliable spo2 monitor waveform and an abg was drawn with a po2 of 50. Decision was made to pursue emergent intubation (see separate procedure note for details). After intubation, the patient became hypotensive requiring vasopressor therapy and additional fluid boluses were given. Due to his impending cardiovascular collapse, a STAT echo was ordered which demonstrated hyperdynamic biventricular function, moderate pulmonary hypertension, and very collapsable IVC. He was given an additional 2L IVF and 2 amps bicarbonate for pH 7.11 on repeat abg with severe metabolic acidosis with BE -12. He was started on norepinephrine and vasopressin. He was transported to the medical ICU in critical condition. 01/09: Lactate is clearing, but slowly. CVP improved overnight. uop marginal, but slightly improved from yesterday. hypoxia slightly better as well, although persists on 100% fio2. wbc up to 44k today. 01/10: CVP rising yesterday, persistently oligoanuric. vasopressors persist, but at slightly lower dose. high fio2 requirements. wbc downtrending. 01/11: oxygenation severely worsened overnight. now on peep 15, fio2 100%, spo2 85%. vasopressors weaned off. cvp kuldip throughout the night to 23 this AM. CXR with evidence of significant pulmonary edema and intravascular volume overload. despite this, UOP minimal overnight and remains in oliguric renal failure. 01/12: Remains intubated sedated. Chest x-ray from yesterday prominent bilateral infiltrates right more than left with mediastinal prominence. CT chest ordered for today. Urine output 10 L in 24 hours on Lasix infusion 20 mg pr hour. Slight worsening of creatinine to 2.15. Weight is still up by 9 KG. WBC count essentially stable 01/14: Afebrile. Not really responsive this a.m. so MRI brain/EEG pending. Currently on CPAP trial. Lasix infusion will be discontinued. Positive BM. Tolerating tube feeds 01/15: Resting comfortably in bed. Currently on CPAP trials. Very poor duration. Currently 50% FiO2. X-ray stable. Tolerating tube feeds. Positive bowel movement. Agitated once sedation removed. Subjective 01/16: Tmax 100. Currently on CPAP trials while on propofol drip. FiO2 45%. X -ray remained stable. Tolerating tube feeds. Positive BMs yesterday. 01/17 Patient is sedated with Diprivan, Fentanyl and intubated. Afebrile. Had bigeminy/PVC overnight given Lidocaine 100mg IV x1. 01/18 Patient is sedated with Diprivan and intubated. T:101.6 last night. 01/19 Patient remains intubated tolerated CPAP for several hrs yesterday. Tmax 100.2. Currently off sedation and on CPAP 10/5 with 45% FIO2. Does not follow commands. Repeat EEG yesterday showed high frequency artifact. 01/20 No acute events overnight. Off sedation. Patient is more awake this morning and able to track. Afebrile. On CPAP with PS: 10, PEEP:5 and FIO2 45% 01/21 Patient s/p extubation yesterday. Awake follows commands. Afebrile. Objective Vital Signs Date Time Temp Pulse Resp B/P Pulse Ox O2 Delivery O2 Flow Rate FiO2 01/21/17 06:00 74 01/21/17 04:00 99.2 22 106/66 94 01/20/17 20:09 Nasal Cannula 5.00 01/20/17 16:00 45 Intake and Output 01/20/17 01/20/17 01/21/17 08:00 16:00 00:00 Intake Total 1470 ml 1662 ml 795 ml Output Total 1050 ml 1000 ml 500 ml Balance 420 ml 662 ml 295 ml Result Diagram: 01/21/17 0453 01/21/17 0453 Other Results Laboratory Tests Test 01/20/17 01/21/17 08:15 04:53 Blood Gas Puncture Site RT RADIAL Blood Gas Patient Temperature 98.6 Blood Gas HCO3 25 mmol/L Blood Gas Base Excess 1.6 mmol/L Blood Gas Oxygen Saturation 94 % Arterial Blood pH 7.44 Arterial Blood Partial 38 mmHg Pressure CO2 Arterial Blood Partial 85 mmHg Pressure O2 Arterial Blood Oxygen Content 20.1 Vol % Arterial Blood 1.2 % Carboxyhemoglobin Arterial Blood Methemoglobin 1.0 % Blood Gas Hemoglobin 15.1 G/DL Oxygen Delivery Device VENTILATOR Blood Gas Ventilator Setting CPAP 5/8PS Blood Gas Inspired Oxygen 45 % White Blood Count 12.7 TH/MM3 Red Blood Count 3.66 MIL/MM3 Hemoglobin 10.6 GM/DL Hematocrit 32.5 % Mean Corpuscular Volume 88.8 FL Mean Corpuscular Hemoglobin 29.0 PG Mean Corpuscular Hemoglobin 32.7 % Concent Red Cell Distribution Width 15.2 % Platelet Count 150 TH/MM3 Mean Platelet Volume 9.8 FL Neutrophils (%) (Auto) 77.9 % Lymphocytes (%) (Auto) 16.0 % Monocytes (%) (Auto) 4.9 % Eosinophils (%) (Auto) 0.8 % Basophils (%) (Auto) 0.4 % Neutrophils # (Auto) 9.9 TH/MM3 Lymphocytes # (Auto) 2.0 TH/MM3 Monocytes # (Auto) 0.6 TH/MM3 Eosinophils # (Auto) 0.1 TH/MM3 Basophils # (Auto) 0.1 TH/MM3 CBC Comment DIFF FINAL Differential Comment Sodium Level 152 MEQ/L Potassium Level 3.2 MEQ/L Chloride Level 116 MEQ/L Carbon Dioxide Level 27.5 MEQ/L Anion Gap 9 MEQ/L Blood Urea Nitrogen 61 MG/DL Creatinine 1.25 MG/DL Estimat Glomerular Filtration 56 ML/MIN Rate Random Glucose 120 MG/DL Calcium Level 8.7 MG/DL Imaging Last Impressions Chest X-Ray 01/20/17 0000 Signed Impressions: Service Date/Time: December 08:23 - CONCLUSION: 1. Improving bibasilar mixed interstitial and alveolar infiltrates. Possible left-sided effusion which also appears slightly improved. 2. Stable position of life support tubes. Otis Nobles MD Abdomen X-Ray 01/17/17 0000 Signed Impressions: Service Date/Time: Tuesday, January 17, 2017 20:02 - CONCLUSION: 1. Nonspecific bowel gas pattern. 2. NG tube in the stomach. Bart Spring MD Skull X-Ray 01/14/17 0000 Signed Impressions: Service Date/Time: Saturday, January 14, 2017 11:20 - CONCLUSION: No MRI incompatible foreign body is identified. Bar Arias MD Brain MRI 01/14/17 0000 Signed Impressions: Service Date/Time: Saturday, January 14, 2017 15:40 - CONCLUSION: No acute abnormality is seen. Bar Arias MD Chest CT 01/12/17 0000 Signed Impressions: Service Date/Time: Thursday, January 12, 2017 16:58 - CONCLUSION: 1. Extensive consolidation throughout much of the right lung likely representing processes such as inflammatory change and pneumonia. 2. Extensive adenopathy is seen throughout the mediastinum. This is nonspecific. It could be reactive or neoplastic. If it is neoplastic, lymphoma should be considered. Axillary adenopathy is not seen. Bar Arias MD Renal Ultrasound 01/10/17 0000 Signed Impressions: Service Date/Time: Tuesday, January 10, 2017 10:49 - CONCLUSION: 1. Kidneys appear normal. 2. Impression on the bladder floor from the prostate. There is a bladder diverticulum and possible bladder stone present. Bar Arias MD Objective Remarks GENERAL: Patient is 81yo lying in bed in NAD SKIN: Warm and dry. HEAD: Normocephalic. EYES: No scleral icterus. No injection or drainage. NECK: Supple, trachea midline. No JVD or lymphadenopathy. CARDIOVASCULAR: Regular rate and rhythm without murmurs, gallops, or rubs. RESPIRATORY: Breath sounds equal bilaterally. No accessory muscle use. GASTROINTESTINAL: Abdomen soft, non-tender, nondistended. MUSCULOSKELETAL: No cyanosis, or edema. Neuro: Awake, follows commands. Line: Central Venous Catheter Side: Right Location: Internal, Jugular A/P Assessment and Plan Neurologic/PSYCH: Acute agitated delirium Chronic Xanax use Peripheral neuropathy Monitor neuro status and avoid any sedatives, Neuro is following- Dr. Liu Tylenol as needed for pain or fever -- MRI brain with no acute findings/EEG monitoring: encephalopathy with no epileptiform activity -Repeat EEG 01/18: High frequency artifact, Respiratory: Acute hypoxic respiratory failure Multilobar pneumococcal pneumonia COPD exacerbation Pulmonary Edema Mediastinal prominence Severe pulmonary hypertension Continue with oxygen keep sat >92% - Pulmicort twice a day Head of bed at 30 Nebs every 6 and every 2 when necessary Methylprednisolone 40 IV daily, Pulmonary following: Dr. Cadena Cardiovascular: Septic shock- resolved Fluid overload Severe pulmonary hypertension -Monitor HR and BP keep MAP>65mmHg. On ASA 81mg daily Echocardiogram revealed EF 60-65%. SOFYA 93 mmHg. Renal: RIZWAN..improving Hypernatremia -Monitor renal function, I/O's, avoid nephrotoxins. Will need K replacement today -Renal function improving with Cr: 1.25 today -On D5W@100ml/hr monitor sodium level. FEN/GI: Acute protein calorie malnutritionmild On full liquid diet per speech ID: Strep pneumonia bacteremia Leukocytosis Multilobar pneumococcal pneumonia s/p Septic shock pneumococcus Ag: + --01/08 blood cultures: strep pneumo. Zosyn and Vanc dcd and PCN G started by Dr. Robledo 01/11/17 Continue with abx( Vanco and Zosyn, Diflucan), ID is following- Dr. Queen d /c Vanco Monitor for signs of infections ( Fever, WBC) WBC trending down 01/17 Urine cx: Pseudomonas, C. Glabrata 01/17 Sputum: GNR 01/08 BC: Strep pneumonia Heme: Normocytic anemia Monitor CBC Endocrine: Hyperglycemia of critical illness -- Medium dose SSI, q4h. Prophylaxis: GI Prophylaxis Protonix 40 mg IV every 24 hours DVT Prophylaxis -- SCDs Subcutaneous heparin twice a day Lines: peripheral IV's Palliative care is following Level 3 Lj Harris MD Jan 21, 2017 07:14
[2017-01-21] MEDS: RESP: BUDESONIDE 0.5 MG/2 ML NEB NEB SCH ×2 (07:36→19:55)
[2017-01-21] MEDS: CHLORHEXIDINE 0.12% (ORAL KIT) 15 ML CUP MT SCH ×2 (08:00→19:26)
[2017-01-21] MEDS: POTASSIUM CHLOR 20 MEQ PREMIX 100 ML IV PRN ×2 (08:17→11:20)
[2017-01-21] MEDS: DEXTROSE 5% IN WATE 1000ML INJ 1,000 ML IV SCH ×2 (08:18→17:08)
[2017-01-21] MEDS: DOCUSATE SODIUM 100 MG/10 ML UDC PO SCH ×2 (08:18→19:26)
[2017-01-21] MEDS: ASPIRIN EC 81 MG TABEC PO SCH (08:18)
[2017-01-21] MEDS: SENNOSIDES SYRUP 8.8 MG/5 ML CUP PO SCH (08:18)
[2017-01-21] MEDS: FLUCONAZOLE 100 MG TAB PO SCH (08:18)
[2017-01-21] MEDS: LACTOBACILLUS ACIDOPHILUS TAB PO SCH ×3 (08:18→17:08)
[2017-01-21] MEDS: methylPREDNISolone SOD SUCC 40 MG/1 ML VIAL IV SCH (08:18)
[2017-01-21] MEDS: SODIUM CHLORIDE 0.9% FLUSH 5 ML FLUSH IV FLUSH SCH ×2 (08:37→19:26)
[2017-01-21] MEDS: VANCOMYCIN INJ 1,750 MG in SODIUM CHLORID 0.9% 500 ML INJ 500 ML IV SCH (11:21)
[2017-01-21] MEDS ORDERED: PHARMACY ORDERED LAB XX ONE (11:45)
--- NOTE | 2017-01-21 12:50 | HHI.HCPN ---
Reason for visit a. To assist with evaluation and management of symptoms including: dyspnea, back pain, b. To assist medical decision maker(s) with: better understanding of current medical conditions; weighing benefits/burdens of medical treatment options; making medical treatment decisions. Subjective/Interval History Ms Cabrera is seen this morning sitting in a Amara chair. He is able to provide me some history but is unable to identify date or president. He tells me his arms and shoulders are bothering him and he is not comfortable sitting up. He is currently on O2 at 5L with saturations 87-92%. He is afebrile, WBC's remain elevated. He is hypernatremic and hypokalemic. Renal function continues to improve. He has good urine output. Spoke w patient son Leeroy - updated on clinical status. Cautiously optimistic at this point re: recovery. Pulmonary status is still tenuous. Unsure to what degree cognitive level will improve. Assuming improvement continues will go to rehab on discharge. Leeroy is happy with the improvement but understands that anything can happen. Spoke with significant other, Vivien. She is happy with the 'miracle' of his recovery. Discussed that we are cautiously optimistic at this point re: recovery but that his Pulmonary status is still tenuous. Also discussed his physical and cognitive states and uncertainty of improvement. Introduced the option of hospice mgmt in light of his significant lung disease and that another event will happen at some future point and would she want him rehospitalized. She indicated she would want to think about it. Advance Directives Advance Directive Specifics Health Care Surrogate(s): Son, VERN Cabrera, cell / [phone] office lives in [place] agrees to serve as decision maker. Two other children were searched thru [employer] and no workable phone numbers were identified Significant John Quach [phone] - Objective Vital Signs Date Time Temp Pulse Resp B/P Pulse Ox O2 Delivery O2 Flow Rate FiO2 01/21/17 10:00 80 01/21/17 08:00 84 01/21/17 08:00 80 01/21/17 07:37 90 Nasal Cannula 5.00 01/21/17 06:00 74 01/21/17 04:00 70 01/21/17 04:00 99.2 70 22 106/66 94 01/21/17 02:00 73 01/21/17 00:00 99.0 68 22 115/56 93 01/21/17 00:00 68 01/20/17 22:00 71 01/20/17 20:09 97 Nasal Cannula 5.00 01/20/17 20:00 70 01/20/17 20:00 99.0 70 23 113/59 91 01/20/17 18:00 86 01/20/17 16:00 79 01/20/17 16:00 45 01/20/17 16:00 98.0 79 20 134/66 95 01/20/17 14:00 72 Intake & Output 01/21/17 01/21/17 06:59 18:59 Intake Total 1434 ml Output Total 500 ml Balance 934 ml Intake Oral 50 ml IV Total 1384 ml Output Urine Total 500 ml # Voids 5 # Bowel Movements 1 Physical Exam CONSTITUTIONAL/GENERAL: This is an adequately nourished patient, who. Awake, conversing TUBES/LINES/DRAINS: [place] Cath,, R IJ central line, SKIN: No jaundice, rashes, or lesions. Edema and Ecchymoses on upper extremities. Skin temperature appropriate. Not diaphoretic. HEAD: Atraumatic. Normocephalic. EYES: Pupils equal and round and reactive. Tracking and engaged. No scleral icterus. No injection or drainage. ENT: hard of hearing . Nose without bleeding or purulent drainage. Throat without visible erythema, exudates, masses, or lesions. NECK: Trachea midline. Supple, nontender. CARDIOVASCULAR: Regular rate and rhythm wide complex w frequent multifocal PVCs ; no murmurs, gallops, or rubs. No JVD. Peripheral pulses symmetric. RESPIRATORY/CHEST: Symmetric, unlabored respirations. Coarse breath sounds bilaterally. Diminished posteriorly GASTROINTESTINAL: Abdomen soft, non-tender, nondistended. No hepato-splenomegaly , or palpable masses. No guarding. Bowel sounds present. GENITOURINARY: Without palpable bladder distension. [place] cath in place. MUSCULOSKELETAL: Extremities without clubbing, cyanosis, or edema. No mottling or clubbing. LYMPHATICS: No palpable cervical or supraclavicular adenopathy. NEUROLOGICAL: Oriented to self, and place, not time or current events PSYCHIATRIC: unable to adequately access Diagnostic Tests Laboratory Laboratory Tests Test 01/19/17 01/20/17 01/20/17 01/21/17 03:26 04:30 08:15 04:53 White Blood Count 26.7 TH/MM3 20.4 TH/MM3 12.7 TH/MM3 (4.0-11.0) (4.0-11.0) (4.0-11.0) Red Blood Count 3.71 MIL/MM3 3.47 MIL/MM3 3.66 MIL/MM3 (4.50-5.90) (4.50-5.90) (4.50-5.90) Hemoglobin 11.2 GM/DL 10.0 GM/DL 10.6 GM/DL (13.0-17.0) (13.0-17.0) (13.0-17.0) Hematocrit 33.1 % 31.2 % 32.5 % (39.0-51.0) (39.0-51.0) (39.0-51.0) Mean Corpuscular Volume 89.2 FL 89.9 FL 88.8 FL (80.0-100.0) (80.0-100.0) (80.0-100.0) Mean Corpuscular Hemoglobin 30.1 PG 28.8 PG 29.0 PG (27.0-34.0) (27.0-34.0) (27.0-34.0) Mean Corpuscular Hemoglobin 33.7 % 32.1 % 32.7 % Concent (32.0-36.0) (32.0-36.0) (32.0-36.0) Red Cell Distribution Width 15.3 % 15.5 % 15.2 % (11.6-17.2) (11.6-17.2) (11.6-17.2) Platelet Count 167 TH/MM3 159 TH/MM3 150 TH/MM3 (150-450) (150-450) (150-450) Mean Platelet Volume 9.2 FL 10.0 FL 9.8 FL (7.0-11.0) (7.0-11.0) (7.0-11.0) Neutrophils (%) (Auto) 84.3 % 79.6 % 77.9 % (16.0-70.0) (16.0-70.0) (16.0-70.0) Lymphocytes (%) (Auto) 11.7 % 14.9 % 16.0 % (9.0-44.0) (9.0-44.0) (9.0-44.0) Monocytes (%) (Auto) 3.5 % (0.0-8.0) 4.5 % (0.0-8.0) 4.9 % (0.0-8.0) Eosinophils (%) (Auto) 0.4 % (0.0-4.0) 0.7 % (0.0-4.0) 0.8 % (0.0-4.0) Basophils (%) (Auto) 0.1 % (0.0-2.0) 0.3 % (0.0-2.0) 0.4 % (0.0-2.0) Neutrophils # (Auto) 22.5 TH/MM3 16.2 TH/MM3 9.9 TH/MM3 (1.8-7.7) (1.8-7.7) (1.8-7.7) Lymphocytes # (Auto) 3.1 TH/MM3 3.0 TH/MM3 2.0 TH/MM3 (1.0-4.8) (1.0-4.8) (1.0-4.8) Monocytes # (Auto) 0.9 TH/MM3 0.9 TH/MM3 0.6 TH/MM3 (0-0.9) (0-0.9) (0-0.9) Eosinophils # (Auto) 0.1 TH/MM3 0.1 TH/MM3 0.1 TH/MM3 (0-0.4) (0-0.4) (0-0.4) Basophils # (Auto) 0.0 TH/MM3 0.1 TH/MM3 0.1 TH/MM3 (0-0.2) (0-0.2) (0-0.2) CBC Comment DIFF FINAL DIFF FINAL DIFF FINAL Differential Comment Sodium Level 153 MEQ/L 153 MEQ/L 152 MEQ/L (136-145) (136-145) (136-145) Potassium Level 3.5 MEQ/L 3.1 MEQ/L 3.2 MEQ/L (3.5-5.1) (3.5-5.1) (3.5-5.1) Chloride Level 114 MEQ/L 114 MEQ/L 116 MEQ/L (98-107) (98-107) (98-107) Carbon Dioxide Level 31.8 MEQ/L 29.6 MEQ/L 27.5 MEQ/L (21.0-32.0) (21.0-32.0) (21.0-32.0) Anion Gap 7 MEQ/L (5-15) 9 MEQ/L (5-15) 9 MEQ/L (5-15) Blood Urea Nitrogen 83 MG/DL (7-18) 76 MG/DL (7-18) 61 MG/DL (7-18) Creatinine 1.39 MG/DL 1.33 MG/DL 1.25 MG/DL (0.60-1.30) (0.60-1.30) (0.60-1.30) Estimat Glomerular Filtration 49 ML/MIN (>89) 52 ML/MIN (>89) 56 ML/MIN (>89) Rate Random Glucose 141 MG/DL 120 MG/DL 120 MG/DL (74-106) (74-106) (74-106) Calcium Level 9.0 MG/DL 9.0 MG/DL 8.7 MG/DL (8.5-10.1) (8.5-10.1) (8.5-10.1) Phosphorus Level 3.6 MG/DL 3.3 MG/DL (2.5-4.9) (2.5-4.9) Magnesium Level 2.7 MG/DL 2.5 MG/DL (1.5-2.5) (1.5-2.5) Blood Gas Puncture Site RT RADIAL Blood Gas Patient Temperature 98.6 Blood Gas HCO3 25 mmol/L (22-26) Blood Gas Base Excess 1.6 mmol/L (-2-2) Blood Gas Oxygen Saturation 94 % (90-100) Arterial Blood pH 7.44 (7.380-7.420) Arterial Blood Partial 38 mmHg (38-42) Pressure CO2 Arterial Blood Partial 85 mmHg Pressure O2 (61-120) Arterial Blood Oxygen Content 20.1 Vol % (12.0-20.0) Arterial Blood 1.2 % (0-4) Carboxyhemoglobin Arterial Blood Methemoglobin 1.0 % (0-2) Blood Gas Hemoglobin 15.1 G/DL (12.0-16.0) Oxygen Delivery Device VENTILATOR Blood Gas Ventilator Setting CPAP 5/8PS Blood Gas Inspired Oxygen 45 % Result Diagram: 01/21/1745201/21/17452 Assessment and Plan Disease Oriented Problem List: (1) COPD (chronic obstructive pulmonary disease) (2) CAD (coronary artery disease) (3) Respiratory failure (4) Encephalopathy (5) Sepsis Comment: On antibioticsurine Pseudomonas: Sputum gram-negative wagner Symptom Scale: (1) Pain 0-10 Scale: 8 (frequently shifts positions ) Comment: reports arm, shoulder and feet pain. has APAP available. 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 While he is more awake he is not alert enough with insight to make decisions. According to [place] statutes, health care proxy decision making falls to the majority of adult children. He has 3 of children. 2 of whom were not able to be found using [employer]. Jose, Has agreed to serve as HCP. Important Contacts Jose " Leeroy" Rick, Shaq [phone] office [phone] cell - works for [employer] in [place] Two remaining children could not be identified via [employer] Report Vivien Palmtcher - Sig Other - Prognosis Prognosis is quarded in light of advanced age, following multisystem organ failure post septic shock with COPD and now w O2 dependency Code Status: No Code Plan Decision Maker: Jose Cabrera - son - [phone] cell / [phone] office at this time - there are 2 other children who have not been identied thru [employer] Report Code Status:DNR/ DNI - NO CODE - allow for natural Family Discussion: Spoke w KARUNA Puga - updated on patient status; also on search for decision makers. Jose will assume Health care proxy role under [place] Statutes as the remain siblings are not able to be found or contacted. Jose has agreed to work w Vivien on decision making, Both agree to DNR status. Symptoms: dyspnea, pain, agitation Palliative care phone number provided - will follow during hospital stay. Attestation To help prompt me to consider important information that might be impacting today's encounter and assessment, information from prior notes written by myself or my colleagues may have been "brought forward" into today's note. My signature on this note, however, is an attestation that I personally performed the exam, history, and/or decision-making noted today, and, unless otherwise indicated, the interactions with patient, family, and staff as well as the review of records all occurred today. I also attest that the listed assessment and stated plan reflect my best clinical judgment today based on the combination of historical information, prior notes, and today's exam/ interactions. When time spent is documented, it refers only to time spent today by the signer, or if indicated, combined time spent today by collaborating physician/nurse practitioner. Aretha Reynolds Jan 21, 2017 12:50
--- NOTE | 2017-01-21 14:55 | HHI.IDPN ---
Note Infectious Disease Note Patient remains extubated. Following commands. Afebrile. On O2 via nasal canula. Admitted to the hospital on 01/08/2017. He was brought to the emergency department after falling. He was noted to have markedly elevated white cell count of 20.2 on admission and heart rate greater than 90. The patient was intubated on admission. He had elevated lactic acid on admission. Blood cultures came back positive for strep pneumoniae and also the urine random pneumococcal antigen was positive. PAST MEDICAL HISTORY: 1. COPD 2. CVA 3. Coronary artery disease 4. Coronary stent 5. Obstructive sleep apnea 6. Hyperlipoidemia 7. Hypertension 8. Gastro-esophageal reflux disease 9. Pulmonary embolism. 10. Cholecystectomy. 11. Polypectomy 12. Appendectomy. ALLERGIES NO KNOWN DRUG ALLERGIES. MEDICATIONS 1. Vancomycin. 2. Piperacillin/tazobactam. 3. Fluconazole. SOCIAL HISTORY No tobacco use. No alcohol. No illicit drugs. OBJECTIVE: Vital Signs Date Time Temp Pulse Resp B/P Pulse Ox O2 Delivery O2 Flow Rate FiO2 01/21/17 10:00 80 01/21/17 08:00 98.3 90 18 148/83 96 01/21/17 08:00 84 01/21/17 08:00 80 01/21/17 07:37 90 Nasal Cannula 5.00 01/21/17 06:00 74 01/21/17 04:00 70 01/21/17 04:00 99.2 70 22 106/66 94 01/21/17 02:00 73 01/21/17 00:00 99.0 68 22 115/56 93 01/21/17 00:00 68 01/20/17 22:00 71 01/20/17 20:09 97 Nasal Cannula 5.00 01/20/17 20:00 70 01/20/17 20:00 99.0 70 23 113/59 91 01/20/17 18:00 86 01/20/17 16:00 79 01/20/17 16:00 45 01/20/17 16:00 98.0 79 20 134/66 95 01/20/17 01/20/17 01/21/17 15:00 23:00 07:00 Intake Total 1662 ml 795 ml 639 ml Output Total 1000 ml 500 ml Balance 662 ml 295 ml 639 ml Intake Oral 240 ml 50 ml IV Total 941 ml 745 ml 639 ml Tube Feeding 241 ml Other 240 ml Output Urine Total 1000 ml 500 ml # Voids 3 2 # Bowel Movements 2 1 Laboratory Tests Test 01/20/17 01/21/17 04:30 04:53 White Blood Count 20.4 TH/MM3 12.7 TH/MM3 Red Blood Count 3.47 MIL/MM3 3.66 MIL/MM3 Hemoglobin 10.0 GM/DL 10.6 GM/DL Hematocrit 31.2 % 32.5 % Mean Corpuscular Volume 89.9 FL 88.8 FL Mean Corpuscular Hemoglobin 28.8 PG 29.0 PG Mean Corpuscular Hemoglobin 32.1 % 32.7 % Concent Red Cell Distribution Width 15.5 % 15.2 % Platelet Count 159 TH/MM3 150 TH/MM3 Mean Platelet Volume 10.0 FL 9.8 FL Neutrophils (%) (Auto) 79.6 % 77.9 % Lymphocytes (%) (Auto) 14.9 % 16.0 % Monocytes (%) (Auto) 4.5 % 4.9 % Eosinophils (%) (Auto) 0.7 % 0.8 % Basophils (%) (Auto) 0.3 % 0.4 % Neutrophils # (Auto) 16.2 TH/MM3 9.9 TH/MM3 Lymphocytes # (Auto) 3.0 TH/MM3 2.0 TH/MM3 Monocytes # (Auto) 0.9 TH/MM3 0.6 TH/MM3 Eosinophils # (Auto) 0.1 TH/MM3 0.1 TH/MM3 Basophils # (Auto) 0.1 TH/MM3 0.1 TH/MM3 CBC Comment DIFF FINAL DIFF FINAL Differential Comment Laboratory Tests Test 01/20/17 01/21/17 04:30 04:53 Sodium Level 153 MEQ/L 152 MEQ/L Potassium Level 3.1 MEQ/L 3.2 MEQ/L Chloride Level 114 MEQ/L 116 MEQ/L Carbon Dioxide Level 29.6 MEQ/L 27.5 MEQ/L Anion Gap 9 MEQ/L 9 MEQ/L Blood Urea Nitrogen 76 MG/DL 61 MG/DL Creatinine 1.33 MG/DL 1.25 MG/DL Estimat Glomerular Filtration 52 ML/MIN 56 ML/MIN Rate Random Glucose 120 MG/DL 120 MG/DL Calcium Level 9.0 MG/DL 8.7 MG/DL Phosphorus Level 3.3 MG/DL Magnesium Level 2.5 MG/DL Microbiology Date/Time Procedure Status Source Growth 01/17/17 16:08 Gram Stain - Final Complete Sputum Endotracheal 01/17/17 16:08 Sputum Culture - Final Complete Pseudomonas Oryzihabitans 01/17/17 16:08 Urine Culture - Final Complete Urine Catheterized Urine Pseudomonas Aeruginosa Neelima Glabrata IMAGING: Chest X-Ray 01/20/17 0000 Signed Impressions: Service Date/Time: December 08:23 - CONCLUSION: 1. Improving bibasilar mixed interstitial and alveolar infiltrates. Possible left-sided effusion which also appears slightly improved. 2. Stable position of life support tubes. Otis Nobles MD Chest X-Ray 01/17/17 0600 Signed Impressions: Service Date/Time: Tuesday, January 17, 2017 03:20 - CONCLUSION: No significant change has occurred. John Paul Delgado MD Abdomen X-Ray 01/17/17 0000 Signed Impressions: Service Date/Time: Tuesday, January 17, 2017 20:02 - CONCLUSION: 1. Nonspecific bowel gas pattern. 2. NG tube in the stomach. Bart Spring MD Skull X-Ray 01/14/17 0000 Signed Impressions: Service Date/Time: Saturday, January 14, 2017 11:20 - CONCLUSION: No MRI incompatible foreign body is identified. Bar Arias MD Brain MRI 01/14/17 0000 Signed Impressions: Service Date/Time: Saturday, January 14, 2017 15:40 - CONCLUSION: No acute abnormality is seen. Bar Arias MD Chest CT 01/12/17 0000 Signed Impressions: Service Date/Time: Thursday, January 12, 2017 16:58 - CONCLUSION: 1. Extensive consolidation throughout much of the right lung likely representing processes such as inflammatory change and pneumonia. 2. Extensive adenopathy is seen throughout the mediastinum. This is nonspecific. It could be reactive or neoplastic. If it is neoplastic, lymphoma should be considered. Axillary adenopathy is not seen. Bar Arias MD Renal Ultrasound 01/10/17 0000 Signed Impressions: Service Date/Time: Tuesday, January 10, 2017 10:49 - CONCLUSION: 1. Kidneys appear normal. 2. Impression on the bladder floor from the prostate. There is a bladder diverticulum and possible bladder stone present. Bar Arias MD PHYSICAL EXAMINATION GENERAL: On the ventilator. Looks a little lethargic. HEENT: No icterus. Mucosa is moist. Neck: Supple. No swelling, no adenopathy. Lungs: Decreased breath sounds. Heart: Regular without audible murmurs, rubs or gallops. Abdomen: Bowel sounds present, soft, non tender. Extremities: No clubbing, cyanosis or edema. Skin: No rash. Neuro: Non focal. Psych: Calm. IMPRESSION: 1. Pneumococcal sepsis 2. Respiratory failure. Extubated. 3. Urinary tract infection 4. Leukocytosis. Improving. 5. Pneumonia. Pseudomonas. 6. UTI. RECOMMENDATIONS 1. Discontinue vancomycin. 2. Continue piperacillin/tazobactam 3. Continue Diflucan. 4. Monitor white blood cell count. Tyler Queen MD Jan 21, 2017 14:55
--- NOTE | 2017-01-21 17:30 | HHI.PR ---
Subjective Remarks Awake and talking. .On a N/C 4 L.. Seems to be lethargic. Objective Vital Signs Date Time Temp Pulse Resp B/P Pulse Ox O2 Delivery O2 Flow Rate FiO2 01/21/17 14:00 83 01/21/17 12:00 80 01/21/17 12:00 98.1 83 18 135/63 96 01/21/17 10:00 80 01/21/17 08:00 98.3 90 18 148/83 96 01/21/17 08:00 84 01/21/17 08:00 80 01/21/17 07:37 90 Nasal Cannula 5.00 01/21/17 06:00 74 01/21/17 04:00 70 01/21/17 04:00 99.2 70 22 106/66 94 01/21/17 02:00 73 01/21/17 00:00 99.0 68 22 115/56 93 01/21/17 00:00 68 01/20/17 22:00 71 01/20/17 20:09 97 Nasal Cannula 5.00 01/20/17 20:00 70 01/20/17 20:00 99.0 70 23 113/59 91 01/20/17 18:00 86 I/O 01/20/17 01/20/17 01/20/17 01/21/17 01/21/17 01/21/17 07:00 15:00 23:00 07:00 15:00 23:00 Intake Total 1470 ml 1662 ml 795 ml 639 ml 1189 ml Output Total 1050 ml 1000 ml 500 ml 500 ml Balance 420 ml 662 ml 295 ml 639 ml 689 ml Intake Oral 240 ml 50 ml 340 ml IV Total 664 ml 941 ml 745 ml 639 ml 849 ml Tube Feeding 506 ml 241 ml Other 300 ml 240 ml Output Urine Total 1050 ml 1000 ml 500 ml 500 ml Bladder Scan Volume Amount 0 ml # Voids 3 2 # Bowel Movements 2 1 2 Result Diagram: 01/21/1745201/21/17452 Objective Remarks This moderately overweight elderly white male is lethargic. HEENT: Head normocephalic. Pupils reactive. Sclerae are clear. Throat secretions. Ears, no inflammation. Neck: Supple. No bruits. No venous distension. Trachea midline. Chest: Equal movements with increased AP diameter with occ crackles Heart: The heart sounds are irregular, S1-S2. No murmur. No S3. Abdomen: The abdomen is protuberant, soft, without masses, organomegaly or tenderness. Bowel sounds active. Extremities: Varicosities and decreased pulses. No edema. Neurologic: Lethargic and moves all.1 + reflexes Rectal: Exam is deferred. Assessment and Plan Assessment and Plan IMPRESSION 1. Septic shock. 2. Extensive right lung pneumonia and hypoxemia. 3. Acute hypoxemic, hypercapnic respiratory failure. 4. COPD with emphysema 5. History of pulmonary embolism. 6. History of hypertension. 7. RIZWAN. Plan : 1. Wean O2 to 4l 2. Up with help. 3. Cont antibiotics as ordered. 4. PT eval 5. Nebs q6h , Duoneb. 6. Cont Heparin 5000 U S/Q bid. 7. No sedation 8. PO Liquids as tolerated 9. CBC,BMP in am 10. D/C Solumedrol and add Prednisone 20 mg daily. Cheri Cadena MD Jan 21, 2017 17:29
[2017-01-21] MEDS: PANTOPRAZOLE SODIUM 40 MG VIAL IV PUSH SCH (19:26)
[2017-01-22] VITALS (14 sets, daily range): BP systolic 132–184; BP diastolic 65–97; PULSE 89–121; RESP 17–24; TEMP 98–99.2; O2SAT 86–97
[2017-01-22] MEDS: PIPERACIL-TAZO 4.5 GM PREMIX 100 ML IV SCH ×4 (01:56→22:15)
[2017-01-22] MEDS: INSULIN NovoLIN REGULAR SUPPLEMENTAL SCALE SQ SCH ×4 (01:56→20:00)
[2017-01-22] MEDS: hydrALAZINE HCL 20 MG/ML VIAL IV PUSH PRN (02:08)
[2017-01-22] MEDS: RESP: ALBUTEROL 2.5 MG/IPRATROPIUM 0.5 MG NEB (SCH) NEB ×6 (03:44→23:11)
[2017-01-22] MEDS: HEPARIN SODIUM - SQ 10,000 UNITS/ML VIAL SQ SCH ×2 (03:49→17:37)
[2017-01-22] MEDS: FREE WATER G-TUBE SCH ×2 (03:49)
[2017-01-22] MEDS: CHLORHEXIDINE GLUCONATE 2 % 1 PACK (2 CLOTHS) TOP SCH (03:50)
[2017-01-22] MEDS: DEXTROSE 5% IN WATE 1000ML INJ 1,000 ML IV SCH ×2 (03:50→14:42)
--- NOTE | 2017-01-22 07:58 | HHI.CCPN ---
Subjective Remarks/Hospital Course Hospital Course: 81yM with h/o COPD and prior PE who presented yesterday with history of nausea/ vomiting and was worked up including negative CT abd/pelvis with IV contrast. He returned this morning due to dizziness. At that time he had a lactate of 6, wbc 20k, and cxr demonstrating RUL pneumonia. he was given zosyn and 4L IVF. Repeat lactate demonstrated persistent lactic acidosis of 6. Also, after 6 hours, his uop was < 200cc. A Woodward catheter was inserted. his Cr was also elevated at 1.9. At this point, he became acutely hypoxemic and agitated. I was called and immediately went down to evaluate the patient. When I walked in , he was agitated and pulling off his NRB mask. He did not have a reliable spo2 monitor waveform and an abg was drawn with a po2 of 50. Decision was made to pursue emergent intubation (see separate procedure note for details). After intubation, the patient became hypotensive requiring vasopressor therapy and additional fluid boluses were given. Due to his impending cardiovascular collapse, a STAT echo was ordered which demonstrated hyperdynamic biventricular function, moderate pulmonary hypertension, and very collapsable IVC. He was given an additional 2L IVF and 2 amps bicarbonate for pH 7.11 on repeat abg with severe metabolic acidosis with BE -12. He was started on norepinephrine and vasopressin. He was transported to the medical ICU in critical condition. 01/09: Lactate is clearing, but slowly. CVP improved overnight. uop marginal, but slightly improved from yesterday. hypoxia slightly better as well, although persists on 100% fio2. wbc up to 44k today. 01/10: CVP rising yesterday, persistently oligoanuric. vasopressors persist, but at slightly lower dose. high fio2 requirements. wbc downtrending. 01/11: oxygenation severely worsened overnight. now on peep 15, fio2 100%, spo2 85%. vasopressors weaned off. cvp kuldip throughout the night to 23 this AM. CXR with evidence of significant pulmonary edema and intravascular volume overload. despite this, UOP minimal overnight and remains in oliguric renal failure. 01/12: Remains intubated sedated. Chest x-ray from yesterday prominent bilateral infiltrates right more than left with mediastinal prominence. CT chest ordered for today. Urine output 10 L in 24 hours on Lasix infusion 20 mg pr hour. Slight worsening of creatinine to 2.15. Weight is still up by 9 KG. WBC count essentially stable 01/14: Afebrile. Not really responsive this a.m. so MRI brain/EEG pending. Currently on CPAP trial. Lasix infusion will be discontinued. Positive BM. Tolerating tube feeds 01/15: Resting comfortably in bed. Currently on CPAP trials. Very poor duration. Currently 50% FiO2. X-ray stable. Tolerating tube feeds. Positive bowel movement. Agitated once sedation removed. Subjective 01/16: Tmax 100. Currently on CPAP trials while on propofol drip. FiO2 45%. X -ray remained stable. Tolerating tube feeds. Positive BMs yesterday. 01/17 Patient is sedated with Diprivan, Fentanyl and intubated. Afebrile. Had bigeminy/PVC overnight given Lidocaine 100mg IV x1. 01/18 Patient is sedated with Diprivan and intubated. T:101.6 last night. 01/19 Patient remains intubated tolerated CPAP for several hrs yesterday. Tmax 100.2. Currently off sedation and on CPAP 10/5 with 45% FIO2. Does not follow commands. Repeat EEG yesterday showed high frequency artifact. 01/20 No acute events overnight. Off sedation. Patient is more awake this morning and able to track. Afebrile. On CPAP with PS: 10, PEEP:5 and FIO2 45% 01/21 Patient s/p extubation yesterday. Awake follows commands. Afebrile. 01/22 No acute events overnight. Afebrile. Objective Vital Signs Date Time Temp Pulse Resp B/P Pulse Ox O2 Delivery O2 Flow Rate FiO2 01/22/17 06:00 121 01/22/17 04:00 98.2 23 132/78 92 01/21/17 19:55 Nasal Cannula 5.00 01/20/17 16:00 45 Intake and Output 01/21/17 01/21/17 01/22/17 08:00 16:00 00:00 Intake Total 639 ml 1189 ml 666 ml Output Total 500 ml 300 ml Balance 639 ml 689 ml 366 ml Result Diagram: 01/21/17 0453 01/21/17 0453 Other Results Laboratory Tests Test 01/21/17 12:16 Vancomycin Level Trough 15.5 MCG/ML Imaging Last Impressions Chest X-Ray 01/20/17 0000 Signed Impressions: Service Date/Time: December 08:23 - CONCLUSION: 1. Improving bibasilar mixed interstitial and alveolar infiltrates. Possible left-sided effusion which also appears slightly improved. 2. Stable position of life support tubes. Otis Nobles MD Abdomen X-Ray 01/17/17 0000 Signed Impressions: Service Date/Time: Tuesday, January 17, 2017 20:02 - CONCLUSION: 1. Nonspecific bowel gas pattern. 2. NG tube in the stomach. Bart Spring MD Skull X-Ray 01/14/17 0000 Signed Impressions: Service Date/Time: Saturday, January 14, 2017 11:20 - CONCLUSION: No MRI incompatible foreign body is identified. Bar Arias MD Brain MRI 01/14/17 0000 Signed Impressions: Service Date/Time: Saturday, January 14, 2017 15:40 - CONCLUSION: No acute abnormality is seen. Bar Arias MD Chest CT 01/12/17 0000 Signed Impressions: Service Date/Time: Thursday, January 12, 2017 16:58 - CONCLUSION: 1. Extensive consolidation throughout much of the right lung likely representing processes such as inflammatory change and pneumonia. 2. Extensive adenopathy is seen throughout the mediastinum. This is nonspecific. It could be reactive or neoplastic. If it is neoplastic, lymphoma should be considered. Axillary adenopathy is not seen. Bar Arias MD Renal Ultrasound 01/10/17 0000 Signed Impressions: Service Date/Time: Tuesday, January 10, 2017 10:49 - CONCLUSION: 1. Kidneys appear normal. 2. Impression on the bladder floor from the prostate. There is a bladder diverticulum and possible bladder stone present. Bar Arias MD Objective Remarks GENERAL: Patient is 81yo lying in bed in NAD SKIN: Warm and dry. HEAD: Normocephalic. EYES: No scleral icterus. No injection or drainage. NECK: Supple, trachea midline. No JVD or lymphadenopathy. CARDIOVASCULAR: Regular rate and rhythm without murmurs, gallops, or rubs. RESPIRATORY: Breath sounds equal bilaterally. No accessory muscle use. GASTROINTESTINAL: Abdomen soft, non-tender, nondistended. MUSCULOSKELETAL: No cyanosis, or edema. Neuro: Awake, follows commands. Line: Central Venous Catheter Side: Right Location: Internal, Jugular A/P Assessment and Plan Neurologic/PSYCH: Acute agitated delirium- improved Chronic Xanax use Peripheral neuropathy Monitor neuro status and avoid any sedatives, Neuro is following- Dr. Liu Tylenol as needed for pain or fever -- MRI brain with no acute findings/EEG monitoring: encephalopathy with no epileptiform activity -Repeat EEG 01/18: High frequency artifact, Respiratory: Acute hypoxic respiratory failure Multilobar pneumococcal pneumonia COPD exacerbation Pulmonary Edema Mediastinal prominence Severe pulmonary hypertension Continue with oxygen keep sat >92% - Pulmicort twice a day Head of bed at 30 Nebs every 6 and every 2 when necessary On Prednisone 20mg daily Pulmonary following: Dr. Cadena Cardiovascular: Septic shock- resolved Fluid overload Severe pulmonary hypertension -Monitor HR and BP keep MAP>65mmHg. On ASA 81mg daily Echocardiogram revealed EF 60-65%. SOFYA 93 mmHg. Renal: RIZWAN..improving Hypernatremia -Monitor renal function, I/O's, avoid nephrotoxins. -Renal function improving -Decrease D5W@75ml/hr monitor sodium level. FEN/GI: Acute protein calorie malnutritionmild On pureed honey thick diet per speech ID: Strep pneumonia bacteremia Leukocytosis Multilobar pneumococcal pneumonia s/p Septic shock pneumococcus Ag: + --01/08 blood cultures: strep pneumo. Zosyn and Vanc dcd and PCN G started by Dr. Robledo 01/11/17 Continue with abx(Zosyn, Diflucan), ID is following- Dr. Queen Monitor for signs of infections ( Fever, WBC) WBC trending down -Recheck sputum cx and U/A 01/17 Urine cx: Pseudomonas, C. Glabrata 01/17 Sputum: Pseudomonas 01/08 BC: Strep pneumonia Heme: Normocytic anemia Monitor CBC Endocrine: Hyperglycemia of critical illness -- Medium dose SSI, q4h. Prophylaxis: GI Prophylaxis Protonix 40 mg IV every 24 hours DVT Prophylaxis -- SCDs Subcutaneous heparin twice a day Lines: peripheral IV's PT/OT eval and treat Palliative care is following Will sign off and transfer care to [facility] Level 3 Lj Harris MD Jan 22, 2017 07:58
[2017-01-22] MEDS: CHLORHEXIDINE 0.12% (ORAL KIT) 15 ML CUP MT SCH ×2 (08:00→20:00)
[2017-01-22] MEDS: RESP: BUDESONIDE 0.5 MG/2 ML NEB NEB SCH ×2 (08:11→20:03)
[2017-01-22] MEDS: FLUCONAZOLE 100 MG TAB PO SCH (08:43)
[2017-01-22] MEDS: ASPIRIN EC 81 MG TABEC PO SCH (08:43)
[2017-01-22] MEDS: SENNOSIDES SYRUP 8.8 MG/5 ML CUP PO SCH (08:43)
[2017-01-22] MEDS: LACTOBACILLUS ACIDOPHILUS TAB PO SCH ×3 (08:43→17:37)
[2017-01-22] MEDS: DOCUSATE SODIUM 100 MG/10 ML UDC PO SCH ×2 (08:43→21:00)
[2017-01-22] MEDS: predniSONE 20 MG TAB PO SCH (08:43)
[2017-01-22] MEDS: SODIUM CHLORIDE 0.9% FLUSH 5 ML FLUSH IV FLUSH SCH ×2 (08:44→21:00)
[2017-01-22 09:57] LABS: AUTOMATED NEUTROPHIL # 10.4 TH/MM3 (1.8-7.7); BASOPHIL # 0.1 TH/MM3 (0-0.2); BASOPHIL % 0.6 % (0.0-2.0); EOSINOPHIL # 0.2 TH/MM3 (0-0.4); EOSINOPHIL % 1.2 % (0.0-4.0); HEMATOCRIT 34.5 % (39.0-51.0); HEMO FLAGS DIFF FINAL; LYMPH % 15.6 % (9.0-44.0); LYMPHOCYTE # 2.1 TH/MM3 (1.0-4.8); MEAN CELL VOLUME 90.5 FL (80.0-100.0); MEAN CORPUSCULAR HEMOGLOBIN 28.7 PG (27.0-34.0); MEAN CORPUSCULAR HGB CONC 31.7 % (32.0-36.0); NEUT % 77.6 % (16.0-70.0); PLATELET COUNT 162 TH/MM3 (150-450); RED BLOOD COUNT 3.81 MIL/MM3 (4.50-5.90); RED CELL DISTRIBUTION WIDTH 15.6 % (11.6-17.2); WHITE BLOOD COUNT 13.4 TH/MM3 (4.0-11.0)
[2017-01-22 10:29] LABS: BICARBONATE 25.6 MEQ/L (21.0-32.0); POTASSIUM 3.6 MEQ/L (3.5-5.1)
--- NOTE | 2017-01-22 15:22 | HHI.PR ---
Subjective Remarks Awake and feels better .On a N/C 4 L.. Seems to be lethargic. Objective Vital Signs Date Time Temp Pulse Resp B/P Pulse Ox O2 Delivery O2 Flow Rate FiO2 01/22/17 14:00 91 01/22/17 12:00 98.1 89 18 141/65 94 01/22/17 12:00 89 01/22/17 10:30 93 Nasal Cannula 3.00 01/22/17 10:00 92 01/22/17 08:00 98.4 108 17 142/65 93 01/22/17 08:00 108 01/22/17 06:00 121 01/22/17 04:00 98.2 115 23 132/78 92 01/22/17 04:00 115 01/22/17 02:00 93 01/22/17 00:00 104 01/22/17 00:00 99.2 104 24 134/97 91 01/21/17 22:00 92 01/21/17 20:00 99.4 67 23 194/77 100 01/21/17 20:00 67 01/21/17 19:55 94 Nasal Cannula 5.00 01/21/17 18:00 72 01/21/17 16:00 93 01/21/17 16:00 97.9 93 18 170/72 95 I/O 01/21/17 01/21/17 01/21/17 01/22/17 01/22/17 01/22/17 07:00 15:00 23:00 07:00 15:00 23:00 Intake Total 639 ml 1189 ml 666 ml 582 ml 808 ml Output Total 500 ml 300 ml 350 ml 450 ml Balance 639 ml 689 ml 366 ml 232 ml 358 ml Intake Oral 340 ml 50 ml 120 ml IV Total 639 ml 849 ml 616 ml 582 ml 688 ml Output Urine Total 500 ml 300 ml 350 ml 450 ml # Voids 2 1 # Bowel Movements 1 2 0 1 2 Result Diagram: 01/22/1791201/22/17912 Objective Remarks This moderately overweight elderly white male is lethargic. HEENT: Head normocephalic. Pupils reactive. Sclerae are clear. Throat secretions. Ears, no inflammation. Neck: Supple. No bruits. No venous distension. Trachea midline. Chest: Equal movements with increased AP diameter with occ crackles at bases . Heart: The heart sounds are irregular, S1-S2. No murmur. No S3. Abdomen: The abdomen is protuberant, soft, without masses, organomegaly or tenderness. Bowel sounds active. Extremities: Varicosities and decreased pulses. No edema. Neurologic: Lethargic and moves all.1 + reflexes Rectal: Exam is deferred. Assessment and Plan Assessment and Plan IMPRESSION 1. Septic shock. 2. Extensive right lung pneumonia and hypoxemia. 3. Acute hypoxemic, hypercapnic respiratory failure. 4. COPD with emphysema 5. History of pulmonary embolism. 6. History of hypertension. 7. RIZWAN. Plan : 1. Wean O2 to 3 l 2. Up with help. 3. Cont antibiotics as ordered. 4. PT evaluation 5. Nebs q6h , Duoneb. 6. Cont Heparin 5000 U S/Q bid. 7. No sedation 8. PO Liquids as tolerated 9. BMP in am 10. Prednisone 20 mg daily. Cheri Cadena MD Jan 22, 2017 15:22
[2017-01-22] MEDS: PANTOPRAZOLE SODIUM 40 MG VIAL IV PUSH SCH (22:16)
[2017-01-23] VITALS (15 sets, daily range): BP systolic 80–165; BP diastolic 43–96; PULSE 100–124; TEMP 98–98.9; O2SAT 86–96
[2017-01-23] MEDS: INSULIN NovoLIN REGULAR SUPPLEMENTAL SCALE SQ SCH ×4 (02:00→20:00)
[2017-01-23] MEDS: PIPERACIL-TAZO 4.5 GM PREMIX 100 ML IV SCH ×4 (03:05→21:57)
[2017-01-23] MEDS: RESP: ALBUTEROL 2.5 MG/IPRATROPIUM 0.5 MG NEB (SCH) NEB ×5 (03:44→19:50)
[2017-01-23] MEDS: CHLORHEXIDINE GLUCONATE 2 % 1 PACK (2 CLOTHS) TOP SCH (04:00)
[2017-01-23] MEDS: DEXTROSE 5% IN WATE 1000ML INJ 1,000 ML IV SCH (04:03)
[2017-01-23] MEDS: HEPARIN SODIUM - SQ 10,000 UNITS/ML VIAL SQ SCH ×2 (06:39→17:13)
[2017-01-23] MEDS: RESP: BUDESONIDE 0.5 MG/2 ML NEB NEB SCH ×2 (07:45→19:50)
[2017-01-23] MEDS: SODIUM CHLORIDE 0.9% FLUSH 5 ML FLUSH IV FLUSH SCH ×2 (08:25→21:57)
[2017-01-23] MEDS: FLUCONAZOLE 100 MG TAB PO SCH (08:25)
[2017-01-23] MEDS: ASPIRIN EC 81 MG TABEC PO SCH (08:25)
[2017-01-23] MEDS: predniSONE 20 MG TAB PO SCH (08:25)
[2017-01-23] MEDS: SENNOSIDES SYRUP 8.8 MG/5 ML CUP PO SCH (08:26)
[2017-01-23] MEDS: DOCUSATE SODIUM 100 MG/10 ML UDC PO SCH ×2 (08:26→21:00)
[2017-01-23] MEDS: LACTOBACILLUS ACIDOPHILUS TAB PO SCH ×3 (08:26→17:12)
[2017-01-23] MEDS: CHLORHEXIDINE 0.12% (ORAL KIT) 15 ML CUP MT SCH ×2 (08:27→20:00)
--- NOTE | 2017-01-23 09:24 | HHI.PR ---
Subjective Remarks Follow-up strep pneumo bacteremia/pneumonia 01/23/17-patient seen and examined, afebrile. Alert and oriented to self and no acute event overnight Objective Vitals Vital Signs Date Time Temp Pulse Resp B/P Pulse Ox O2 Delivery O2 Flow Rate FiO2 01/23/17 07:47 96 Nasal Cannula 3.00 01/23/17 06:00 102 01/23/17 04:00 98.9 100 165/83 87 01/23/17 04:00 100 01/23/17 02:00 124 01/23/17 00:00 98.2 120 140/96 86 01/23/17 00:00 120 01/22/17 22:00 97 01/22/17 20:03 96 Nasal Cannula 3.00 01/22/17 20:00 97 01/22/17 20:00 98.8 97 184/78 86 01/22/17 18:00 99 01/22/17 16:00 91 01/22/17 16:00 98.0 91 18 146/76 97 01/22/17 14:00 91 01/22/17 12:00 98.1 89 18 141/65 94 01/22/17 12:00 89 01/22/17 10:30 93 Nasal Cannula 3.00 01/22/17 10:00 92 I/O 01/22/17 01/22/17 01/22/17 01/23/17 01/23/17 01/23/17 07:00 15:00 23:00 07:00 15:00 23:00 Intake Total 582 ml 808 ml 2040 ml Output Total 350 ml 450 ml 640 ml Balance 232 ml 358 ml 1400 ml Intake Oral 120 ml 720 ml IV Total 582 ml 688 ml 1320 ml Output Urine Total 350 ml 450 ml 640 ml # Voids 1 1 # Bowel Movements 1 2 3 Result Diagram: 01/22/1713 01/22/1713 Imaging Last Impressions Chest X-Ray 01/20/17 0000 Signed Impressions: Service Date/Time: December 08:23 - CONCLUSION: 1. Improving bibasilar mixed interstitial and alveolar infiltrates. Possible left-sided effusion which also appears slightly improved. 2. Stable position of life support tubes. Otis Nobles MD Abdomen X-Ray 01/17/17 0000 Signed Impressions: Service Date/Time: Tuesday, January 17, 2017 20:02 - CONCLUSION: 1. Nonspecific bowel gas pattern. 2. NG tube in the stomach. Bart Spring MD Skull X-Ray 01/14/17 0000 Signed Impressions: Service Date/Time: Saturday, January 14, 2017 11:20 - CONCLUSION: No MRI incompatible foreign body is identified. Bar Arias MD Brain MRI 01/14/17 0000 Signed Impressions: Service Date/Time: Saturday, January 14, 2017 15:40 - CONCLUSION: No acute abnormality is seen. Bar Arias MD Chest CT 01/12/17 0000 Signed Impressions: Service Date/Time: Thursday, January 12, 2017 16:58 - CONCLUSION: 1. Extensive consolidation throughout much of the right lung likely representing processes such as inflammatory change and pneumonia. 2. Extensive adenopathy is seen throughout the mediastinum. This is nonspecific. It could be reactive or neoplastic. If it is neoplastic, lymphoma should be considered. Axillary adenopathy is not seen. Bar Arias MD Renal Ultrasound 01/10/17 0000 Signed Impressions: Service Date/Time: Tuesday, January 10, 2017 10:49 - CONCLUSION: 1. Kidneys appear normal. 2. Impression on the bladder floor from the prostate. There is a bladder diverticulum and possible bladder stone present. Bar Arias MD Objective Remarks GENERAL: NAD SKIN: Warm and dry. HEAD: Normocephalic. EYES: No scleral icterus. No injection or drainage. NECK: Supple, trachea midline. No JVD or lymphadenopathy. CARDIOVASCULAR: Regular rate and rhythm without murmurs, gallops, or rubs. RESPIRATORY: Breath sounds equal bilaterally. No accessory muscle use. GASTROINTESTINAL: Abdomen soft, non-tender, nondistended. MUSCULOSKELETAL: No cyanosis, or edema. BACK: Nontender without obvious deformity. No CVA tenderness. Line: Central Venous Catheter Side: Right Location: Internal, Jugular A/P Problem List: (1) Sepsis ICD Code: A41.9 Status: Acute (2) Pneumonia ICD Code: J18.9 Status: Acute (3) COPD (chronic obstructive pulmonary disease) ICD Code: J44.9 Status: Acute Assessment and Plan 81-year-old man with Acute agitated delirium- improved Chronic Xanax use Peripheral neuropathy Monitor neuro status and avoid any sedatives, Appreciate input from neurology- Dr. Liu Tylenol as needed for pain or fever -- MRI brain with no acute findings/EEG monitoring: encephalopathy with no epileptiform activity -Repeat EEG 01/18: High frequency artifact, Acute hypoxic respiratory failure Multilobar pneumococcal pneumonia COPD exacerbation Pulmonary Edema Mediastinal prominence Severe pulmonary hypertension Continue with oxygen keep sat >92% - Pulmicort twice a day Head of bed at 30 Nebs every 6 and every 2 when necessary On Prednisone 20mg daily Appreciate input from pulmonary medicine, Dr. Cadena Septic shock- resolved Fluid overload Severe pulmonary hypertension -Monitor HR and BP keep MAP>65mmHg. On ASA 81mg daily Echocardiogram revealed EF 60-65%. SOFYA 93 mmHg. RIZWAN..improving Hypernatremia -Monitor renal function, I/O's, avoid nephrotoxins. -Renal function improving - D5W@75ml/hr monitor sodium level. Acute protein calorie malnutritionmild On pureed honey thick diet per speech Strep pneumonia bacteremia Leukocytosis Multilobar pneumococcal pneumonia s/p Septic shock pneumococcus Ag: + --01/08 blood cultures: strep pneumo. Continue with abx(Zosyn, Diflucan), appreciate input from infectious disease specialist Monitor for signs of infections ( Fever, WBC) WBC trending down -Recheck sputum cx and U/A 01/17 Urine cx: Pseudomonas, C. Glabrata 01/17 Sputum: Pseudomonas 01/08 BC: Strep pneumonia Hyperglycemia of critical illness -- Medium dose SSI, q4h. GI Prophylaxis Protonix 40 mg IV every 24 hours DVT Prophylaxis -- SCDs Subcutaneous heparin twice a day PT/OT eval and treat Robert Shelton MD Jan 23, 2017 09:24
[2017-01-23 10:39] LABS: AUTOMATED NEUTROPHIL # 8.8 TH/MM3 (1.8-7.7); BASOPHIL # 0.1 TH/MM3 (0-0.2); BASOPHIL % 0.6 % (0.0-2.0); EOSINOPHIL # 0.2 TH/MM3 (0-0.4); HEMATOCRIT 32.3 % (39.0-51.0); HEMO FLAGS DIFF FINAL; LYMPH % 19.8 % (9.0-44.0); LYMPHOCYTE # 2.4 TH/MM3 (1.0-4.8); MEAN CELL VOLUME 90.3 FL (80.0-100.0); MEAN CORPUSCULAR HEMOGLOBIN 29.2 PG (27.0-34.0); MEAN CORPUSCULAR HGB CONC 32.3 % (32.0-36.0); MONO % 5.2 % (0.0-8.0); NEUT % 72.4 % (16.0-70.0); PLATELET COUNT 163 TH/MM3 (150-450); RED BLOOD COUNT 3.57 MIL/MM3 (4.50-5.90); RED CELL DISTRIBUTION WIDTH 15.7 % (11.6-17.2); WHITE BLOOD COUNT 12.2 TH/MM3 (4.0-11.0)
[2017-01-23 10:59] LABS: BICARBONATE 23.7 MEQ/L (21.0-32.0)
[2017-01-23 11:17] LABS: POTASSIUM 3.4 MEQ/L (3.5-5.1)
--- NOTE | 2017-01-23 13:35 | HHI.PR ---
Subjective Remarks Awake and feels better .On a N/C 3 L.. Taking po diet. Objective Vital Signs Date Time Temp Pulse Resp B/P Pulse Ox O2 Delivery O2 Flow Rate FiO2 01/23/17 12:00 115 01/23/17 11:00 98.3 111 117/68 91 01/23/17 10:00 107 01/23/17 08:00 98.5 102 133/79 93 01/23/17 08:00 102 01/23/17 07:47 96 Nasal Cannula 3.00 01/23/17 06:00 102 01/23/17 04:00 98.9 100 165/83 87 01/23/17 04:00 100 01/23/17 02:00 124 01/23/17 00:00 98.2 120 140/96 86 01/23/17 00:00 120 01/22/17 22:00 97 01/22/17 20:03 96 Nasal Cannula 3.00 01/22/17 20:00 97 01/22/17 20:00 98.8 97 184/78 86 01/22/17 18:00 99 01/22/17 16:00 91 01/22/17 16:00 98.0 91 18 146/76 97 01/22/17 14:00 91 I/O 01/22/17 01/22/17 01/22/17 01/23/17 01/23/17 01/23/17 07:00 15:00 23:00 07:00 15:00 23:00 Intake Total 582 ml 808 ml 2040 ml Output Total 350 ml 450 ml 640 ml Balance 232 ml 358 ml 1400 ml Intake Oral 120 ml 720 ml IV Total 582 ml 688 ml 1320 ml Output Urine Total 350 ml 450 ml 640 ml # Voids 1 1 # Bowel Movements 1 2 3 Result Diagram: 01/23/17 1012 01/23/17 1012 Objective Remarks This moderately overweight elderly white male is lethargic. HEENT: Head normocephalic. Pupils reactive. Sclerae are clear. Throat clear. Ears, no inflammation. Neck: Supple. No bruits. No venous distension. Trachea midline. Chest: Equal movements with increased AP diameter with occ crackles at bases . Heart: The heart sounds are irregular, S1-S2. No murmur. No S3. Abdomen: The abdomen is protuberant, soft, without masses, organomegaly or tenderness. Bowel sounds active. Extremities: decreased pulses. No edema. Neurologic: Awake and with 1 + reflexes Rectal: Exam is deferred. Assessment and Plan Assessment and Plan IMPRESSION 1. Septic shock. 2. Extensive right lung pneumonia and hypoxemia. 3. Acute hypoxemic, hypercapnic respiratory failure. 4. COPD with emphysema 5. History of pulmonary embolism. 6. History of hypertension. 7. RIZWAN. Plan : 1. Wean O2 to 2 l 2. Chest X ray in am 3. Cont antibiotics as ordered. 4. PT evaluation 5. Nebs q6h , Duoneb. 6. Cont Heparin 5000 U S/Q bid. 7. No sedation 8. PO diet as tolerated 10. Prednisone 20 mg daily. Cheri Cadena MD Jan 23, 2017 13:35 Cheri Cadena MD Jan 23, 2017 13:35
[2017-01-23] MEDS: PANTOPRAZOLE SODIUM 40 MG VIAL IV PUSH SCH (21:57)
[2017-01-23] MEDS: hydrALAZINE HCL 20 MG/ML VIAL IV PUSH PRN (22:05)
[2017-01-24] VITALS (14 sets, daily range): BP systolic 113–153; BP diastolic 65–83; PULSE 86–127; RESP 20–22; TEMP 98–98.7; O2SAT 90–94
[2017-01-24] MEDS: RESP: ALBUTEROL 2.5 MG/IPRATROPIUM 0.5 MG NEB (SCH) NEB ×7 (00:01→23:38)
[2017-01-24] MEDS: INSULIN NovoLIN REGULAR SUPPLEMENTAL SCALE SQ SCH ×4 (02:00→20:00)
[2017-01-24] MEDS: PIPERACIL-TAZO 4.5 GM PREMIX 100 ML IV SCH ×4 (03:50→21:58)
[2017-01-24] MEDS: CHLORHEXIDINE GLUCONATE 2 % 1 PACK (2 CLOTHS) TOP SCH ×2 (04:00→21:58)
--- NOTE | 2017-01-24 05:47 | RADRPT ---
EXAM DATE/TIME: 01/24/2017 03:30 [facility] COMPARISON: CHEST SINGLE AP, January 20, 2017, 8:23. INDICATIONS : Shortness of breath, possible pulmonary disease. MEDICAL HISTORY : Chronic obstructive pulmonary disease. Cardiovascular disease. Myocardial infarction. SURGICAL HISTORY : Appendectomy. Cholecystectomy. Colon resection. ENCOUNTER: Subsequent ACUITY: 2 weeks PAIN SCORE: Non-responsive. LOCATION: Bilateral chest FINDINGS: A single view of the chest demonstrates patchy densities within the upper or lower lobes, slightly mo re prominent. Endotracheal tube, nasogastric tube and right jugular central line has been removed. T he cardiomediastinal contours are unremarkable. Osseous structures are intact. CONCLUSION: Bilateral patchy infiltrates. Robert Larson MD on January 24, 2017 at 5:44 Board Certified Radiologist. This report was verified electronically.
[2017-01-24] MEDS: HEPARIN SODIUM - SQ 10,000 UNITS/ML VIAL SQ SCH ×2 (06:04→18:40)
--- NOTE | 2017-01-24 07:27 | HHI.PR ---
Subjective Remarks Follow-up strep pneumo bacteremia/pneumonia 01/23/17-patient seen and examined, afebrile. Alert and oriented to self and no acute event overnight 01/24/17-patient seen and examined, episode of confusion overnight per nurse report. Oriented to self this morning and vitals stable Objective Vitals Vital Signs Date Time Temp Pulse Resp B/P Pulse Ox O2 Delivery O2 Flow Rate FiO2 01/24/17 06:00 109 01/24/17 04:00 111 01/24/17 04:00 98.7 111 153/65 92 01/24/17 02:00 127 01/24/17 00:00 111 01/24/17 00:00 98.2 111 139/67 90 01/23/17 22:00 119 01/23/17 20:00 98.0 113 80/43 91 01/23/17 20:00 113 01/23/17 19:50 95 Nasal Cannula 3.00 01/23/17 18:00 109 01/23/17 16:00 98.6 109 121/73 94 01/23/17 16:00 109 01/23/17 14:00 105 01/23/17 12:00 115 01/23/17 11:00 98.3 111 117/68 91 01/23/17 10:00 107 01/23/17 08:00 98.5 102 133/79 93 01/23/17 08:00 102 01/23/17 07:47 96 Nasal Cannula 3.00 I/O 01/23/17 01/23/17 01/23/17 01/24/17 01/24/17 01/24/17 06:59 14:59 22:59 06:59 14:59 22:59 Intake Total 2040 ml 1267 ml 271 ml 462 ml Output Total 640 ml 200 ml Balance 1400 ml 1067 ml 271 ml 462 ml Intake Oral 720 ml 360 ml 240 ml 240 ml IV Total 1320 ml 907 ml 31 ml 222 ml Output Urine Total 640 ml 200 ml # Voids 1 3 2 2 # Bowel Movements 3 2 1 1 Result Diagram: 01/23/17 1012 01/23/17 1012 Objective Remarks GENERAL: NAD with upper extremity restraint in place SKIN: Warm and dry. HEAD: Normocephalic. EYES: No scleral icterus. No injection or drainage. NECK: Supple, trachea midline. No JVD or lymphadenopathy. CARDIOVASCULAR: Regular rate and rhythm without murmurs, gallops, or rubs. RESPIRATORY: Breath sounds equal bilaterally. No accessory muscle use. GASTROINTESTINAL: Abdomen soft, non-tender, nondistended. MUSCULOSKELETAL: No cyanosis, or edema. BACK: Nontender without obvious deformity. No CVA tenderness. Line: Central Venous Catheter Side: Right Location: Internal, Jugular A/P Problem List: (1) Sepsis ICD Code: A41.9 Status: Acute (2) Pneumonia ICD Code: J18.9 Status: Acute (3) COPD (chronic obstructive pulmonary disease) ICD Code: J44.9 Status: Acute Assessment and Plan 81-year-old man with Acute agitated delirium- improved Chronic Xanax use Peripheral neuropathy Monitor neuro status and avoid any sedatives, Appreciate input from neurology- Dr. Liu Tylenol as needed for pain or fever -- MRI brain with no acute findings/EEG monitoring: encephalopathy with no epileptiform activity -Repeat EEG 01/18: High frequency artifact, Acute hypoxic respiratory failure Multilobar pneumococcal pneumonia COPD exacerbation Pulmonary Edema Mediastinal prominence Severe pulmonary hypertension Continue with oxygen keep sat >92% - Pulmicort twice a day Nebs every 6 and every 2 when necessary On Prednisone 20mg daily Appreciate input from pulmonary medicine, Dr. Cadena Septic shock- resolved Fluid overload Severe pulmonary hypertension -Monitor HR and BP keep MAP>65mmHg. On ASA 81mg daily Echocardiogram revealed EF 60-65%. SOFYA 93 mmHg. RIZWAN..improving -Monitor renal function, I/O's, avoid nephrotoxins. -Renal function improving Hypokalemia: Replace electrolyte and repeat BMP at 2 PM Acute protein calorie malnutritionmild On pureed honey thick diet per speech Strep pneumonia bacteremia Leukocytosis Multilobar pneumococcal pneumonia s/p Septic shock pneumococcus Ag: + --01/08 blood cultures: strep pneumo. Continue with abx(Zosyn, Diflucan), appreciate input from infectious disease specialist Monitor for signs of infections ( Fever, WBC) 01/17 Urine cx: Pseudomonas, C. Glabrata 01/17 Sputum: Pseudomonas 01/08 BC: Strep pneumonia Hyperglycemia of critical illness -- Medium dose SSI, q4h. GI Prophylaxis Protonix 40 mg IV every 24 hours DVT Prophylaxis -- SCDs Subcutaneous heparin twice a day PT/OT eval and treat Robert Shelton MD Jan 24, 2017 07:26 Robert Shelton MD Jan 24, 2017 07:26
[2017-01-24] MEDS: RESP: BUDESONIDE 0.5 MG/2 ML NEB NEB SCH ×2 (07:42→19:49)
[2017-01-24] MEDS: SENNOSIDES SYRUP 8.8 MG/5 ML CUP PO SCH (09:10)
[2017-01-24] MEDS: DOCUSATE SODIUM 100 MG/10 ML UDC PO SCH ×2 (09:10→21:58)
[2017-01-24] MEDS: predniSONE 20 MG TAB PO SCH (09:11)
[2017-01-24] MEDS: FLUCONAZOLE 100 MG TAB PO SCH (09:11)
[2017-01-24] MEDS: CHLORHEXIDINE 0.12% (ORAL KIT) 15 ML CUP MT SCH ×2 (09:12→20:00)
[2017-01-24] MEDS: LACTOBACILLUS ACIDOPHILUS TAB PO SCH ×3 (10:01→18:40)
[2017-01-24] MEDS: SODIUM CHLORIDE 0.9% FLUSH 5 ML FLUSH IV FLUSH SCH ×2 (10:01→21:00)
[2017-01-24] MEDS: ASPIRIN EC 81 MG TABEC PO SCH (10:01)
--- NOTE | 2017-01-24 12:46 | HHI.PR ---
Subjective Remarks Awake and feels better .On a N/C 3 L.. Taking a diet. Objective Vital Signs Date Time Temp Pulse Resp B/P Pulse Ox O2 Delivery O2 Flow Rate FiO2 01/24/17 07:42 94 Nasal Cannula 2.00 01/24/17 06:00 109 01/24/17 04:00 111 01/24/17 04:00 98.7 111 153/65 92 01/24/17 02:00 127 01/24/17 00:00 111 01/24/17 00:00 98.2 111 139/67 90 01/23/17 22:00 119 01/23/17 20:00 98.0 113 80/43 91 01/23/17 20:00 113 01/23/17 19:50 95 Nasal Cannula 3.00 01/23/17 18:00 109 01/23/17 16:00 98.6 109 121/73 94 01/23/17 16:00 109 01/23/17 14:00 105 I/O 01/23/17 01/23/17 01/23/17 01/24/17 01/24/17 01/24/17 07:00 15:00 23:00 07:00 15:00 23:00 Intake Total 2040 ml 1267 ml 271 ml 462 ml Output Total 640 ml 200 ml Balance 1400 ml 1067 ml 271 ml 462 ml Intake Oral 720 ml 360 ml 240 ml 240 ml IV Total 1320 ml 907 ml 31 ml 222 ml Output Urine Total 640 ml 200 ml # Voids 1 3 2 2 # Bowel Movements 3 2 1 1 Result Diagram: 01/23/17 1012 01/23/17 1012 Objective Remarks This moderately overweight elderly white male is lethargic. HEENT: Head normocephalic. Pupils reactive. Sclerae are clear. Throat clear. Ears, no inflammation. Neck: Supple. No bruits. No venous distension. Trachea midline. Chest: Equal movements with increased AP diameter with occ crackles at bases . Heart: The heart sounds are irregular, S1-S2. No murmur. No S3. Abdomen: The abdomen is protuberant, soft, without masses, organomegaly or tenderness. Bowel sounds active. Extremities: decreased pulses. No edema. Neurologic: Awake and with 1 + reflexes Rectal: Exam is deferred. Assessment and Plan Assessment and Plan IMPRESSION 1. Septic shock. 2. Extensive right lung pneumonia and hypoxemia. 3. Acute hypoxemic, hypercapnic respiratory failure. 4. COPD with emphysema 5. History of pulmonary embolism. 6. History of hypertension. 7. RIZWAN. Plan : 1. Wean O2 to 2 l 2. IS at bedside q2h. 3. Cont antibiotics as ordered. 4. PT evaluation 5. Nebs q6h , Duoneb. 6. Cont Heparin 5000 U S/Q bid. 7. No sedation 8. PO diet as tolerated 10. Prednisone 20 mg daily. Cheri Cadena MD Jan 24, 2017 12:46
--- NOTE | 2017-01-24 14:18 | HHI.IDPN ---
Note Infectious Disease Note Patient is very restless. Afebrile. On 3L O2 via nasal canula. Sats drops when nasal canula is off. Admitted to the hospital on 01/08/2017. He was brought to the emergency department after falling. He was noted to have markedly elevated white cell count of 20.2 on admission and heart rate greater than 90. The patient was intubated on admission. He had elevated lactic acid on admission. Blood cultures came back positive for strep pneumoniae and also the urine random pneumococcal antigen was positive. PAST MEDICAL HISTORY: 1. COPD 2. CVA 3. Coronary artery disease 4. Coronary stent 5. Obstructive sleep apnea 6. Hyperlipoidemia 7. Hypertension 8. Gastro-esophageal reflux disease 9. Pulmonary embolism. 10. Cholecystectomy. 11. Polypectomy 12. Appendectomy. ALLERGIES NO KNOWN DRUG ALLERGIES. MEDICATIONS 1. Piperacillin/tazobactam. SOCIAL HISTORY No tobacco use. No alcohol. No illicit drugs. OBJECTIVE: Vital Signs Date Time Temp Pulse Resp B/P Pulse Ox O2 Delivery O2 Flow Rate FiO2 01/24/17 12:00 86 01/24/17 10:00 86 01/24/17 08:00 120 01/24/17 08:00 98.0 90 113/70 93 01/24/17 07:42 94 Nasal Cannula 2.00 01/24/17 06:00 109 01/24/17 04:00 111 01/24/17 04:00 98.7 111 153/65 92 01/24/17 02:00 127 01/24/17 00:00 111 01/24/17 00:00 98.2 111 139/67 90 01/23/17 22:00 119 01/23/17 20:00 98.0 113 80/43 91 01/23/17 20:00 113 01/23/17 19:50 95 Nasal Cannula 3.00 01/23/17 18:00 109 01/23/17 16:00 98.6 109 121/73 94 01/23/17 16:00 109 01/23/17 01/23/17 01/24/17 15:00 23:00 07:00 Intake Total 1267 ml 271 ml 462 ml Output Total 200 ml Balance 1067 ml 271 ml 462 ml Intake Oral 360 ml 240 ml 240 ml IV Total 907 ml 31 ml 222 ml Output Urine Total 200 ml # Voids 3 2 2 # Bowel Movements 2 1 1 Laboratory Tests Test 01/23/17 10:12 White Blood Count 12.2 TH/MM3 Red Blood Count 3.57 MIL/MM3 Hemoglobin 10.4 GM/DL Hematocrit 32.3 % Mean Corpuscular Volume 90.3 FL Mean Corpuscular Hemoglobin 29.2 PG Mean Corpuscular Hemoglobin 32.3 % Concent Red Cell Distribution Width 15.7 % Platelet Count 163 TH/MM3 Mean Platelet Volume 9.6 FL Neutrophils (%) (Auto) 72.4 % Lymphocytes (%) (Auto) 19.8 % Monocytes (%) (Auto) 5.2 % Eosinophils (%) (Auto) 2.0 % Basophils (%) (Auto) 0.6 % Neutrophils # (Auto) 8.8 TH/MM3 Lymphocytes # (Auto) 2.4 TH/MM3 Monocytes # (Auto) 0.6 TH/MM3 Eosinophils # (Auto) 0.2 TH/MM3 Basophils # (Auto) 0.1 TH/MM3 CBC Comment DIFF FINAL Differential Comment Laboratory Tests Test 01/23/17 10:12 Sodium Level 148 MEQ/L Potassium Level 3.4 MEQ/L Chloride Level 114 MEQ/L Carbon Dioxide Level 23.7 MEQ/L Anion Gap 10 MEQ/L Blood Urea Nitrogen 33 MG/DL Creatinine 1.09 MG/DL Estimat Glomerular Filtration 65 ML/MIN Rate Random Glucose 112 MG/DL Calcium Level 8.3 MG/DL Microbiology Date/Time Procedure Status Source Growth 01/17/17 16:08 Gram Stain - Final Complete Sputum Endotracheal 01/17/17 16:08 Sputum Culture - Final Complete Pseudomonas Oryzihabitans 01/17/17 16:08 Urine Culture - Final Complete Urine Catheterized Urine Pseudomonas Aeruginosa Neelima Glabrata IMAGING: IMAGING: Chest X-Ray 01/24/17 0600 Signed Impressions: Service Date/Time: Tuesday, January 24, 2017 03:30 - CONCLUSION: Bilateral patchy infiltrates. Robert Larson MD Chest X-Ray 01/20/17 0000 Signed Impressions: Service Date/Time: December 08:23 - CONCLUSION: 1. Improving bibasilar mixed interstitial and alveolar infiltrates. Possible left-sided effusion which also appears slightly improved. 2. Stable position of life support tubes. Otis Nobles MD Chest X-Ray 01/17/17 0600 Signed Impressions: Service Date/Time: Tuesday, January 17, 2017 03:20 - CONCLUSION: No significant change has occurred. John Paul Delgado MD Abdomen X-Ray 01/17/17 0000 Signed Impressions: Service Date/Time: Tuesday, January 17, 2017 20:02 - CONCLUSION: 1. Nonspecific bowel gas pattern. 2. NG tube in the stomach. Bart Spring MD Skull X-Ray 01/14/17 0000 Signed Impressions: Service Date/Time: Saturday, January 14, 2017 11:20 - CONCLUSION: No MRI incompatible foreign body is identified. Bar Arias MD Brain MRI 01/14/17 0000 Signed Impressions: Service Date/Time: Saturday, January 14, 2017 15:40 - CONCLUSION: No acute abnormality is seen. Bra Arias MD Chest CT 01/12/17 0000 Signed Impressions: Service Date/Time: Thursday, January 12, 2017 16:58 - CONCLUSION: 1. Extensive consolidation throughout much of the right lung likely representing processes such as inflammatory change and pneumonia. 2. Extensive adenopathy is seen throughout the mediastinum. This is nonspecific. It could be reactive or neoplastic. If it is neoplastic, lymphoma should be considered. Axillary adenopathy is not seen. Bar Arias MD Renal Ultrasound 01/10/17 0000 Signed Impressions: Service Date/Time: Tuesday, January 10, 2017 10:49 - CONCLUSION: 1. Kidneys appear normal. 2. Impression on the bladder floor from the prostate. There is a bladder diverticulum and possible bladder stone present. Bar Arias MD PHYSICAL EXAMINATION GENERAL: Restless and agitated. HEENT: No icterus. Mucosa is moist. Neck: Supple. No swelling, no adenopathy. Lungs: Basilar rhonchi bilateral. Heart: Regular without audible murmurs, rubs or gallops. Abdomen: Bowel sounds present, soft, non tender. Extremities: No clubbing, cyanosis or edema. Skin: No rash. Neuro: Non focal. IMPRESSION: 1. Pneumococcal sepsis 2. Respiratory failure. Extubated. 3. Urinary tract infection. Pseudomonas. 4. Leukocytosis. Improving slowly. 5. Pneumonia. Pseudomonas. RECOMMENDATIONS 1. Continue piperacillin/tazobactam 2. Stop Diflucan. 3. Monitor white blood cell count. Tyler Queen MD Jan 24, 2017 14:18
[2017-01-24 14:29] LABS: BICARBONATE 19.2 MEQ/L (21.0-32.0)
[2017-01-24 14:30] LABS: POTASSIUM 3.6 MEQ/L (3.5-5.1)
--- NOTE | 2017-01-24 16:59 | HHI.HCPN ---
Reason for visit a. To assist with evaluation and management of symptoms including: dyspnea, back pain, debility. b. To assist medical decision maker(s) with: better understanding of current medical conditions; weighing benefits/burdens of medical treatment options; making medical treatment decisions. . Subjective/Interval History Patient seen in ICU. Patient laying in bed in no acute distress. Awake, Alert x self, place and situation. Periods of confusion. Verbal but not always able to communicate needs secondary to intermittent confusion. Patient endorsing some shortness of breath at rest and with activity. Denies any pain or discomfort at this time. Patient was able to participate in PT today, transfer to [facility] chair for short amount of time. Patient currently tolerating O2 via nasal cannula at 2 L. Oxygen saturation in the mid 90s. Remains on febrile, stable BP. Tachycardic with heart rate in the 110s. Latest laboratory 01/23/17 showing WBC 12.2, Hgb 10.4, platelet count 163. Chemistry today showing sodium 147, potassium 3.6, BUN/creatinine 26/1.15. Sputum culture 01/17/17 positive for Pseudomonas Oryzihabitans. Urine culture positive for Pseudomonas aeruginosa and Neelima. ID following secondary to pneumococcal sepsis. Chest x-ray today showing a lateral patch infiltrates. Pulmonology following. Telephone call to patient's son Murray and left message in voicemail. Spoke with patient's significant other Vivien, medical update provided. Goals of care remains unchanged, continue current medical management short of no code with hopes of discharge to rehabilitation for physical strengthening. Vivien verbalize being happy with patient's clinical improvement, however, they are fully aware of his risk for continued decline, additional complications and . . Family/friend interactions See interval note. . Advance Directives Living Will: Never completed Health Care Surrogate: Never completed Advance Directive Specifics Health Care Surrogate(s): Son, VERN Cabrera, cell / [phone] office lives in [place] agrees to serve as decision maker. Two other children were searched thru [employer] and no workable phone numbers were identified Significant otherVivien Quach [phone] - Significant change in goals: No code. DNR/DNI. Goals of care remain unchanged, continue current medical management short of no code with hopes of discharge to rehabilitation for physical strengthening. Vivien verbalize being happy with patient's clinical improvement, however, they are fully aware of his risk for continued decline, additional complications and . . Objective Vital Signs Date Time Temp Pulse Resp B/P Pulse Ox O2 Delivery O2 Flow Rate FiO2 01/24/17 14:00 103 01/24/17 12:00 86 01/24/17 10:00 86 01/24/17 08:00 120 01/24/17 08:00 98.0 90 113/70 93 01/24/17 07:42 94 Nasal Cannula 2.00 01/24/17 06:00 109 01/24/17 04:00 111 01/24/17 04:00 98.7 111 153/65 92 01/24/17 02:00 127 01/24/17 00:00 111 01/24/17 00:00 98.2 111 139/67 90 01/23/17 22:00 119 01/23/17 20:00 98.0 113 80/43 91 01/23/17 20:00 113 01/23/17 19:50 95 Nasal Cannula 3.00 01/23/17 18:00 109 Intake & Output 01/24/17 01/24/17 07:00 19:00 Intake Total 733 ml 777 ml Output Total 450 ml Balance 733 ml 327 ml Intake Oral 480 ml 300 ml IV Total 253 ml 477 ml Output Urine Total 450 ml # Voids 4 1 # Bowel Movements 2 1 Physical Exam CONSTITUTIONAL/GENERAL: This is an adequately nourished patient laying in bed in no acute distress. TUBES/LINES/DRAINS: R IJ central line, condom catheter. PIV's. SKIN: No jaundice, rashes, or lesions. Edema and Ecchymoses on upper extremities. Skin temperature appropriate. Not diaphoretic. HEAD: Atraumatic. Normocephalic. EYES: Pupils equal and round and reactive. No scleral icterus. No injection or drainage. ENT: hard of hearing . Nose without bleeding or purulent drainage. Throat without visible erythema, exudates, masses, or lesions. Dry lips. NECK: Trachea midline. Supple, nontender. CARDIOVASCULAR: Tachycardic with heart rate in the 110s. Regular rhythm. Peripheral pulses symmetric. RESPIRATORY/CHEST: Symmetric, unlabored respirations. Coarse breath sounds bilaterally. Diminished posteriorly GASTROINTESTINAL: Abdomen soft, round, large. No guarding. Bowel sounds present. GENITOURINARY: Without palpable bladder distension. Condom catheter in place. MUSCULOSKELETAL: Extremities without clubbing, cyanosis, or edema. No mottling or clubbing. NEUROLOGICAL: Oriented to self, and place. Confused at times. PSYCHIATRIC: Appears calm. . Diagnostic Tests Laboratory Laboratory Tests Test 01/22/17 01/23/17 01/24/17 09:13 10:12 13:50 White Blood Count 13.4 TH/MM3 12.2 TH/MM3 (4.0-11.0) (4.0-11.0) Red Blood Count 3.81 MIL/MM3 3.57 MIL/MM3 (4.50-5.90) (4.50-5.90) Hemoglobin 10.9 GM/DL 10.4 GM/DL (13.0-17.0) (13.0-17.0) Hematocrit 34.5 % 32.3 % (39.0-51.0) (39.0-51.0) Mean Corpuscular Volume 90.5 FL 90.3 FL (80.0-100.0) (80.0-100.0) Mean Corpuscular Hemoglobin 28.7 PG 29.2 PG (27.0-34.0) (27.0-34.0) Mean Corpuscular Hemoglobin 31.7 % 32.3 % Concent (32.0-36.0) (32.0-36.0) Red Cell Distribution Width 15.6 % 15.7 % (11.6-17.2) (11.6-17.2) Platelet Count 162 TH/MM3 163 TH/MM3 (150-450) (150-450) Mean Platelet Volume 10.4 FL 9.6 FL (7.0-11.0) (7.0-11.0) Neutrophils (%) (Auto) 77.6 % 72.4 % (16.0-70.0) (16.0-70.0) Lymphocytes (%) (Auto) 15.6 % 19.8 % (9.0-44.0) (9.0-44.0) Monocytes (%) (Auto) 5.0 % (0.0-8.0) 5.2 % (0.0-8.0) Eosinophils (%) (Auto) 1.2 % (0.0-4.0) 2.0 % (0.0-4.0) Basophils (%) (Auto) 0.6 % (0.0-2.0) 0.6 % (0.0-2.0) Neutrophils # (Auto) 10.4 TH/MM3 8.8 TH/MM3 (1.8-7.7) (1.8-7.7) Lymphocytes # (Auto) 2.1 TH/MM3 2.4 TH/MM3 (1.0-4.8) (1.0-4.8) Monocytes # (Auto) 0.7 TH/MM3 0.6 TH/MM3 (0-0.9) (0-0.9) Eosinophils # (Auto) 0.2 TH/MM3 0.2 TH/MM3 (0-0.4) (0-0.4) Basophils # (Auto) 0.1 TH/MM3 0.1 TH/MM3 (0-0.2) (0-0.2) CBC Comment DIFF FINAL DIFF FINAL Differential Comment Sodium Level 149 MEQ/L 148 MEQ/L 147 MEQ/L (136-145) (136-145) (136-145) Potassium Level 3.6 MEQ/L 3.4 MEQ/L 3.6 MEQ/L (3.5-5.1) (3.5-5.1) (3.5-5.1) Chloride Level 114 MEQ/L 114 MEQ/L 115 MEQ/L (98-107) (98-107) (98-107) Carbon Dioxide Level 25.6 MEQ/L 23.7 MEQ/L 19.2 MEQ/L (21.0-32.0) (21.0-32.0) (21.0-32.0) Anion Gap 9 MEQ/L (5-15) 10 MEQ/L (5-15) 13 MEQ/L (5-15) Blood Urea Nitrogen 45 MG/DL (7-18) 33 MG/DL (7-18) 26 MG/DL (7-18) Creatinine 1.09 MG/DL 1.09 MG/DL 1.15 MG/DL (0.60-1.30) (0.60-1.30) (0.60-1.30) Estimat Glomerular Filtration 65 ML/MIN (>89) 65 ML/MIN (>89) 61 ML/MIN (>89) Rate Random Glucose 112 MG/DL 112 MG/DL 101 MG/DL (74-106) (74-106) (74-106) Calcium Level 8.8 MG/DL 8.3 MG/DL 8.6 MG/DL (8.5-10.1) (8.5-10.1) (8.5-10.1) Result Diagram: 01/23/17 1012 01/24/17 1350 Imaging Last 48 hours Impressions Chest X-Ray 01/24/17 0600 Signed Impressions: Service Date/Time: Tuesday, January 24, 2017 03:30 - CONCLUSION: Bilateral patchy infiltrates. Robert Larson MD Assessment and Plan Disease Oriented Problem List: (1) COPD (chronic obstructive pulmonary disease) (2) CAD (coronary artery disease) (3) Respiratory failure (4) Encephalopathy (5) Sepsis Comment: On antibioticsurine Pseudomonas: Sputum gram-negative wagner Symptom Scale: (1) Dyspnea 0-10 Scale: Unable to quantify Comment: noted working of breathing - on NC at 5L (2) Pain 0-10 Scale: 0 (frequently shifts positions ) Comment: History of pain. Denies pain at this time. 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 Jose his son is HCP - 2 remaining children have not been found thru [employer] report . Important Contacts Jose " Leeroy" Rick, Son [phone] office [phone] cell - works for [employer] in [place] Vivien Quach - Sig Ltsfj - [phone] Prognosis Prognosis is guarded in light of advanced age, following multisystem organ failure post septic shock with COPD and now w O2 dependency Code Status: No Code Plan * CODE STATUS: No code. DNR/DNI. * MEDICAL DECISION-MAKER: Patient incapacitated for medical decision-making secondary to clinical condition, intermittent confusion. As per [place] law, patient's children would be designated healthcare proxy. Patient has 3 children , medical decision making falls to patient's son Jose Cabrera -there are 2 other children who have not been identified thru [employer] Report. Jose does not have their contact information. * GOALS OF CARE: Continue medical management short of no code with hopes to discharge to rehabilitation facility for physical strengthening. Family happy with patient's clinical improvement, however, they are fully aware of his risk for continued decline, additional complications and . The future role of hospice has been discussed should patient's symptoms burden increases or he has additional functional decline/unable to tolerate rehabilitation. * SYMPTOMS: == Shortness of breath, history of COPD. Intubated and extubated. Currently tolerating O2 via nasal cannula at 2 L. Pulmonology following. == Debility, multifactorial secondary to acute events, hospitalization, progressive decline. Family electing to discharge to rehabilitation. == Pain, history of chronic pain. * Palliative care contact information has been provided to patient's son and significant other. * Palliative care will continue to follow-up during this hospitalization as clinical course evolves. . Time Spent Total Floor Time (mins): 33 (Total time to include review and summarization of medical records, physical exam, telephone message to patient's son, telephone conversation with patient's significant other Vivien and case discussion with bedside RN.) >50% Counseling/Coord of Care: Yes Attestation To help prompt me to consider important information that might be impacting today's encounter and assessment, information from prior notes written by myself or my colleagues may have been "brought forward" into today's note. My signature on this note, however, is an attestation that I personally performed the exam, history, and/or decision-making noted today, and, unless otherwise indicated, the interactions with patient, family, and staff as well as the review of records all occurred today. I also attest that the listed assessment and stated plan reflect my best clinical judgment today based on the combination of historical information, prior notes, and today's exam/ interactions. When time spent is documented, it refers only to time spent today by the signer, or if indicated, combined time spent today by collaborating physician/nurse practitioner. Farrah Sánchez Jan 24, 2017 16:58
[2017-01-24] MEDS: PANTOPRAZOLE SODIUM 40 MG VIAL IV PUSH SCH (21:58)
[2017-01-25] VITALS (15 sets, daily range): BP systolic 109–177; BP diastolic 69–91; PULSE 11–120; RESP 17–20; TEMP 97.7–98.5; O2SAT 92–98
[2017-01-25] MEDS: INSULIN NovoLIN REGULAR SUPPLEMENTAL SCALE SQ SCH ×4 (02:00→20:00)
[2017-01-25] MEDS: PIPERACIL-TAZO 4.5 GM PREMIX 100 ML IV SCH ×4 (03:40→21:00)
[2017-01-25] MEDS: RESP: ALBUTEROL 2.5 MG/IPRATROPIUM 0.5 MG NEB (SCH) NEB ×5 (03:59→19:46)
[2017-01-25] MEDS: HEPARIN SODIUM - SQ 10,000 UNITS/ML VIAL SQ SCH ×2 (07:19→18:39)
[2017-01-25] MEDS: RESP: BUDESONIDE 0.5 MG/2 ML NEB NEB SCH ×2 (07:47→19:46)
--- NOTE | 2017-01-25 08:01 | HHI.PR ---
Subjective Remarks analysis specialist Notes: 81yM with h/o COPD and prior PE who presented yesterday with history of nausea/ vomiting and was worked up including negative CT abd/pelvis with IV contrast. He returned this morning due to dizziness. At that time he had a lactate of 6, wbc 20k, and cxr demonstrating RUL pneumonia. he was given zosyn and 4L IVF. Repeat lactate demonstrated persistent lactic acidosis of 6. Also, after 6 hours, his uop was < 200cc. A Woodward catheter was inserted. his Cr was also elevated at 1.9. At this point, he became acutely hypoxemic and agitated. I was called and immediately went down to evaluate the patient. When I walked in , he was agitated and pulling off his NRB mask. He did not have a reliable spo2 monitor waveform and an abg was drawn with a po2 of 50. Decision was made to pursue emergent intubation (see separate procedure note for details). After intubation, the patient became hypotensive requiring vasopressor therapy and additional fluid boluses were given. Due to his impending cardiovascular collapse, a STAT echo was ordered which demonstrated hyperdynamic biventricular function, moderate pulmonary hypertension, and very collapsable IVC. He was given an additional 2L IVF and 2 amps bicarbonate for pH 7.11 on repeat abg with severe metabolic acidosis with BE -12. He was started on norepinephrine and vasopressin. He was transported to the medical ICU in critical condition. 01/09: Lactate is clearing, but slowly. CVP improved overnight. uop marginal, but slightly improved from yesterday. hypoxia slightly better as well, although persists on 100% fio2. wbc up to 44k today. 01/10: CVP rising yesterday, persistently oligoanuric. vasopressors persist, but at slightly lower dose. high fio2 requirements. wbc downtrending. 01/11: oxygenation severely worsened overnight. now on peep 15, fio2 100%, spo2 85%. vasopressors weaned off. cvp kuldip throughout the night to 23 this AM. CXR with evidence of significant pulmonary edema and intravascular volume overload. despite this, UOP minimal overnight and remains in oliguric renal failure. 01/12: Remains intubated sedated. Chest x-ray from yesterday prominent bilateral infiltrates right more than left with mediastinal prominence. CT chest ordered for today. Urine output 10 L in 24 hours on Lasix infusion 20 mg pr hour. Slight worsening of creatinine to 2.15. Weight is still up by 9 KG. WBC count essentially stable 01/14: Afebrile. Not really responsive this a.m. so MRI brain/EEG pending. Currently on CPAP trial. Lasix infusion will be discontinued. Positive BM. Tolerating tube feeds 01/15: Resting comfortably in bed. Currently on CPAP trials. Very poor duration. Currently 50% FiO2. X-ray stable. Tolerating tube feeds. Positive bowel movement. Agitated once sedation removed. 01/16: Tmax 100. Currently on CPAP trials while on propofol drip. FiO2 45%. X -ray remained stable. Tolerating tube feeds. Positive BMs yesterday. 01/17 Patient is sedated with Diprivan, Fentanyl and intubated. Afebrile. Had bigeminy/PVC overnight given Lidocaine 100mg IV x1. 01/18 Patient is sedated with Diprivan and intubated. T:101.6 last night. 01/19 Patient remains intubated tolerated CPAP for several hrs yesterday. Tmax 100.2. Currently off sedation and on CPAP 10/5 with 45% FIO2. Does not follow commands. Repeat EEG yesterday showed high frequency artifact. 01/20 No acute events overnight. Off sedation. Patient is more awake this morning and able to track. Afebrile. On CPAP with PS: 10, PEEP:5 and FIO2 45% 01/21 Patient s/p extubation yesterday. Awake follows commands. Afebrile. 01/22 No acute events overnight. Afebrile. 01/25 Patient seen in his bedroom in Intensive Care unit and discussed with nurse Karyna, he is not feeling well states, he feels weak and has generalized discomfort recommended by math specialist to wean Oxygen, PT evaluation, bronchodilator, Mucolytic, incentive spirometry. follow laboratory for tomorrow and Heparin for DVT prophylaxis. steroids. Objective Vital Signs Date Time Temp Pulse Resp B/P Pulse Ox O2 Delivery O2 Flow Rate FiO2 01/25/17 07:48 93 Nasal Cannula 4.00 01/25/17 06:00 120 01/25/17 04:00 98.2 11 20 150/72 98 01/25/17 04:00 111 01/25/17 02:00 104 01/25/17 00:00 116 01/25/17 00:00 98.0 116 19 109/91 95 01/24/17 22:00 103 01/24/17 20:00 98.4 111 20 133/83 93 01/24/17 20:00 111 01/24/17 19:49 94 Nasal Cannula 3.00 01/24/17 18:00 100 01/24/17 16:00 103 01/24/17 16:00 98.2 106 22 145/73 93 01/24/17 14:00 98.2 86 125/80 94 01/24/17 14:00 103 01/24/17 12:00 86 01/24/17 12:00 98.0 93 134/70 93 01/24/17 10:00 86 01/24/17 08:00 120 01/24/17 08:00 98.0 90 113/70 93 I/O 01/24/17 01/24/17 01/24/17 01/25/17 01/25/17 01/25/17 07:00 15:00 23:00 07:00 15:00 23:00 Intake Total 462 ml 777 ml 200 ml 150 ml Output Total 450 ml 375 ml 350 ml Balance 462 ml 327 ml -175 ml -200 ml Intake Oral 240 ml 300 ml 100 ml 50 ml IV Total 222 ml 477 ml 100 ml 100 ml Output Urine Total 450 ml 375 ml 350 ml # Voids 2 1 # Bowel Movements 1 1 Result Diagram: 01/23/17 1012 01/24/17 1350 Imaging Last Impressions Chest X-Ray 01/24/17 0600 Signed Impressions: Service Date/Time: Tuesday, January 24, 2017 03:30 - CONCLUSION: Bilateral patchy infiltrates. Robert Larson MD Abdomen X-Ray 01/17/17 0000 Signed Impressions: Service Date/Time: Tuesday, January 17, 2017 20:02 - CONCLUSION: 1. Nonspecific bowel gas pattern. 2. NG tube in the stomach. Bart Spring MD Skull X-Ray 01/14/17 0000 Signed Impressions: Service Date/Time: Saturday, January 14, 2017 11:20 - CONCLUSION: No MRI incompatible foreign body is identified. Bar Arias MD Brain MRI 01/14/17 0000 Signed Impressions: Service Date/Time: Saturday, January 14, 2017 15:40 - CONCLUSION: No acute abnormality is seen. Bar Arias MD Chest CT 01/12/17 0000 Signed Impressions: Service Date/Time: Thursday, January 12, 2017 16:58 - CONCLUSION: 1. Extensive consolidation throughout much of the right lung likely representing processes such as inflammatory change and pneumonia. 2. Extensive adenopathy is seen throughout the mediastinum. This is nonspecific. It could be reactive or neoplastic. If it is neoplastic, lymphoma should be considered. Axillary adenopathy is not seen. Bar Arias MD Renal Ultrasound 01/10/17 0000 Signed Impressions: Service Date/Time: Tuesday, January 10, 2017 10:49 - CONCLUSION: 1. Kidneys appear normal. 2. Impression on the bladder floor from the prostate. There is a bladder diverticulum and possible bladder stone present. Bar Arias MD Other Results Laboratory Tests Test 01/21/17 01/23/17 01/24/17 12:16 10:12 13:50 Vancomycin Level Trough 15.5 MCG/ML White Blood Count 12.2 TH/MM3 Red Blood Count 3.57 MIL/MM3 Hemoglobin 10.4 GM/DL Hematocrit 32.3 % Mean Corpuscular Volume 90.3 FL Mean Corpuscular Hemoglobin 29.2 PG Mean Corpuscular Hemoglobin 32.3 % Concent Red Cell Distribution Width 15.7 % Platelet Count 163 TH/MM3 Mean Platelet Volume 9.6 FL Neutrophils (%) (Auto) 72.4 % Lymphocytes (%) (Auto) 19.8 % Monocytes (%) (Auto) 5.2 % Eosinophils (%) (Auto) 2.0 % Basophils (%) (Auto) 0.6 % Neutrophils # (Auto) 8.8 TH/MM3 Lymphocytes # (Auto) 2.4 TH/MM3 Monocytes # (Auto) 0.6 TH/MM3 Eosinophils # (Auto) 0.2 TH/MM3 Basophils # (Auto) 0.1 TH/MM3 CBC Comment DIFF FINAL Differential Comment Sodium Level 147 MEQ/L Potassium Level 3.6 MEQ/L Chloride Level 115 MEQ/L Carbon Dioxide Level 19.2 MEQ/L Anion Gap 13 MEQ/L Blood Urea Nitrogen 26 MG/DL Creatinine 1.15 MG/DL Estimat Glomerular Filtration 61 ML/MIN Rate Random Glucose 101 MG/DL Calcium Level 8.6 MG/DL Objective Remarks GENERAL:No acute distress SKIN: Warm and dry. HEAD: Normocephalic. EYES: No scleral icterus. No injection or drainage. NECK: Supple, trachea midline. No JVD or lymphadenopathy. CARDIOVASCULAR: Regular rate and rhythm without murmurs, gallops, or rubs. RESPIRATORY: Breath sounds equal bilaterally. No accessory muscle use. GASTROINTESTINAL: Abdomen soft, non-tender, nondistended. MUSCULOSKELETAL: No cyanosis, or edema. Neuro: Awake, follows commands. Medications and IVs Current Medications Medications (Trade) Dose Ordered Sig/Josefina Route Start Time Stop Time Status Last Admin (Ecotrin Ec) 81 mg DAILY PO 01/09/17 09:00 01/24/17 10:01 (Lactinex) 1 tab TID PO 01/08/17 18:00 01/24/17 18:40 (NS Flush) 2 ml UNSCH PRN IV FLUSH 01/08/17 15:45 01/19/17 15:47 (NS Flush) 2 ml BID IV FLUSH 01/08/17 21:00 01/24/17 21:00 (Heparin Inj) 5,000 units Q12H SQ 01/08/17 18:00 01/25/17 07:19 Miscellaneous Information 1 Q361D XX 01/08/17 15:45 (Chlorhexidine 2% Cloth) Taper DAILY@04 TOP 01/09/17 04:00 01/05/18 03:59 01/24/17 21:58 (Chlorhexidine 2% Cloth) 3 pack UNSCH PRN TOP 01/08/17 15:45 (Zofran Inj) 4 mg Q6H PRN IV 01/08/17 15:45 (Holly-Colace) 1 tab BID PRN PO 01/08/17 15:45 (Tums Chew) 1,000 mg TID PRN CHEW 01/08/17 15:45 (Peridex 0.12% Liq) 15 ml BID@08,20 MT 01/08/17 20:00 01/24/17 20:00 (Protonix Inj) 40 mg Q24H IV PUSH 01/08/17 21:00 01/24/17 21:58 Alteplase, Recombinant 2 mg 2 mg Q2H PRN INTRACATH 01/10/17 21:45 01/10/17 22:30 Magnesium Sulfate 2 gm/Sodium Chloride 104 ml @ 52 mls/hr UNSCH PRN IV 01/11/17 15:30 (KCl 20 Meq Premix Inj) 100 ml @ 50 mls/hr UNSCH PRN IV 01/11/17 15:30 01/21/17 11:20 (Colace Liq) 100 mg Q12HR PO 01/12/17 09:00 01/24/17 21:58 (Senna Liq) 8.8 mg DAILY PO 01/12/17 09:00 01/24/17 09:10 (Trandate Inj) 10 mg Q1HR PRN IV PUSH 01/14/17 13:30 (Tylenol) 500 mg Q6H PRN PO 01/16/17 14:30 01/17/17 15:46 (D50w (Vial) Inj) 25 ml UNSCH PRN IV PUSH 01/17/17 08:00 (Glucagon Inj) 1 mg UNSCH PRN OTHER 01/17/17 08:00 (NovoLIN R SUPPLEMENTAL SCALE) 1 Q6H SQ 01/17/17 08:00 01/24/17 14:00 (Mycostatin Powder) 1 applic Q12HR PRN TOPICAL 01/17/17 08:15 01/18/17 09:15 Hydralazine HCl 10 mg 10 mg Q6H PRN IV PUSH 01/17/17 08:45 01/23/17 22:05 Piperacillin Sod/ Tazobactam Sod 100 ml @ 200 mls/hr Q6H IV 01/18/17 09:00 01/25/17 03:40 Potassium Chloride 100 ml @ 50 mls/hr Q2H PRN IV 01/18/17 09:15 01/20/17 09:57 Potassium Chloride 100 ml @ 50 mls/hr Q2H PRN IV 01/18/17 09:15 Potassium Chloride 100 ml @ 25 mls/hr UNSCH PRN IV 01/18/17 09:15 Potassium Chloride 100 ml @ 50 mls/hr Q2H PRN IV 01/18/17 09:15 01/24/17 06:04 (Magnesium Sulfate Inj/NS Inj) 100 ml @ 50 mls/hr UNSCH PRN IV 01/18/17 09:15 Magnesium Oxide 800 mg 800 mg UNSCH PRN PO 01/18/17 09:15 (Magnesium Sulfate Inj/NS Inj) 100 ml @ 50 mls/hr UNSCH PRN IV 01/18/17 09:15 Potassium Phosphate 2000 mg 2,000 mg Q4H PRN PO 01/18/17 09:15 (Sodium Phosphate Inj/NS 250 ml Inj) 250 ml @ 42 mls/hr UNSCH PRN IV 01/18/17 09:15 Potassium Phosphate 2000 mg 2,000 mg UNSCH PRN PO/TUBE 01/18/17 09:15 (Potassium Phosphate Inj/NS 250 ml Inj) 260 ml @ 42 mls/hr UNSCH PRN IV 01/18/17 09:15 (Diflucan) 100 mg DAILY PO 01/19/17 10:15 01/24/17 09:11 (Deltasone) 20 mg DAILY PO 01/22/17 09:00 01/24/17 09:11 A/P Problem List: (1) Sepsis ICD Code: A41.9 (2) Pneumonia ICD Code: J18.9 (3) Respiratory failure ICD Code: J96.90 Assessment and Plan 1. Acute Agitated Delirium Improved, patient on chronic Xanax use. avoid sedatives, Neurology specialist following. MRI brain with no acute findings, EEG monitoring, Encephalopathy with no epileptiform activity. 2. Peripheral neuropathy 3. Acute Hypoxic respiratory failure/Pulmonary edema/Severe Pulmonary Hypertension, math specialist following Oxygen to keep O Sat >92%, Bronchodilator, Mucolytic, incentive spirometry. Steroids. EF 60-65%. 4. Multilobar Pneumococcal Pneumonia continue antibiotics. 5. COPD Exacerbation 6. Septic Shock resolved 01/08 blood cultures strep Pneumonia on Zosyn and Vancomycin discontinued and PCN G started by Doctor Robledo 01/11/17 continue Zosyn and Diflucan ID following Urine Culture Pseudomonas, C Glabrata, Sputum Pseudomonas Blood culture Strep Pneumonia 7. RIZWAN improving. 8. Acute protein Calorie Malnutrition Mild 9. Normocytic Anemia GI Prophylaxis Protonix 40 mg IV every 24 hours DVT Prophylaxis -- SCDs Subcutaneous heparin twice a day PT/OT eval and treat Palliative care is following Okay to transfer to medical floor. Discharge Planning when cleared by specialists will follow recommendations, Froy Steward MD Jan 25, 2017 08:00 Acute protein calorie malnutritionmild On pureed honey thick diet per speech ID: Strep pneumonia bacteremia Leukocytosis Multilobar pneumococcal pneumonia s/p Septic shock pneumococcus Ag: + --01/08 blood cultures: strep pneumo. Zosyn and Vanc dcd and PCN G started by Dr. Robledo 01/11/17 Continue with abx(Zosyn, Diflucan), ID is following- Dr. Queen Monitor for signs of infections ( Fever, WBC) WBC trending down -Recheck sputum cx and U/A 01/17 Urine cx: Pseudomonas, C. Glabrata 01/17 Sputum: Pseudomonas 01/08 BC: Strep pneumonia Heme: Normocytic anemia Monitor CBC Endocrine: Hyperglycemia of critical illness -- Medium dose SSI, q4h. Prophylaxis: GI Prophylaxis Protonix 40 mg IV every 24 hours DVT Prophylaxis -- SCDs Subcutaneous heparin twice a day Lines: peripheral IV's PT/OT eval and treat Palliative care is following Will sign off and transfer care to [facility] Level 3 Lj Harris MD Jan 22, 2017 07:58 Froy Steward MD Jan 25, 2017 08:00
[2017-01-25] MEDS: DOCUSATE SODIUM 100 MG/10 ML UDC PO SCH ×2 (08:30→21:50)
[2017-01-25] MEDS: SENNOSIDES SYRUP 8.8 MG/5 ML CUP PO SCH (08:30)
[2017-01-25] MEDS: LACTOBACILLUS ACIDOPHILUS TAB PO SCH ×3 (08:31→18:38)
[2017-01-25] MEDS: ASPIRIN EC 81 MG TABEC PO SCH (08:31)
[2017-01-25] MEDS: FLUCONAZOLE 100 MG TAB PO SCH (08:31)
[2017-01-25] MEDS: predniSONE 20 MG TAB PO SCH (08:31)
[2017-01-25] MEDS: SODIUM CHLORIDE 0.9% FLUSH 5 ML FLUSH IV FLUSH SCH ×2 (08:31→21:00)
[2017-01-25] MEDS: CHLORHEXIDINE 0.12% (ORAL KIT) 15 ML CUP MT SCH ×2 (08:31→20:00)
--- NOTE | 2017-01-25 11:32 | HHI.HCPN ---
Reason for visit a. To assist with evaluation and management of symptoms including: dyspnea, back pain, debility. b. To assist medical decision maker(s) with: better understanding of current medical conditions; weighing benefits/burdens of medical treatment options; making medical treatment decisions. . Subjective/Interval History Patient seen in ICU. He was sitting up in a Amara chair in no acute distress. Patient awake, alert to self, place and situation with periods of confusion, however, confusion appears to be improving. Following commands, pleasant. Condom catheter and bilateral wrist restraints discontinued. Endorsing shortness of breath on exertion. Patient continue tolerating oxygen via nasal cannula at 2 L, oxygen saturation in the low 90s. Slightly tachycardic with heart rate in the low 110s. Patient denies pain, chest pain, nausea/vomiting or abdominal discomfort at this time. Eating ice chips, on pured diet and honey thickened liquids. Poor appetite, requires encouragement. No new imaging or laboratory today. Telephone call to patient's son and left message in voicemail. Son left message last night in palliative care voicemail requesting medical update and status of dispo. Returned telephone call and left another message. floodplain manager in contact with patient's significant other Vivien, goal is to discharge to rehabilitation for physical strengthening. Family has provided with names of preferred facilities. Spoke with patient's significant other Vivien who confirmed goals of care. . Family/friend interactions See interval note. . Advance Directives Living Will: Never completed Health Care Surrogate: Never completed Advance Directive Specifics Health Care Surrogate(s): Son, VERN Cabrera, cell / [phone] office lives in [place] agrees to serve as decision maker. Two other children were searched thru [employer] and no workable phone numbers were identified Samra Quach [phone] - Significant change in goals: Goals of care remain unchanged. Continue current medical management short of no code with goal of discharge to rehabilitation for physical straightening. . Objective Vital Signs Date Time Temp Pulse Resp B/P Pulse Ox O2 Delivery O2 Flow Rate FiO2 01/25/17 10:00 102 01/25/17 08:00 113 01/25/17 07:48 93 Nasal Cannula 4.00 01/25/17 06:00 120 01/25/17 04:00 98.2 11 20 150/72 98 01/25/17 04:00 111 01/25/17 02:00 104 01/25/17 00:00 116 01/25/17 00:00 98.0 116 19 109/91 95 01/24/17 22:00 103 01/24/17 20:00 98.4 111 20 133/83 93 01/24/17 20:00 111 01/24/17 19:49 94 Nasal Cannula 3.00 01/24/17 18:00 100 01/24/17 16:00 103 01/24/17 16:00 98.2 106 22 145/73 93 01/24/17 14:00 98.2 86 125/80 94 01/24/17 14:00 103 01/24/17 12:00 86 01/24/17 12:00 98.0 93 134/70 93 Intake & Output 01/25/17 01/25/17 07:00 19:00 Intake Total 350 ml Output Total 725 ml Balance -375 ml Intake Oral 150 ml IV Total 200 ml Output Urine Total 725 ml Physical Exam CONSTITUTIONAL/GENERAL: This is an adequately nourished patient sitting up in Amara chair in no acute distress. TUBES/LINES/DRAINS: PIV's, nasal cannula, SCDs. SKIN: No jaundice, rashes, or lesions. Edema and Ecchymoses on upper extremities. Skin temperature appropriate. Not diaphoretic. HEAD: Atraumatic. Normocephalic. EYES: Pupils equal and round and reactive. No scleral icterus. No injection or drainage. ENT: hard of hearing . Nose without bleeding or purulent drainage. Throat without visible erythema, exudates, masses, or lesions. NECK: Trachea midline. Supple, nontender. CARDIOVASCULAR: Tachycardic with heart rate in the 110s. Regular rhythm. Peripheral pulses symmetric. RESPIRATORY/CHEST: Symmetric, unlabored respirations. Clear diminished breath sounds bilaterally. GASTROINTESTINAL: Abdomen soft, round, large. No guarding. Bowel sounds present. GENITOURINARY: Without palpable bladder distension. MUSCULOSKELETAL: Extremities without clubbing, cyanosis, or edema. No mottling or clubbing. NEUROLOGICAL: Oriented to self, and place. Confused at times. Following commands. Verbal. PSYCHIATRIC: Appears calm. . Diagnostic Tests Laboratory Laboratory Tests Test 3/26/17 3/27/17 10:12 13:50 White Blood Count 12.2 TH/MM3 (4.0-11.0) Red Blood Count 3.57 MIL/MM3 (4.50-5.90) Hemoglobin 10.4 GM/DL (13.0-17.0) Hematocrit 32.3 % (39.0-51.0) Mean Corpuscular Volume 90.3 FL (80.0-100.0) Mean Corpuscular Hemoglobin 29.2 PG (27.0-34.0) Mean Corpuscular Hemoglobin 32.3 % Concent (32.0-36.0) Red Cell Distribution Width 15.7 % (11.6-17.2) Platelet Count 163 TH/MM3 (150-450) Mean Platelet Volume 9.6 FL (7.0-11.0) Neutrophils (%) (Auto) 72.4 % (16.0-70.0) Lymphocytes (%) (Auto) 19.8 % (9.0-44.0) Monocytes (%) (Auto) 5.2 % (0.0-8.0) Eosinophils (%) (Auto) 2.0 % (0.0-4.0) Basophils (%) (Auto) 0.6 % (0.0-2.0) Neutrophils # (Auto) 8.8 TH/MM3 (1.8-7.7) Lymphocytes # (Auto) 2.4 TH/MM3 (1.0-4.8) Monocytes # (Auto) 0.6 TH/MM3 (0-0.9) Eosinophils # (Auto) 0.2 TH/MM3 (0-0.4) Basophils # (Auto) 0.1 TH/MM3 (0-0.2) CBC Comment DIFF FINAL Differential Comment Sodium Level 148 MEQ/L 147 MEQ/L (136-145) (136-145) Potassium Level 3.4 MEQ/L 3.6 MEQ/L (3.5-5.1) (3.5-5.1) Chloride Level 114 MEQ/L 115 MEQ/L (98-107) (98-107) Carbon Dioxide Level 23.7 MEQ/L 19.2 MEQ/L (21.0-32.0) (21.0-32.0) Anion Gap 10 MEQ/L (5-15) 13 MEQ/L (5-15) Blood Urea Nitrogen 33 MG/DL (7-18) 26 MG/DL (7-18) Creatinine 1.09 MG/DL 1.15 MG/DL (0.60-1.30) (0.60-1.30) Estimat Glomerular Filtration 65 ML/MIN (>89) 61 ML/MIN (>89) Rate Random Glucose 112 MG/DL 101 MG/DL (74-106) (74-106) Calcium Level 8.3 MG/DL 8.6 MG/DL (8.5-10.1) (8.5-10.1) Result Diagram: 01/23/17 1012 01/24/17 1350 Imaging Last 48 hours Impressions Chest X-Ray 01/24/17 0600 Signed Impressions: Service Date/Time: Tuesday, January 24, 2017 03:30 - CONCLUSION: Bilateral patchy infiltrates. Robert Larson MD Assessment and Plan Disease Oriented Problem List: (1) COPD (chronic obstructive pulmonary disease) (2) CAD (coronary artery disease) (3) Respiratory failure (4) Encephalopathy (5) Sepsis Comment: On antibioticsurine Pseudomonas: Sputum gram-negative wagner Symptom Scale: (1) Dyspnea 0-10 Scale: Unable to quantify Comment: Tolerating O2 via nasal cannula 2 L. (2) Pain 0-10 Scale: 0 (frequently shifts positions ) Comment: History of pain. Denies pain at this time. 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 Jose his son is HCP - 2 remaining children have not been found thru [employer] report . Important Contacts Jose " Leeroy" Rick, Son [phone] office [phone] cell - works for [employer] in [place] Vivien Enger - [employer] - [phone] Prognosis Prognosis is guarded in light of advanced age, following multisystem organ failure post septic shock with COPD and now w O2 dependency Code Status: No Code Plan * CODE STATUS: No code. DNR/DNI. * MEDICAL DECISION-MAKER: Patient incapacitated for medical decision-making secondary to clinical condition, intermittent confusion. As per [place] law, patient's children would be designated healthcare proxy. Patient has 3 children , medical decision making falls to patient's son Jose Cabrera -there are 2 other children who have not been identified thru [employer] Report. Jose does not have their contact information. * GOALS OF CARE: Remain unchanged, continue medical management short of no code with hopes to discharge to rehabilitation facility for physical strengthening. Family happy with patient's clinical improvement, however, they are fully aware of his risk for continued decline, additional complications and . The future role of hospice has been discussed should patient's symptoms burden increases or he has additional functional decline/unable to tolerate rehabilitation. * SYMPTOMS: == Shortness of breath, history of COPD. Intubated and extubated. Currently tolerating O2 via nasal cannula at 2 L. Pulmonology following. == Debility, multifactorial secondary to acute events, hospitalization, progressive decline. Family electing to discharge to rehabilitation. == Pain, history of chronic pain. * Palliative care contact information has been provided to patient's son and significant other. * Palliative care will continue to follow-up during this hospitalization as clinical course evolves. . Time Spent Total Floor Time (mins): 34 (Total time to include review of medical records, physical exam, telephone conversation with son and significant other Vivien.) >50% Counseling/Coord of Care: Yes Attestation To help prompt me to consider important information that might be impacting today's encounter and assessment, information from prior notes written by myself or my colleagues may have been "brought forward" into today's note. My signature on this note, however, is an attestation that I personally performed the exam, history, and/or decision-making noted today, and, unless otherwise indicated, the interactions with patient, family, and staff as well as the review of records all occurred today. I also attest that the listed assessment and stated plan reflect my best clinical judgment today based on the combination of historical information, prior notes, and today's exam/ interactions. When time spent is documented, it refers only to time spent today by the signer, or if indicated, combined time spent today by collaborating physician/nurse practitioner. Farrah Sánchez Jan 25, 2017 11:32
--- NOTE | 2017-01-25 13:09 | HHI.PR ---
Subjective Remarks Awake and up in Chair..On a N/C 3 L.. Taking a diet. No SOB . Objective Vital Signs Date Time Temp Pulse Resp B/P Pulse Ox O2 Delivery O2 Flow Rate FiO2 01/25/17 10:00 102 01/25/17 08:00 113 01/25/17 07:48 93 Nasal Cannula 4.00 01/25/17 06:00 120 01/25/17 04:00 98.2 11 20 150/72 98 01/25/17 04:00 111 01/25/17 02:00 104 01/25/17 00:00 116 01/25/17 00:00 98.0 116 19 109/91 95 01/24/17 22:00 103 01/24/17 20:00 98.4 111 20 133/83 93 01/24/17 20:00 111 01/24/17 19:49 94 Nasal Cannula 3.00 01/24/17 18:00 100 01/24/17 16:00 103 01/24/17 16:00 98.2 106 22 145/73 93 01/24/17 14:00 98.2 86 125/80 94 01/24/17 14:00 103 I/O 01/24/17 01/24/17 01/24/17 01/25/17 01/25/17 01/25/17 07:00 15:00 23:00 07:00 15:00 23:00 Intake Total 462 ml 777 ml 200 ml 150 ml Output Total 450 ml 375 ml 350 ml Balance 462 ml 327 ml -175 ml -200 ml Intake Oral 240 ml 300 ml 100 ml 50 ml IV Total 222 ml 477 ml 100 ml 100 ml Output Urine Total 450 ml 375 ml 350 ml # Voids 2 1 # Bowel Movements 1 1 Result Diagram: 01/23/17 1012 01/24/17 1350 Objective Remarks This moderately overweight elderly white male is alert HEENT: Head normocephalic. Pupils reactive. Sclerae are clear. Throat clear. Ears, no inflammation. Neck: Supple. No bruits. No venous distension. Trachea midline. Chest: Equal movements with increased AP diameter with occ crackles at bases with wheeze . Heart: The heart sounds are irregular, S1-S2. No murmur. No S3. Abdomen: The abdomen is protuberant, soft, without masses, organomegaly or tenderness. Bowel sounds active. Extremities: decreased pulses. No edema. Neurologic: Awake and with 1 + reflexes Rectal: Exam is deferred. Assessment and Plan Assessment and Plan IMPRESSION 1. Septic shock. 2. Extensive right lung pneumonia and hypoxemia. 3. Acute hypoxemic, hypercapnic respiratory failure. 4. COPD with emphysema 5. History of pulmonary embolism. 6. History of hypertension. 7. RIZWAN. Plan : 1. Wean O2 to 2 l 2. IS at bedside q2h. 3. Cont antibiotics as ordered. 4. PT evaluation 5. Nebs q6h , Duoneb. 6. Cont Heparin 5000 U S/Q bid. 7. CBC,BMP 8. PO diet as tolerated 10. Prednisone 15 mg daily. Cheri Cadena MD Jan 25, 2017 13:09
[2017-01-25] MEDS: PANTOPRAZOLE SODIUM 40 MG VIAL IV PUSH SCH (21:50)
[2017-01-26] VITALS (10 sets, daily range): BP systolic 123–174; BP diastolic 63–78; PULSE 84–97; RESP 20–24; TEMP 97.2–98.2; O2SAT 90–97
[2017-01-26] MEDS: RESP: ALBUTEROL 2.5 MG/IPRATROPIUM 0.5 MG NEB (SCH) NEB ×6 (01:10→20:16)
[2017-01-26] MEDS: INSULIN NovoLIN REGULAR SUPPLEMENTAL SCALE SQ SCH ×4 (01:32→20:00)
[2017-01-26] MEDS: PIPERACIL-TAZO 4.5 GM PREMIX 100 ML IV SCH ×4 (03:45→21:32)
[2017-01-26] MEDS: CHLORHEXIDINE GLUCONATE 2 % 1 PACK (2 CLOTHS) TOP SCH (04:00)
[2017-01-26] MEDS: HEPARIN SODIUM - SQ 10,000 UNITS/ML VIAL SQ SCH ×2 (05:57→16:20)
[2017-01-26] MEDS: CHLORHEXIDINE 0.12% (ORAL KIT) 15 ML CUP MT SCH ×2 (08:00→20:00)
[2017-01-26] MEDS: RESP: BUDESONIDE 0.5 MG/2 ML NEB NEB SCH ×2 (08:25→20:16)
[2017-01-26] MEDS: SENNOSIDES SYRUP 8.8 MG/5 ML CUP PO SCH (09:00)
[2017-01-26] MEDS: DOCUSATE SODIUM 100 MG/10 ML UDC PO SCH ×2 (09:00→21:32)
[2017-01-26] MEDS: ASPIRIN EC 81 MG TABEC PO SCH (09:49)
[2017-01-26] MEDS: LACTOBACILLUS ACIDOPHILUS TAB PO SCH ×3 (09:49→16:20)
[2017-01-26] MEDS: FLUCONAZOLE 100 MG TAB PO SCH (09:49)
[2017-01-26] MEDS: SODIUM CHLORIDE 0.9% FLUSH 5 ML FLUSH IV FLUSH SCH ×2 (09:50→20:48)
[2017-01-26] MEDS: predniSONE 20 MG TAB PO SCH (09:50)
--- NOTE | 2017-01-26 09:59 | HHI.PR ---
Subjective Remarks pharmacy informatics specialist Notes: 81yM with h/o COPD and prior PE who presented yesterday with history of nausea/ vomiting and was worked up including negative CT abd/pelvis with IV contrast. He returned this morning due to dizziness. At that time he had a lactate of 6, wbc 20k, and cxr demonstrating RUL pneumonia. he was given zosyn and 4L IVF. Repeat lactate demonstrated persistent lactic acidosis of 6. Also, after 6 hours, his uop was < 200cc. A Woodward catheter was inserted. his Cr was also elevated at 1.9. At this point, he became acutely hypoxemic and agitated. I was called and immediately went down to evaluate the patient. When I walked in , he was agitated and pulling off his NRB mask. He did not have a reliable spo2 monitor waveform and an abg was drawn with a po2 of 50. Decision was made to pursue emergent intubation (see separate procedure note for details). After intubation, the patient became hypotensive requiring vasopressor therapy and additional fluid boluses were given. Due to his impending cardiovascular collapse, a STAT echo was ordered which demonstrated hyperdynamic biventricular function, moderate pulmonary hypertension, and very collapsable IVC. He was given an additional 2L IVF and 2 amps bicarbonate for pH 7.11 on repeat abg with severe metabolic acidosis with BE -12. He was started on norepinephrine and vasopressin. He was transported to the medical ICU in critical condition. 01/09: Lactate is clearing, but slowly. CVP improved overnight. uop marginal, but slightly improved from yesterday. hypoxia slightly better as well, although persists on 100% fio2. wbc up to 44k today. 01/10: CVP rising yesterday, persistently oligoanuric. vasopressors persist, but at slightly lower dose. high fio2 requirements. wbc downtrending. 01/11: oxygenation severely worsened overnight. now on peep 15, fio2 100%, spo2 85%. vasopressors weaned off. cvp kuldip throughout the night to 23 this AM. CXR with evidence of significant pulmonary edema and intravascular volume overload. despite this, UOP minimal overnight and remains in oliguric renal failure. 01/12: Remains intubated sedated. Chest x-ray from yesterday prominent bilateral infiltrates right more than left with mediastinal prominence. CT chest ordered for today. Urine output 10 L in 24 hours on Lasix infusion 20 mg pr hour. Slight worsening of creatinine to 2.15. Weight is still up by 9 KG. WBC count essentially stable 01/14: Afebrile. Not really responsive this a.m. so MRI brain/EEG pending. Currently on CPAP trial. Lasix infusion will be discontinued. Positive BM. Tolerating tube feeds 01/15: Resting comfortably in bed. Currently on CPAP trials. Very poor duration. Currently 50% FiO2. X-ray stable. Tolerating tube feeds. Positive bowel movement. Agitated once sedation removed. 01/16: Tmax 100. Currently on CPAP trials while on propofol drip. FiO2 45%. X -ray remained stable. Tolerating tube feeds. Positive BMs yesterday. 01/17 Patient is sedated with Diprivan, Fentanyl and intubated. Afebrile. Had bigeminy/PVC overnight given Lidocaine 100mg IV x1. 01/18 Patient is sedated with Diprivan and intubated. T:101.6 last night. 01/19 Patient remains intubated tolerated CPAP for several hrs yesterday. Tmax 100.2. Currently off sedation and on CPAP 10/5 with 45% FIO2. Does not follow commands. Repeat EEG yesterday showed high frequency artifact. 01/20 No acute events overnight. Off sedation. Patient is more awake this morning and able to track. Afebrile. On CPAP with PS: 10, PEEP:5 and FIO2 45% 01/21 Patient s/p extubation yesterday. Awake follows commands. Afebrile. 01/22 No acute events overnight. Afebrile. Hospitalist Notes: 01/25 Patient seen in his bedroom in Intensive Care unit and discussed with nurse Miss Troncoso, he is not feeling well states, he feels weak and has generalized discomfort recommended by photo print specialist to wean Oxygen, PT evaluation, bronchodilator, Mucolytic, incentive spirometry. follow laboratory for tomorrow and Heparin for DVT prophylaxis. steroids. 01/26 Patient seen in the room in the presence of nurse Miss Crane appreciated, stable alert and oriented in place and person, will continue working with physical therapy, was transferred to the Medical floor yesterday afternoon, no Nausea, vomit or diarrhea. afebrile, photo print specialist, ID specialist following, processing specialist following, continue Zosyn IV, Oxygen Support to keep O sat >92%, DNR status. Objective Vital Signs Date Time Temp Pulse Resp B/P Pulse Ox O2 Delivery O2 Flow Rate FiO2 01/26/17 08:27 92 Nasal Cannula 4.00 01/26/17 08:07 97.8 87 22 123/65 97 01/26/17 04:33 90 Nasal Cannula 4.00 01/26/17 04:32 97.2 84 20 133/63 95 01/25/17 23:23 98.5 118 20 118/71 93 01/25/17 23:23 98.5 118 20 118/71 93 01/25/17 22:00 78 01/25/17 22:00 97.7 78 18 152/69 93 01/25/17 20:00 97.7 111 19 177/80 93 01/25/17 20:00 111 01/25/17 19:46 92 Nasal Cannula 2.00 01/25/17 18:00 102 01/25/17 16:00 98.4 102 17 133/84 95 01/25/17 16:00 99 01/25/17 14:00 105 01/25/17 12:00 98.3 117 17 138/82 94 01/25/17 12:00 107 01/25/17 10:00 102 I/O 01/25/17 01/25/17 01/25/17 01/26/17 01/26/17 01/26/17 07:00 15:00 23:00 07:00 15:00 23:00 Intake Total 150 ml 100 ml 160 ml 0 ml Output Total 350 ml 300 ml Balance -200 ml 100 ml -140 ml 0 ml Intake Oral 50 ml 50 ml 0 ml IV Total 100 ml 100 ml 110 ml Output Urine Total 350 ml 300 ml # Voids 5 1 2 # Bowel Movements 1 1 Result Diagram: 01/23/17 1012 01/24/17 1350 Imaging Last Impressions Chest X-Ray 01/24/17 0600 Signed Impressions: Service Date/Time: Tuesday, January 24, 2017 03:30 - CONCLUSION: Bilateral patchy infiltrates. Robert Larson MD Abdomen X-Ray 01/17/17 0000 Signed Impressions: Service Date/Time: Tuesday, January 17, 2017 20:02 - CONCLUSION: 1. Nonspecific bowel gas pattern. 2. NG tube in the stomach. Bart Spring MD Skull X-Ray 01/14/17 0000 Signed Impressions: Service Date/Time: Saturday, January 14, 2017 11:20 - CONCLUSION: No MRI incompatible foreign body is identified. Bar Arias MD Brain MRI 01/14/17 0000 Signed Impressions: Service Date/Time: Saturday, January 14, 2017 15:40 - CONCLUSION: No acute abnormality is seen. Bar Arias MD Chest CT 01/12/17 0000 Signed Impressions: Service Date/Time: Thursday, January 12, 2017 16:58 - CONCLUSION: 1. Extensive consolidation throughout much of the right lung likely representing processes such as inflammatory change and pneumonia. 2. Extensive adenopathy is seen throughout the mediastinum. This is nonspecific. It could be reactive or neoplastic. If it is neoplastic, lymphoma should be considered. Axillary adenopathy is not seen. Bar Arias MD Renal Ultrasound 01/10/17 0000 Signed Impressions: Service Date/Time: Tuesday, January 10, 2017 10:49 - CONCLUSION: 1. Kidneys appear normal. 2. Impression on the bladder floor from the prostate. There is a bladder diverticulum and possible bladder stone present. Bar Arias MD Procedures Endotracheal intubation and Extubation. Other Results Laboratory Tests Test 01/23/17 01/24/17 10:12 13:50 White Blood Count 12.2 TH/MM3 Red Blood Count 3.57 MIL/MM3 Hemoglobin 10.4 GM/DL Hematocrit 32.3 % Mean Corpuscular Volume 90.3 FL Mean Corpuscular Hemoglobin 29.2 PG Mean Corpuscular Hemoglobin 32.3 % Concent Red Cell Distribution Width 15.7 % Platelet Count 163 TH/MM3 Mean Platelet Volume 9.6 FL Neutrophils (%) (Auto) 72.4 % Lymphocytes (%) (Auto) 19.8 % Monocytes (%) (Auto) 5.2 % Eosinophils (%) (Auto) 2.0 % Basophils (%) (Auto) 0.6 % Neutrophils # (Auto) 8.8 TH/MM3 Lymphocytes # (Auto) 2.4 TH/MM3 Monocytes # (Auto) 0.6 TH/MM3 Eosinophils # (Auto) 0.2 TH/MM3 Basophils # (Auto) 0.1 TH/MM3 CBC Comment DIFF FINAL Differential Comment Sodium Level 147 MEQ/L Potassium Level 3.6 MEQ/L Chloride Level 115 MEQ/L Carbon Dioxide Level 19.2 MEQ/L Anion Gap 13 MEQ/L Blood Urea Nitrogen 26 MG/DL Creatinine 1.15 MG/DL Estimat Glomerular Filtration 61 ML/MIN Rate Random Glucose 101 MG/DL Calcium Level 8.6 MG/DL Objective Remarks GENERAL:No acute distress SKIN: Warm and dry. HEAD: Normocephalic. EYES: No scleral icterus. No injection or drainage. NECK: Supple, trachea midline. No JVD or lymphadenopathy. CARDIOVASCULAR: Regular rate and rhythm without murmurs, gallops, or rubs. RESPIRATORY: Decreased breath sounds bilateral, no wheezing or crackles. GASTROINTESTINAL: Abdomen soft, non-tender, nondistended. MUSCULOSKELETAL: No cyanosis, or edema. NEUROLOGY: Alert and oriented in place and person. Medications and IVs Current Medications Medications (Trade) Dose Ordered Sig/Josefina Route Start Time Stop Time Status Last Admin (Ecotrin Ec) 81 mg DAILY PO 01/09/17 09:00 01/26/17 09:49 (Lactinex) 1 tab TID PO 01/08/17 18:00 01/26/17 09:49 (NS Flush) 2 ml UNSCH PRN IV FLUSH 01/08/17 15:45 01/19/17 15:47 (NS Flush) 2 ml BID IV FLUSH 01/08/17 21:00 01/26/17 09:50 (Heparin Inj) 5,000 units Q12H SQ 01/08/17 18:00 01/26/17 05:57 Miscellaneous Information 1 Q361D XX 01/08/17 15:45 (Chlorhexidine 2% Cloth) Taper DAILY@04 TOP 01/09/17 04:00 01/05/18 03:59 01/24/17 21:58 (Chlorhexidine 2% Cloth) 3 pack UNSCH PRN TOP 01/08/17 15:45 (Zofran Inj) 4 mg Q6H PRN IV 01/08/17 15:45 (Holly-Colace) 1 tab BID PRN PO 01/08/17 15:45 (Tums Chew) 1,000 mg TID PRN CHEW 01/08/17 15:45 (Peridex 0.12% Liq) 15 ml BID@08,20 MT 01/08/17 20:00 01/25/17 20:00 (Protonix Inj) 40 mg Q24H IV PUSH 01/08/17 21:00 01/25/17 21:50 Alteplase, Recombinant 2 mg 2 mg Q2H PRN INTRACATH 01/10/17 21:45 01/10/17 22:30 (KCl 20 Meq Premix Inj) 100 ml @ 50 mls/hr UNSCH PRN IV 01/11/17 15:30 01/21/17 11:20 (Colace Liq) 100 mg Q12HR PO 01/12/17 09:00 01/25/17 21:50 (Senna Liq) 8.8 mg DAILY PO 01/12/17 09:00 01/25/17 08:30 (Trandate Inj) 10 mg Q1HR PRN IV PUSH 01/14/17 13:30 01/25/17 09:48 (Tylenol) 500 mg Q6H PRN PO 01/16/17 14:30 01/17/17 15:46 (D50w (Vial) Inj) 25 ml UNSCH PRN IV PUSH 01/17/17 08:00 (Glucagon Inj) 1 mg UNSCH PRN OTHER 01/17/17 08:00 (NovoLIN R SUPPLEMENTAL SCALE) 1 Q6H SQ 01/17/17 08:00 01/24/17 14:00 (Mycostatin Powder) 1 applic Q12HR PRN TOPICAL 01/17/17 08:15 01/18/17 09:15 Hydralazine HCl 10 mg 10 mg Q6H PRN IV PUSH 01/17/17 08:45 01/23/17 22:05 (Zosyn 4.5 Gm Premix) 100 ml @ 200 mls/hr Q6H IV 01/18/17 09:00 01/26/17 09:49 (Diflucan) 100 mg DAILY PO 01/19/17 10:15 01/26/17 09:49 (Deltasone) 20 mg DAILY PO 01/22/17 09:00 01/26/17 09:50 A/P Problem List: (1) Sepsis ICD Code: A41.9 (2) Pneumonia ICD Code: J18.9 (3) Respiratory failure ICD Code: J96.90 Assessment and Plan 1. Acute Agitated Delirium Improved, patient on chronic Xanax use. avoid sedatives, Neurology specialist following. MRI brain with no acute findings, EEG monitoring, Encephalopathy with no epileptiform activity. 2. Peripheral neuropathy by history 3. VDRF Improved. Acute Hypoxic respiratory failure/Pulmonary edema/Severe Pulmonary Hypertension, photo print specialist following Oxygen to keep O Sat >92%, Bronchodilator, Mucolytic, incentive spirometry. Steroids. EF 60-65%. 4. Multilobar Pneumococcal Pneumonia continue antibiotics. Zosyn. 5. COPD Exacerbation 6. Septic Shock resolved 01/08 blood cultures strep Pneumonia on Zosyn and Vancomycin discontinued and PCN G started by Doctor Robledo 01/11/17 continue Zosyn and Diflucan ID following Urine Culture Pseudomonas, C Glabrata, Sputum Pseudomonas Blood culture Strep Pneumonia 7. RIZWAN improved 8. Acute protein Calorie Malnutrition Mild 9. Normocytic Anemia GI Prophylaxis Protonix 40 mg IV every 24 hours DVT Prophylaxis -- SCDs Subcutaneous heparin twice a day PT/OT eval and treat Palliative care is following Code status DNR, Goal remain send the patient to Rehabilitation Discharge Planning when cleared by specialists will follow recommendations, Froy Steward MD Jan 26, 2017 09:59
--- NOTE | 2017-01-26 13:26 | HHI.IDPN ---
Note Infectious Disease Note Patient is confused. Looks lethargic. Communicating but not coherent. Trying to eat and getting jello onto his chest. Afebrile. On O2 via nasal canula. WBC lower. Admitted to the hospital on 01/08/2017. He was brought to the emergency department after falling. He was noted to have markedly elevated white cell count of 20.2 on admission and heart rate greater than 90. The patient was intubated on admission. He had elevated lactic acid on admission. Blood cultures came back positive for strep pneumoniae and also the urine random pneumococcal antigen was positive. PAST MEDICAL HISTORY: 1. COPD 2. CVA 3. Coronary artery disease 4. Coronary stent 5. Obstructive sleep apnea 6. Hyperlipoidemia 7. Hypertension 8. Gastro-esophageal reflux disease 9. Pulmonary embolism. 10. Cholecystectomy. 11. Polypectomy 12. Appendectomy. ALLERGIES NO KNOWN DRUG ALLERGIES. MEDICATIONS 1. Piperacillin/tazobactam. SOCIAL HISTORY No tobacco use. No alcohol. No illicit drugs. OBJECTIVE: Vital Signs Date Time Temp Pulse Resp B/P Pulse Ox O2 Delivery O2 Flow Rate FiO2 01/26/17 08:27 92 Nasal Cannula 4.00 01/26/17 08:07 97.8 87 22 123/65 97 01/26/17 04:33 90 Nasal Cannula 4.00 01/26/17 04:32 97.2 84 20 133/63 95 01/25/17 23:23 98.5 118 20 118/71 93 01/25/17 23:23 98.5 118 20 118/71 93 01/25/17 22:00 78 01/25/17 22:00 97.7 78 18 152/69 93 01/25/17 20:00 97.7 111 19 177/80 93 01/25/17 20:00 111 01/25/17 19:46 92 Nasal Cannula 2.00 01/25/17 18:00 102 01/25/17 16:00 98.4 102 17 133/84 95 01/25/17 16:00 99 01/25/17 14:00 105 01/25/17 01/25/17 01/26/17 15:00 23:00 07:00 Intake Total 100 ml 160 ml 0 ml Output Total 300 ml Balance 100 ml -140 ml 0 ml Intake Oral 50 ml 0 ml IV Total 100 ml 110 ml Output Urine Total 300 ml # Voids 5 1 2 # Bowel Movements 1 1 Laboratory Tests Test 01/24/17 13:50 Sodium Level 147 MEQ/L Potassium Level 3.6 MEQ/L Chloride Level 115 MEQ/L Carbon Dioxide Level 19.2 MEQ/L Anion Gap 13 MEQ/L Blood Urea Nitrogen 26 MG/DL Creatinine 1.15 MG/DL Estimat Glomerular Filtration 61 ML/MIN Rate Random Glucose 101 MG/DL Calcium Level 8.6 MG/DL Microbiology Date/Time Procedure Status Source Growth 01/17/17 16:08 Gram Stain - Final Complete Sputum Endotracheal 01/17/17 16:08 Sputum Culture - Final Complete Pseudomonas Oryzihabitans 01/17/17 16:08 Urine Culture - Final Complete Urine Catheterized Urine Pseudomonas Aeruginosa Neelima Glabrata IMAGING: Chest X-Ray 01/24/17 0600 Signed Impressions: Service Date/Time: Tuesday, January 24, 2017 03:30 - CONCLUSION: Bilateral patchy infiltrates. Robert Larson MD Chest X-Ray 01/20/17 0000 Signed Impressions: Service Date/Time: December 08:23 - CONCLUSION: 1. Improving bibasilar mixed interstitial and alveolar infiltrates. Possible left-sided effusion which also appears slightly improved. 2. Stable position of life support tubes. Otis Nobles MD Chest X-Ray 01/17/17 0600 Signed Impressions: Service Date/Time: Tuesday, January 17, 2017 03:20 - CONCLUSION: No significant change has occurred. John Paul Delgado MD Abdomen X-Ray 01/17/17 0000 Signed Impressions: Service Date/Time: Tuesday, January 17, 2017 20:02 - CONCLUSION: 1. Nonspecific bowel gas pattern. 2. NG tube in the stomach. Bart Spring MD Skull X-Ray 01/14/17 0000 Signed Impressions: Service Date/Time: Saturday, January 14, 2017 11:20 - CONCLUSION: No MRI incompatible foreign body is identified. Bar Arias MD Brain MRI 01/14/17 0000 Signed Impressions: Service Date/Time: Saturday, January 14, 2017 15:40 - CONCLUSION: No acute abnormality is seen. Bar Arias MD Chest CT 01/12/17 0000 Signed Impressions: Service Date/Time: Thursday, January 12, 2017 16:58 - CONCLUSION: 1. Extensive consolidation throughout much of the right lung likely representing processes such as inflammatory change and pneumonia. 2. Extensive adenopathy is seen throughout the mediastinum. This is nonspecific. It could be reactive or neoplastic. If it is neoplastic, lymphoma should be considered. Axillary adenopathy is not seen. Bar Arias MD Renal Ultrasound 01/10/17 0000 Signed Impressions: Service Date/Time: Tuesday, January 10, 2017 10:49 - CONCLUSION: 1. Kidneys appear normal. 2. Impression on the bladder floor from the prostate. There is a bladder diverticulum and possible bladder stone present. Bar Arias MD PHYSICAL EXAMINATION GENERAL: Lethargic. HEENT: No icterus. Mucosa is moist. Neck: Supple. No swelling, no adenopathy. Lungs: Basilar rhonchi. Breath sounds decreased. Heart: Regular without audible murmurs, rubs or gallops. Abdomen: Bowel sounds present, soft, non tender. Extremities: No clubbing, cyanosis or edema. Skin: No rash. Neuro: Non focal. Psych: Calm. IMPRESSION: 1. Pneumococcal sepsis 2. Respiratory failure. Extubated. 3. Urinary tract infection. Pseudomonas. 4. Leukocytosis. Improving slowly. 5. Pneumonia. Pseudomonas. RECOMMENDATIONS 1. Continue piperacillin/tazobactam 2. Monitor white blood cell count. 3. Repeat CXR in Am. Follow up infiltrates. Tyler Queen MD Jan 26, 2017 13:26
--- NOTE | 2017-01-26 16:42 | HHI.HCPN ---
Reason for visit a. To assist with evaluation and management of symptoms including: dyspnea, back pain, debility. b. To assist medical decision maker(s) with: better understanding of current medical conditions; weighing benefits/burdens of medical treatment options; making medical treatment decisions. . Subjective/Interval History Patient transferred to medical floor. Patient was alert to self, confused as to place and situation. verbal but not always able to communicate needs secondary to confusion. Less interactive than yesterday. Endorsing shortness of breath at rest and on exertion. Increased work of breathing noted. Was on 2L O2 yesterday , currently on 4L NC. CPAP at bedside, available as needed. Using CPAP at home during nighttime. Patient denies chest pain, nausea/vomiting or abdominal discomfort. Patient on pureed diet and thickened liquids, tolerating well -poor appetite. new imaging or laboratory today. Telephone call to patient's son and left message in voicemail. palliative care to continue to f/u for goals clarification. . Family/friend interactions See interval note. . Advance Directives Living Will: Never completed Health Care Surrogate: Never completed Advance Directive Specifics Health Care Surrogate(s): Son, HCP Jose Cabrera, cell / [phone] office lives in [place] agrees to serve as decision maker. Two other children were searched thru [employer] and no workable phone numbers were identified Samra Quach [phone] - Significant change in goals: No code. Continue medical management short of no code with hopes to discharge to rehabilitation facility for physical strengthening. . Objective Vital Signs Date Time Temp Pulse Resp B/P Pulse Ox O2 Delivery O2 Flow Rate FiO2 01/26/17 08:27 92 Nasal Cannula 4.00 01/26/17 08:07 97.8 87 22 123/65 97 01/26/17 08:00 90 01/26/17 04:33 90 Nasal Cannula 4.00 01/26/17 04:32 97.2 84 20 133/63 95 01/25/17 23:23 98.5 118 20 118/71 93 01/25/17 23:23 98.5 118 20 118/71 93 01/25/17 22:00 78 01/25/17 22:00 97.7 78 18 152/69 93 01/25/17 20:00 97.7 111 19 177/80 93 01/25/17 20:00 111 01/25/17 19:46 92 Nasal Cannula 2.00 01/25/17 18:00 102 Intake & Output 01/26/17 01/26/17 07:00 19:00 Intake Total 160 ml Output Total 300 ml Balance -140 ml Intake Oral 50 ml IV Total 110 ml Output Urine Total 300 ml # Voids 3 # Bowel Movements 1 Physical Exam CONSTITUTIONAL/GENERAL: This is an adequately nourished patient in bed in moderate distress secondary to increased work of breathing, shortness of breath. TUBES/LINES/DRAINS: PIV's, nasal cannula, SCDs, bilateral soft wrist restraints. SKIN: No jaundice, rashes, or lesions. Edema and Ecchymoses on upper extremities. Skin temperature appropriate. Not diaphoretic. HEAD: Atraumatic. Normocephalic. EYES: Pupils equal and round and reactive. No scleral icterus. No injection or drainage. ENT: hard of hearing . Nose without bleeding or purulent drainage. Throat without visible erythema, exudates, masses, or lesions. NECK: Trachea midline. Supple, nontender. CARDIOVASCULAR: Tachycardic with heart rate in the 110s. Regular rhythm. Peripheral pulses symmetric. RESPIRATORY/CHEST: Symmetric, increased work of breathing. diminished breath sound bilaterally. GASTROINTESTINAL: Abdomen soft, round, large. No guarding. Bowel sounds present. GENITOURINARY: Without palpable bladder distension. MUSCULOSKELETAL: Extremities without clubbing, cyanosis, or edema. No mottling or clubbing. NEUROLOGICAL: Oriented to self, confused as to place and situation. less interactive than yesterday. PSYCHIATRIC: Appears calm. . Diagnostic Tests Laboratory Laboratory Tests Test 01/24/17 13:50 Sodium Level 147 MEQ/L (136-145) Potassium Level 3.6 MEQ/L (3.5-5.1) Chloride Level 115 MEQ/L (98-107) Carbon Dioxide Level 19.2 MEQ/L (21.0-32.0) Anion Gap 13 MEQ/L (5-15) Blood Urea Nitrogen 26 MG/DL (7-18) Creatinine 1.15 MG/DL (0.60-1.30) Estimat Glomerular Filtration 61 ML/MIN (>89) Rate Random Glucose 101 MG/DL (74-106) Calcium Level 8.6 MG/DL (8.5-10.1) Result Diagram: 01/23/17 1012 01/24/17 1350 Assessment and Plan Disease Oriented Problem List: (1) COPD (chronic obstructive pulmonary disease) (2) CAD (coronary artery disease) (3) Respiratory failure (4) Encephalopathy (5) Sepsis Comment: On antibioticsurine Pseudomonas: Sputum gram-negative wagner Symptom Scale: (1) Dyspnea 0-10 Scale: Unable to quantify Comment: O2 via nasal cannula 4 L. (2) Pain 0-10 Scale: 0 (frequently shifts positions ) Comment: History of pain. Denies pain at this time. 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 Jose his son is HCP - 2 remaining children have not been found thru [employer] report . Important Contacts Jose " Leeroy" Rick, Son [phone] office [phone] cell - works for [employer] in [place] Vivien Quach - Sig Halrt - Prognosis Prognosis is guarded in light of advanced age, following multisystem organ failure post septic shock with COPD and now w O2 dependency Code Status: No Code Plan * CODE STATUS: No code. DNR/DNI. * MEDICAL DECISION-MAKER: Patient incapacitated for medical decision-making secondary to clinical condition, intermittent confusion. As per [place] law, patient's children would be designated healthcare proxy. Patient has 3 children , medical decision making falls to patient's son Jose Cabrera -there are 2 other children who have not been identified thru [employer] Report. Jose does not have their contact information. * GOALS OF CARE: Remain unchanged, continue medical management short of no code with hopes to discharge to rehabilitation facility for physical strengthening. Family fully aware of very high risk for continue decline, additional complications and . * HOSPICE: not in line with goals of care at this time. However, the future role of hospice has been discussed with family should patient's symptoms burden increases or he has additional functional decline/unable to tolerate rehabilitation. Family receptive to this. * SYMPTOMS: == Shortness of breath, history of COPD. Intubated and extubated. Appears worsening, now on 4L NC. CPAP as needed. Pulmonology following. == Debility, multifactorial secondary to acute events, hospitalization, progressive decline. Family electing to discharge to rehabilitation. == Pain, history of chronic pain. * Palliative care contact information has been provided to patient's son and significant other. * Palliative care will continue to follow-up during this hospitalization as the clinical course evolves. . . Time Spent Total Floor Time (mins): 25 (Total time to include review of medical records, physical exam and attempts at contacting son. ) >50% Counseling/Coord of Care: Yes Attestation To help prompt me to consider important information that might be impacting today's encounter and assessment, information from prior notes written by myself or my colleagues may have been "brought forward" into today's note. My signature on this note, however, is an attestation that I personally performed the exam, history, and/or decision-making noted today, and, unless otherwise indicated, the interactions with patient, family, and staff as well as the review of records all occurred today. I also attest that the listed assessment and stated plan reflect my best clinical judgment today based on the combination of historical information, prior notes, and today's exam/ interactions. When time spent is documented, it refers only to time spent today by the signer, or if indicated, combined time spent today by collaborating physician/nurse practitioner. Farrah Sánchez Jan 26, 2017 16:42
--- NOTE | 2017-01-26 19:39 | HHI.PR ---
Subjective Remarks Awake and up in Chair.On a N/C 3 L.. Taking a diet. Seems depressed. No cough Objective Vital Signs Date Time Temp Pulse Resp B/P Pulse Ox O2 Delivery O2 Flow Rate FiO2 01/26/17 18:12 96 Nasal Cannula 4.00 01/26/17 12:10 98.2 88 22 138/78 97 01/26/17 08:27 92 Nasal Cannula 4.00 01/26/17 08:07 97.8 87 22 123/65 97 01/26/17 08:00 90 01/26/17 04:33 90 Nasal Cannula 4.00 01/26/17 04:32 97.2 84 20 133/63 95 01/25/17 23:23 98.5 118 20 118/71 93 01/25/17 23:23 98.5 118 20 118/71 93 01/25/17 22:00 78 01/25/17 22:00 97.7 78 18 152/69 93 01/25/17 20:00 97.7 111 19 177/80 93 01/25/17 20:00 111 01/25/17 19:46 92 Nasal Cannula 2.00 I/O 01/25/17 01/25/17 01/25/17 01/26/17 01/26/17 01/26/17 07:00 15:00 23:00 07:00 15:00 23:00 Intake Total 150 ml 100 ml 160 ml 0 ml Output Total 350 ml 300 ml Balance -200 ml 100 ml -140 ml 0 ml Intake Oral 50 ml 50 ml 0 ml IV Total 100 ml 100 ml 110 ml Output Urine Total 350 ml 300 ml # Voids 5 1 2 # Bowel Movements 1 1 Result Diagram: 01/23/17 1012 01/24/17 1350 Objective Remarks This moderately overweight elderly white male is alert HEENT: Head normocephalic. Pupils reactive. Sclerae are clear. Throat clear. Ears, no inflammation. Neck: Supple. No bruits. No venous distension. Trachea midline. Chest: Equal movements with increased AP diameter with occ crackles at bases with scattered wheeze . Heart: The heart sounds are irregular, S1-S2. No murmur. No S3. Abdomen: The abdomen is protuberant, soft, without masses, organomegaly or tenderness. Bowel sounds active. Extremities: decreased pulses. No edema. Neurologic: Awake and with 1 + reflexes Rectal: Exam is deferred. Assessment and Plan Assessment and Plan IMPRESSION 1. Septic shock. 2. Extensive right lung pneumonia and hypoxemia. 3. Acute hypoxemic, hypercapnic respiratory failure. 4. COPD with emphysema 5. History of pulmonary embolism. 6. History of hypertension. 7. RIZWAN. Plan : 1. Wean O2 to 3 l 2. IS at bedside q2h. 3. Chest X ray 4. PT evaluation 5. Nebs q6h , Duoneb. 6. Cont Heparin 5000 U S/Q bid. 7. Add Symbicort 160/4.5 mcg , 2 puffs bid 8. PO diet as tolerated 10. Prednisone 15 mg daily. Cheri Cadena MD Jan 26, 2017 19:38
[2017-01-26] MEDS: PANTOPRAZOLE SODIUM 40 MG VIAL IV PUSH SCH (21:32)
[2017-01-26] MEDS: BUDESONIDE-FORMOTEROL 160/4.5 MCG INHALER INH SCH (22:18)
[2017-01-27] VITALS (11 sets, daily range): BP systolic 136–184; BP diastolic 67–88; PULSE 98–106; RESP 24; TEMP 95.7–99.5; O2SAT 91–97
[2017-01-27] MEDS: RESP: ALBUTEROL 2.5 MG/IPRATROPIUM 0.5 MG NEB (SCH) NEB ×6 (01:17→20:06)
[2017-01-27] MEDS: INSULIN NovoLIN REGULAR SUPPLEMENTAL SCALE SQ SCH ×4 (02:00→20:00)
[2017-01-27] MEDS: PIPERACIL-TAZO 4.5 GM PREMIX 100 ML IV SCH ×4 (02:38→23:30)
[2017-01-27] MEDS: CHLORHEXIDINE GLUCONATE 2 % 1 PACK (2 CLOTHS) TOP SCH (03:59)
[2017-01-27] MEDS: HEPARIN SODIUM - SQ 10,000 UNITS/ML VIAL SQ SCH ×2 (05:23→19:18)
[2017-01-27] MEDS: CHLORHEXIDINE 0.12% (ORAL KIT) 15 ML CUP MT SCH ×2 (08:00→20:00)
--- NOTE | 2017-01-27 08:09 | HHI.PR ---
Subjective Remarks imaging specialist Notes: 81yM with h/o COPD and prior PE who presented yesterday with history of nausea/ vomiting and was worked up including negative CT abd/pelvis with IV contrast. He returned this morning due to dizziness. At that time he had a lactate of 6, wbc 20k, and cxr demonstrating RUL pneumonia. he was given zosyn and 4L IVF. Repeat lactate demonstrated persistent lactic acidosis of 6. Also, after 6 hours, his uop was < 200cc. A Woodward catheter was inserted. his Cr was also elevated at 1.9. At this point, he became acutely hypoxemic and agitated. I was called and immediately went down to evaluate the patient. When I walked in , he was agitated and pulling off his NRB mask. He did not have a reliable spo2 monitor waveform and an abg was drawn with a po2 of 50. Decision was made to pursue emergent intubation (see separate procedure note for details). After intubation, the patient became hypotensive requiring vasopressor therapy and additional fluid boluses were given. Due to his impending cardiovascular collapse, a STAT echo was ordered which demonstrated hyperdynamic biventricular function, moderate pulmonary hypertension, and very collapsable IVC. He was given an additional 2L IVF and 2 amps bicarbonate for pH 7.11 on repeat abg with severe metabolic acidosis with BE -12. He was started on norepinephrine and vasopressin. He was transported to the medical ICU in critical condition. 01/09: Lactate is clearing, but slowly. CVP improved overnight. uop marginal, but slightly improved from yesterday. hypoxia slightly better as well, although persists on 100% fio2. wbc up to 44k today. 01/10: CVP rising yesterday, persistently oligoanuric. vasopressors persist, but at slightly lower dose. high fio2 requirements. wbc downtrending. 01/11: oxygenation severely worsened overnight. now on peep 15, fio2 100%, spo2 85%. vasopressors weaned off. cvp kuldip throughout the night to 23 this AM. CXR with evidence of significant pulmonary edema and intravascular volume overload. despite this, UOP minimal overnight and remains in oliguric renal failure. 01/12: Remains intubated sedated. Chest x-ray from yesterday prominent bilateral infiltrates right more than left with mediastinal prominence. CT chest ordered for today. Urine output 10 L in 24 hours on Lasix infusion 20 mg pr hour. Slight worsening of creatinine to 2.15. Weight is still up by 9 KG. WBC count essentially stable 01/14: Afebrile. Not really responsive this a.m. so MRI brain/EEG pending. Currently on CPAP trial. Lasix infusion will be discontinued. Positive BM. Tolerating tube feeds 01/15: Resting comfortably in bed. Currently on CPAP trials. Very poor duration. Currently 50% FiO2. X-ray stable. Tolerating tube feeds. Positive bowel movement. Agitated once sedation removed. 01/16: Tmax 100. Currently on CPAP trials while on propofol drip. FiO2 45%. X -ray remained stable. Tolerating tube feeds. Positive BMs yesterday. 01/17 Patient is sedated with Diprivan, Fentanyl and intubated. Afebrile. Had bigeminy/PVC overnight given Lidocaine 100mg IV x1. 01/18 Patient is sedated with Diprivan and intubated. T:101.6 last night. 01/19 Patient remains intubated tolerated CPAP for several hrs yesterday. Tmax 100.2. Currently off sedation and on CPAP 10/5 with 45% FIO2. Does not follow commands. Repeat EEG yesterday showed high frequency artifact. 01/20 No acute events overnight. Off sedation. Patient is more awake this morning and able to track. Afebrile. On CPAP with PS: 10, PEEP:5 and FIO2 45% 01/21 Patient s/p extubation yesterday. Awake follows commands. Afebrile. 01/22 No acute events overnight. Afebrile. Hospitalist Notes: 01/25 Patient seen in his bedroom in Intensive Care unit and discussed with nurse Miss Troncoso, he is not feeling well states, he feels weak and has generalized discomfort recommended by workers compensation specialist to wean Oxygen, PT evaluation, bronchodilator, Mucolytic, incentive spirometry. follow laboratory for tomorrow and Heparin for DVT prophylaxis. steroids. 01/26 Patient seen in the room in the presence of nurse Miss Crane appreciated, stable alert and oriented in place and person, will continue working with physical therapy, was transferred to the Medical floor yesterday afternoon, no Nausea, vomit or diarrhea. afebrile, workers compensation specialist, ID specialist following, health care specialist following, continue Zosyn IV, Oxygen Support to keep O sat >92%, DNR status. 01/27 Seen in his bedroom and discussed with his in the room, improving his cognitive state. No nausea, vomit or diarrhea. Objective Vital Signs Date Time Temp Pulse Resp B/P Pulse Ox O2 Delivery O2 Flow Rate FiO2 01/27/17 05:00 97.9 101 24 136/67 94 01/27/17 01:17 97 Nasal Cannula 4.00 01/27/17 00:00 97.6 105 24 184/74 94 01/26/17 20:15 97.5 97 24 174/74 96 01/26/17 20:00 96 01/26/17 18:12 96 Nasal Cannula 4.00 01/26/17 16:06 98.2 88 22 138/78 97 01/26/17 12:10 98.2 88 22 138/78 97 01/26/17 08:27 92 Nasal Cannula 4.00 I/O 01/26/17 01/26/17 01/26/17 01/27/17 01/27/17 01/27/17 07:00 15:00 23:00 07:00 15:00 23:00 Intake Total 0 ml 360 ml 120 ml 0 ml Balance 0 ml 360 ml 120 ml 0 ml Intake Oral 0 ml 360 ml 120 ml 0 ml # Voids 2 4 2 6 # Bowel Movements 1 0 0 2 Result Diagram: 01/23/17 1012 01/24/17 1350 Imaging Last Impressions Chest X-Ray 01/24/17 0600 Signed Impressions: Service Date/Time: Tuesday, January 24, 2017 03:30 - CONCLUSION: Bilateral patchy infiltrates. Robert Larson MD Abdomen X-Ray 01/17/17 0000 Signed Impressions: Service Date/Time: Tuesday, January 17, 2017 20:02 - CONCLUSION: 1. Nonspecific bowel gas pattern. 2. NG tube in the stomach. Bart Spring MD Skull X-Ray 01/14/17 0000 Signed Impressions: Service Date/Time: Saturday, January 14, 2017 11:20 - CONCLUSION: No MRI incompatible foreign body is identified. Bar Arias MD Brain MRI 01/14/17 0000 Signed Impressions: Service Date/Time: Saturday, January 14, 2017 15:40 - CONCLUSION: No acute abnormality is seen. Bar Arias MD Chest CT 01/12/17 0000 Signed Impressions: Service Date/Time: Thursday, January 12, 2017 16:58 - CONCLUSION: 1. Extensive consolidation throughout much of the right lung likely representing processes such as inflammatory change and pneumonia. 2. Extensive adenopathy is seen throughout the mediastinum. This is nonspecific. It could be reactive or neoplastic. If it is neoplastic, lymphoma should be considered. Axillary adenopathy is not seen. Bar Arias MD Renal Ultrasound 01/10/17 0000 Signed Impressions: Service Date/Time: Tuesday, January 10, 2017 10:49 - CONCLUSION: 1. Kidneys appear normal. 2. Impression on the bladder floor from the prostate. There is a bladder diverticulum and possible bladder stone present. Bar Arias MD Procedures Endotracheal intubation and Extubation. Other Results Laboratory Tests Test 01/23/17 01/24/17 10:12 13:50 White Blood Count 12.2 TH/MM3 Red Blood Count 3.57 MIL/MM3 Hemoglobin 10.4 GM/DL Hematocrit 32.3 % Mean Corpuscular Volume 90.3 FL Mean Corpuscular Hemoglobin 29.2 PG Mean Corpuscular Hemoglobin 32.3 % Concent Red Cell Distribution Width 15.7 % Platelet Count 163 TH/MM3 Mean Platelet Volume 9.6 FL Neutrophils (%) (Auto) 72.4 % Lymphocytes (%) (Auto) 19.8 % Monocytes (%) (Auto) 5.2 % Eosinophils (%) (Auto) 2.0 % Basophils (%) (Auto) 0.6 % Neutrophils # (Auto) 8.8 TH/MM3 Lymphocytes # (Auto) 2.4 TH/MM3 Monocytes # (Auto) 0.6 TH/MM3 Eosinophils # (Auto) 0.2 TH/MM3 Basophils # (Auto) 0.1 TH/MM3 CBC Comment DIFF FINAL Differential Comment Sodium Level 147 MEQ/L Potassium Level 3.6 MEQ/L Chloride Level 115 MEQ/L Carbon Dioxide Level 19.2 MEQ/L Anion Gap 13 MEQ/L Blood Urea Nitrogen 26 MG/DL Creatinine 1.15 MG/DL Estimat Glomerular Filtration 61 ML/MIN Rate Random Glucose 101 MG/DL Calcium Level 8.6 MG/DL Objective Remarks GENERAL:No acute distress SKIN: Warm and dry. HEAD: Normocephalic. EYES: No scleral icterus. No injection or drainage. NECK: Supple, trachea midline. No JVD or lymphadenopathy. CARDIOVASCULAR: Regular rate and rhythm without murmurs, gallops, or rubs. RESPIRATORY: Decreased breath sounds bilateral, no wheezing or crackles. GASTROINTESTINAL: Abdomen soft, non-tender, nondistended. MUSCULOSKELETAL: No cyanosis, or edema. NEUROLOGY: Alert and oriented in place and person. Medications and IVs Current Medications Medications (Trade) Dose Ordered Sig/Josefina Route Start Time Stop Time Status Last Admin (Ecotrin Ec) 81 mg DAILY PO 01/09/17 09:00 01/26/17 09:49 (Lactinex) 1 tab TID PO 01/08/17 18:00 01/26/17 16:20 (NS Flush) 2 ml UNSCH PRN IV FLUSH 01/08/17 15:45 01/19/17 15:47 (NS Flush) 2 ml BID IV FLUSH 01/08/17 21:00 01/26/17 20:48 (Heparin Inj) 5,000 units Q12H SQ 01/08/17 18:00 01/27/17 05:23 Miscellaneous Information 1 Q361D XX 01/08/17 15:45 (Chlorhexidine 2% Cloth) Taper DAILY@04 TOP 01/09/17 04:00 01/05/18 03:59 01/24/17 21:58 (Chlorhexidine 2% Cloth) 3 pack UNSCH PRN TOP 01/08/17 15:45 (Zofran Inj) 4 mg Q6H PRN IV 01/08/17 15:45 (Holly-Colace) 1 tab BID PRN PO 01/08/17 15:45 (Tums Chew) 1,000 mg TID PRN CHEW 01/08/17 15:45 (Peridex 0.12% Liq) 15 ml BID@08,20 MT 01/08/17 20:00 01/25/17 20:00 (Protonix Inj) 40 mg Q24H IV PUSH 01/08/17 21:00 01/26/17 21:32 Alteplase, Recombinant 2 mg 2 mg Q2H PRN INTRACATH 01/10/17 21:45 01/10/17 22:30 (KCl 20 Meq Premix Inj) 100 ml @ 50 mls/hr UNSCH PRN IV 01/11/17 15:30 01/21/17 11:20 (Colace Liq) 100 mg Q12HR PO 01/12/17 09:00 01/26/17 21:32 (Senna Liq) 8.8 mg DAILY PO 01/12/17 09:00 01/25/17 08:30 (Trandate Inj) 10 mg Q1HR PRN IV PUSH 01/14/17 13:30 01/25/17 09:48 (Tylenol) 500 mg Q6H PRN PO 01/16/17 14:30 01/17/17 15:46 (D50w (Vial) Inj) 25 ml UNSCH PRN IV PUSH 01/17/17 08:00 (Glucagon Inj) 1 mg UNSCH PRN OTHER 01/17/17 08:00 (NovoLIN R SUPPLEMENTAL SCALE) 1 Q6H SQ 01/17/17 08:00 01/24/17 14:00 (Mycostatin Powder) 1 applic Q12HR PRN TOPICAL 01/17/17 08:15 01/18/17 09:15 Hydralazine HCl 10 mg 10 mg Q6H PRN IV PUSH 01/17/17 08:45 01/23/17 22:05 (Zosyn 4.5 Gm Premix) 100 ml @ 200 mls/hr Q6H IV 01/18/17 09:00 01/27/17 02:38 (Diflucan) 100 mg DAILY PO 01/19/17 10:15 01/26/17 09:49 (Deltasone) 20 mg DAILY PO 01/22/17 09:00 01/26/17 09:50 (Symbicort 160-4.5 Inh) 1 puff Q12HR INH 01/26/17 21:00 01/26/17 22:18 A/P Problem List: (1) Sepsis ICD Code: A41.9 (2) Pneumonia ICD Code: J18.9 (3) Respiratory failure ICD Code: J96.90 Assessment and Plan 1. Acute Agitated Delirium Improved, patient on chronic Xanax use. avoid sedatives, Neurology specialist following. MRI brain with no acute findings, EEG monitoring, Encephalopathy with no epileptiform activity. 2. Peripheral neuropathy by history 3. VDRF Improved. Acute Hypoxic respiratory failure/Pulmonary edema/Severe Pulmonary Hypertension, workers compensation specialist following Oxygen to keep O Sat >92%, Bronchodilator, Mucolytic, incentive spirometry. Steroids. EF 60-65%. 4. Multilobar Pneumococcal Pneumonia continue antibiotics. Zosyn. 5. COPD Exacerbation improved, continue Bronchodilator, Mucolytic and incentive spirometry. 6. Septic Shock resolved 01/08 blood cultures strep Pneumonia on Zosyn and Vancomycin discontinued and PCN G started by Doctor Venkat 01/11/17 continue Zosyn and Diflucan ID following Urine Culture Pseudomonas, C Glabrata, Sputum Pseudomonas Blood culture Strep Pneumonia, as per ID recommended to continue Zosyn and get CXR for tomorrow. 7. RIZWAN improved 8. Acute protein Calorie Malnutrition Mild 9. Normocytic Anemia 10. UTI admitted to the Hospital on 01/08/17 with Pneumonia and UTI secondary to Pneumococcus/Pneumococcal antigen positive in Urine, Woodward cath placed and got UTI secondary to Pseudomonas Aeruginosa, may be associated to Woodward cath treated GI Prophylaxis Protonix 40 mg IV every 24 hours DVT Prophylaxis -- SCDs Subcutaneous heparin twice a day PT/OT eval and treat Palliative care is following Code status DNR, Goal remain send the patient to Rehabilitation Discharge Planning when cleared by specialists will follow recommendations, Froy Steward MD Jan 27, 2017 08:09
[2017-01-27] MEDS: RESP: BUDESONIDE 0.5 MG/2 ML NEB NEB SCH ×2 (08:33→20:06)
[2017-01-27] MEDS: SENNOSIDES SYRUP 8.8 MG/5 ML CUP PO SCH ×2 (09:00→09:10)
[2017-01-27] MEDS: DOCUSATE SODIUM 100 MG/10 ML UDC PO SCH ×3 (09:00→23:31)
[2017-01-27] MEDS: LACTOBACILLUS ACIDOPHILUS TAB PO SCH ×3 (09:10→19:18)
[2017-01-27] MEDS: FLUCONAZOLE 100 MG TAB PO SCH (09:11)
[2017-01-27] MEDS: SODIUM CHLORIDE 0.9% FLUSH 5 ML FLUSH IV FLUSH SCH ×2 (09:11→23:30)
[2017-01-27] MEDS: predniSONE 20 MG TAB PO SCH (09:11)
[2017-01-27] MEDS: ASPIRIN EC 81 MG TABEC PO SCH (09:11)
[2017-01-27] MEDS: BUDESONIDE-FORMOTEROL 160/4.5 MCG INHALER INH SCH ×2 (09:12→23:30)
--- NOTE | 2017-01-27 17:32 | HHI.IDPN ---
Note Infectious Disease Note Patient is more alert. More coherent communication. Denies aches or pains. Afebrile. On O2 via nasal canula. Admitted to the hospital on 01/08/2017. He was brought to the emergency department after falling. He was noted to have markedly elevated white cell count of 20.2 on admission and heart rate greater than 90. The patient was intubated on admission. He had elevated lactic acid on admission. Blood cultures came back positive for strep pneumoniae and also the urine random pneumococcal antigen was positive. PAST MEDICAL HISTORY: 1. COPD 2. CVA 3. Coronary artery disease 4. Coronary stent 5. Obstructive sleep apnea 6. Hyperlipoidemia 7. Hypertension 8. Gastro-esophageal reflux disease 9. Pulmonary embolism. 10. Cholecystectomy. 11. Polypectomy 12. Appendectomy. ALLERGIES NO KNOWN DRUG ALLERGIES. ANTIBIOTICS Piperacillin/tazobactam. SOCIAL HISTORY No tobacco use. No alcohol. No illicit drugs. OBJECTIVE: Vital Signs Date Time Temp Pulse Resp B/P Pulse Ox O2 Delivery O2 Flow Rate FiO2 01/27/17 12:24 94 Nasal Cannula 4.00 01/27/17 12:00 95.7 98 24 155/83 95 01/27/17 08:00 99.5 101 24 160/72 91 01/27/17 05:00 97.9 101 24 136/67 94 01/27/17 01:17 97 Nasal Cannula 4.00 01/27/17 00:00 97.6 105 24 184/74 94 01/26/17 20:15 97.5 97 24 174/74 96 01/26/17 20:00 96 01/26/17 18:12 96 Nasal Cannula 4.00 01/26/17 01/26/17 01/27/17 15:00 23:00 07:00 Intake Total 360 ml 120 ml 0 ml Balance 360 ml 120 ml 0 ml Intake Oral 360 ml 120 ml 0 ml # Voids 4 2 6 # Bowel Movements 0 0 2 Microbiology Date/Time Procedure Status Source Growth 01/17/17 16:08 Gram Stain - Final Complete Sputum Endotracheal 01/17/17 16:08 Sputum Culture - Final Complete Pseudomonas Oryzihabitans 01/17/17 16:08 Urine Culture - Final Complete Urine Catheterized Urine Pseudomonas Aeruginosa Neelima Glabrata IMAGING: Chest X-Ray 01/24/17 0600 Signed Impressions: Service Date/Time: Tuesday, January 24, 2017 03:30 - CONCLUSION: Bilateral patchy infiltrates. Robert Larson MD Chest X-Ray 01/20/17 0000 Signed Impressions: Service Date/Time: December 08:23 - CONCLUSION: 1. Improving bibasilar mixed interstitial and alveolar infiltrates. Possible left-sided effusion which also appears slightly improved. 2. Stable position of life support tubes. Otis Nobles MD Chest X-Ray 01/17/17 0600 Signed Impressions: Service Date/Time: Tuesday, January 17, 2017 03:20 - CONCLUSION: No significant change has occurred. John Paul Delgado MD Abdomen X-Ray 01/17/17 0000 Signed Impressions: Service Date/Time: Tuesday, January 17, 2017 20:02 - CONCLUSION: 1. Nonspecific bowel gas pattern. 2. NG tube in the stomach. Bart Spring MD Skull X-Ray 01/14/17 0000 Signed Impressions: Service Date/Time: Saturday, January 14, 2017 11:20 - CONCLUSION: No MRI incompatible foreign body is identified. Bar Arias MD Brain MRI 01/14/17 0000 Signed Impressions: Service Date/Time: Saturday, January 14, 2017 15:40 - CONCLUSION: No acute abnormality is seen. Bar Arias MD Chest CT 01/12/17 0000 Signed Impressions: Service Date/Time: Thursday, January 12, 2017 16:58 - CONCLUSION: 1. Extensive consolidation throughout much of the right lung likely representing processes such as inflammatory change and pneumonia. 2. Extensive adenopathy is seen throughout the mediastinum. This is nonspecific. It could be reactive or neoplastic. If it is neoplastic, lymphoma should be considered. Axillary adenopathy is not seen. Bar Arias MD Renal Ultrasound 01/10/17 0000 Signed Impressions: Service Date/Time: Tuesday, January 10, 2017 10:49 - CONCLUSION: 1. Kidneys appear normal. 2. Impression on the bladder floor from the prostate. There is a bladder diverticulum and possible bladder stone present. Bar Arias MD PHYSICAL EXAMINATION GENERAL: Awake and alert. HEENT: No icterus. Moist mucosa. Neck: Supple. No swelling, no adenopathy. Lungs: Basilar rhonchi. Heart: Regular without audible murmurs, rubs or gallops. Abdomen: Bowel sounds present, soft, non tender. Extremities: No clubbing, cyanosis or edema. Skin: No rash. Neuro: Non focal. Psych: Calm. IMPRESSION: 1. Pneumococcal sepsis 2. Respiratory failure. Extubated. 3. Urinary tract infection. Pseudomonas. 4. Leukocytosis. Improving slowly. 5. Pneumonia. Pseudomonas. RECOMMENDATIONS 1. Continue piperacillin/tazobactam 2. Monitor white blood cell count. 3. Follow CXR in am. Tyler Queen MD Jan 27, 2017 17:32
--- NOTE | 2017-01-27 19:11 | HHI.PR ---
Subjective Remarks Awake and up in Chair.On a N/C 3 L. Taking a diet but on pureed . Objective Vital Signs Date Time Temp Pulse Resp B/P Pulse Ox O2 Delivery O2 Flow Rate FiO2 01/27/17 16:00 97.4 106 24 159/88 96 01/27/17 12:24 94 Nasal Cannula 4.00 01/27/17 12:00 95.7 98 24 155/83 95 01/27/17 08:00 101 01/27/17 08:00 99.5 101 24 160/72 91 01/27/17 05:00 97.9 101 24 136/67 94 01/27/17 01:17 97 Nasal Cannula 4.00 01/27/17 00:00 97.6 105 24 184/74 94 01/26/17 20:15 97.5 97 24 174/74 96 01/26/17 20:00 96 I/O 01/26/17 01/26/17 01/26/17 01/27/17 01/27/17 01/27/17 07:00 15:00 23:00 07:00 15:00 23:00 Intake Total 0 ml 360 ml 120 ml 0 ml 102 ml 240 ml Balance 0 ml 360 ml 120 ml 0 ml 102 ml 240 ml Intake Oral 0 ml 360 ml 120 ml 0 ml 240 ml IV Total 102 ml # Voids 2 4 2 6 2 # Bowel Movements 1 0 0 2 Result Diagram: 01/23/17 1012 01/24/17 1350 Procedures Endotracheal intubation and Extubation. Objective Remarks This moderately overweight elderly white male is alert HEENT: Head normocephalic. Pupils reactive. Sclerae are clear. Throat clear. Ears, no inflammation. Neck: Supple. No bruits. No venous distension. Trachea midline. Chest: Equal movements with increased AP diameter with with scattered wheeze . Heart: The heart sounds are irregular, S1-S2. No murmur. No S3. Abdomen: The abdomen is protuberant, soft, without masses, organomegaly or tenderness. Bowel sounds active. Extremities: decreased pulses. No edema. Neurologic: Awake and with 1 + reflexes Rectal: Exam is deferred. Assessment and Plan Assessment and Plan IMPRESSION 1. Septic shock. 2. Extensive right lung pneumonia and hypoxemia. 3. Acute hypoxemic, hypercapnic respiratory failure. 4. COPD with emphysema 5. History of pulmonary embolism. 6. History of hypertension. 7. RIZWAN. Plan : 1. Wean O2 to 2 l 2. IS at bedside q2h. 3. BMP in am 4. PT evaluation 5. Nebs q6h , Duoneb. 6. Cont Heparin 5000 U S/Q bid. 7. Add Symbicort 160/4.5 mcg , 2 puffs bid 8. PO diet as tolerated 10. Prednisone 15 mg daily. Cheri Cadena MD Jan 27, 2017 19:11
[2017-01-27] MEDS: PANTOPRAZOLE SODIUM 40 MG VIAL IV PUSH SCH (23:30)
[2017-01-28] VITALS (8 sets, daily range): BP systolic 131–168; BP diastolic 66–98; PULSE 93–117; RESP 20–24; TEMP 97.3–98.5; O2SAT 93–98
[2017-01-28] MEDS: RESP: ALBUTEROL 2.5 MG/IPRATROPIUM 0.5 MG NEB (SCH) NEB ×2 (00:09→03:30)
[2017-01-28] MEDS: INSULIN NovoLIN REGULAR SUPPLEMENTAL SCALE SQ SCH ×4 (02:00→20:00)
[2017-01-28] MEDS: CHLORHEXIDINE GLUCONATE 2 % 1 PACK (2 CLOTHS) TOP SCH (04:00)
[2017-01-28] MEDS: HEPARIN SODIUM - SQ 10,000 UNITS/ML VIAL SQ SCH ×2 (04:41→18:04)
[2017-01-28] MEDS: PIPERACIL-TAZO 4.5 GM PREMIX 100 ML IV SCH ×2 (04:42→08:53)
[2017-01-28 05:28] LABS: HEMATOCRIT 30.8 % (39.0-51.0); MEAN CELL VOLUME 87.5 FL (80.0-100.0); MEAN CORPUSCULAR HEMOGLOBIN 29.6 PG (27.0-34.0); MEAN CORPUSCULAR HGB CONC 33.9 % (32.0-36.0); PLATELET COUNT 195 TH/MM3 (150-450); RED BLOOD COUNT 3.52 MIL/MM3 (4.50-5.90); RED CELL DISTRIBUTION WIDTH 15.8 % (11.6-17.2); REVIEW FLAG FINAL; WHITE BLOOD COUNT 10.5 TH/MM3 (4.0-11.0)
--- NOTE | 2017-01-28 06:59 | RADRPT ---
EXAM DATE/TIME: 01/28/2017 06:19 [facility] COMPARISON: CHEST SINGLE AP, January 24, 2017, 3:30. INDICATIONS : Short of breath, coughing, evaluate pneumonia MEDICAL HISTORY : Chronic obstructive pulmonary disease. Cardiovascular disease. Myocardial infarction. SURGICAL HISTORY : Appendectomy. Cholecystectomy. Colon resection. ENCOUNTER: Subsequent ACUITY: 2 weeks PAIN SCORE: Non-responsive. LOCATION: Bilateral chest FINDINGS: Underinflated AP view of the chest demonstrates a normal-sized cardiac silhouette. There is mild cons olidation in the right midlung zone that is stable and likely mild atelectasis at the lung bases. No pleural effusion or pneumothorax is identified. CONCLUSION: Stable chest x-ray without air space consolidation in the right midlung zone and suspected atelectasi s at the lung bases. Bar Manzano MD on January 28, 2017 at 6:57 Board Certified Radiologist. This report was verified electronically.
[2017-01-28] MEDS: CHLORHEXIDINE 0.12% (ORAL KIT) 15 ML CUP MT SCH ×2 (08:00→20:00)
[2017-01-28] MEDS: RESP: BUDESONIDE 0.5 MG/2 ML NEB NEB SCH ×2 (08:00→20:18)
[2017-01-28] MEDS: LACTOBACILLUS ACIDOPHILUS TAB PO SCH ×3 (08:54→18:01)
[2017-01-28] MEDS: ASPIRIN EC 81 MG TABEC PO SCH (08:54)
[2017-01-28] MEDS: DOCUSATE SODIUM 100 MG/10 ML UDC PO SCH ×2 (08:54→21:54)
[2017-01-28] MEDS: FLUCONAZOLE 100 MG TAB PO SCH (08:54)
[2017-01-28] MEDS: predniSONE 10 MG TAB PO SCH (08:55)
[2017-01-28] MEDS: SENNOSIDES SYRUP 8.8 MG/5 ML CUP PO SCH (08:55)
[2017-01-28] MEDS: SODIUM CHLORIDE 0.9% FLUSH 5 ML FLUSH IV FLUSH SCH ×2 (09:00→21:55)
[2017-01-28] MEDS: BUDESONIDE-FORMOTEROL 160/4.5 MCG INHALER INH SCH ×2 (09:00→21:56)
--- NOTE | 2017-01-28 14:11 | HHI.HCPN ---
Reason for visit a. To assist with evaluation and management of symptoms including: dyspnea, back pain, debility. b. To assist medical decision maker(s) with: better understanding of current medical conditions; weighing benefits/burdens of medical treatment options; making medical treatment decisions. . Subjective/Interval History Patient seen in medical floor. He was laying in bed in no acute distress. Patient awake, alert to self, place and situation, answering questions appropriately. When asked how he was feeling, patient answered feeling "super duper". Denies shortness of breath, chest pain, nausea/vomiting or abdominal discomfort. Reviewed goals of care with patient to include discharge to rehabilitation for physical straightening. Patient in agreement with this, verbalized being ready to leave the hospital. Patient afebrile, slightly tachycardic with heart rate in the low 100s. Stable BP. On 4 L nasal cannula satting in the mid 90s. Pulmonology following. Goal to wean off oxygen to 2 L. Laboratory today WBC 10.5, Hgb 10.4, platelet count 195. X-ray today showing stable check without airspace consolidation and suspected atelectasis at the lung bases. Telephone call to patient's son and left message in [place]. palliative care to continue to f/u for goals clarification. Case discussed with block and case maker. Family has elected [facility], discharge pending medical clearance. . Family/friend interactions See interval note. . Advance Directives Living Will: Never completed Health Care Surrogate: Never completed Advance Directive Specifics Health Care Surrogate(s): Son, VERN Cabrera, cell / [phone] office lives in [place] agrees to serve as decision maker. Two other children were searched thru [email or web address] and no workable phone numbers were identified Samra Quach [phone] - Significant change in goals: Goals of care remain unchanged, continue medical management short of no code with hopes to discharge to rehabilitation facility for physical strengthening. . Objective Vital Signs Date Time Temp Pulse Resp B/P Pulse Ox O2 Delivery O2 Flow Rate FiO2 01/28/17 08:05 102 01/28/17 08:00 97.3 103 24 159/66 93 01/28/17 03:40 98.5 98 22 163/86 94 154/84 01/27/17 23:37 98.5 101 24 146/76 94 01/27/17 20:06 97 Nasal Cannula 4.00 01/27/17 20:00 101 01/27/17 20:00 Nasal Cannula 4.00 01/27/17 19:50 98.5 106 24 173/84 91 168/82 01/27/17 16:00 97.4 106 24 159/88 96 Intake & Output 01/28/17 01/28/17 07:00 19:00 Intake Total 120 ml Output Total 50 ml Balance 70 ml Intake Oral 120 ml Output Urine Total 50 ml # Voids 3 # Bowel Movements 1 Physical Exam CONSTITUTIONAL/GENERAL: This is an adequately nourished patient in bed in no acute distress. TUBES/LINES/DRAINS: PIV's, nasal cannula, SCDs, bilateral soft wrist restraints. SKIN: No jaundice, rashes, or lesions. Edema and Ecchymoses on upper extremities. Skin temperature appropriate. Not diaphoretic. HEAD: Atraumatic. Normocephalic. EYES: Pupils equal and round and reactive. No scleral icterus. No injection or drainage. ENT: hard of hearing . Nose without bleeding or purulent drainage. Throat without visible erythema, exudates, masses, or lesions. NECK: Trachea midline. Supple, nontender. CARDIOVASCULAR: Tachycardic with heart rate in the 110s. Regular rhythm. Peripheral pulses symmetric. RESPIRATORY/CHEST: Symmetric, unlabored respirations. Diminished breath sound bilaterally. O2 via nasal cannula. CPAP at bedside. GASTROINTESTINAL: Abdomen soft, round, large. No guarding. Bowel sounds present. GENITOURINARY: Without palpable bladder distension. MUSCULOSKELETAL: Extremities without clubbing, cyanosis, or edema. No mottling or clubbing. NEUROLOGICAL: Oriented to self, confused as to place and situation. less interactive than yesterday. PSYCHIATRIC: Appears calm. . Diagnostic Tests Laboratory Laboratory Tests Test 01/28/17 05:01 White Blood Count 10.5 TH/MM3 (4.0-11.0) Red Blood Count 3.52 MIL/MM3 (4.50-5.90) Hemoglobin 10.4 GM/DL (13.0-17.0) Hematocrit 30.8 % (39.0-51.0) Mean Corpuscular Volume 87.5 FL (80.0-100.0) Mean Corpuscular Hemoglobin 29.6 PG (27.0-34.0) Mean Corpuscular Hemoglobin 33.9 % Concent (32.0-36.0) Red Cell Distribution Width 15.8 % (11.6-17.2) Platelet Count 195 TH/MM3 (150-450) Mean Platelet Volume 9.2 FL (7.0-11.0) Result Diagram: 01/28/17 0501 01/24/17 1350 Imaging Last 48 hours Impressions Chest X-Ray 01/28/17 0600 Signed Impressions: Service Date/Time: Saturday, January 28, 2017 06:19 - CONCLUSION: Stable chest x-ray without air space consolidation in the right midlung zone and suspected atelectasis at the lung bases. Bar Manzano MD Assessment and Plan Disease Oriented Problem List: (1) COPD (chronic obstructive pulmonary disease) (2) CAD (coronary artery disease) (3) Respiratory failure (4) Encephalopathy (5) Sepsis Comment: On antibioticsurine Pseudomonas: Sputum gram-negative wagner Symptom Scale: (1) Dyspnea 0-10 Scale: Unable to quantify Comment: O2 via nasal cannula 4 L. (2) Pain 0-10 Scale: 0 (frequently shifts positions ) Comment: History of pain. Denies pain at this time. 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 Jose his son is HCP - 2 remaining children have not been found thru [facility] report . Important Contacts Jose " Leeroy" Rick, Son [phone] office [phone] cell - works for [employer] in [place] Vivien Quach - Sig Reysv - [phone] Prognosis Prognosis is guarded in light of advanced age, following multisystem organ failure post septic shock with COPD and now w O2 dependency Code Status: No Code Plan * CODE STATUS: No code. DNR/DNI. * MEDICAL DECISION-MAKER: Patient incapacitated for medical decision-making secondary to clinical condition, intermittent confusion. As per [place] law, patient's children would be designated healthcare proxy. Patient has 3 children , medical decision making falls to patient's son Jose Cabrera -there are 2 other children who have not been identified thru [facility] Report. Jose does not have their contact information. * GOALS OF CARE: Remain unchanged, continue medical management short of no code with hopes to discharge to rehabilitation facility for physical strengthening. Family fully aware of very high risk for continue decline, additional complications and . Family has elected [facility], pending medical clearance for discharge * HOSPICE: not in line with goals of care at this time. However, the future role of hospice has been discussed with family should patient's symptoms burden increases or he has additional functional decline/unable to tolerate rehabilitation. Family receptive to this. * SYMPTOMS: == Shortness of breath, history of COPD. Intubated and extubated. Appears worsening, now on 4L NC. CPAP as needed. Pulmonology following. == Debility, multifactorial secondary to acute events, hospitalization, progressive decline. Family electing to discharge to rehabilitation. == Pain, history of chronic pain. * Palliative care contact information has been provided to patient's son and significant other. * Palliative care will continue to follow-up during this hospitalization as the clinical course evolves. . . Time Spent Total Floor Time (mins): 38 (Total time to include review of medical records, physical exam, case discussion with block and case maker and telephone call to son.) >50% Counseling/Coord of Care: Yes Attestation To help prompt me to consider important information that might be impacting today's encounter and assessment, information from prior notes written by myself or my colleagues may have been "brought forward" into today's note. My signature on this note, however, is an attestation that I personally performed the exam, history, and/or decision-making noted today, and, unless otherwise indicated, the interactions with patient, family, and staff as well as the review of records all occurred today. I also attest that the listed assessment and stated plan reflect my best clinical judgment today based on the combination of historical information, prior notes, and today's exam/ interactions. When time spent is documented, it refers only to time spent today by the signer, or if indicated, combined time spent today by collaborating physician/nurse practitioner. Farrah Sánchez Jan 28, 2017 14:11
--- NOTE | 2017-01-28 16:41 | HHI.IDPN ---
Note Infectious Disease Note Patient is alert. Awake, a little confused but coherent. Afebrile. No distress. Admitted to the hospital on 01/08/2017. He was brought to the emergency department after falling. He was noted to have markedly elevated white cell count of 20.2 on admission and heart rate greater than 90. The patient was intubated on admission. He had elevated lactic acid on admission. Blood cultures came back positive for strep pneumoniae and also the urine random pneumococcal antigen was positive. PAST MEDICAL HISTORY: 1. COPD 2. CVA 3. Coronary artery disease 4. Coronary stent 5. Obstructive sleep apnea 6. Hyperlipoidemia 7. Hypertension 8. Gastro-esophageal reflux disease 9. Pulmonary embolism. 10. Cholecystectomy. 11. Polypectomy 12. Appendectomy. ALLERGIES NO KNOWN DRUG ALLERGIES. ANTIBIOTICS Piperacillin/tazobactam. SOCIAL HISTORY No tobacco use. No alcohol. No illicit drugs. OBJECTIVE: Vital Signs Date Time Temp Pulse Resp B/P Pulse Ox O2 Delivery O2 Flow Rate FiO2 01/28/17 14:23 93 Nasal Cannula 4.00 01/28/17 12:00 98.2 95 24 168/77 96 01/28/17 08:05 102 01/28/17 08:00 97.3 103 24 159/66 93 01/28/17 07:15 Nasal Cannula 4.00 50 01/28/17 03:40 98.5 98 22 163/86 94 154/84 01/27/17 23:37 98.5 101 24 146/76 94 01/27/17 20:06 97 Nasal Cannula 4.00 01/27/17 20:00 101 01/27/17 20:00 Nasal Cannula 4.00 01/27/17 19:50 98.5 106 24 173/84 91 168/82 01/27/17 01/27/17 01/28/17 15:00 23:00 07:00 Intake Total 102 ml 360 ml 0 ml Output Total 50 ml Balance 102 ml 360 ml -50 ml Intake Oral 360 ml 0 ml IV Total 102 ml Output Urine Total 50 ml # Voids 5 # Bowel Movements 1 0 Laboratory Tests Test 01/28/17 05:01 White Blood Count 10.5 TH/MM3 Red Blood Count 3.52 MIL/MM3 Hemoglobin 10.4 GM/DL Hematocrit 30.8 % Mean Corpuscular Volume 87.5 FL Mean Corpuscular Hemoglobin 29.6 PG Mean Corpuscular Hemoglobin 33.9 % Concent Red Cell Distribution Width 15.8 % Platelet Count 195 TH/MM3 Mean Platelet Volume 9.2 FL IMAGING: Chest X-Ray 01/28/17599 Signed Impressions: Service Date/Time: Saturday, January 28, 2017 06:19 - CONCLUSION: Stable chest x-ray without air space consolidation in the right midlung zone and suspected atelectasis at the lung bases. Bar Manzano MD Chest X-Ray 01/24/17599 Signed Impressions: Service Date/Time: Tuesday, January 24, 2017 03:30 - CONCLUSION: Bilateral patchy infiltrates. Robert Larson MD Chest X-Ray 01/20/17 0000 Signed Impressions: Service Date/Time: December 08:23 - CONCLUSION: 1. Improving bibasilar mixed interstitial and alveolar infiltrates. Possible left-sided effusion which also appears slightly improved. 2. Stable position of life support tubes. Otis Nobles MD Chest X-Ray 01/17/17599 Signed Impressions: Service Date/Time: Tuesday, January 17, 2017 03:20 - CONCLUSION: No significant change has occurred. John Paul Delgado MD Abdomen X-Ray 01/17/17 Signed Impressions: Service Date/Time: Tuesday, January 17, 2017 20:02 - CONCLUSION: 1. Nonspecific bowel gas pattern. 2. NG tube in the stomach. Bart Spring MD Skull X-Ray 01/14/17 Signed Impressions: Service Date/Time: Saturday, January 14, 2017 11:20 - CONCLUSION: No MRI incompatible foreign body is identified. Bar Arias MD Brain MRI 01/14/17 Signed Impressions: Service Date/Time: Saturday, January 14, 2017 15:40 - CONCLUSION: No acute abnormality is seen. Bar Arias MD Chest CT 01/12/17 Signed Impressions: Service Date/Time: Thursday, January 12, 2017 16:58 - CONCLUSION: 1. Extensive consolidation throughout much of the right lung likely representing processes such as inflammatory change and pneumonia. 2. Extensive adenopathy is seen throughout the mediastinum. This is nonspecific. It could be reactive or neoplastic. If it is neoplastic, lymphoma should be considered. Axillary adenopathy is not seen. Bar Arias MD Renal Ultrasound 01/10/17 0000 Signed Impressions: Service Date/Time: Tuesday, January 10, 2017 10:49 - CONCLUSION: 1. Kidneys appear normal. 2. Impression on the bladder floor from the prostate. There is a bladder diverticulum and possible bladder stone present. Bar Arias MD PHYSICAL EXAMINATION GENERAL: Awake and responsive. HEENT: No icterus. Moist mucosa. Neck: Supple. No swelling, no adenopathy. Lungs: Decreased bilateral breath sounds. Heart: Regular without audible murmurs, rubs or gallops. Abdomen: Bowel sounds present, soft, non tender. Extremities: No clubbing, cyanosis or edema. Skin: No rash. Neuro: Non focal. Psych: Calm. IMPRESSION: 1. Pneumococcal sepsis. Treated. 2. Respiratory failure. Extubated. 3. Urinary tract infection. Pseudomonas. Treated. 4. Leukocytosis. Resolved. 5. Pneumonia. Pseudomonas. Improved. RECOMMENDATIONS Stop piperacillin/tazobactam Okay to discharge without further antibiotics. Tyler Queen MD Jan 28, 2017 16:41
--- NOTE | 2017-01-28 19:07 | HHI.PR ---
Subjective Remarks infection prevention specialist Notes: 81yM with h/o COPD and prior PE who presented yesterday with history of nausea/ vomiting and was worked up including negative CT abd/pelvis with IV contrast. He returned this morning due to dizziness. At that time he had a lactate of 6, wbc 20k, and cxr demonstrating RUL pneumonia. he was given zosyn and 4L IVF. Repeat lactate demonstrated persistent lactic acidosis of 6. Also, after 6 hours, his uop was < 200cc. A Woodward catheter was inserted. his Cr was also elevated at 1.9. At this point, he became acutely hypoxemic and agitated. I was called and immediately went down to evaluate the patient. When I walked in , he was agitated and pulling off his NRB mask. He did not have a reliable spo2 monitor waveform and an abg was drawn with a po2 of 50. Decision was made to pursue emergent intubation (see separate procedure note for details). After intubation, the patient became hypotensive requiring vasopressor therapy and additional fluid boluses were given. Due to his impending cardiovascular collapse, a STAT echo was ordered which demonstrated hyperdynamic biventricular function, moderate pulmonary hypertension, and very collapsable IVC. He was given an additional 2L IVF and 2 amps bicarbonate for pH 7.11 on repeat abg with severe metabolic acidosis with BE -12. He was started on norepinephrine and vasopressin. He was transported to the medical ICU in critical condition. 01/09: Lactate is clearing, but slowly. CVP improved overnight. uop marginal, but slightly improved from yesterday. hypoxia slightly better as well, although persists on 100% fio2. wbc up to 44k today. 01/10: CVP rising yesterday, persistently oligoanuric. vasopressors persist, but at slightly lower dose. high fio2 requirements. wbc downtrending. 01/11: oxygenation severely worsened overnight. now on peep 15, fio2 100%, spo2 85%. vasopressors weaned off. cvp kuldip throughout the night to 23 this AM. CXR with evidence of significant pulmonary edema and intravascular volume overload. despite this, UOP minimal overnight and remains in oliguric renal failure. 01/12: Remains intubated sedated. Chest x-ray from yesterday prominent bilateral infiltrates right more than left with mediastinal prominence. CT chest ordered for today. Urine output 10 L in 24 hours on Lasix infusion 20 mg pr hour. Slight worsening of creatinine to 2.15. Weight is still up by 9 KG. WBC count essentially stable 01/14: Afebrile. Not really responsive this a.m. so MRI brain/EEG pending. Currently on CPAP trial. Lasix infusion will be discontinued. Positive BM. Tolerating tube feeds 01/15: Resting comfortably in bed. Currently on CPAP trials. Very poor duration. Currently 50% FiO2. X-ray stable. Tolerating tube feeds. Positive bowel movement. Agitated once sedation removed. 01/16: Tmax 100. Currently on CPAP trials while on propofol drip. FiO2 45%. X -ray remained stable. Tolerating tube feeds. Positive BMs yesterday. 01/17 Patient is sedated with Diprivan, Fentanyl and intubated. Afebrile. Had bigeminy/PVC overnight given Lidocaine 100mg IV x1. 01/18 Patient is sedated with Diprivan and intubated. T:101.6 last night. 01/19 Patient remains intubated tolerated CPAP for several hrs yesterday. Tmax 100.2. Currently off sedation and on CPAP 10/5 with 45% FIO2. Does not follow commands. Repeat EEG yesterday showed high frequency artifact. 01/20 No acute events overnight. Off sedation. Patient is more awake this morning and able to track. Afebrile. On CPAP with PS: 10, PEEP:5 and FIO2 45% 01/21 Patient s/p extubation yesterday. Awake follows commands. Afebrile. 01/22 No acute events overnight. Afebrile. Hospitalist Notes: 01/25 Patient seen in his bedroom in Intensive Care unit and discussed with nurse Miss Troncoso, he is not feeling well states, he feels weak and has generalized discomfort recommended by chief specialist leed to wean Oxygen, PT evaluation, bronchodilator, Mucolytic, incentive spirometry. follow laboratory for tomorrow and Heparin for DVT prophylaxis. steroids. 01/26 Patient seen in the room in the presence of nurse Miss Crane appreciated, stable alert and oriented in place and person, will continue working with physical therapy, was transferred to the Medical floor yesterday afternoon, no Nausea, vomit or diarrhea. afebrile, chief specialist leed, ID specialist following, air quality specialist following, continue Zosyn IV, Oxygen Support to keep O sat >92%, DNR status. 01/27 Seen in his bedroom discussed with nurse Miss Peter and with his 01/28 Sable, alert and oriented, today he is been taken off antibiotics as per ID specialist and cleared to go to Rehab, will follow with Doctor Haim Jj for discharge by chief specialist leed, No Nausea, vomit or diarrhea. Objective Vital Signs Date Time Temp Pulse Resp B/P Pulse Ox O2 Delivery O2 Flow Rate FiO2 01/28/17 16:00 98.2 93 24 140/98 98 01/28/17 14:23 93 Nasal Cannula 4.00 01/28/17 12:00 98.2 95 24 168/77 96 01/28/17 08:05 102 01/28/17 08:00 97.3 103 24 159/66 93 01/28/17 07:15 Nasal Cannula 4.00 50 01/28/17 03:40 98.5 98 22 163/86 94 154/84 01/27/17 23:37 98.5 101 24 146/76 94 01/27/17 20:06 97 Nasal Cannula 4.00 01/27/17 20:00 101 01/27/17 20:00 Nasal Cannula 4.00 01/27/17 19:50 98.5 106 24 173/84 91 168/82 I/O 01/27/17 01/27/17 01/27/17 01/28/17 01/28/17 01/28/17 07:00 15:00 23:00 07:00 15:00 23:00 Intake Total 0 ml 102 ml 360 ml 0 ml 100 ml Output Total 50 ml 175 ml Balance 0 ml 102 ml 360 ml -50 ml -75 ml Intake Oral 0 ml 360 ml 0 ml 100 ml IV Total 102 ml Output Urine Total 50 ml 175 ml # Voids 6 5 2 # Bowel Movements 2 1 0 Result Diagram: 01/28/17 0501 01/24/17 1350 Imaging Last Impressions Chest X-Ray 01/28/17 0600 Signed Impressions: Service Date/Time: Saturday, January 28, 2017 06:19 - CONCLUSION: Stable chest x-ray without air space consolidation in the right midlung zone and suspected atelectasis at the lung bases. Bar Manzano MD Abdomen X-Ray 01/17/17 0000 Signed Impressions: Service Date/Time: Tuesday, January 17, 2017 20:02 - CONCLUSION: 1. Nonspecific bowel gas pattern. 2. NG tube in the stomach. Bart Spring MD Skull X-Ray 01/14/17 0000 Signed Impressions: Service Date/Time: Saturday, January 14, 2017 11:20 - CONCLUSION: No MRI incompatible foreign body is identified. Bar Arias MD Brain MRI 01/14/17 0000 Signed Impressions: Service Date/Time: Saturday, January 14, 2017 15:40 - CONCLUSION: No acute abnormality is seen. Bar Arias MD Chest CT 01/12/17 0000 Signed Impressions: Service Date/Time: Thursday, January 12, 2017 16:58 - CONCLUSION: 1. Extensive consolidation throughout much of the right lung likely representing processes such as inflammatory change and pneumonia. 2. Extensive adenopathy is seen throughout the mediastinum. This is nonspecific. It could be reactive or neoplastic. If it is neoplastic, lymphoma should be considered. Axillary adenopathy is not seen. Bar Arias MD Renal Ultrasound 01/10/17 0000 Signed Impressions: Service Date/Time: Tuesday, January 10, 2017 10:49 - CONCLUSION: 1. Kidneys appear normal. 2. Impression on the bladder floor from the prostate. There is a bladder diverticulum and possible bladder stone present. Bar Arias MD Procedures Endotracheal intubation and Extubation. Other Results Laboratory Tests Test 01/28/17 05:01 White Blood Count 10.5 TH/MM3 Red Blood Count 3.52 MIL/MM3 Hemoglobin 10.4 GM/DL Hematocrit 30.8 % Mean Corpuscular Volume 87.5 FL Mean Corpuscular Hemoglobin 29.6 PG Mean Corpuscular Hemoglobin 33.9 % Concent Red Cell Distribution Width 15.8 % Platelet Count 195 TH/MM3 Mean Platelet Volume 9.2 FL Objective Remarks GENERAL:No acute distress SKIN: Warm and dry. HEAD: Normocephalic. EYES: No scleral icterus. No injection or drainage. NECK: Supple, trachea midline. No JVD or lymphadenopathy. CARDIOVASCULAR: Regular rate and rhythm without murmurs, gallops, or rubs. RESPIRATORY: Decreased breath sounds bilateral, no wheezing or crackles. GASTROINTESTINAL: Abdomen soft, non-tender, nondistended. MUSCULOSKELETAL: No cyanosis, or edema. NEUROLOGY: Alert and oriented in place and person. A/P Problem List: (1) Sepsis ICD Code: A41.9 (2) Pneumonia ICD Code: J18.9 (3) Respiratory failure ICD Code: J96.90 Assessment and Plan 1. Acute Agitated Delirium Improved, patient on chronic Xanax use. avoid sedatives, Neurology specialist following. MRI brain with no acute findings, EEG monitoring, Encephalopathy with no epileptiform activity. 2. Peripheral neuropathy by history 3. VDRF Improved. Acute Hypoxic respiratory failure/Pulmonary edema/Severe Pulmonary Hypertension, chief specialist leed following Oxygen to keep O Sat >92%, Bronchodilator, Mucolytic, incentive spirometry. Steroids. EF 60-65%. 4. Multilobar Pneumococcal Pneumonia Discontinued Zosyn and okay from ID specialist for discharge and no further Antibiotics. 5. COPD Exacerbation improved, continue Bronchodilator, Mucolytic and incentive spirometry. Discussed with chief specialist leed doctor Haim elena to discharge to Rehab from his standpoint. 6. Septic Shock resolved 01/08 blood cultures strep Pneumonia on Zosyn and Vancomycin discontinued and PCN G started by Doctor Robledo 01/11/17 continue Zosyn and Diflucan ID following Urine Culture Pseudomonas, C Glabrata, Sputum Pseudomonas Blood culture Strep Pneumonia, reviewed new CXR for today, improved condition, now off antibiotics and okay to discharge to Rehab from ID specialist standpoint. 7. RIZWAN improved 8. Acute protein Calorie Malnutrition Mild 9. Normocytic Anemia 10. UTI admitted to the Hospital on 01/08/17 with Pneumonia and UTI secondary to Pneumococcus/Pneumococcal antigen positive in Urine, Woodward cath placed and got UTI secondary to Pseudomonas Aeruginosa, may be associated to Woodward cath treated as per ID ulices to discharge to Rehab will try to talk with doctor Jj chief specialist leed to see if he is clear for discharge. GI Prophylaxis Protonix 40 mg IV every 24 hours DVT Prophylaxis -- SCDs Subcutaneous heparin twice a day PT/OT eval and treat Palliative care is following Code status DNR, Goal remain send the patient to Rehabilitation Discharge Planning Infectious Disease cleared patient for discharge awaiting to discuss with Doctor Jj for discharge. Froy Steward MD Jan 28, 2017 19:07
--- NOTE | 2017-01-28 19:52 | HHI.PR ---
Subjective Remarks Awake and in restraints.On a N/C 4 L. Poor intake. CXR stable. Objective Vital Signs Date Time Temp Pulse Resp B/P Pulse Ox O2 Delivery O2 Flow Rate FiO2 01/28/17 16:00 98.2 93 24 140/98 98 01/28/17 14:23 93 Nasal Cannula 4.00 01/28/17 12:00 98.2 95 24 168/77 96 01/28/17 08:05 102 01/28/17 08:00 97.3 103 24 159/66 93 01/28/17 07:15 Nasal Cannula 4.00 50 01/28/17 03:40 98.5 98 22 163/86 94 154/84 01/27/17 23:37 98.5 101 24 146/76 94 01/27/17 20:06 97 Nasal Cannula 4.00 01/27/17 20:00 101 01/27/17 20:00 Nasal Cannula 4.00 I/O 01/27/17 01/27/17 01/27/17 01/28/17 01/28/17 01/28/17 07:00 15:00 23:00 07:00 15:00 23:00 Intake Total 0 ml 102 ml 360 ml 0 ml 100 ml Output Total 50 ml 175 ml Balance 0 ml 102 ml 360 ml -50 ml -75 ml Intake Oral 0 ml 360 ml 0 ml 100 ml IV Total 102 ml Output Urine Total 50 ml 175 ml # Voids 6 5 2 # Bowel Movements 2 1 0 Result Diagram: 01/28/17 0501 01/24/17 1350 Procedures Endotracheal intubation and Extubation. Objective Remarks This moderately overweight elderly white male is alert HEENT: Head normocephalic. Pupils reactive. Sclerae are clear. Throat clear. Neck: Supple. No bruits. No venous distension. Trachea midline. Chest: Equal movements with increased AP diameter with with scattered wheeze . Heart: The heart sounds are irregular, S1-S2. No murmur. No S3. Abdomen: The abdomen is protuberant, soft, without masses, organomegaly or tenderness. Bowel sounds active. Extremities: decreased pulses. No edema. Neurologic: Awake and with 1 + reflexes. Rectal: Exam is deferred. Assessment and Plan Assessment and Plan IMPRESSION 1. Septic shock. 2. Extensive right lung pneumonia and hypoxemia. 3. Acute hypoxemic, hypercapnic respiratory failure. 4. COPD with emphysema 5. History of pulmonary embolism. 6. History of hypertension. 7. RIZWAN. Plan : 1. Wean O2 to 3 L 2. IS at bedside q2h. 3. Chest X ray 4. PT evaluation 5. Nebs q6h , Duoneb. 6. Cont Heparin 5000 U S/Q bid. 7. Cont Symbicort 160/4.5 mcg , 2 puffs bid 8. PO diet as tolerated 10. Prednisone 10 mg daily. Cheri Cadena MD Jan 28, 2017 19:52
[2017-01-28] MEDS: PANTOPRAZOLE SODIUM 40 MG VIAL IV PUSH SCH (21:54)
[2017-01-29] VITALS (8 sets, daily range): BP systolic 154–185; BP diastolic 68–82; PULSE 106–123; RESP 16–24; TEMP 97.4–98.9; O2SAT 92–96
[2017-01-29] MEDS: INSULIN NovoLIN REGULAR SUPPLEMENTAL SCALE SQ SCH ×4 (01:46→20:00)
[2017-01-29] MEDS: CHLORHEXIDINE GLUCONATE 2 % 1 PACK (2 CLOTHS) TOP SCH (04:00)
[2017-01-29] MEDS: HEPARIN SODIUM - SQ 10,000 UNITS/ML VIAL SQ SCH ×2 (05:43→17:50)
[2017-01-29] MEDS: RESP: BUDESONIDE 0.5 MG/2 ML NEB NEB SCH ×2 (08:00→19:09)
[2017-01-29] MEDS: DOCUSATE SODIUM 100 MG/10 ML UDC PO SCH ×2 (09:07→21:39)
[2017-01-29] MEDS: predniSONE 10 MG TAB PO SCH (09:07)
[2017-01-29] MEDS: ASPIRIN EC 81 MG TABEC PO SCH (09:07)
[2017-01-29] MEDS: SENNOSIDES SYRUP 8.8 MG/5 ML CUP PO SCH (09:07)
[2017-01-29] MEDS: FLUCONAZOLE 100 MG TAB PO SCH (09:07)
[2017-01-29] MEDS: LACTOBACILLUS ACIDOPHILUS TAB PO SCH ×3 (09:08→17:42)
[2017-01-29] MEDS: BUDESONIDE-FORMOTEROL 160/4.5 MCG INHALER INH SCH ×2 (09:10→21:39)
[2017-01-29] MEDS ORDERED: METOPROLOL TARTRATE 25 MG TAB PO SCH (09:15)
[2017-01-29] MEDS ORDERED: cloNIDine HCL 0.1 MG TAB PO ONE (09:15)
--- NOTE | 2017-01-29 14:12 | HHI.PR ---
Subjective Remarks Awake and in restraints.On a N/C 4 L. Had vomited today. CXR stable. Objective Vital Signs Date Time Temp Pulse Resp B/P Pulse Ox O2 Delivery O2 Flow Rate FiO2 01/29/17 12:00 98.9 113 20 165/82 95 01/29/17 08:01 95 Nasal Cannula 4.00 01/29/17 08:00 97.4 123 16 185/82 93 01/29/17 04:00 98.5 118 20 156/68 96 01/29/17 00:04 98.4 109 20 154/74 94 01/28/17 20:18 93 Nasal Cannula 4.00 01/28/17 20:00 116 01/28/17 20:00 97.9 117 20 131/97 96 01/28/17 20:00 Nasal Cannula 4.00 01/28/17 16:00 98.2 93 24 140/98 98 01/28/17 14:23 93 Nasal Cannula 4.00 I/O 01/28/17 01/28/17 01/28/17 01/29/17 01/29/17 01/29/17 07:00 15:00 23:00 07:00 15:00 23:00 Intake Total 0 ml 100 ml 120 ml 60 ml Output Total 50 ml 175 ml 100 ml Balance -50 ml -75 ml 20 ml 60 ml Intake Oral 0 ml 100 ml 120 ml 60 ml Output Urine Total 50 ml 175 ml 100 ml # Voids 2 2 # Bowel Movements 0 0 0 Result Diagram: 01/28/17 0501 Procedures Endotracheal intubation and Extubation. Objective Remarks This moderately overweight elderly white male is alert. HEENT: Head normocephalic. Pupils reactive. Sclerae are clear. Throat clear. Neck: Supple. No bruits. No venous distension. Trachea midline. Chest: Equal movements with increased AP diameter with with scattered wheeze Occ basal crackles. Heart: The heart sounds are irregular, S1-S2. No murmur. No S3. Abdomen: The abdomen is protuberant, soft, without masses, organomegaly or tenderness. Bowel sounds active. Extremities: decreased pulses. No edema. Neurologic: Awake and with 1 + reflexes. Rectal: Exam is deferred. Assessment and Plan Assessment and Plan IMPRESSION 1. Septic shock. 2. Extensive right lung pneumonia and hypoxemia. 3. Acute hypoxemic, hypercapnic respiratory failure. 4. COPD with emphysema 5. History of pulmonary embolism. 6. History of hypertension. 7. RIZWAN. Plan : 1. Wean O2 to 3 L 2. IS at bedside q2h. 3. CPAP at HS daily. 4. PT evaluation 5. Nebs q6h , Duoneb. 6. Cont Heparin 5000 U S/Q bid. 7. Cont Symbicort 160/4.5 mcg , 2 puffs bid 8. PO diet as tolerated 10. Prednisone 10 mg daily. 11. Add Augmentin 500 mg tid X 7 days Cheri Cadena MD Jan 29, 2017 14:12
[2017-01-29] MEDS: ONDANSETRON HCL 4 MG/2 ML VIAL IV PRN (15:00)
--- NOTE | 2017-01-29 16:24 | HHI.PR ---
Subjective Remarks family dinner service specialist Notes: 81yM with h/o COPD and prior PE who presented yesterday with history of nausea/ vomiting and was worked up including negative CT abd/pelvis with IV contrast. He returned this morning due to dizziness. At that time he had a lactate of 6, wbc 20k, and cxr demonstrating RUL pneumonia. he was given zosyn and 4L IVF. Repeat lactate demonstrated persistent lactic acidosis of 6. Also, after 6 hours, his uop was < 200cc. A Woodward catheter was inserted. his Cr was also elevated at 1.9. At this point, he became acutely hypoxemic and agitated. I was called and immediately went down to evaluate the patient. When I walked in , he was agitated and pulling off his NRB mask. He did not have a reliable spo2 monitor waveform and an abg was drawn with a po2 of 50. Decision was made to pursue emergent intubation (see separate procedure note for details). After intubation, the patient became hypotensive requiring vasopressor therapy and additional fluid boluses were given. Due to his impending cardiovascular collapse, a STAT echo was ordered which demonstrated hyperdynamic biventricular function, moderate pulmonary hypertension, and very collapsable IVC. He was given an additional 2L IVF and 2 amps bicarbonate for pH 7.11 on repeat abg with severe metabolic acidosis with BE -12. He was started on norepinephrine and vasopressin. He was transported to the medical ICU in critical condition. 01/09: Lactate is clearing, but slowly. CVP improved overnight. uop marginal, but slightly improved from yesterday. hypoxia slightly better as well, although persists on 100% fio2. wbc up to 44k today. 01/10: CVP rising yesterday, persistently oligoanuric. vasopressors persist, but at slightly lower dose. high fio2 requirements. wbc downtrending. 01/11: oxygenation severely worsened overnight. now on peep 15, fio2 100%, spo2 85%. vasopressors weaned off. cvp kuldip throughout the night to 23 this AM. CXR with evidence of significant pulmonary edema and intravascular volume overload. despite this, UOP minimal overnight and remains in oliguric renal failure. 01/12: Remains intubated sedated. Chest x-ray from yesterday prominent bilateral infiltrates right more than left with mediastinal prominence. CT chest ordered for today. Urine output 10 L in 24 hours on Lasix infusion 20 mg pr hour. Slight worsening of creatinine to 2.15. Weight is still up by 9 KG. WBC count essentially stable 01/14: Afebrile. Not really responsive this a.m. so MRI brain/EEG pending. Currently on CPAP trial. Lasix infusion will be discontinued. Positive BM. Tolerating tube feeds 01/15: Resting comfortably in bed. Currently on CPAP trials. Very poor duration. Currently 50% FiO2. X-ray stable. Tolerating tube feeds. Positive bowel movement. Agitated once sedation removed. 01/16: Tmax 100. Currently on CPAP trials while on propofol drip. FiO2 45%. X -ray remained stable. Tolerating tube feeds. Positive BMs yesterday. 01/17 Patient is sedated with Diprivan, Fentanyl and intubated. Afebrile. Had bigeminy/PVC overnight given Lidocaine 100mg IV x1. 01/18 Patient is sedated with Diprivan and intubated. T:101.6 last night. 01/19 Patient remains intubated tolerated CPAP for several hrs yesterday. Tmax 100.2. Currently off sedation and on CPAP 10/5 with 45% FIO2. Does not follow commands. Repeat EEG yesterday showed high frequency artifact. 01/20 No acute events overnight. Off sedation. Patient is more awake this morning and able to track. Afebrile. On CPAP with PS: 10, PEEP:5 and FIO2 45% 01/21 Patient s/p extubation yesterday. Awake follows commands. Afebrile. 01/22 No acute events overnight. Afebrile. Hospitalist Notes: 01/25 Patient seen in his bedroom in Intensive Care unit and discussed with nurse Miss Troncoso, he is not feeling well states, he feels weak and has generalized discomfort recommended by call specialist to wean Oxygen, PT evaluation, bronchodilator, Mucolytic, incentive spirometry. follow laboratory for tomorrow and Heparin for DVT prophylaxis. steroids. 01/26 Patient seen in the room in the presence of nurse Miss Crane appreciated, stable alert and oriented in place and person, will continue working with physical therapy, was transferred to the Medical floor yesterday afternoon, no Nausea, vomit or diarrhea. afebrile, call specialist, ID specialist following, security compliance specialist following, continue Zosyn IV, Oxygen Support to keep O sat >92%, DNR status. 01/27 Seen in his bedroom discussed with nurse Miss Peter and with his 01/28 Stable, alert and oriented, today he is been taken off antibiotics as per ID specialist and cleared to go to Rehab, will follow with Doctor Bar Shelley for discharge by call specialist, No Nausea, vomit or diarrhea. 01/29 No new issues, alert and oriented, I talked with call specialist doctor Bar Cadena he states the patient can be discharge from his standpoint discussed with nurse and Certified Alcohol Counselor for possible discharge for tomorrow. started the patient on Augmentin by mouth for seven days and agree to discharge the patient. today uncontrolled hypertension adjusted Beta Blockers and following. Restraints removed to be able to discharge tomorrow if he improves his vomiting. Objective Vital Signs Date Time Temp Pulse Resp B/P Pulse Ox O2 Delivery O2 Flow Rate FiO2 01/29/17 12:00 98.9 113 20 165/82 95 01/29/17 08:01 95 Nasal Cannula 4.00 01/29/17 08:00 97.4 123 16 185/82 93 01/29/17 04:00 98.5 118 20 156/68 96 01/29/17 00:04 98.4 109 20 154/74 94 01/28/17 20:18 93 Nasal Cannula 4.00 01/28/17 20:00 116 01/28/17 20:00 97.9 117 20 131/97 96 01/28/17 20:00 Nasal Cannula 4.00 I/O 01/28/17 01/28/17 01/28/17 01/29/17 01/29/17 01/29/17 07:00 15:00 23:00 07:00 15:00 23:00 Intake Total 0 ml 100 ml 120 ml 60 ml Output Total 50 ml 175 ml 100 ml Balance -50 ml -75 ml 20 ml 60 ml Intake Oral 0 ml 100 ml 120 ml 60 ml Output Urine Total 50 ml 175 ml 100 ml # Voids 2 2 # Bowel Movements 0 0 0 Result Diagram: 01/28/17 0501 Imaging Last Impressions Chest X-Ray 01/28/17 0600 Signed Impressions: Service Date/Time: Saturday, January 28, 2017 06:19 - CONCLUSION: Stable chest x-ray without air space consolidation in the right midlung zone and suspected atelectasis at the lung bases. Bar Manzano MD Abdomen X-Ray 01/17/17 0000 Signed Impressions: Service Date/Time: Tuesday, January 17, 2017 20:02 - CONCLUSION: 1. Nonspecific bowel gas pattern. 2. NG tube in the stomach. Bart Spring MD Skull X-Ray 01/14/17 0000 Signed Impressions: Service Date/Time: Saturday, January 14, 2017 11:20 - CONCLUSION: No MRI incompatible foreign body is identified. Bar Arias MD Brain MRI 01/14/17 0000 Signed Impressions: Service Date/Time: Saturday, January 14, 2017 15:40 - CONCLUSION: No acute abnormality is seen. Bar Arias MD Chest CT 01/12/17 0000 Signed Impressions: Service Date/Time: Thursday, January 12, 2017 16:58 - CONCLUSION: 1. Extensive consolidation throughout much of the right lung likely representing processes such as inflammatory change and pneumonia. 2. Extensive adenopathy is seen throughout the mediastinum. This is nonspecific. It could be reactive or neoplastic. If it is neoplastic, lymphoma should be considered. Axillary adenopathy is not seen. Bar Arias MD Renal Ultrasound 01/10/17 0000 Signed Impressions: Service Date/Time: Tuesday, January 10, 2017 10:49 - CONCLUSION: 1. Kidneys appear normal. 2. Impression on the bladder floor from the prostate. There is a bladder diverticulum and possible bladder stone present. Bar Arias MD Procedures Endotracheal intubation and Extubation. Other Results Laboratory Tests Test 01/28/17 05:01 White Blood Count 10.5 TH/MM3 Red Blood Count 3.52 MIL/MM3 Hemoglobin 10.4 GM/DL Hematocrit 30.8 % Mean Corpuscular Volume 87.5 FL Mean Corpuscular Hemoglobin 29.6 PG Mean Corpuscular Hemoglobin 33.9 % Concent Red Cell Distribution Width 15.8 % Platelet Count 195 TH/MM3 Mean Platelet Volume 9.2 FL Objective Remarks GENERAL:No acute distress SKIN: Warm and dry. HEAD: Normocephalic. EYES: No scleral icterus. No injection or drainage. NECK: Supple, trachea midline. No JVD or lymphadenopathy. CARDIOVASCULAR: Regular rate and rhythm without murmurs, gallops, or rubs. RESPIRATORY: Decreased breath sounds bilateral, no wheezing or crackles. GASTROINTESTINAL: Abdomen soft, non-tender, nondistended. MUSCULOSKELETAL: No cyanosis, or edema. NEUROLOGY: Alert and oriented in place and person. Medications and IVs Current Medications Medications (Trade) Dose Ordered Sig/Josefina Route Start Time Stop Time Status Last Admin (Ecotrin Ec) 81 mg DAILY PO 01/09/17 09:00 01/29/17 09:07 (Lactinex) 1 tab TID PO 01/08/17 18:00 01/29/17 13:00 (NS Flush) 2 ml UNSCH PRN IV FLUSH 01/08/17 15:45 01/19/17 15:47 (NS Flush) 2 ml BID IV FLUSH 01/08/17 21:00 01/28/17 21:55 (Heparin Inj) 5,000 units Q12H SQ 01/08/17 18:00 01/29/17 05:43 Miscellaneous Information 1 Q361D XX 01/08/17 15:45 (Chlorhexidine 2% Cloth) 3 pack Taper DAILY@04 TOP 01/09/17 04:00 01/05/18 03:59 01/24/17 21:58 (Chlorhexidine 2% Cloth) 3 pack UNSCH PRN TOP 01/08/17 15:45 (Zofran Inj) 4 mg Q6H PRN IV 01/08/17 15:45 01/29/17 15:00 (Holly-Colace) 1 tab BID PRN PO 01/08/17 15:45 (Tums Chew) 1,000 mg TID PRN CHEW 01/08/17 15:45 (Peridex 0.12% Liq) 15 ml BID@08,20 MT 01/08/17 20:00 01/25/17 20:00 (Protonix Inj) 40 mg Q24H IV PUSH 01/08/17 21:00 01/28/17 21:54 Alteplase, Recombinant 2 mg 2 mg Q2H PRN INTRACATH 01/10/17 21:45 01/10/17 22:30 (KCl 20 Meq Premix Inj) 100 ml @ 50 mls/hr UNSCH PRN IV 01/11/17 15:30 01/21/17 11:20 (Colace Liq) 100 mg Q12HR PO 01/12/17 09:00 01/29/17 09:07 (Senna Liq) 8.8 mg DAILY PO 01/12/17 09:00 01/29/17 09:07 (Tylenol) 500 mg Q6H PRN PO 01/16/17 14:30 01/17/17 15:46 (D50w (Vial) Inj) 25 ml UNSCH PRN IV PUSH 01/17/17 08:00 (Glucagon Inj) 1 mg UNSCH PRN OTHER 01/17/17 08:00 (NovoLIN R SUPPLEMENTAL SCALE) 1 Q6H SQ 01/17/17 08:00 01/24/17 14:00 (Mycostatin Powder) 1 applic Q12HR PRN TOPICAL 01/17/17 08:15 01/18/17 09:15 (Diflucan) 100 mg DAILY PO 01/19/17 10:15 01/29/17 09:07 (Symbicort 160-4.5 Inh) 1 puff Q12HR INH 01/26/17 21:00 01/29/17 09:10 (Deltasone) 15 mg DAILY PO 01/28/17 09:00 01/29/17 09:07 (Lopressor) 12.5 mg Q12HR PO 01/29/17 09:15 01/29/17 09:45 (Augmentin) 500 mg Q8HR PO 01/29/17 22:00 A/P Problem List: (1) Sepsis ICD Code: A41.9 (2) Pneumonia ICD Code: J18.9 (3) Respiratory failure ICD Code: J96.90 Assessment and Plan 1. Acute Agitated Delirium Improved, patient on chronic Xanax use. avoid sedatives, Neurology specialist following. MRI brain with no acute findings, EEG monitoring, Encephalopathy with no epileptiform activity. 2. Peripheral neuropathy by history 3. VDRF Improved. Acute Hypoxic respiratory failure/Pulmonary edema/Severe Pulmonary Hypertension, call specialist following Oxygen to keep O Sat >92%, Bronchodilator, Mucolytic, incentive spirometry. Steroids. EF 60-65%. 4. Multilobar Pneumococcal Pneumonia Discontinued Zosyn and okay from ID specialist for discharge and no further Antibiotics. today started on Augmentin by call specialist 5. COPD Exacerbation improved, continue Bronchodilator, Mucolytic and incentive spirometry. Discussed with call specialist doctor Bar elena to discharge to Rehab from his standpoint. started he patient on Augmentin by mouth for seven days. 6. Septic Shock resolved 01/08 blood cultures strep Pneumonia on Zosyn and Vancomycin discontinued and PCN G started by Doctor Robledo 01/11/17 continue Zosyn and Diflucan ID following Urine Culture Pseudomonas, C Glabrata, Sputum Pseudomonas Blood culture Strep Pneumonia, reviewed new CXR for today, improved condition, now off antibiotics and okay to discharge to Rehab from ID specialist standpoint. started on Augmentin by call specialist. 7. RIZWAN improved 8. Acute protein Calorie Malnutrition Mild 9. Normocytic Anemia 10. UTI admitted to the Hospital on 01/08/17 with Pneumonia and UTI secondary to Pneumococcus/Pneumococcal antigen positive in Urine, Woodward cath placed and got UTI secondary to Pseudomonas Aeruginosa, may be associated to Woodward cath treated 11. Hypertension adjusted Beta Aden Metoprolol 25 mg BID and Clonidine as needed for systolic blood pressure 160 mm Hg or over. 12. Intractable nausea and vomit, one episode of vomit, was a Biliary fluid, performed an abdominal X ray found distension, was started on PPI, Carafate and Zofran following. IV fluids. as per ID okay to discharge to Rehab I had he pleasure to talk about the case with call specialist Doctor Bar Cadena and the patient may be discharge to Rehab. GI Prophylaxis Protonix 40 mg IV every 24 hours DVT Prophylaxis -- SCDs Subcutaneous heparin twice a day PT/OT eval and treat Palliative care is following Code status DNR, Goal remain send the patient to Rehabilitation Discharge Planning Infectious Disease cleared patient for discharge call specialist Doctor Bar Cadena cleared patient for discharge Not able to discharge the patient has vomit and High blood pressure, also had a large vomit Froy Steward MD Jan 29, 2017 16:23
[2017-01-29] MEDS ORDERED: PANTOPRAZOLE SODIUM 40 MG VIAL IV PUSH ONE (17:15)
[2017-01-29] MEDS: SODIUM CHLOR 0.45% 1000 ML INJ 1,000 ML IV SCH (17:43)
--- NOTE | 2017-01-29 18:07 | RADRPT ---
EXAM DATE/TIME: 01/29/2017 17:18 [facility] COMPARISON: CHEST SINGLE AP, January 28, 2017, 6:19. ABDOMEN KUB ONLY, January 17, 2017, 20:02. INDICATIONS : Nausea and vomiting. Sepsis. MEDICAL HISTORY : None. SURGICAL HISTORY : None. ENCOUNTER: Initial ACUITY: 2 days PAIN SCORE: Non-responsive. LOCATION: Bilateral lower quadrant FINDINGS: There has been an increase in distention of multiple loops of small bowel with small bowel loops charley uring up to 6 cm in dimension. A gastric tube is present on the prior KUB; this has been removed. N o distended loops of colon seen. Hemoclips in the right upper quadrant. The visualized lower lungs are clear. CONCLUSION: Increasing distention of loops of small bowel predominantly in the left hypogastric region. Kana Wilson MD on January 29, 2017 at 18:04 Board Certified Radiologist. This report was verified electronically.
[2017-01-29] MEDS: CHLORHEXIDINE 0.12% (ORAL KIT) 15 ML CUP MT SCH (20:00)
[2017-01-29] MEDS: SODIUM CHLORIDE 0.9% FLUSH 5 ML FLUSH IV FLUSH SCH (21:00)
[2017-01-29] MEDS: SUCRALFATE 1 GM TAB PO SCH (21:40)
[2017-01-29] MEDS: AMOXICILLIN/CLAVULANATE K 500 MG TAB PO SCH (21:40)
[2017-01-29] MEDS: METOPROLOL TARTRATE 25 MG TAB PO SCH (21:40)
[2017-01-29] MEDS: PANTOPRAZOLE SODIUM 40 MG VIAL IV PUSH SCH (21:41)
[2017-01-30] VITALS (8 sets, daily range): BP systolic 121–177; BP diastolic 61–85; PULSE 107–120; RESP 18–26; TEMP 97.4–98.6; O2SAT 92–97
[2017-01-30] MEDS: INSULIN NovoLIN REGULAR SUPPLEMENTAL SCALE SQ SCH ×4 (02:00→20:00)
[2017-01-30] MEDS: CHLORHEXIDINE GLUCONATE 2 % 1 PACK (2 CLOTHS) TOP SCH (03:27)
[2017-01-30] MEDS: SODIUM CHLOR 0.45% 1000 ML INJ 1,000 ML IV SCH ×2 (05:10→17:05)
[2017-01-30] MEDS: AMOXICILLIN/CLAVULANATE K 500 MG TAB PO SCH ×2 (05:43→21:38)
[2017-01-30] MEDS: SUCRALFATE 1 GM TAB PO SCH ×4 (05:43→21:37)
[2017-01-30] MEDS: HEPARIN SODIUM - SQ 10,000 UNITS/ML VIAL SQ SCH ×2 (05:44→18:00)
[2017-01-30] MEDS: RESP: BUDESONIDE 0.5 MG/2 ML NEB NEB SCH ×2 (07:58→19:33)
[2017-01-30] MEDS: LACTOBACILLUS ACIDOPHILUS TAB PO SCH ×3 (09:00→18:00)
[2017-01-30] MEDS: ASPIRIN EC 81 MG TABEC PO SCH (09:00)
[2017-01-30] MEDS: FLUCONAZOLE 100 MG TAB PO SCH (09:00)
[2017-01-30] MEDS: DOCUSATE SODIUM 100 MG/10 ML UDC PO SCH ×2 (09:00→21:37)
[2017-01-30] MEDS: METOPROLOL TARTRATE 25 MG TAB PO SCH ×2 (09:00→21:37)
[2017-01-30] MEDS: BUDESONIDE-FORMOTEROL 160/4.5 MCG INHALER INH SCH ×2 (09:00→21:38)
[2017-01-30] MEDS: SENNOSIDES SYRUP 8.8 MG/5 ML CUP PO SCH (09:00)
[2017-01-30] MEDS: predniSONE 10 MG TAB PO SCH (09:00)
[2017-01-30 10:05] LABS: AUTOMATED NEUTROPHIL # 16.2 TH/MM3 (1.8-7.7); BASOPHIL # 0.1 TH/MM3 (0-0.2); BASOPHIL % 0.2 % (0.0-2.0); EOSINOPHIL # 0.2 TH/MM3 (0-0.4); EOSINOPHIL % 0.7 % (0.0-4.0); HEMATOCRIT 38.2 % (39.0-51.0); LYMPH % 28.9 % (9.0-44.0); MEAN CORPUSCULAR HEMOGLOBIN 28.4 PG (27.0-34.0); MEAN CORPUSCULAR HGB CONC 31.6 % (32.0-36.0); MONO % 2.9 % (0.0-8.0); NEUT % 67.3 % (16.0-70.0); PLATELET COUNT 266 TH/MM3 (150-450); RED BLOOD COUNT 4.25 MIL/MM3 (4.50-5.90); WHITE BLOOD COUNT 24.1 TH/MM3 (4.0-11.0)
[2017-01-30 10:06] LABS: HEMO FLAGS AUTO DIFF
[2017-01-30 10:22] LABS: MAGNESIUM 2.1 MG/DL (1.5-2.5); POTASSIUM 3.4 MEQ/L (3.5-5.1)
[2017-01-30 10:35] LABS: NEUTROPHIL # MANUAL DIFF 16.6 TH/MM3 (1.8-7.7); POLYS (SEG NEUTROPHILS) 69 % (16-70); WBC DIFF SAMPLE 100
[2017-01-30 10:37] LABS: PLATELET ESTIMATE SMEAR NORMAL (NORMAL); PLATELET MORPHOLOGY NORMAL (NORMAL); SCAN/DIFF FINAL DIFF MANUAL
[2017-01-30] MEDS: POTASSIUM CHLOR 10 MEQ PREMIX 100 ML IV SCH ×3 (11:00→13:00)
[2017-01-30] MEDS ORDERED: PIPERACIL-TAZO 3.375 GM PREMIX 50 ML IV SCH (12:00)
--- NOTE | 2017-01-30 14:37 | HHI.PR ---
Subjective Remarks Awake and seems more comfortable.On a N/C 4 L. No vomiting. wants to go home Objective Vital Signs Date Time Temp Pulse Resp B/P Pulse Ox O2 Delivery O2 Flow Rate FiO2 01/30/17 12:00 98.6 107 24 177/82 94 01/30/17 08:01 94 Nasal Cannula 4.00 01/30/17 08:00 96 Nasal Cannula 4.00 50 01/30/17 08:00 97.7 115 26 158/64 93 01/30/17 08:00 112 01/30/17 04:00 97.9 120 20 169/83 95 01/30/17 00:00 97.6 113 22 158/74 93 01/29/17 20:00 Nasal Cannula 4.00 01/29/17 20:00 97.4 107 20 171/77 93 01/29/17 19:09 92 Nasal Cannula 4.00 01/29/17 16:00 98.1 106 24 167/74 92 I/O 01/29/17 01/29/17 01/29/17 01/30/17 01/30/17 01/30/17 07:00 15:00 23:00 07:00 15:00 23:00 Intake Total 60 ml 10 ml 60 ml Output Total 1000 ml 350 ml Balance 60 ml 10 ml -1000 ml -290 ml Intake Oral 60 ml 10 ml 60 ml Emesis 1000 ml 350 ml # Voids 2 3 1 3 # Bowel Movements 0 0 Result Diagram: 01/30/1737 01/30/17 0937 Procedures Endotracheal intubation and Extubation. Objective Remarks This moderately overweight elderly white male is alert. HEENT: Head normocephalic. Pupils reactive. Sclerae are clear. Throat clear. Neck: Supple. No bruits. No venous distension. Trachea midline. Chest: Equal movements with increased AP diameter with with scattered wheeze and Occ basal crackles. Heart: The heart sounds are irregular, S1-S2. No murmur. No S3. Abdomen: The abdomen is protuberant, soft, without masses, organomegaly or tenderness. Bowel sounds active. Extremities: decreased pulses. No edema. Neurologic: Awake and with 1 + reflexes. Rectal: Exam is deferred. Assessment and Plan Assessment and Plan IMPRESSION 1. Septic shock.Resolved 2. Extensive right lung pneumonia and hypoxemia. 3. Acute hypoxemic, hypercapnic respiratory failure. 4. COPD with emphysema 5. History of pulmonary embolism. 6. History of hypertension. 7. RIZWAN. Plan : 1. Cont O2 3 L 2. IS at bedside q2h. 3. CPAP at HS daily. 4. PT evaluation 5. Nebs q6h , Duoneb. 6. Cont Heparin 5000 U S/Q bid. 7. Cont Symbicort 160/4.5 mcg , 2 puffs bid 8. PO diet as tolerated 10. Prednisone 10 mg daily. 11.Augmentin 500 mg tid X 7 days Cheri Cadena MD Jan 30, 2017 14:37
--- NOTE | 2017-01-30 16:00 | HHI.PR ---
Subjective Remarks policy specialist Notes: 81yM with h/o COPD and prior PE who presented yesterday with history of nausea/ vomiting and was worked up including negative CT abd/pelvis with IV contrast. He returned this morning due to dizziness. At that time he had a lactate of 6, wbc 20k, and cxr demonstrating RUL pneumonia. he was given zosyn and 4L IVF. Repeat lactate demonstrated persistent lactic acidosis of 6. Also, after 6 hours, his uop was < 200cc. A Woodward catheter was inserted. his Cr was also elevated at 1.9. At this point, he became acutely hypoxemic and agitated. I was called and immediately went down to evaluate the patient. When I walked in , he was agitated and pulling off his NRB mask. He did not have a reliable spo2 monitor waveform and an abg was drawn with a po2 of 50. Decision was made to pursue emergent intubation (see separate procedure note for details). After intubation, the patient became hypotensive requiring vasopressor therapy and additional fluid boluses were given. Due to his impending cardiovascular collapse, a STAT echo was ordered which demonstrated hyperdynamic biventricular function, moderate pulmonary hypertension, and very collapsable IVC. He was given an additional 2L IVF and 2 amps bicarbonate for pH 7.11 on repeat abg with severe metabolic acidosis with BE -12. He was started on norepinephrine and vasopressin. He was transported to the medical ICU in critical condition. 01/09: Lactate is clearing, but slowly. CVP improved overnight. uop marginal, but slightly improved from yesterday. hypoxia slightly better as well, although persists on 100% fio2. wbc up to 44k today. 01/10: CVP rising yesterday, persistently oligoanuric. vasopressors persist, but at slightly lower dose. high fio2 requirements. wbc downtrending. 01/11: oxygenation severely worsened overnight. now on peep 15, fio2 100%, spo2 85%. vasopressors weaned off. cvp kuldip throughout the night to 23 this AM. CXR with evidence of significant pulmonary edema and intravascular volume overload. despite this, UOP minimal overnight and remains in oliguric renal failure. 01/12: Remains intubated sedated. Chest x-ray from yesterday prominent bilateral infiltrates right more than left with mediastinal prominence. CT chest ordered for today. Urine output 10 L in 24 hours on Lasix infusion 20 mg pr hour. Slight worsening of creatinine to 2.15. Weight is still up by 9 KG. WBC count essentially stable 01/14: Afebrile. Not really responsive this a.m. so MRI brain/EEG pending. Currently on CPAP trial. Lasix infusion will be discontinued. Positive BM. Tolerating tube feeds 01/15: Resting comfortably in bed. Currently on CPAP trials. Very poor duration. Currently 50% FiO2. X-ray stable. Tolerating tube feeds. Positive bowel movement. Agitated once sedation removed. 01/16: Tmax 100. Currently on CPAP trials while on propofol drip. FiO2 45%. X -ray remained stable. Tolerating tube feeds. Positive BMs yesterday. 01/17 Patient is sedated with Diprivan, Fentanyl and intubated. Afebrile. Had bigeminy/PVC overnight given Lidocaine 100mg IV x1. 01/18 Patient is sedated with Diprivan and intubated. T:101.6 last night. 01/19 Patient remains intubated tolerated CPAP for several hrs yesterday. Tmax 100.2. Currently off sedation and on CPAP 10/5 with 45% FIO2. Does not follow commands. Repeat EEG yesterday showed high frequency artifact. 01/20 No acute events overnight. Off sedation. Patient is more awake this morning and able to track. Afebrile. On CPAP with PS: 10, PEEP:5 and FIO2 45% 01/21 Patient s/p extubation yesterday. Awake follows commands. Afebrile. 01/22 No acute events overnight. Afebrile. Hospitalist Notes: 01/25 Patient seen in his bedroom in Intensive Care unit and discussed with nurse Miss Troncoso, he is not feeling well states, he feels weak and has generalized discomfort recommended by living specialist to wean Oxygen, PT evaluation, bronchodilator, Mucolytic, incentive spirometry. follow laboratory for tomorrow and Heparin for DVT prophylaxis 01/26 Patient seen in the room in the presence of nurse Miss Crane appreciated, stable alert and oriented in place and person, will continue working with physical therapy, was transferred to the Medical floor yesterday afternoon, no Nausea, vomit or diarrhea. afebrile, living specialist, ID specialist following, credentials specialist following, continue Zosyn IV, Oxygen Support to keep O sat >92%, DNR status. 01/27 Seen in his bedroom discussed with nurse Miss Peter and with his 01/28 Stable, alert and oriented, today he is been taken off antibiotics as per ID specialist and cleared to go to Rehab, will follow with Doctor Bar Shelley for discharge by living specialist. 01/29 No new issues, alert and oriented, I talked with living specialist doctor Bar Cadena he states the patient can be discharge from his standpoint discussed with nurse and Director Of Property Management for possible discharge for tomorrow. started the patient on Augmentin by mouth for seven days and agree to discharge the patient. today uncontrolled hypertension adjusted Beta Blockers and following. Restraints removed to be able to discharge tomorrow if he improves his vomiting. 01/30 Seen in his bedroom, continue with nausea and vomit, not feeling well, he tells me he is tired, discussed with Mrs. Vivien Quach she takes decisions for him she does not want him to suffer, asked for Hospice care, then in the afternoon the patient turn lucid and speaking in complete sentences, no confusion, Improving general management, asked me to continue management, asked for GI specialist consult .CT abdomen and pelvis, his electrolytes reviewed and replaced his Potassium continue IV fluids, half normal saline, his WBC count increased again, discontinued Augmentin and started on Zosyn. Lactic Acid 1.2. Objective Vital Signs Date Time Temp Pulse Resp B/P Pulse Ox O2 Delivery O2 Flow Rate FiO2 01/30/17 12:00 98.6 107 24 177/82 94 01/30/17 08:01 94 Nasal Cannula 4.00 01/30/17 08:00 96 Nasal Cannula 4.00 50 01/30/17 08:00 97.7 115 26 158/64 93 01/30/17 08:00 112 01/30/17 04:00 97.9 120 20 169/83 95 01/30/17 00:00 97.6 113 22 158/74 93 01/29/17 20:00 Nasal Cannula 4.00 01/29/17 20:00 97.4 107 20 171/77 93 01/29/17 19:09 92 Nasal Cannula 4.00 01/29/17 16:00 98.1 106 24 167/74 92 I/O 01/29/17 01/29/17 01/29/17 01/30/17 01/30/1701/30/17 07:00 15:00 23:00 07:00 15:00 23:00 Intake Total 60 ml 10 ml 60 ml 240 ml Output Total 1000 ml 350 ml Balance 60 ml 10 ml -1000 ml -290 ml 240 ml Intake Oral 60 ml 10 ml 60 ml 240 ml Emesis 1000 ml 350 ml # Voids 2 3 1 3 3 # Bowel Movements 0 0 0 Result Diagram: 01/30/17 0937 01/30/17 0937 Imaging Last Impressions Abdomen X-Ray 01/29/17 0000 Signed Impressions: Service Date/Time: Sunday, January 29, 2017 17:18 - CONCLUSION: Increasing distention of loops of small bowel predominantly in the left hypogastric region. Kana Wilson MD Chest X-Ray 01/28/17 0600 Signed Impressions: Service Date/Time: Saturday, January 28, 2017 06:19 - CONCLUSION: Stable chest x-ray without air space consolidation in the right midlung zone and suspected atelectasis at the lung bases. Bar Manzano MD Skull X-Ray 01/14/17 0000 Signed Impressions: Service Date/Time: Saturday, January 14, 2017 11:20 - CONCLUSION: No MRI incompatible foreign body is identified. Bar Arias MD Brain MRI 01/14/17 0000 Signed Impressions: Service Date/Time: Saturday, January 14, 2017 15:40 - CONCLUSION: No acute abnormality is seen. Bar Arias MD Chest CT 01/12/17 0000 Signed Impressions: Service Date/Time: Thursday, January 12, 2017 16:58 - CONCLUSION: 1. Extensive consolidation throughout much of the right lung likely representing processes such as inflammatory change and pneumonia. 2. Extensive adenopathy is seen throughout the mediastinum. This is nonspecific. It could be reactive or neoplastic. If it is neoplastic, lymphoma should be considered. Axillary adenopathy is not seen. Bar Arias MD Renal Ultrasound 01/10/17 0000 Signed Impressions: Service Date/Time: Tuesday, January 10, 2017 10:49 - CONCLUSION: 1. Kidneys appear normal. 2. Impression on the bladder floor from the prostate. There is a bladder diverticulum and possible bladder stone present. Bar Arias MD Procedures Endotracheal intubation and Extubation. Other Results Laboratory Tests Test 01/30/17 01/30/17 09:37 11:35 White Blood Count 24.1 TH/MM3 Red Blood Count 4.25 MIL/MM3 Hemoglobin 12.1 GM/DL Hematocrit 38.2 % Mean Corpuscular Volume 90.0 FL Mean Corpuscular Hemoglobin 28.4 PG Mean Corpuscular Hemoglobin 31.6 % Concent Red Cell Distribution Width 16.0 % Platelet Count 266 TH/MM3 Mean Platelet Volume 9.1 FL Neutrophils (%) (Auto) 67.3 % Lymphocytes (%) (Auto) 28.9 % Monocytes (%) (Auto) 2.9 % Eosinophils (%) (Auto) 0.7 % Basophils (%) (Auto) 0.2 % Neutrophils # (Auto) 16.2 TH/MM3 Lymphocytes # (Auto) 7.0 TH/MM3 Monocytes # (Auto) 0.7 TH/MM3 Eosinophils # (Auto) 0.2 TH/MM3 Basophils # (Auto) 0.1 TH/MM3 CBC Comment AUTO DIFF Differential Total Cells 100 Counted Neutrophils % (Manual) 69 % Lymphocytes % 27 % Monocytes % 4 % Neutrophils # (Manual) 16.6 TH/MM3 Differential Comment FINAL DIFF MANUAL Platelet Estimate NORMAL Platelet Morphology Comment NORMAL Red Cell Morphology Comment NORMAL Sodium Level 145 MEQ/L Potassium Level 3.4 MEQ/L Chloride Level 109 MEQ/L Carbon Dioxide Level 25.0 MEQ/L Anion Gap 11 MEQ/L Blood Urea Nitrogen 32 MG/DL Creatinine 1.32 MG/DL Estimat Glomerular Filtration 52 ML/MIN Rate Random Glucose 124 MG/DL Calcium Level 9.0 MG/DL Phosphorus Level 3.3 MG/DL Magnesium Level 2.1 MG/DL Lipase 215 U/L Lactic Acid Level 1.2 mmol/L Objective Remarks GENERAL:No acute distress SKIN: Warm and dry. HEAD: Normocephalic. EYES: No scleral icterus. No injection or drainage. NECK: Supple, trachea midline. No JVD or lymphadenopathy. CARDIOVASCULAR: Regular rate and rhythm without murmurs, gallops, or rubs. RESPIRATORY: Decreased breath sounds bilateral, no wheezing or crackles. GASTROINTESTINAL: Abdomen soft, non-tender, nondistended. MUSCULOSKELETAL: No cyanosis, or edema. NEUROLOGY: Alert and oriented in place and person. Medications and IVs Current Medications Medications (Trade) Dose Ordered Sig/Josefina Route Start Time Stop Time Status Last Admin (Ecotrin Ec) 81 mg DAILY PO 01/09/17 09:00 01/30/17 09:00 (Lactinex) 1 tab TID PO 01/08/17 18:00 01/30/17 13:00 (NS Flush) 2 ml UNSCH PRN IV FLUSH 01/08/17 15:45 01/19/17 15:47 (NS Flush) 2 ml BID IV FLUSH 01/08/17 21:00 01/29/17 21:00 (Heparin Inj) 5,000 units Q12H SQ 01/08/17 18:00 01/30/17 05:44 Miscellaneous Information 1 [id number] XX 01/08/17 15:45 (Chlorhexidine 2% Cloth) 3 pack Taper DAILY@04 TOP 01/09/17 04:00 01/05/18 03:59 01/24/17 21:58 (Chlorhexidine 2% Cloth) 3 pack UNSCH PRN TOP 01/08/17 15:45 (Zofran Inj) 4 mg Q6H PRN IV 01/08/17 15:45 01/29/17 15:00 (Holly-Colace) 1 tab BID PRN PO 01/08/17 15:45 (Tums Chew) 1,000 mg TID PRN CHEW 01/08/17 15:45 (Peridex 0.12% Liq) 15 ml BID@08,20 MT 01/08/17 20:00 01/25/17 20:00 (Protonix Inj) 40 mg Q24H IV PUSH 01/08/17 21:00 01/29/17 21:41 (Cathflo Activase Inj) 2 mg Q2H PRN INTRACATH 01/10/17 21:45 01/10/17 22:30 (Colace Liq) 100 mg Q12HR PO 01/12/17 09:00 01/30/17 09:00 (Senna Liq) 8.8 mg DAILY PO 01/12/17 09:00 01/30/17 09:00 (Tylenol) 500 mg Q6H PRN PO 01/16/17 14:30 01/17/17 15:46 (D50w (Vial) Inj) 25 ml UNSCH PRN IV PUSH 01/17/17 08:00 (Glucagon Inj) 1 mg UNSCH PRN OTHER 01/17/17 08:00 (NovoLIN R SUPPLEMENTAL SCALE) 1 Q6H SQ 01/17/17 08:00 01/24/17 14:00 (Mycostatin Powder) 1 applic Q12HR PRN TOPICAL 01/17/17 08:15 01/18/17 09:15 (Diflucan) 100 mg DAILY PO 01/19/17 10:15 01/30/17 09:00 (Symbicort 160-4.5 Inh) 1 puff Q12HR INH 01/26/17 21:00 01/30/17 09:00 (Deltasone) 15 mg DAILY PO 01/28/17 09:00 01/30/17 09:00 (Lopressor) 25 mg Q12HR PO 01/29/17 21:00 01/30/17 09:00 Sucralfate 1 gm 1 gm ACHS PO 01/29/17 21:00 01/30/17 10:57 (12 NS 1000 ml Inj) 1,000 ml @ 84 mls/hr [id number] IV 01/29/17 17:15 01/29/17 17:43 (Augmentin) 500 mg Q12HR PO 01/30/17 21:00 A/P Problem List: (1) Sepsis ICD Code: A41.9 (2) Pneumonia ICD Code: J18.9 (3) Respiratory failure ICD Code: J96.90 Assessment and Plan 1. Acute Agitated Delirium Improved, patient on chronic Xanax use. avoid sedatives, Neurology specialist following. MRI brain with no acute findings, EEG monitoring, Encephalopathy with no epileptiform activity. 2. Peripheral neuropathy by history 3. VDRF Improved. Acute Hypoxic respiratory failure/Pulmonary edema/Severe Pulmonary Hypertension, living specialist following Oxygen to keep O Sat >92%, Bronchodilator, Mucolytic, incentive spirometry. Steroids. EF 60-65%. 4. Multilobar Pneumococcal Pneumonia Discontinued Zosyn and okay from ID specialist for discharge and no further Antibiotics. asked for New CXR no changes but not yet read by customer program specialist, Discontinued Augmentin and re started on Zosyn. blood cultures asked. 5. COPD Exacerbation improved, continue Bronchodilator, Mucolytic and incentive spirometry. Discussed with living specialist doctor Bar elena to discharge to Rehab from his standpoint. started he patient on Augmentin by mouth for seven days. but the patient is vomiting and started on Zosyn. 6. Septic Shock resolved 01/08 blood cultures strep Pneumonia on Zosyn and Vancomycin discontinued and PCN G started by Doctor Robledo 01/11/17 continue Zosyn and Diflucan ID following Urine Culture Pseudomonas, C Glabrata, Sputum Pseudomonas Blood culture Strep Pneumonia,Because he was improving was taken off antibiotics, by ID specialist, started on Augmentin by living specialist and then started vomiting his WBC again increased to 24.1 removed Augmentin and started on Zosyn, Lactic Acid 1.2 7. RIZWAN Creatinine 1. 32 continue IV fluids. 8. Acute protein Calorie Malnutrition Mild 9. Normocytic Anemia 10. UTI admitted to the Hospital on 01/08/17 with Pneumonia and UTI secondary to Pneumococcus/Pneumococcal antigen positive in Urine, Woodward cath placed and got UTI secondary to Pseudomonas Aeruginosa, may be associated to Woodward cath treated 11. Hypertension adjusted Beta Aden Metoprolol 25 mg BID and Clonidine as needed for systolic blood pressure 160 mm Hg or over. 12. Intractable nausea and vomit, one episode of vomit, was a Biliary fluid, performed an abdominal X ray found distension, was started on PPI, Carafate and Zofran following. today continue worsening asked for GI specialist consult, Abd and Pelvis CT scan. as per ID okay to discharge to Rehab Discussed today with living specialist Doctor Bar Cadena initially told him that he will go to Hospice, then the patient improved his mental condition and his contact wants full management. Discussed with patient and his Mrs. Vivien Quach initially she wanted to go with Hospice, because the patient was worsening during the afternoon he improved his mental condition, asked for full management. GI specialist consult replaced electrolytes IV fluids Zosyn IV follow laboratory in am tomorrow. GI Prophylaxis Protonix 40 mg IV every 24 hours DVT Prophylaxis -- SCDs Subcutaneous heparin twice a day PT/OT eval and treat Palliative care is following Code status DNR, Goal remain send the patient to Rehabilitation Discharge Planning Not yet cleared for discharge. Froy Steward MD Jan 30, 2017 16:00
--- NOTE | 2017-01-30 16:27 | RADRPT ---
EXAM DATE/TIME: 01/30/2017 15:11 [facility] COMPARISON: CHEST SINGLE AP, January 28, 2017, 6:19. INDICATIONS : Evaluate for pneumonia. MEDICAL HISTORY : Chronic obstructive pulmonary disease. Cardiovascular disease. Myocardial SURGICAL HISTORY : Appendectomy. Cholecystectomy. Colon resection. ENCOUNTER: Subsequent ACUITY: 3 weeks PAIN SCORE: Non-responsive. LOCATION: Bilateral chest FINDINGS: A single view of the chest demonstrates a interstitial prominence and scattered airspace disease. No significant effusion. No pneumothorax. Heart size mildly enlarged. CONCLUSION: Interstitial prominence and scattered airspace disease bilaterally similar to January 28. John Heart MD on January 30, 2017 at 16:24 Board Certified Radiologist. This report was verified electronically.
--- NOTE | 2017-01-30 19:00 | RADRPT ---
EXAM DATE/TIME: 01/30/2017 17:58 [facility] COMPARISON: No previous studies available for comparison. INDICATIONS : Abdominal pain, nausea and vomiting. ORAL CONTRAST: No oral contrast ingested. RADIATION DOSE: 25.87 CTDIvol (mGy) MEDICAL HISTORY : Cerebrovascular disease. Cardiovascular disease Hypertension. SURGICAL HISTORY : Appendectomy. Cholecystectomy. ENCOUNTER: Initial ACUITY: 1 day PAIN SCALE: 6/10 LOCATION: abdomen TECHNIQUE: Volumetric scanning of the abdomen and pelvis was performed. Using automated exposure control and ad justment of the mA and/or kV according to patient size, radiation dose was kept as low as reasonably achievable to obtain optimal diagnostic quality images. FINDINGS: Lung bases demonstrate fibrotic changes similar to January 08. Dense coronary calcifications. No acute findings in the liver, spleen, adrenals, kidneys or pancreas. Previous para-aortic adenopath y as improved over the last month with lymph nodes now measuring 1.5 cm or less in short axis diamete r. Since the prior exam there is development of small bowel dilatation with multiple air-fluid levels. D istal small bowel is decompressed. Findings are characteristic of either an early or partial small ady wel obstruction. There is air and some feces in the colon. There is colonic diverticulosis without di verticulitis. Stomach is also distended with air fluid level. CONCLUSION: 1. Small bowel dilatation to about 4.5 cm with air-fluid levels and distal decompression characterist ic of an early or partial small bowel obstruction. 2. Improvement in lower mediastinal and retroperitoneal adenopathy compared with January 08. 3. Distention of stomach with large air fluid level. Previous cholecystectomy. 4. Severe coronary artery calcifications. Stable pulmonary fibrotic changes. Colonic diverticulosis. John Heart MD on January 30, 2017 at 18:53 Board Certified Radiologist. This report was verified electronically.
[2017-01-30] MEDS: CHLORHEXIDINE 0.12% (ORAL KIT) 15 ML CUP MT SCH (20:00)
[2017-01-30] MEDS: SODIUM CHLORIDE 0.9% FLUSH 5 ML FLUSH IV FLUSH SCH (21:00)
[2017-01-30] MEDS: PANTOPRAZOLE SODIUM 40 MG VIAL IV PUSH SCH (21:38)
[2017-01-30] MEDS: ONDANSETRON HCL 4 MG/2 ML VIAL IV PRN (23:58)
[2017-01-31] VITALS (7 sets, daily range): BP systolic 137–152; BP diastolic 74–90; PULSE 65–125; RESP 18–22; TEMP 97.4–98.5; O2SAT 90–97
[2017-01-31] MEDS ORDERED: PROMETHAZINE HCL 25 MG SUPP RECTAL ONE (01:15)
[2017-01-31] MEDS: INSULIN NovoLIN REGULAR SUPPLEMENTAL SCALE SQ SCH ×3 (01:30→14:00)
[2017-01-31] MEDS: CHLORHEXIDINE GLUCONATE 2 % 1 PACK (2 CLOTHS) TOP SCH (04:00)
[2017-01-31] MEDS: SODIUM CHLOR 0.45% 1000 ML INJ 1,000 ML IV SCH ×2 (05:00→18:27)
[2017-01-31] MEDS: SUCRALFATE 1 GM TAB PO SCH ×3 (05:34→16:00)
[2017-01-31] MEDS: HEPARIN SODIUM - SQ 10,000 UNITS/ML VIAL SQ SCH ×2 (05:36→18:25)
[2017-01-31] MEDS ORDERED: SODIUM CHLORID 0.9% 500 ML INJ 500 ML IV ONE (06:30)
[2017-01-31] MEDS: LACTOBACILLUS ACIDOPHILUS TAB PO SCH ×3 (07:54→18:00)
[2017-01-31] MEDS: DOCUSATE SODIUM 100 MG/10 ML UDC PO SCH (07:54)
[2017-01-31] MEDS: predniSONE 10 MG TAB PO SCH (07:54)
[2017-01-31] MEDS: METOPROLOL TARTRATE 25 MG TAB PO SCH (07:55)
[2017-01-31] MEDS: AMOXICILLIN/CLAVULANATE K 500 MG TAB PO SCH (07:55)
[2017-01-31] MEDS: FLUCONAZOLE 100 MG TAB PO SCH (07:55)
[2017-01-31] MEDS: BUDESONIDE-FORMOTEROL 160/4.5 MCG INHALER INH SCH (07:56)
[2017-01-31] MEDS: ASPIRIN EC 81 MG TABEC PO SCH (07:59)
[2017-01-31] MEDS: CHLORHEXIDINE 0.12% (ORAL KIT) 15 ML CUP MT SCH (08:00)
[2017-01-31] MEDS: RESP: BUDESONIDE 0.5 MG/2 ML NEB NEB SCH ×2 (08:19→20:25)
--- NOTE | 2017-01-31 08:47 | PD.CONS ---
HPI History of Present Illness This is a 81 year old male who originally was brought to the ER for evaluation of nausea, vomiting, and diarrhea on 01/07/17. He was evaluated with labs, CT scan which revealed an significant increase in size of numerous periaortic lymph nodes when compared to prior CT February 2015 with lymph nodes measuring up to 3 cm in size, no dilated loops of small or large bowel. He was diagnosed with gastroenteritis and discharged home with Zofran and instructed to follow up with his PCP in 3 days. He returned to the emergency room on 01/08/17 for severe generalized weakness and inability to get up after he sat on the ground. He was also having nausea and vomiting at that time. His chest x-ray was consistent with pneumonia and he was admitted for sepsis. On , the patient became agitated and acutely hypoxemic and required intubation with mechanical ventilation. He was then extubated on 01/20. He is now on the medical floor being treated for acute add agitated delirium, multilobar pneumococcal pneumonia, COPD exacerbation, acute kidney injury, as well as his chronic medical problems. GI was consulted for nausea and vomiting. The patient is a poor historian and therefore the history has been obtained from both the patient in the EMR. The patient started having persistent nausea and vomiting yesterday and therefore CT scan was repeated. This was done without by mouth or IV contrast and revealed small bowel dilatation to about 4.5 cm with air-fluid levels and distal decompression characteristic of an earlier partial small bowel obstruction and improvement in lower mediastinal and retroperitoneal adenopathy compared with January 08, distention of stomach with large air-fluid level, previous cholecystectomy, severe coronary artery calcifications, and stable pulmonary fibrotic changes. The patient is resting in bed and continues to have nausea vomiting with dark bilious material. His abdomen is distended and he denies any abdominal pain, although he complains of significant nausea. Of note his white count went from 10.5 yesterday to 24.1 today. His last bowel movement was on 01/28. He denies any prior history of bowel obstructions. He has a history of having an appendectomy and cholecystectomy in the past. There is also mention of a partial colon resection and recent ileocolonic anastomosis at the [facility], He had an EGD and colonoscopy (12/22/11) which revealed a small area of mild active bleeding in the proximal stomach, status post clip placement. This could be a dieulafoy lesion. Small area of erythema in the gastroesophageal junction, however, no active bleeding, less likely to be the cause of bleeding. Very poor prep in the colon was significant amount of melena. Also there is melena in the terminal ileum suggesting an upper gastrointestinal source of bleeding. 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 Moderate amount of diverticulosis in the sigmoid colon. No biopsies were done. 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 History of GI bleeding, suspected due Dieulafoy lesion Past Surgical History Cholecystectomy Appendectomy Cholecystectomy, Coronary stent 2008, Partial colon Resection and recent ileocolonic anastomosis at the [facility]; Left CEA EGD/Colonoscopy (Mita Garza) Coded Allergies: No Known Allergies (Verified , 08/08/15) Medications Allergies Coded Allergies Type Severity Reaction Last Updated Verified No Known Allergies 08/08/15 Yes Active Scripts Medications Dose Route/Sig Days Date Category Probiotic (Lactobacillus Acidophilus) 1 Cap Cap 1 Cap PO DAILY 01/08/17 Reported Multi Vitamin (Multiple Vitamin) 1 Tab Tab 1 Tab PO DAILY 01/08/17 Reported Combivent Respimat Inh (Ipratropium-Albuterol Inh) 20-100 Fpc/Act Aero 1 Puff INH QID 01/08/17 Reported Symbicort Inh (Budesonide/Formoterol Fumarate) 160-4.5 Mcg/Act Aero 1 Puff INH BID 01/08/17 Reported Gabapentin 300 Mg Cap 300 Mg PO BID 01/08/17 Reported Xanax (Alprazolam) 0.5 Mg Tab 0.5 Mg PO Q8H PRN 01/08/17 Reported Ecotrin Low Strength (Aspirin) 81 Mg Tabdr 81 Mg PO DAILY 01/08/17 Reported Zofran Odt (Ondansetron Odt) 4 Mg Tab 4 Mg SL Q8HR PRN 01/08/17 Rx Family History Brother has coronary artery disease. Sister healthy. Has 2 sons, 1 daughter who are healthy Social History Does not drink. Quit tobacco. (Mita Garza) Review of Systems Constitutional: COMPLAINS OF: Fatigue Gastrointestinal: COMPLAINS OF: Constipation, Nausea, Vomiting, Swelling of Abdomen, DENIES: Abdominal pain Hematologic/lymphatic: COMPLAINS OF: Bruising Psychiatric: COMPLAINS OF: Confusion ROS Poor historian (Mita Garza) GI Exam Vitals I&O Vital Signs Date Time Temp Pulse Resp B/P Pulse Ox O2 Delivery O2 Flow Rate FiO2 01/31/17 04:00 97.6 110 18 152/87 92 01/31/17 00:00 97.4 108 18 147/82 92 01/30/17 20:00 Nasal Cannula 4.00 01/30/17 20:00 97.8 112 20 149/85 92 01/30/17 19:37 93 Nasal Cannula 4.00 01/30/17 16:00 98.2 107 20 121/61 97 01/30/17 12:00 98.6 107 24 177/82 94 I/O 01/30/17 01/30/17 01/30/17 01/31/17 01/31/17 01/31/17 07:00 15:00 23:00 07:00 15:00 23:00 Intake Total 60 ml 240 ml 240 ml 120 ml Output Total 350 ml Balance -290 ml 240 ml 240 ml 120 ml Intake Oral 60 ml 240 ml 240 ml 120 ml Emesis 350 ml # Voids 3 3 2 2 # Bowel Movements 0 0 0 Imaging Last Impressions Chest X-Ray 01/30/17 0000 Signed Impressions: Service Date/Time: Monday, January 30, 2017 15:11 - CONCLUSION: Interstitial prominence and scattered airspace disease bilaterally similar to January 28. John Heart MD Abdomen/Pelvis CT 01/30/17 0000 Signed Impressions: Service Date/Time: Monday, January 30, 2017 17:58 - CONCLUSION: 1. Small bowel dilatation to about 4.5 cm with air-fluid levels and distal decompression characteristic of an early or partial small bowel obstruction. 2. Improvement in lower mediastinal and retroperitoneal adenopathy compared with January 08. 3. Distention of stomach with large air fluid level. Previous cholecystectomy. 4. Severe coronary artery calcifications. Stable pulmonary fibrotic changes. Colonic diverticulosis. John Heart MD Abdomen X-Ray 01/29/17 0000 Signed Impressions: Service Date/Time: Sunday, January 29, 2017 17:18 - CONCLUSION: Increasing distention of loops of small bowel predominantly in the left hypogastric region. Kana Wilson MD Skull X-Ray 01/14/17 0000 Signed Impressions: Service Date/Time: Saturday, January 14, 2017 11:20 - CONCLUSION: No MRI incompatible foreign body is identified. Bar Arias MD Brain MRI 01/14/17 0000 Signed Impressions: Service Date/Time: Saturday, January 14, 2017 15:40 - CONCLUSION: No acute abnormality is seen. Bar Arias MD Chest CT 01/12/17 0000 Signed Impressions: Service Date/Time: Thursday, January 12, 2017 16:58 - CONCLUSION: 1. Extensive consolidation throughout much of the right lung likely representing processes such as inflammatory change and pneumonia. 2. Extensive adenopathy is seen throughout the mediastinum. This is nonspecific. It could be reactive or neoplastic. If it is neoplastic, lymphoma should be considered. Axillary adenopathy is not seen. Bar Arias MD Renal Ultrasound 01/10/17 0000 Signed Impressions: Service Date/Time: Tuesday, January 10, 2017 10:49 - CONCLUSION: 1. Kidneys appear normal. 2. Impression on the bladder floor from the prostate. There is a bladder diverticulum and possible bladder stone present. Bar Arias MD Laboratory Test 01/30/17 01/30/17 09:37 11:35 White Blood Count 24.1 TH/MM3 Red Blood Count 4.25 MIL/MM3 Hemoglobin 12.1 GM/DL Hematocrit 38.2 % Mean Corpuscular Volume 90.0 FL Mean Corpuscular Hemoglobin 28.4 PG Mean Corpuscular Hemoglobin 31.6 % Concent Red Cell Distribution Width 16.0 % Platelet Count 266 TH/MM3 Mean Platelet Volume 9.1 FL Neutrophils (%) (Auto) 67.3 % Lymphocytes (%) (Auto) 28.9 % Monocytes (%) (Auto) 2.9 % Eosinophils (%) (Auto) 0.7 % Basophils (%) (Auto) 0.2 % Neutrophils # (Auto) 16.2 TH/MM3 Lymphocytes # (Auto) 7.0 TH/MM3 Monocytes # (Auto) 0.7 TH/MM3 Eosinophils # (Auto) 0.2 TH/MM3 Basophils # (Auto) 0.1 TH/MM3 CBC Comment AUTO DIFF Differential Total Cells 100 Counted Neutrophils % (Manual) 69 % Lymphocytes % 27 % Monocytes % 4 % Neutrophils # (Manual) 16.6 TH/MM3 Differential Comment FINAL DIFF MANUAL Platelet Estimate NORMAL Platelet Morphology Comment NORMAL Red Cell Morphology Comment NORMAL Sodium Level 145 MEQ/L Potassium Level 3.4 MEQ/L Chloride Level 109 MEQ/L Carbon Dioxide Level 25.0 MEQ/L Anion Gap 11 MEQ/L Blood Urea Nitrogen 32 MG/DL Creatinine 1.32 MG/DL Estimat Glomerular Filtration 52 ML/MIN Rate Random Glucose 124 MG/DL Calcium Level 9.0 MG/DL Phosphorus Level 3.3 MG/DL Magnesium Level 2.1 MG/DL Lipase 215 U/L Lactic Acid Level 1.2 mmol/L Date/Time Procedure Status Source Growth 01/30/17 11:40 Aerobic Blood Culture Received Blood Peripheral Pending 01/30/17 11:40 Anaerobic Blood Culture Received Blood Peripheral Pending Physical Examination HEENT: Normocephalic; atraumatic; no jaundice. CHEST: Resp. even/unlabored, fine crackles CARDIAC: Regular, tachycardic-mildly ABDOMEN: Semifirm, distended, hypoactive bowel sounds, nontender; no hepatosplenomegaly, multiple scars noted. Vomiting dark green bilious material EXTREMITIES: Mild generalized edema SKIN: Multiple ecchymotic areas METAL BONDING CRIB ATTENDANT: No focal deficits; Lethargic and oriented to self only poor historian ( Mita Garza) Assessment and Plan Plan ASSESSMENT: - N/V with abnormal imaging consistent with early or partial SBO. Hx of multiple abdominal surgeries with appendectomy, cholecystectomy, bowel resection (unknown reason for this). He has been having intermittent n /v and was recently diagnosed with gastroenteritis. His symptoms improved, but he started having persistent n/v with bilious material yesterday. CT abdomen and pelvis without po/iv contrast (01/30/17) revealed small bowel dilatation to about 4.5 cm with air-fluid levels and distal decompression characteristic of an earlier partial small bowel obstruction and improvement in lower mediastinal and retroperitoneal adenopathy compared with January 08, distention of stomach with large air-fluid level, previous cholecystectomy, severe coronary artery calcifications, and stable pulmonary fibrotic changes. Clinically, his abdomen is distended and even as I examined him, he is still vomiting dark green bilious material. No BM documented since 01/28. WBC increased from 10.5 to 24.1. Dx PSBO vs. Ileus. Will insert NGT and place to LIWS, SSE, get SBFT. If this is obstruction, will consult GS. If ileus, will start promotility meds. - Leukocytosis. WBC 24.1. On Augmentin - PNA, COPD Exacerbation, Resp. failure. S/P Extubation. Augmentin, nebs, pulmonary following - AMS, Acute delirium. Improved, although still poor historian and oriented to self only for me - Sepsis earlier this admission. - RIZWAN, this had been improving but had increase in creat. Likely related to n/ v. - Normocytic anemia. EGD and colonoscopy (12/22/11) which revealed a small area of mild active bleeding in the proximal stomach, status post clip placement. This could be a dieulafoy lesion. Small area of erythema in the gastroesophageal junction, however, no active bleeding, less likely to be the cause of bleeding. Very poor prep in the colon was significant amount of melena. Also there is melena in the terminal ileum suggesting an upper gastrointestinal source of bleeding. 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 Moderate amount of diverticulosis in the sigmoid colon. No biopsies were done. PLAN: - Nothing by mouth except for meds - Insert NG tube in place to low intermittent wall suction - Small bowel follow-through - Soapsuds enema - IV fluids - PPI - Zofran when necessary - If small bowel follow-through shows bowel obstruction with a transition point , will consult general surgery - If small bowel follow-through consistent with an ileus, we will start promotility meds - Supportive care - Further recommendations to follow based on results of above - Pt seen and examined by Dr. Lopez and myself and this note is written on his behalf (Mita Garza) Physician Comments seen and examined with [employer], Pts in room with patient. They have decided to go with hospice care. Unable to place NG. No further testing and procedures desired by family. Discussed with hospice and Dr. Zelaya. will sign off. Thank you (Rayne Lopez MD) Mita Garza Jan 31, 2017 08:47 Rayne Lopez MD Jan 31, 2017 13:02
[2017-01-31] MEDS: SENNOSIDES SYRUP 8.8 MG/5 ML CUP PO SCH (09:00)
[2017-01-31] MEDS: SODIUM CHLORIDE 0.9% FLUSH 5 ML FLUSH IV FLUSH SCH (09:00)
[2017-01-31] MEDS ORDERED: FUROSEMIDE 40 MG/4 ML VIAL IV PUSH ONE (10:00)
--- NOTE | 2017-01-31 11:11 | HHI.PR ---
Subjective Remarks language specialist Notes: 81yM with h/o COPD and prior PE who presented yesterday with history of nausea/ vomiting and was worked up including negative CT abd/pelvis with IV contrast. He returned this morning due to dizziness. At that time he had a lactate of 6, wbc 20k, and cxr demonstrating RUL pneumonia. he was given zosyn and 4L IVF. Repeat lactate demonstrated persistent lactic acidosis of 6. Also, after 6 hours, his uop was < 200cc. A Woodward catheter was inserted. his Cr was also elevated at 1.9. At this point, he became acutely hypoxemic and agitated. I was called and immediately went down to evaluate the patient. When I walked in , he was agitated and pulling off his NRB mask. He did not have a reliable spo2 monitor waveform and an abg was drawn with a po2 of 50. Decision was made to pursue emergent intubation (see separate procedure note for details). After intubation, the patient became hypotensive requiring vasopressor therapy and additional fluid boluses were given. Due to his impending cardiovascular collapse, a STAT echo was ordered which demonstrated hyperdynamic biventricular function, moderate pulmonary hypertension, and very collapsable IVC. He was given an additional 2L IVF and 2 amps bicarbonate for pH 7.11 on repeat abg with severe metabolic acidosis with BE -12. He was started on norepinephrine and vasopressin. He was transported to the medical ICU in critical condition. 01/09: Lactate is clearing, but slowly. CVP improved overnight. uop marginal, but slightly improved from yesterday. hypoxia slightly better as well, although persists on 100% fio2. wbc up to 44k today. 01/10: CVP rising yesterday, persistently oligoanuric. vasopressors persist, but at slightly lower dose. high fio2 requirements. wbc downtrending. 01/11: oxygenation severely worsened overnight. now on peep 15, fio2 100%, spo2 85%. vasopressors weaned off. cvp kuldip throughout the night to 23 this AM. CXR with evidence of significant pulmonary edema and intravascular volume overload. despite this, UOP minimal overnight and remains in oliguric renal failure. 01/12: Remains intubated sedated. Chest x-ray from yesterday prominent bilateral infiltrates right more than left with mediastinal prominence. CT chest ordered for today. Urine output 10 L in 24 hours on Lasix infusion 20 mg pr hour. Slight worsening of creatinine to 2.15. Weight is still up by 9 KG. WBC count essentially stable 01/14: Afebrile. Not really responsive this a.m. so MRI brain/EEG pending. Currently on CPAP trial. Lasix infusion will be discontinued. Positive BM. Tolerating tube feeds 01/15: Resting comfortably in bed. Currently on CPAP trials. Very poor duration. Currently 50% FiO2. X-ray stable. Tolerating tube feeds. Positive bowel movement. Agitated once sedation removed. 01/16: Tmax 100. Currently on CPAP trials while on propofol drip. FiO2 45%. X -ray remained stable. Tolerating tube feeds. Positive BMs yesterday. 01/17 Patient is sedated with Diprivan, Fentanyl and intubated. Afebrile. Had bigeminy/PVC overnight given Lidocaine 100mg IV x1. 01/18 Patient is sedated with Diprivan and intubated. T:101.6 last night. 01/19 Patient remains intubated tolerated CPAP for several hrs yesterday. Tmax 100.2. Currently off sedation and on CPAP 10/5 with 45% FIO2. Does not follow commands. Repeat EEG yesterday showed high frequency artifact. 01/20 No acute events overnight. Off sedation. Patient is more awake this morning and able to track. Afebrile. On CPAP with PS: 10, PEEP:5 and FIO2 45% 01/21 Patient s/p extubation yesterday. Awake follows commands. Afebrile. 01/22 No acute events overnight. Afebrile. Hospitalist Notes: 01/25 Patient seen in his bedroom in Intensive Care unit and discussed with nurse Miss Troncoso, he is not feeling well states, he feels weak and has generalized discomfort recommended by library media specialist to wean Oxygen, PT evaluation, bronchodilator, Mucolytic, incentive spirometry. follow laboratory for tomorrow and Heparin for DVT prophylaxis 01/26 Patient seen in the room in the presence of nurse Miss Crane appreciated, stable alert and oriented in place and person, will continue working with physical therapy, was transferred to the Medical floor yesterday afternoon, no Nausea, vomit or diarrhea. afebrile, library media specialist, ID specialist following, nuisance wildlife specialist following, continue Zosyn IV, Oxygen Support to keep O sat >92%, DNR status. 01/27 Seen in his bedroom discussed with nurse Miss Peter and with his 01/28 Stable, alert and oriented, today he is been taken off antibiotics as per ID specialist and cleared to go to Rehab, will follow with Doctor Bar Shelley for discharge by library media specialist. 01/29 No new issues, alert and oriented, I talked with library media specialist doctor Bar Cadena he states the patient can be discharge from his standpoint discussed with nurse and Turbine Subassembler for possible discharge for tomorrow. started the patient on Augmentin by mouth for seven days and agree to discharge the patient. today uncontrolled hypertension adjusted Beta Blockers and following. Restraints removed to be able to discharge tomorrow if he improves his vomiting. 01/30 Seen in his bedroom, continue with nausea and vomit, not feeling well, he tells me he is tired, discussed with Mrs. Vivien Quach she takes decisions for him she does not want him to suffer, asked for Hospice care, then in the afternoon the patient turn lucid and speaking in complete sentences, no confusion, Improving general management, asked me to continue management, asked for GI specialist consult .CT abdomen and pelvis, his electrolytes reviewed and replaced his Potassium continue IV fluids, half normal saline, his WBC count increased again, discontinued Augmentin and started on Zosyn. Lactic Acid 1.2. 01/31 Seen in his bedroom continue vomiting and aspirating, he is been discussed with evaluation specialist, GI specialist doctor Lopez, with nurse Miss Dykes and then Linda, placed calls to Mrs. Vivien Quach and his son Mr. Jose Cabrera but no answer, equipment mechanic specialist had communication with patient's Relatives they wanted to get the patient to Hospice now and was performed. Objective Vital Signs Date Time Temp Pulse Resp B/P Pulse Ox O2 Delivery O2 Flow Rate FiO2 01/31/17 09:05 Nasal Cannula 5.00 01/31/17 08:20 93 Nasal Cannula 5.00 01/31/17 08:00 97.5 125 22 137/74 92 01/31/17 04:00 97.6 110 18 152/87 92 01/31/17 00:00 97.4 108 18 147/82 92 01/30/17 20:00 Nasal Cannula 4.00 01/30/17 20:00 97.8 112 20 149/85 92 01/30/17 19:37 93 Nasal Cannula 4.00 01/30/17 16:00 98.2 107 20 121/61 97 01/30/17 12:00 98.6 107 24 177/82 94 I/O 01/30/17 01/30/17 01/30/17 01/31/17 01/31/17 01/31/17 06:59 14:59 22:59 06:59 14:59 22:59 Intake Total 60 ml 240 ml 240 ml 120 ml Output Total 350 ml Balance -290 ml 240 ml 240 ml 120 ml Intake Oral 60 ml 240 ml 240 ml 120 ml Emesis 350 ml # Voids 3 3 2 2 # Bowel Movements 0 0 0 Result Diagram: 01/30/17 0937 01/30/17 0937 Imaging Last Impressions Chest X-Ray 01/30/17 0000 Signed Impressions: Service Date/Time: Monday, January 30, 2017 15:11 - CONCLUSION: Interstitial prominence and scattered airspace disease bilaterally similar to January 28. John Heart MD Abdomen/Pelvis CT 01/30/17 0000 Signed Impressions: Service Date/Time: Monday, January 30, 2017 17:58 - CONCLUSION: 1. Small bowel dilatation to about 4.5 cm with air-fluid levels and distal decompression characteristic of an early or partial small bowel obstruction. 2. Improvement in lower mediastinal and retroperitoneal adenopathy compared with January 08. 3. Distention of stomach with large air fluid level. Previous cholecystectomy. 4. Severe coronary artery calcifications. Stable pulmonary fibrotic changes. Colonic diverticulosis. John Heart MD Abdomen X-Ray 01/29/17 0000 Signed Impressions: Service Date/Time: Sunday, January 29, 2017 17:18 - CONCLUSION: Increasing distention of loops of small bowel predominantly in the left hypogastric region. Kana Wilson MD Skull X-Ray 01/14/17 0000 Signed Impressions: Service Date/Time: Saturday, January 14, 2017 11:20 - CONCLUSION: No MRI incompatible foreign body is identified. Bar Arias MD Brain MRI 01/14/17 0000 Signed Impressions: Service Date/Time: Saturday, January 14, 2017 15:40 - CONCLUSION: No acute abnormality is seen. Bar Arias MD Chest CT 01/12/17 0000 Signed Impressions: Service Date/Time: Thursday, January 12, 2017 16:58 - CONCLUSION: 1. Extensive consolidation throughout much of the right lung likely representing processes such as inflammatory change and pneumonia. 2. Extensive adenopathy is seen throughout the mediastinum. This is nonspecific. It could be reactive or neoplastic. If it is neoplastic, lymphoma should be considered. Axillary adenopathy is not seen. Bar Arias MD Renal Ultrasound 01/10/17 0000 Signed Impressions: Service Date/Time: Tuesday, January 10, 2017 10:49 - CONCLUSION: 1. Kidneys appear normal. 2. Impression on the bladder floor from the prostate. There is a bladder diverticulum and possible bladder stone present. Bar Arias MD Procedures Endotracheal intubation and Extubation. Other Results Laboratory Tests Test 01/30/17 01/30/17 09:37 11:35 White Blood Count 24.1 TH/MM3 Red Blood Count 4.25 MIL/MM3 Hemoglobin 12.1 GM/DL Hematocrit 38.2 % Mean Corpuscular Volume 90.0 FL Mean Corpuscular Hemoglobin 28.4 PG Mean Corpuscular Hemoglobin 31.6 % Concent Red Cell Distribution Width 16.0 % Platelet Count 266 TH/MM3 Mean Platelet Volume 9.1 FL Neutrophils (%) (Auto) 67.3 % Lymphocytes (%) (Auto) 28.9 % Monocytes (%) (Auto) 2.9 % Eosinophils (%) (Auto) 0.7 % Basophils (%) (Auto) 0.2 % Neutrophils # (Auto) 16.2 TH/MM3 Lymphocytes # (Auto) 7.0 TH/MM3 Monocytes # (Auto) 0.7 TH/MM3 Eosinophils # (Auto) 0.2 TH/MM3 Basophils # (Auto) 0.1 TH/MM3 CBC Comment AUTO DIFF Differential Total Cells 100 Counted Neutrophils % (Manual) 69 % Lymphocytes % 27 % Monocytes % 4 % Neutrophils # (Manual) 16.6 TH/MM3 Differential Comment FINAL DIFF MANUAL Platelet Estimate NORMAL Platelet Morphology Comment NORMAL Red Cell Morphology Comment NORMAL Sodium Level 145 MEQ/L Potassium Level 3.4 MEQ/L Chloride Level 109 MEQ/L Carbon Dioxide Level 25.0 MEQ/L Anion Gap 11 MEQ/L Blood Urea Nitrogen 32 MG/DL Creatinine 1.32 MG/DL Estimat Glomerular Filtration 52 ML/MIN Rate Random Glucose 124 MG/DL Calcium Level 9.0 MG/DL Phosphorus Level 3.3 MG/DL Magnesium Level 2.1 MG/DL Lipase 215 U/L Lactic Acid Level 1.2 mmol/L Objective Remarks GENERAL:Moderate Distress SKIN: Warm and dry. HEAD: Normocephalic. EYES: No scleral icterus. No injection or drainage. NECK: Supple, trachea midline. No JVD or lymphadenopathy. CARDIOVASCULAR: Regular rate and rhythm without murmurs, gallops, or rubs. RESPIRATORY: Decreased breath sounds bilateral, bilateral inspiratory crackles. GASTROINTESTINAL: Abdomen soft, non-tender, nondistended. MUSCULOSKELETAL: No cyanosis, or edema. NEUROLOGY: Alert and confused. Medications and IVs Current Medications Medications (Trade) Dose Ordered Sig/Josefina Route Start Time Stop Time Status Last Admin (Ecotrin Ec) 81 mg DAILY PO 01/09/17 09:00 01/31/17 07:59 (Lactinex) 1 tab TID PO 01/08/17 18:00 01/31/17 07:54 (NS Flush) 2 ml UNSCH PRN IV FLUSH 01/08/17 15:45 01/19/17 15:47 (NS Flush) 2 ml BID IV FLUSH 01/08/17 21:00 01/30/17 21:00 (Heparin Inj) 5,000 units Q12H SQ 01/08/17 18:00 01/31/17 05:36 Miscellaneous Information 1 Q361D XX 01/08/17 15:45 (Chlorhexidine 2% Cloth) 3 pack Taper DAILY@04 TOP 01/09/17 04:00 01/05/18 03:59 01/24/17 21:58 (Chlorhexidine 2% Cloth) 3 pack UNSCH PRN TOP 01/08/17 15:45 (Zofran Inj) 4 mg Q6H PRN IV 01/08/17 15:45 01/30/17 23:58 (Holly-Colace) 1 tab BID PRN PO 01/08/17 15:45 (Tums Chew) 1,000 mg TID PRN CHEW 01/08/17 15:45 (Peridex 0.12% Liq) 15 ml BID@08,20 MT 01/08/17 20:00 01/25/17 20:00 (Protonix Inj) 40 mg Q24H IV PUSH 01/08/17 21:00 01/30/17 21:38 (Cathflo Activase Inj) 2 mg Q2H PRN INTRACATH 01/10/17 21:45 01/10/17 22:30 (Colace Liq) 100 mg Q12HR PO 01/12/17 09:00 01/31/17 07:54 (Senna Liq) 8.8 mg DAILY PO 01/12/17 09:00 01/30/17 09:00 (Tylenol) 500 mg Q6H PRN PO 01/16/17 14:30 01/17/17 15:46 (D50w (Vial) Inj) 25 ml UNSCH PRN IV PUSH 01/17/17 08:00 (Glucagon Inj) 1 mg UNSCH PRN OTHER 01/17/17 08:00 (NovoLIN R SUPPLEMENTAL SCALE) 1 Q6H SQ 01/17/17 08:00 01/24/17 14:00 (Mycostatin Powder) 1 applic Q12HR PRN TOPICAL 01/17/17 08:15 01/18/17 09:15 (Diflucan) 100 mg DAILY PO 01/19/17 10:15 01/31/17 07:55 (Symbicort 160-4.5 Inh) 1 puff Q12HR INH 01/26/17 21:00 01/31/17 07:56 (Deltasone) 15 mg DAILY PO 01/28/17 09:00 01/31/17 07:54 (Lopressor) 25 mg Q12HR PO 01/29/17 21:00 01/31/17 07:55 Sucralfate 1 gm 1 gm ACHS PO 01/29/17 21:00 01/30/17 21:37 (1/2 NS 1000 ml Inj) 1,000 ml @ 84 mls/hr [id number] IV 01/29/17 17:15 01/29/17 17:43 (Augmentin) 500 mg Q12HR PO 01/30/17 21:00 01/31/17 07:55 A/P Problem List: (1) Sepsis ICD Code: A41.9 (2) Pneumonia ICD Code: J18.9 (3) Respiratory failure ICD Code: J96.90 Assessment and Plan 1. Acute Agitated Delirium Improved, patient on chronic Xanax use. avoid sedatives, Neurology specialist following. MRI brain with no acute findings, EEG monitoring, Encephalopathy with no epileptiform activity. 2. Peripheral neuropathy by history 3. VDRF Improved. Acute Hypoxic respiratory failure/Pulmonary edema/Severe Pulmonary Hypertension, library media specialist following Oxygen to keep O Sat >92%, Bronchodilator, Mucolytic, incentive spirometry. Steroids. EF 60-65%. 4. Multilobar Pneumococcal Pneumonia Discontinued Zosyn and okay from ID specialist for discharge and no further Antibiotics. asked for New CXR no changes but not yet read by material control specialist, Discontinued Augmentin and re started on Zosyn. blood cultures asked. 5. COPD Exacerbation improved, continue Bronchodilator, Mucolytic and incentive spirometry. Discussed with library media specialist doctor Bar Cadena okay to discharge to Rehab from his standpoint. started he patient on Augmentin by mouth for seven days. but the patient is vomiting and started on Zosyn. 6. Septic Shock resolved 01/08 blood cultures strep Pneumonia on Zosyn and Vancomycin discontinued and PCN G started by Doctor Robledo 01/11/17 continue Zosyn and Diflucan ID following Urine Culture Pseudomonas, C Glabrata, Sputum Pseudomonas Blood culture Strep Pneumonia,Because he was improving was taken off antibiotics, by ID specialist, started on Augmentin by library media specialist and then started vomiting his WBC again increased to 24.1 removed Augmentin and started on Zosyn, Lactic Acid 1.2 7. RIZWAN Creatinine 1. 32 continue IV fluids. 8. Acute protein Calorie Malnutrition Mild 9. Normocytic Anemia 10. UTI admitted to the Hospital on 01/08/17 with Pneumonia and UTI secondary to Pneumococcus/Pneumococcal antigen positive in Urine, Woodward cath placed and got UTI secondary to Pseudomonas Aeruginosa, may be associated to Woodward cath treated 11. Hypertension adjusted Beta Aden Metoprolol 25 mg BID and Clonidine as needed for systolic blood pressure 160 mm Hg or over. 12. Acute bowel obstruction, GI specialist following doctor Lopez wanted the patient to be transferred to ICU and Endotracheal intubation to protect airway, he already aspirated and has fever, not improving, actual condition and refusing NG tube at slow suction, his family decided to go to Hospice today. as per ID okay to discharge to Inpatient Hospice. Discussed with evaluation specialist, with nurses and GI specialist doctor John appreciated. GI Prophylaxis Protonix 40 mg IV every 24 hours DVT Prophylaxis -- SCDs Subcutaneous heparin twice a day PT/OT eval and treat Palliative care is following Code status DNR sent to Inpatient Hospice. Discharge Planning Discharge to Inpatient Hospice Froy Steward MD Jan 31, 2017 11:11 Discharge Planning Not yet cleared for discharge. Froy Steward MD Jan 31, 2017 11:11
--- NOTE | 2017-01-31 11:16 | HHI.HCPN ---
Reason for visit a. To assist with evaluation and management of symptoms including: dyspnea, nausea, back pain, debility. b. To assist medical decision maker(s) with: better understanding of current medical conditions; weighing benefits/burdens of medical treatment options; making medical treatment decisions. . Subjective/Interval History Patient is seen morning on the medical floor with new complaints of nausea, vomiting starting yesterday and today with aspiration. He is quite confused this morning, although he states he was irritated by attempting a nasogastric tube placement. He states he is having a lot of gas and abdominal discomfort. His significant other, Vivien is at the bedside and comments on his level of confusion today. She states yesterday he was relatively clear, talkative, laughing. She comments also on the audible coarse breath sounds. A KUB was completed on January 29, which identified increase in distention of multiple loops of the small bowel up to 6 cm in dimension, predominantly in the left hypogastric region. CT scan of the abdomen and pelvis was completed on 01/30/17, and identified a small bowel dilation indicating an early or partial small bowel obstruction. It did show some distention with a large air-fluid level. He also identifies improvement in the lower mediastinal and retroperitoneal adenopathy compared to the January 08 film. Chest x-ray on showed continued interstitial prominence and scattered airspace disease compared to the film on January 28 Labs note that in the last 24 hours. His white blood cells. I have doubled to 24.1; neutrophils of also doubled to 16 since prior labs. He is now needing 5 L of nasal cannula with 93% O2 sat In reviewing labs from January 30. Lactic acid is now back in normal level. However, BUN/creatinine are again elevating In talking with Dr. Zelaya recently refuses an NG tube. There are there is concern from GI regarding airway protection and possibly reintubation. Dr. Zelaya expresses concern regarding the patient's ability to rehabilitation. I reviewed with Vivien the current lab findings as well as recommendations from the medical team. This is a difficult decision for her to make. However, she wants him to be comfortable. She asks him if he just wants to be comfortable and "go to sleep". He indicates yes. She agrees with hospice for comfort measures. . Family/friend interactions 2:18p update: Spoke w son Jose via phone who lives in [place] who is unable to be present that he permits Vivien, the patients SO, to sign forms for hospice admission. The nature of his work makes it difficult to reach him most of the time. Advance Directives Living Will: Never completed Health Care Surrogate: Never completed Advance Directive Specifics Health Care Surrogate(s): Son, VERN Cabrera, cell / [phone] office lives in [place] agrees to serve as decision maker. Two other children were searched thru [employer] and no workable phone numbers were identified Significant John Quach [phone] - Objective Vital Signs Date Time Temp Pulse Resp B/P Pulse Ox O2 Delivery O2 Flow Rate FiO2 01/31/17 09:05 Nasal Cannula 5.00 01/31/17 08:20 93 Nasal Cannula 5.00 01/31/17 08:00 97.5 125 22 137/74 92 01/31/17 04:00 97.6 110 18 152/87 92 01/31/17 00:00 97.4 108 18 147/82 92 01/30/17 20:00 Nasal Cannula 4.00 01/30/17 20:00 97.8 112 20 149/85 92 01/30/17 19:37 93 Nasal Cannula 4.00 01/30/17 16:00 98.2 107 20 121/61 97 01/30/17 12:00 98.6 107 24 177/82 94 Intake & Output 01/31/17 01/31/17 07:00 19:00 Intake Total 360 ml Balance 360 ml Intake Oral 360 ml # Voids 4 # Bowel Movements 0 Physical Exam CONSTITUTIONAL/GENERAL: This is an adequately nourished patient in bed, confused , mildly dyspneic TUBES/LINES/DRAINS: PIV's, nasal cannula, SCDs,. SKIN: No jaundice, rashes, or lesions. Edema and Ecchymoses on upper extremities. Skin temperature appropriate. Not diaphoretic. HEAD: Atraumatic. Normocephalic. EYES: Pupils equal and round and reactive. No scleral icterus. No injection or drainage. ENT: hard of hearing . Nose without bleeding or purulent drainage. Throat without visible erythema, exudates, masses, or lesions. NECK: Trachea midline. Supple, nontender. CARDIOVASCULAR: Tachycardic, Regular rhythm. Peripheral pulses symmetric. RESPIRATORY/CHEST: Symmetric, mildly labored respirations. Diminished breath sound bilaterally. O2 via nasal cannula. At 5 mm CPAP at bedside. GASTROINTESTINAL: Abdomen round, large, taut, tympanic. High-pitched bowel sounds present in right lower quadrant Bowel sounds present. GENITOURINARY: Unable to palpable bladder distension. MUSCULOSKELETAL: Extremities without clubbing, cyanosis, or edema. No mottling or clubbing. NEUROLOGICAL: Oriented to self, able to identify his girlfriend, confused as to place and situation. less interactive than yesterday. PSYCHIATRIC: Confused, calm Diagnostic Tests Laboratory Laboratory Tests Test 01/30/17 01/30/17 09:37 11:35 White Blood Count 24.1 TH/MM3 (4.0-11.0) Red Blood Count 4.25 MIL/MM3 (4.50-5.90) Hemoglobin 12.1 GM/DL (13.0-17.0) Hematocrit 38.2 % (39.0-51.0) Mean Corpuscular Volume 90.0 FL (80.0-100.0) Mean Corpuscular Hemoglobin 28.4 PG (27.0-34.0) Mean Corpuscular Hemoglobin 31.6 % Concent (32.0-36.0) Red Cell Distribution Width 16.0 % (11.6-17.2) Platelet Count 266 TH/MM3 (150-450) Mean Platelet Volume 9.1 FL (7.0-11.0) Neutrophils (%) (Auto) 67.3 % (16.0-70.0) Lymphocytes (%) (Auto) 28.9 % (9.0-44.0) Monocytes (%) (Auto) 2.9 % (0.0-8.0) Eosinophils (%) (Auto) 0.7 % (0.0-4.0) Basophils (%) (Auto) 0.2 % (0.0-2.0) Neutrophils # (Auto) 16.2 TH/MM3 (1.8-7.7) Lymphocytes # (Auto) 7.0 TH/MM3 (1.0-4.8) Monocytes # (Auto) 0.7 TH/MM3 (0-0.9) Eosinophils # (Auto) 0.2 TH/MM3 (0-0.4) Basophils # (Auto) 0.1 TH/MM3 (0-0.2) CBC Comment AUTO DIFF Differential Total Cells 100 Counted Neutrophils % (Manual) 69 % (16-70) Lymphocytes % 27 % (9-44) Monocytes % 4 % (0-8) Neutrophils # (Manual) 16.6 TH/MM3 (1.8-7.7) Differential Comment FINAL DIFF MANUAL Platelet Estimate NORMAL (NORMAL) Platelet Morphology Comment NORMAL (NORMAL) Red Cell Morphology Comment NORMAL (NORMAL) Sodium Level 145 MEQ/L (136-145) Potassium Level 3.4 MEQ/L (3.5-5.1) Chloride Level 109 MEQ/L (98-107) Carbon Dioxide Level 25.0 MEQ/L (21.0-32.0) Anion Gap 11 MEQ/L (5-15) Blood Urea Nitrogen 32 MG/DL (7-18) Creatinine 1.32 MG/DL (0.60-1.30) Estimat Glomerular Filtration 52 ML/MIN (>89) Rate Random Glucose 124 MG/DL (74-106) Calcium Level 9.0 MG/DL (8.5-10.1) Phosphorus Level 3.3 MG/DL (2.5-4.9) Magnesium Level 2.1 MG/DL (1.5-2.5) Lipase 215 U/L (73-393) Lactic Acid Level 1.2 mmol/L (0.4-2.0) Result Diagram: 01/30/17 0937 01/30/17 0937 Microbiology Microbiology Date/Time Procedure Status Source Growth 01/30/17 11:35 Aerobic Blood Culture Received Blood Peripheral Pending 01/30/17 11:35 Anaerobic Blood Culture Received Blood Peripheral Pending 01/30/17 11:40 Aerobic Blood Culture Received Blood Peripheral Pending 01/30/17 11:40 Anaerobic Blood Culture Received Blood Peripheral Pending Imaging Last 72 hours Impressions Chest X-Ray 01/30/17 0000 Signed Impressions: Service Date/Time: Monday, January 30, 2017 15:11 - CONCLUSION: Interstitial prominence and scattered airspace disease bilaterally similar to January 28. John Heart MD Abdomen/Pelvis CT 01/30/17 0000 Signed Impressions: Service Date/Time: Monday, January 30, 2017 17:58 - CONCLUSION: 1. Small bowel dilatation to about 4.5 cm with air-fluid levels and distal decompression characteristic of an early or partial small bowel obstruction. 2. Improvement in lower mediastinal and retroperitoneal adenopathy compared with January 08. 3. Distention of stomach with large air fluid level. Previous cholecystectomy. 4. Severe coronary artery calcifications. Stable pulmonary fibrotic changes. Colonic diverticulosis. John Heart MD Abdomen X-Ray 01/29/17 0000 Signed Impressions: Service Date/Time: Tuesday, January 29, 2017 17:18 - CONCLUSION: Increasing distention of loops of small bowel predominantly in the left hypogastric region. Kana Wilson MD Assessment and Plan Disease Oriented Problem List: (1) Small bowel obstruction Comment: Identified on 01/29/2017 with concomitant nausea, abdominal tympany (2) COPD (chronic obstructive pulmonary disease) Comment: Increasing O2 demands now on 5 L. (3) CAD (coronary artery disease) (4) Sepsis Comment: Has been followed by ID. Noted elevation in white blood cells and neutrophils in the last 24 hours (5) Respiratory failure Comment: New concerns for aspiration secondary to recent nausea (6) Encephalopathy Comment: Confused again today. Symptom Scale: (1) Dyspnea 0-10 Scale: Unable to quantify Comment: O2 via nasal cannula. 5 L. noticeable mild dyspnea at rest (2) Pain 0-10 Scale: 0 (frequently shifts positions ) Comment: History of pain. Denies pain at this time. 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 Jose his son is HCP - 2 remaining children have not been found thru [employer] report . Important Contacts Jose " Leeroy" Rick, Son [phone] office [phone] cell - works for [employer] in [place] Vivien Quach - Sig Vkt[employer] - 2:18p Spoke w son Jose via phone who lives in [place] who is unable to be present that he permits Vivien, the patients SO, to sign forms for hospice admission. The nature of his work makes it difficult to reach him most of the time. Prognosis Prognosis is guarded in light of advanced age, following multisystem organ failure post septic shock with COPD and now w O2 dependency. New onset of small bowel obstruction with recent aspiration Code Status: No Code Plan * CODE STATUS: No code. DNR/DNI. * MEDICAL DECISION-MAKER: Patient incapacitated for medical decision-making secondary to clinical condition, intermittent confusion. As per [place] law, patient's children would be designated healthcare proxy. Patient has 3 children , medical decision making falls to patient's son Jose Cabrera -there are 2 other children who have not been identified thru [employer] Report. Jose does not have their contact information. * GOALS OF CARE: In light of recent clinical changes, patient's significant other has agreed to hospice care. Call made to his son who is legal decision maker. * HOSPICE: Agrees to hospice at this time placement in [facility]. UPDATE: 2: 18p Spoke w son Jose via phone who lives in [place] who is unable to be present that he permits Vivien, the patients SO, to sign forms for hospice admission. The nature of his work makes it difficult to reach him most of the time. * SYMPTOMS: * == Shortness of breath, history of COPD, Intubated and extubated. Appears worsening, now on 5L NC. CPAP as needed. Pulmonology following.; * == Nausea, vomiting, abdominal discomfort secondary to SBO. GI following * == Debility, multifactorial secondary to acute events, hospitalization, progressive decline. * == Pain, history of chronic pain. * Palliative care contact information has been provided to patient's son and significant other. * Palliative care will continue to follow-up during this hospitalization as the clinical course evolves. . . Attestation To help prompt me to consider important information that might be impacting today's encounter and assessment, information from prior notes written by myself or my colleagues may have been "brought forward" into today's note. My signature on this note, however, is an attestation that I personally performed the exam, history, and/or decision-making noted today, and, unless otherwise indicated, the interactions with patient, family, and staff as well as the review of records all occurred today. I also attest that the listed assessment and stated plan reflect my best clinical judgment today based on the combination of historical information, prior notes, and today's exam/ interactions. When time spent is documented, it refers only to time spent today by the signer, or if indicated, combined time spent today by collaborating physician/nurse practitioner. Aretha Reynolds Jan 31, 2017 11:16
[2017-01-31 11:20] LABS: AUTOMATED NEUTROPHIL # 18.2 TH/MM3 (1.8-7.7); BASOPHIL # 0.1 TH/MM3 (0-0.2); BASOPHIL % 0.4 % (0.0-2.0); EOSINOPHIL # 0.1 TH/MM3 (0-0.4); EOSINOPHIL % 0.5 % (0.0-4.0); HEMATOCRIT 36.8 % (39.0-51.0); LYMPH % 31.3 % (9.0-44.0); LYMPHOCYTE # 8.8 TH/MM3 (1.0-4.8); MEAN CELL VOLUME 89.1 FL (80.0-100.0); MEAN CORPUSCULAR HEMOGLOBIN 29.4 PG (27.0-34.0); MONO % 2.7 % (0.0-8.0); NEUT % 65.1 % (16.0-70.0); PLATELET COUNT 305 TH/MM3 (150-450); RED BLOOD COUNT 4.13 MIL/MM3 (4.50-5.90); RED CELL DISTRIBUTION WIDTH 16.4 % (11.6-17.2)
[2017-01-31 11:23] LABS: HEMO FLAGS AUTO DIFF
[2017-01-31 11:45] LABS: BICARBONATE 24.3 MEQ/L (21.0-32.0); POTASSIUM 3.8 MEQ/L (3.5-5.1)
[2017-01-31 12:28] LABS: BANDS 2 % (0-6); NEUTROPHIL # MANUAL DIFF 18.8 TH/MM3 (1.8-7.7); POLYS (SEG NEUTROPHILS) 65 % (16-70); WBC DIFF SAMPLE 100
[2017-01-31 12:30] LABS: PLATELET ESTIMATE SMEAR NORMAL (NORMAL); PLATELET MORPHOLOGY NORMAL (NORMAL); SCAN/DIFF FINAL DIFF MANUAL
--- NOTE | 2017-01-31 13:00 | RADRPT ---
EXAM DATE/TIME: 01/31/2017 12:17 [facility] COMPARISON: CT ABDOMEN & PELVIS W/O CONTRAST, January 30, 2017, 17:58. CHEST SINGLE AP, January 30, 2017, 15:11. INDICATIONS : Respiratory disease. MEDICAL HISTORY : Myocardial infarction. Chronic obstructive pulmonary disease. Cardiovascular disease. SURGICAL HISTORY : Appendectomy. Cholecystectomy. Colon resection. ENCOUNTER: Subsequent ACUITY: 3 weeks PAIN SCORE: Non-responsive. LOCATION: Bilateral chest FINDINGS: There is patchy reticulonodular infiltrate present most notably in the right midlung. No significant effusion. Cardiomediastinal contours are satisfactory. CONCLUSION: Patchy bilateral infiltrate, slightly worse than on previous Bar Gibson MD on January 31, 2017 at 12:55 Board Certified Radiologist. This report was verified electronically.
--- NOTE | 2017-01-31 15:23 | HHI.DS ---
Discharge Summary Admission Date Jan 08, 2017 at 10:28 Discharge Date: Jan 31, 2017 Admitting Diagnosis pneumonia/sepsis (1) Sepsis ICD Code: A41.9 Diagnosis: Principal (2) Pneumonia ICD Code: J18.9 Diagnosis: Principal (3) COPD (chronic obstructive pulmonary disease) ICD Code: J44.9 Diagnosis: Principal (4) Respiratory failure ICD Code: J96.90 Diagnosis: Principal (5) Encephalopathy ICD Code: G93.40 Diagnosis: Principal (6) Small bowel obstruction ICD Code: K56.69 Diagnosis: Principal Procedures Endotracheal intubation and Extubation. Brief History - From Admission This is a 81-year-old male with a history of COPD, CVA, coronary artery disease status post stent in 2008, PE in 2015 status post Coumadin therapy, obstructive sleep apnea on C Pap, hyperlipidemia, hypertension and GERD. He returns to the emergency department because of dizziness. He was seen in the [place] emergency department yesterday because of dizziness, weakness, nausea and vomiting which started 3 days ago and was diagnosed with gastroenteritis underwent CT of the abdomen pelvis with contrast and sent home. He also reports of intermittent fever, chills, nonproductive cough and dyspnea on exertion. He also has lower back pain. He also noted that his urine has been concentrated. In the emergency department, Chest x-ray shows pneumonia, lactic acid was 6.1 and received 2 L IV fluid bolus, IV Zithromax and Zosyn. Repeat lactic acid is 6.2. He only put out 150 ml urine. Case discussed with ER staff and critical care medicine CBC/BMP: 01/31/17 1108 01/31/17 1108 Significant Findings Laboratory Tests Test 01/30/17 01/31/17 09:37 11:08 White Blood Count 24.1 TH/MM3 28.0 TH/MM3 (4.0-11.0) (4.0-11.0) Red Blood Count 4.25 MIL/MM3 4.13 MIL/MM3 (4.50-5.90) (4.50-5.90) Hemoglobin 12.1 GM/DL 12.2 GM/DL (13.0-17.0) (13.0-17.0) Hematocrit 38.2 % 36.8 % (39.0-51.0) (39.0-51.0) Mean Corpuscular Hemoglobin 31.6 % Concent (32.0-36.0) Neutrophils # (Auto) 16.2 TH/MM3 18.2 TH/MM3 (1.8-7.7) (1.8-7.7) Lymphocytes # (Auto) 7.0 TH/MM3 8.8 TH/MM3 (1.0-4.8) (1.0-4.8) Neutrophils # (Manual) 16.6 TH/MM3 18.8 TH/MM3 (1.8-7.7) (1.8-7.7) Potassium Level 3.4 MEQ/L (3.5-5.1) Chloride Level 109 MEQ/L 108 MEQ/L (98-107) (98-107) Blood Urea Nitrogen 32 MG/DL (7-18) 42 MG/DL (7-18) Creatinine 1.32 MG/DL 1.63 MG/DL (0.60-1.30) (0.60-1.30) Estimat Glomerular Filtration 52 ML/MIN (>89) 41 ML/MIN (>89) Rate Random Glucose 124 MG/DL 130 MG/DL (74-106) (74-106) Imaging Last Impressions Chest X-Ray 01/31/17 0000 Signed Impressions: Service Date/Time: Tuesday, January 31, 2017 12:17 - CONCLUSION: Patchy bilateral infiltrate, slightly worse than on previous Bar Gibson MD Abdomen/Pelvis CT 01/30/17 0000 Signed Impressions: Service Date/Time: Monday, January 30, 2017 17:58 - CONCLUSION: 1. Small bowel dilatation to about 4.5 cm with air-fluid levels and distal decompression characteristic of an early or partial small bowel obstruction. 2. Improvement in lower mediastinal and retroperitoneal adenopathy compared with January 08. 3. Distention of stomach with large air fluid level. Previous cholecystectomy. 4. Severe coronary artery calcifications. Stable pulmonary fibrotic changes. Colonic diverticulosis. John Heart MD Abdomen X-Ray 01/29/17 0000 Signed Impressions: Service Date/Time: Sunday, January 29, 2017 17:18 - CONCLUSION: Increasing distention of loops of small bowel predominantly in the left hypogastric region. Kana Wilson MD Skull X-Ray 01/14/17 0000 Signed Impressions: Service Date/Time: Saturday, January 14, 2017 11:20 - CONCLUSION: No MRI incompatible foreign body is identified. Bar Arias MD Brain MRI 01/14/17 0000 Signed Impressions: Service Date/Time: Saturday, January 14, 2017 15:40 - CONCLUSION: No acute abnormality is seen. Bar Arias MD Chest CT 01/12/17 0000 Signed Impressions: Service Date/Time: Thursday, January 12, 2017 16:58 - CONCLUSION: 1. Extensive consolidation throughout much of the right lung likely representing processes such as inflammatory change and pneumonia. 2. Extensive adenopathy is seen throughout the mediastinum. This is nonspecific. It could be reactive or neoplastic. If it is neoplastic, lymphoma should be considered. Axillary adenopathy is not seen. Bar Arias MD Renal Ultrasound 01/10/17 0000 Signed Impressions: Service Date/Time: Tuesday, January 10, 2017 10:49 - CONCLUSION: 1. Kidneys appear normal. 2. Impression on the bladder floor from the prostate. There is a bladder diverticulum and possible bladder stone present. Bar Arias MD PE at Discharge GENERAL:Moderate Distress SKIN: Warm and dry. HEAD: Normocephalic. EYES: No scleral icterus. No injection or drainage. NECK: Supple, trachea midline. No JVD or lymphadenopathy. CARDIOVASCULAR: Regular rate and rhythm without murmurs, gallops, or rubs. RESPIRATORY: Decreased breath sounds bilateral, bilateral inspiratory crackles. GASTROINTESTINAL: Abdomen soft, non-tender, nondistended. MUSCULOSKELETAL: No cyanosis, or edema. NEUROLOGY: Alert and confused. Hospital Course senior accounting specialist Notes 81yM with h/o COPD and prior PE who presented yesterday with history of nausea/ vomiting and was worked up including negative CT abd/pelvis with IV contrast. He returned this morning due to dizziness. At that time he had a lactate of 6, wbc 20k, and cxr demonstrating RUL pneumonia. he was given zosyn and 4L IVF. Repeat lactate demonstrated persistent lactic acidosis of 6. Also, after 6 hours, his uop was < 200cc. A Woodward catheter was inserted. his Cr was also elevated at 1.9. At this point, he became acutely hypoxemic and agitated. I was called and immediately went down to evaluate the patient. When I walked in , he was agitated and pulling off his NRB mask. He did not have a reliable spo2 monitor waveform and an abg was drawn with a po2 of 50. Decision was made to pursue emergent intubation (see separate procedure note for details). After intubation, the patient became hypotensive requiring vasopressor therapy and additional fluid boluses were given. Due to his impending cardiovascular collapse, a STAT echo was ordered which demonstrated hyperdynamic biventricular function, moderate pulmonary hypertension, and very collapsable IVC. He was given an additional 2L IVF and 2 amps bicarbonate for pH 7.11 on repeat abg with severe metabolic acidosis with BE -12. He was started on norepinephrine and vasopressin. He was transported to the medical ICU in critical condition. 01/09: Lactate is clearing, but slowly. CVP improved overnight. uop marginal, but slightly improved from yesterday. hypoxia slightly better as well, although persists on 100% fio2. wbc up to 44k today. 01/10: CVP rising yesterday, persistently oligoanuric. vasopressors persist, but at slightly lower dose. high fio2 requirements. wbc downtrending. 01/11: oxygenation severely worsened overnight. now on peep 15, fio2 100%, spo2 85%. vasopressors weaned off. cvp kuldip throughout the night to 23 this AM. CXR with evidence of significant pulmonary edema and intravascular volume overload. despite this, UOP minimal overnight and remains in oliguric renal failure. 01/12: Remains intubated sedated. Chest x-ray from yesterday prominent bilateral infiltrates right more than left with mediastinal prominence. CT chest ordered for today. Urine output 10 L in 24 hours on Lasix infusion 20 mg pr hour. Slight worsening of creatinine to 2.15. Weight is still up by 9 KG. WBC count essentially stable 01/14: Afebrile. Not really responsive this a.m. so MRI brain/EEG pending. Currently on CPAP trial. Lasix infusion will be discontinued. Positive BM. Tolerating tube feeds 01/15: Resting comfortably in bed. Currently on CPAP trials. Very poor duration. Currently 50% FiO2. X-ray stable. Tolerating tube feeds. Positive bowel movement. Agitated once sedation removed. 01/16: Tmax 100. Currently on CPAP trials while on propofol drip. FiO2 45%. X -ray remained stable. Tolerating tube feeds. Positive BMs yesterday. 01/17 Patient is sedated with Diprivan, Fentanyl and intubated. Afebrile. Had bigeminy/PVC overnight given Lidocaine 100mg IV x1. 01/18 Patient is sedated with Diprivan and intubated. T:101.6 last night. 01/19 Patient remains intubated tolerated CPAP for several hrs yesterday. Tmax 100.2. Currently off sedation and on CPAP 10/5 with 45% FIO2. Does not follow commands. Repeat EEG yesterday showed high frequency artifact. 01/20 No acute events overnight. Off sedation. Patient is more awake this morning and able to track. Afebrile. On CPAP with PS: 10, PEEP:5 and FIO2 45% 01/21 Patient s/p extubation yesterday. Awake follows commands. Afebrile. 01/22 No acute events overnight. Afebrile. Hospitalist Notes: 01/25 Patient seen in his bedroom in Intensive Care unit and discussed with nurse Miss Troncoso, he is not feeling well states, he feels weak and has generalized discomfort recommended by automotive glass specialist to wean Oxygen, PT evaluation, bronchodilator, Mucolytic, incentive spirometry. follow laboratory for tomorrow and Heparin for DVT prophylaxis 01/26 Patient seen in the room in the presence of nurse Miss Crane appreciated, stable alert and oriented in place and person, will continue working with physical therapy, was transferred to the Medical floor yesterday afternoon, no Nausea, vomit or diarrhea. afebrile, automotive glass specialist, ID specialist following, unattended ground sensor specialist following, continue Zosyn IV, Oxygen Support to keep O sat >92%, DNR status. 01/27 Seen in his bedroom discussed with nurse Miss Peter and with his 01/28 Stable, alert and oriented, today he is been taken off antibiotics as per ID specialist and cleared to go to Rehab, will follow with Doctor Bar Shelley for discharge by automotive glass specialist. 01/29 No new issues, alert and oriented, I talked with automotive glass specialist doctor Bar Cadena he states the patient can be discharge from his standpoint discussed with nurse and Seat Joiner for possible discharge for tomorrow. started the patient on Augmentin by mouth for seven days and agree to discharge the patient. today uncontrolled hypertension adjusted Beta Blockers and following. Restraints removed to be able to discharge tomorrow if he improves his vomiting. 01/30 Seen in his bedroom, continue with nausea and vomit, not feeling well, he tells me he is tired, discussed with Mrs. Vivien Quach she takes decisions for him she does not want him to suffer, asked for Hospice care, then in the afternoon the patient turn lucid and speaking in complete sentences, no confusion, Improving general management, asked me to continue management, asked for GI specialist consult .CT abdomen and pelvis, his electrolytes reviewed and replaced his Potassium continue IV fluids, half normal saline, his WBC count increased again, discontinued Augmentin and started on Zosyn. Lactic Acid 1.2. 01/31 Seen in his bedroom continue vomiting and aspirating, he is been discussed with denial resolution specialist, GI specialist doctor John, with nurse Miss Dykes and then Linda, placed calls to Mrs. Vivien Quach and his son Mr. Jose Cabrera but no answer, clinical operations specialist had communication with patient's Relatives they wanted to get the patient to Hospice now and was performed. Assessment and Plan 1. Acute Agitated Delirium Improved, patient on chronic Xanax use. avoid sedatives, Neurology specialist following. MRI brain with no acute findings, EEG monitoring, Encephalopathy with no epileptiform activity. 2. Peripheral neuropathy by history 3. VDRF Improved. Acute Hypoxic respiratory failure/Pulmonary edema/Severe Pulmonary Hypertension, automotive glass specialist following Oxygen to keep O Sat >92%, Bronchodilator, Mucolytic, incentive spirometry. Steroids. EF 60-65%. 4. Multilobar Pneumococcal Pneumonia Discontinued Zosyn and okay from ID specialist for discharge and no further Antibiotics. asked for New CXR no changes but not yet read by informatics specialist, Discontinued Augmentin and re started on Zosyn. blood cultures asked. 5. COPD Exacerbation improved, continue Bronchodilator, Mucolytic and incentive spirometry. Discussed with automotive glass specialist doctor Bar ontiverosay to discharge to Rehab from his standpoint. started he patient on Augmentin by mouth for seven days. but the patient is vomiting and started on Zosyn. 6. Septic Shock resolved 01/08 blood cultures strep Pneumonia on Zosyn and Vancomycin discontinued and PCN G started by Doctor Robledo 01/11/17 continue Zosyn and Diflucan ID following Urine Culture Pseudomonas, C Glabrata, Sputum Pseudomonas Blood culture Strep Pneumonia,Because he was improving was taken off antibiotics, by ID specialist, started on Augmentin by automotive glass specialist and then started vomiting his WBC again increased to 24.1 removed Augmentin and started on Zosyn, Lactic Acid 1.2 7. RIZWAN Creatinine 1. 32 continue IV fluids. 8. Acute protein Calorie Malnutrition Mild 9. Normocytic Anemia 10. UTI admitted to the Hospital on 01/08/17 with Pneumonia and UTI secondary to Pneumococcus/Pneumococcal antigen positive in Urine, Woodward cath placed and got UTI secondary to Pseudomonas Aeruginosa, may be associated to Woodward cath treated 11. Hypertension adjusted Beta Aden Metoprolol 25 mg BID and Clonidine as needed for systolic blood pressure 160 mm Hg or over. 12. Acute bowel obstruction, GI specialist following doctor John wanted the patient to be transferred to ICU and Endotracheal intubation to protect airway, he already aspirated and has fever, not improving, actual condition and refusing NG tube at slow suction, his family decided to go to Hospice today. as per ID okay to discharge to Inpatient Hospice. Discussed with denial resolution specialist, with nurses and GI specialist doctor John appreciated. GI Prophylaxis Protonix 40 mg IV every 24 hours DVT Prophylaxis -- SCDs Subcutaneous heparin twice a day PT/OT eval and treat Palliative care is following Code status DNR sent to Inpatient Hospice. Discharge Planning Discharge to Inpatient Hospice Pt Condition on Discharge: Guarded Discharge Disposition: Hospice/Med Facility Discharge Time: > 30 minutes Discharge Instructions DIET: Follow Instructions for: Nothing By Mouth Speech Therapy-Diet Recommends: Honey Thickened Liquids, Other Activities you can perform: Continue Bedrest Froy Steward MD Jan 31, 2017 15:23
--- NOTE | 2017-01-31 19:48 | HHI.PR ---
Subjective Remarks Awake and seems more confused.On a N/C 4 L. Taking some diet . Objective Vital Signs Date Time Temp Pulse Resp B/P Pulse Ox O2 Delivery O2 Flow Rate FiO2 01/31/17 16:00 98.3 65 20 140/77 92 01/31/17 09:05 Nasal Cannula 5.00 01/31/17 08:20 93 Nasal Cannula 5.00 01/31/17 08:00 97.5 125 22 137/74 92 01/31/17 04:00 97.6 110 18 152/87 92 01/31/17 00:00 97.4 108 18 147/82 92 01/30/17 20:00 Nasal Cannula 4.00 01/30/17 20:00 97.8 112 20 149/85 92 I/O 01/30/17 01/30/17 01/30/17 01/31/17 01/31/17 01/31/17 07:00 15:00 23:00 07:00 15:00 23:00 Intake Total 60 ml 240 ml 240 ml 120 ml 965 ml Output Total 350 ml 1550 ml Balance -290 ml 240 ml 240 ml 120 ml -585 ml Intake Oral 60 ml 240 ml 240 ml 120 ml 0 ml IV Total 965 ml Output Urine Total 1550 ml Emesis 350 ml # Voids 3 3 2 2 # Bowel Movements 0 0 0 0 Result Diagram: 01/31/17 1108 01/31/17 1108 Procedures Endotracheal intubation and Extubation. Objective Remarks This moderately overweight elderly white male is alert. HEENT: Head normocephalic. Pupils reactive. Sclerae are clear. Throat clear. Neck: Supple. No bruits. No venous distension. Trachea midline. Chest: Equal movements with increased AP diameter with with wheeze and Occ basal crackles. Heart: The heart sounds are irregular, S1-S2. No murmur. No S3. Abdomen: The abdomen is protuberant, soft, without masses, organomegaly or tenderness. Bowel sounds active. Extremities: decreased pulses. min edema. Neurologic: Awake and with 1 + reflexes. Rectal: Exam is deferred. Assessment and Plan Assessment and Plan IMPRESSION 1. Septic shock.Resolved 2. Extensive right lung pneumonia and hypoxemia. 3. Acute hypoxemic, hypercapnic respiratory failure. 4. COPD with emphysema 5. History of pulmonary embolism. 6. History of hypertension. 7. RIZWAN. Plan : 1. Cont O2 4 L 2. IS at bedside q2h. 3. CPAP at HS daily. 4. PT evaluation 5. Nebs q6h , Duoneb. 6. Cont Heparin 5000 U S/Q bid. 7. Cont Symbicort 160/4.5 mcg , 2 puffs bid 8. PO diet as tolerated 10. Prednisone 10 mg daily. 11.Augmentin 500 mg tid X 7 days 12. Chest X ray Cheri Cadena MD Jan 31, 2017 19:48
== END 2017-01-31 20:48 | disposition hospice, inpatient (51) | DRG 870 ==
LOC: NEPC 08:11 → NEDA 10:28 → HIMW 18:50 → N04B 01-25 23:20
PROVIDERS: ADMIT Internal Medicine; ATTEND Internal Medicine
PROC: 5A1955Z Respiratory Ventilation, Greater than 96 Consecutive Hours (ICD-10-PCS; principal; 2017-01-08)
PROC: 03HY32Z Insertion of Monitoring Device into Upper Artery, Percutaneous Approach (ICD-10-PCS; 2017-01-08)
PROC: 0BH17EZ Insertion of Endotracheal Airway into Trachea, Via Natural or Artificial Opening (ICD-10-PCS; 2017-01-08)
PROC: 02HV33Z Insertion of Infusion Device into Superior Vena Cava, Percutaneous Approach (ICD-10-PCS; 2017-01-08)
DX: A40.3 Sepsis due to Streptococcus pneumoniae (principal); R65.21 Severe sepsis with septic shock; J96.01 Acute respiratory failure with hypoxia; Z51.5 Encounter for palliative care; J96.02 Acute respiratory failure with hypercapnia; J15.1 Pneumonia due to Pseudomonas; J81.0 Acute pulmonary edema; J13 Pneumonia due to Streptococcus pneumoniae; J44.0 Chronic obstructive pulmonary disease with (acute) lower respiratory infection; G93.40 Encephalopathy, unspecified; N17.9 Acute kidney failure, unspecified; J81.1 Chronic pulmonary edema; E87.0 Hyperosmolality and hypernatremia; E87.2 Acidosis; E44.1 Mild protein-calorie malnutrition; J44.1 Chronic obstructive pulmonary disease with (acute) exacerbation; K56.60 Unspecified intestinal obstruction; N39.0 Urinary tract infection, site not specified; T83.518A Infection and inflammatory reaction due to other urinary catheter, initial encounter; I27.2 Other secondary pulmonary hypertension; E87.70 Fluid overload, unspecified; E86.0 Dehydration; I25.10 Atherosclerotic heart disease of native coronary artery without angina pectoris; I10 Essential (primary) hypertension; G47.33 Obstructive sleep apnea (adult) (pediatric); E86.1 Hypovolemia; R73.9 Hyperglycemia, unspecified; D64.9 Anemia, unspecified; R45.1 Restlessness and agitation; K21.9 Gastro-esophageal reflux disease without esophagitis; A49.8 Other bacterial infections of unspecified site; I25.2 Old myocardial infarction; J45.909 Unspecified asthma, uncomplicated; E78.5 Hyperlipidemia, unspecified; I44.7 Left bundle-branch block, unspecified; R59.1 Generalized enlarged lymph nodes; K52.9 Noninfective gastroenteritis and colitis, unspecified; K57.30 Diverticulosis of large intestine without perforation or abscess without bleeding; G62.9 Polyneuropathy, unspecified; F41.9 Anxiety disorder, unspecified; E87.6 Hypokalemia; Z66 Do not resuscitate; Z78.1 Physical restraint status; Z79.01 Long term (current) use of anticoagulants; Z82.49 Family history of ischemic heart disease and other diseases of the circulatory system; Z86.711 Personal history of pulmonary embolism; Z86.73 Personal history of transient ischemic attack (TIA), and cerebral infarction without residual deficits; Z87.891 Personal history of nicotine dependence; Z95.5 Presence of coronary angioplasty implant and graft
CPT/HCPCS: 31500; 36600; 36620; 70551; 71010; 71250; 74000; 74176; 74177; 76775; 76937; 80048; 80053; 80202; 81001; 82550; 82552; 82570; 82805; 82948; 83605; 83690; 83735; 84100; 84300; 84484; 84540; 85007; 85025; 85027; 85610; 85730; 87040; 87070; 87077; 87086; 87106; 87186; 87205; 87449; 87641; 87804; 93005; 93306; 94002; 94003; 94150; 94640; 94664; 95819; 96361; 96365; 96368; 96374; C9113; J0330; J0360; J0456; J1120; J1205; J1644; J1940; J2060; J2250; J2405; J2540; J2543; J2920; J2997; J3010; J3370; J3475; J3480; J7030; J7040; J7050; J7060; J7070; J7120; J7512; J7613; J7626; Q9967